=== PATIENT | male | born 1940 | race Caucasian/White ===

== ENCOUNTER 2017-04-19 21:17 | Inpatient (IN) | payer MEDICARE, BC ==
[~2017-04-19] VITALS: Ht 170.2 cm; Wt 62.1 kg
[2017-04-19] MEDS ORDERED: IOHEXOL 350 MG/ML 10 ML VIAL (for RAD DIAG) IVCONTRAST ONE (21:18)
[2017-04-19 21:19] VITALS: BP 123/84; PULSE 121; RESP 18; TEMP 98.2; O2SAT 97
[2017-04-19] MEDS ORDERED: PRED2.5T PO (21:29)
[2017-04-19] MEDS ORDERED: DOXY1CAP74 PO (21:29)
[2017-04-19] MEDS ORDERED: ROSU1TAB8 PO (21:29)
[2017-04-19] MEDS ORDERED: IPRA0.06 (21:29)
[2017-04-19] MEDS ORDERED: METF500T PO (21:29)
[2017-04-19] MEDS ORDERED: LIDO1CRE18 (21:29)
[2017-04-19] MEDS ORDERED: REFRDRO EACH EYE (21:29)
[2017-04-19] MEDS ORDERED: REST0.05 EACH EYE (21:29)
[2017-04-19] MEDS ORDERED: CLOP75TA PO (21:29)
[2017-04-19] MEDS ORDERED: LYRI100C PO (21:29)
[2017-04-19] MEDS ORDERED: AZAT50 PO (21:29)
[2017-04-19] MEDS ORDERED: SODIUM CHLORID 0.9% 500 ML INJ 500 ML IV ONE (21:30)
[2017-04-19] MEDS ORDERED: SODIUM CHLORIDE 0.9% FLUSH 10 ML FLUSH IVF PRN (21:30)
[2017-04-19] MEDS ORDERED: VITA250C3 CHEW (21:31)
[2017-04-19] MEDS ORDERED: FLINT2 CHEW (21:31)
[2017-04-19] MEDS ORDERED: VITA1000 PO (21:31)
[2017-04-19] MEDS ORDERED: ASPI-516 CHEW (21:31)
[2017-04-19] MEDS ORDERED: PYRI50CA (21:31)
[2017-04-19] MEDS ORDERED: FIBE625T10 PO (21:31)
[2017-04-19] MEDS ORDERED: MULTTAB67 PO (21:31)
[2017-04-19] MEDS ORDERED: VITA10002 PO (21:31)
[2017-04-19 21:32] VITALS: O2SAT 94
[2017-04-19 21:47] LABS: AUTOMATED NEUTROPHIL # 4.1 TH/MM3 (1.8-7.7); BASOPHIL % 0.3 % (0.0-2.0); EOSINOPHIL # 0.1 TH/MM3 (0-0.4); EOSINOPHIL % 1.1 % (0.0-4.0); HEMOGLOBIN 12.5 GM/DL (13.0-17.0); LYMPH % 23.7 % (9.0-44.0); LYMPHOCYTE # 1.5 TH/MM3 (1.0-4.8); MEAN CELL VOLUME 101.9 FL (80.0-100.0); MEAN CORPUSCULAR HEMOGLOBIN 33.4 PG (27.0-34.0); MEAN CORPUSCULAR HGB CONC 32.8 % (32.0-36.0); MEAN PLATELET VOLUME 8.6 FL (7.0-11.0); MONO % 10.6 % (0.0-8.0); MONOCYTE # 0.7 TH/MM3 (0-0.9); NEUT % 64.3 % (16.0-70.0); PLATELET COUNT 171 TH/MM3 (150-450); RED BLOOD COUNT 3.73 MIL/MM3 (4.50-5.90); WHITE BLOOD COUNT 6.3 TH/MM3 (4.0-11.0)
--- NOTE | 2017-04-19 22:04 | RADRPT ---
EXAM DATE/TIME: 04/19/2017 21:49 [facility] COMPARISON: No previous studies available for comparison. INDICATIONS : Dizziness. MEDICAL HISTORY : Hypertension. Myocardial infarction. Carcinoma, prostatic. Athritis. Diabetes. SURGICAL HISTORY : Cardiac catherization. ENCOUNTER: Initial ACUITY: 2 weeks PAIN SCORE: 0/10 LOCATION: Bilateral chest FINDINGS: The mild bibasilar airspace disease and likely trace bilateral pleural effusions. Cardiomediastinal c ontours are within normal limits. There is an intramedullary sclerotic lesion in the right humeral ne ck with ill-defined transition zone and potential medial cortical involvement. No significant periost eal reaction. CONCLUSION: 1. Mild bibasilar airspace disease with trace bilateral pleural effusions. 2. Intramedullary sclerotic lesion in the right humeral neck with potentially aggressive features. Co mparison with prior examinations would be beneficial in further evaluation. Alternatively, dedicated radiographs of the right humerus may be obtained for further evaluation on an outpatient basis. Bradford Quach MD on April 19, 2017 at 21:59 Board Certified Radiologist. This report was verified electronically.
[2017-04-19 22:06] LABS: INTERNATIONAL NORMALIZED RATIO 1.1 RATIO; PROTHROMBIN TIME - PATIENT 10.9 SEC (9.8-11.6)
[2017-04-19 22:08] LABS: ALT (GPT) 18 U/L (12-78)
[2017-04-19 22:12] LABS: ALKALINE PHOSPHATASE 107 U/L (45-117); TOTAL BILIRUBIN ADULT 0.5 MG/DL (0.2-1.0); TOTAL PROTEIN 6.6 GM/DL (6.4-8.2); TROPONIN I LESS THAN 0.02 NG/ML (0.02-0.05)
[2017-04-19 22:13] LABS: ALBUMIN 2.8 GM/DL (3.4-5.0); AST (GOT) 28 U/L (15-37); BICARBONATE 26.4 MEQ/L (21.0-32.0); BLOOD UREA NITROGEN 20 MG/DL (7-18); CALCIUM 9.1 MG/DL (8.5-10.1); CHLORIDE 105 MEQ/L (98-107); CREATININE 0.97 MG/DL (0.60-1.30); GLOMERULAR FILTRATION RATE 75 ML/MIN (>89); GLUCOSE,RANDOM 106 MG/DL (74-106); LIPASE 466 U/L (73-393); MAGNESIUM 1.6 MG/DL (1.5-2.5); SODIUM (NA) 140 MEQ/L (136-145)
[2017-04-19 22:21] LABS: D-DIMER 4.59 MG/L FEU (0.00-0.50)
[2017-04-19 22:30] VITALS: BP 136/82; PULSE 94; RESP 18; O2SAT 95
[2017-04-19] MEDS ORDERED: METOPROLOL TARTRATE 5 MG/5 ML VIAL IV PUSH ONE (22:30)
--- NOTE | 2017-04-19 23:12 | PD ---
HPI Chief Complaint: Chest Pain Time Seen by Provider: 21:27 Travel History International Travel<30 days: No Contact w/Intl Traveler<30days: No Traveled to known affect area: No History of Present Illness HPI 77-year-old man, presents emergent department with increasing shortness of breath and dyspnea on exertion worsening over the past several weeks. Overall has been doing very poorly, losing weight, losing strength. He states his heart rates been elevated over the past week as well. He's been a little bit sick with some cough cold symptoms. 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 fib with sounds like a history of. He reports he had an echo about a month or so ago. 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 Le Social History Alcohol Use: No Tobacco Use: No Allergies-Medications (Allergen,Severity, Reaction): Coded Allergies: No Known Allergies (Verified Allergy, Severe, 04/19/17) Reported Meds & Prescriptions Reported Meds & Active Scripts Active Reported Flintstones Complete (Iron/Minerals/Multivitamins) 60 Mg Tab 65 Mg CHEW BID Multiple Vitamin 1 Tab 1 Tab PO DAILY Vitamin C (Ascorbic Acid) 250 Mg Chew 500 Mg CHEW DAILY Vitamin B-12 (Cyanocobalamin) 1,000 Mcg Tab 1,000 Mcg PO DAILY Vitamin B-6 (Pyridoxine HCl (Vitamin B6)) 50 Mg Capsule Aspirin 81 Mg Chew 81 Mg CHEW DAILY Fiber (Calcium Polycarbophil) Unknown Strength Tab Unknown Dose PO PRN Vitamin D-1000 (Cholecalciferol) 1,000 Unit Tab 2,000 Units PO DAILY Ipratropium [place] 42 Mcg (0.06 %) [place] Lidocaine Topical (Lidocaine) Unknown Strength Cream Unknown Dose Lyrica (Pregabalin) 100 Mg Cap 100 Mg PO TID Prednisone 2.5 Mg Tab 2.5 Mg PO DAILY Refresh Opth Drops (Polyvinyl Alcohol-Povidone Opth Drops) 1.4-0.6% Drops 1-2 Drop EACH EYE PRN PRN Restasis Opth (Cyclosporine Opth) 0.05% Emul 1 Drop EACH EYE BID Azathioprine 50 Mg Tab 50 Mg PO BID Hazardous agent use appropriate precautions for handling and disposal. Clopidogrel (Clopidogrel Bisulfate) 75 Mg Tab 75 Mg PO DAILY Doxycycline 40 Mg Cap 100 Mg PO BID Rosuvastatin (Rosuvastatin Calcium) 20 Mg Tab 20 Mg PO DAILY Metformin (Metformin HCl) 500 Mg Tab 500 Mg PO BIDPC Review of Systems Except as stated in HPI: all other systems reviewed are Neg Physical Exam Narrative GENERAL: 77-year-old man, mild distress, frail and cachectic appearing. SKIN: Decreased skin turgor. HEAD: Atraumatic. Normocephalic. EYES: Pupils equal and round. No scleral icterus. No injection or drainage. ENT: No nasal bleeding or discharge. Mucous membranes pink and moist. NECK: Trachea midline. No JVD. CARDIOVASCULAR: Heart rate rapid with frequent ectopy. Very active precordium with displaced PMI. Jugular venous pulse sensations are very prominent and neck as well. There is a very short systolic murmur in the left upper sternal border versus robbed. His a gallop heard in the lower precordium as well. RESPIRATORY: No accessory muscle use. Clear to auscultation. Breath sounds equal bilaterally. GASTROINTESTINAL: Abdomen soft, non-tender, nondistended. Hepatic and splenic margins not palpable. MUSCULOSKELETAL: No obvious deformities. No edema. NEUROLOGICAL: Awake and alert. No obvious cranial nerve deficits. Motor grossly within normal limits. Normal speech. PSYCHIATRIC: Appropriate mood and affect; insight and judgment normal. Data Data Last Documented VS Vital Signs Date Time Temp Pulse Resp B/P (MAP) Pulse Ox O2 Delivery O2 Flow Rate FiO2 04/20/17 00:06 97 20 123/70 (87) 95 Nasal Cannula 2.00 04/19/17 21:19 98.2 Orders Orders Electrocardiogram (04/19/17 21:27) B-Type Natriuretic Peptide (04/19/17 21:27) Complete Blood Count With Diff (04/19/17 21:27) Comprehensive Metabolic Panel (04/19/17 21:27) D-Dimer (04/19/17 21:27) Magnesium (Mg) (04/19/17 21:27) Prothrombin Time / Inr (Pt) (04/19/17 21:27) Act Partial Throm Time (Ptt) (04/19/17 21:27) Troponin I (04/19/17 21:27) Lipase (04/19/17 21:27) Chest, Single Ap (04/19/17 21:27) Ecg Monitoring (04/19/17 21:27) Iv Access Insert/Monitor (04/19/17 21:27) Oximetry (04/19/17 21:27) Oxygen Administration (04/19/17 21:27) Sodium Chloride 0.9% Flush (Ns Flush) (04/19/17 21:30) Sodium Chlorid 0.9% 500 Ml Inj (Ns 500 M (04/19/17 21:30) Ed Poc Ultrasound (04/19/17 ) Metoprolol Tartrate Inj (Lopressor Inj) (04/19/17 22:30) Ct Pulmonary Angiogram (04/19/17 ) Iohexol 350 Inj (Omnipaque 350 Inj) (04/19/17 21:18) Heparin Inj (Heparin Inj) (04/19/17 23:45) Heparin-D5w 25,000 U/250 Ml (Heparin-D5w (04/19/17 23:45) Cbc No Diff, Includes Plts (04/22/17 06:00) Act Partial Throm Time (Ptt) (04/20/17 06:43) Occult Blood (Hemoccult) Stool (04/19/17 23:43) Humerus (Min 2vws) (04/20/17 ) Consult Medical Oncology (04/20/17 ) Bedside Glucose GOLDEN.CSUGAR (04/20/17 00:54) Special Diet Instructions (04/20/17 00:54) Blood Glucose Goal (Criteria) (04/20/17 00:54) Hypoglycemia 70 Mg/Dl Or < (04/20/17 00:54) Notify Dr: Other (04/20/17 00:54) Dextrose 50% In Jon (Vial) Inj (D50w (Vi (04/20/17 01:00) Glucagon Inj (Glucagon Inj) (04/20/17 01:00) Consult Cardiology (04/20/17 ) Admit To Inpatient (04/20/17 ) Vital Signs (Adult) Q4H (04/20/17 00:56) Activity Bed Rest (04/20/17 00:56) Mechanics Supervisor / Telemetry GOLDEN.Q8H (04/20/17 00:56) Intake + Output GOLDEN.QSHIFT (04/20/17 00:56) Diet Heart Healthy (04/20/17 Breakfast) Sodium Chloride 0.9% Flush (Ns Flush) (04/20/17 01:00) Sodium Chloride 0.9% Flush (Ns Flush) (04/20/17 09:00) Resp Pulse Oximetry (04/20/17 ) Resp Oxygen Ibrahima C Titrat 1-4 L (04/20/17 ) Heparin-D5w 25,000 U/250 Ml (Heparin-D5w (04/20/17 01:00) Inpatient Certification (04/20/17 ) Aspirin Chew (Aspirin Chew) (04/20/17 09:00) Azathioprine (Imuran) (04/20/17 09:00) Pregabalin (Lyrica) (04/20/17 09:00) Artificial Tears Opth Soln (Tears Natura (04/20/17 09:00) Prednisone (Deltasone) (04/20/17 09:00) Atorvastatin (Lipitor) (04/20/17 09:00) Clopidogrel (Plavix) (04/20/17 09:00) Polyvinyl Alc-Povidone Pf Opth (Refresh (04/20/17 01:00) Admit Order (Ed Use Only) (04/20/17 ) Labs Laboratory Tests Test 04/19/17 21:33 White Blood Count 6.3 TH/MM3 Red Blood Count 3.73 MIL/MM3 Hemoglobin 12.5 GM/DL Hematocrit 38.0 % Mean Corpuscular Volume 101.9 FL Mean Corpuscular Hemoglobin 33.4 PG Mean Corpuscular Hemoglobin Concent 32.8 % Red Cell Distribution Width 16.0 % Platelet Count 171 TH/MM3 Mean Platelet Volume 8.6 FL Neutrophils (%) (Auto) 64.3 % Lymphocytes (%) (Auto) 23.7 % Monocytes (%) (Auto) 10.6 % Eosinophils (%) (Auto) 1.1 % Basophils (%) (Auto) 0.3 % Neutrophils # (Auto) 4.1 TH/MM3 Lymphocytes # (Auto) 1.5 TH/MM3 Monocytes # (Auto) 0.7 TH/MM3 Eosinophils # (Auto) 0.1 TH/MM3 Basophils # (Auto) 0.0 TH/MM3 CBC Comment DIFF FINAL Differential Comment Prothrombin Time 10.9 SEC Prothromb Time International Ratio 1.1 RATIO Activated Partial Thromboplast Time 26.4 SEC D-Dimer Quantitative (PE/DVT) 4.59 MG/L FEU Blood Urea Nitrogen 20 MG/DL Creatinine 0.97 MG/DL Random Glucose 106 MG/DL Total Protein 6.6 GM/DL Albumin 2.8 GM/DL Calcium Level 9.1 MG/DL Magnesium Level 1.6 MG/DL Alkaline Phosphatase 107 U/L Aspartate Amino Transf (AST/SGOT) 28 U/L Alanine Aminotransferase (ALT/SGPT) 18 U/L Total Bilirubin 0.5 MG/DL Sodium Level 140 MEQ/L Potassium Level 4.2 MEQ/L Chloride Level 105 MEQ/L Carbon Dioxide Level 26.4 MEQ/L Anion Gap 9 MEQ/L Estimat Glomerular Filtration Rate 75 ML/MIN Troponin I LESS THAN 0.02 NG/ML B-Type Natriuretic Peptide 257 PG/ML Lipase 466 U/L MDM Medical Decision Making Medical Screen Exam Complete: Yes Emergency Medical Condition: Yes Interpretation(s) My review of EKG: Initial EKG from 13/05/19 shows wide complex tachycardia were frequent ectopy and a right bundle branch pattern left axis deviation that could suggest a trifascicular block. Some concern for underlying ventricular arrhythmia also. Repeat EKG shows more regular wide-complex arrhythmia, still unclear rhythm. LABS: CBC remarkable for mild anemia. CMP is unremarkable. Lipase is 466 BNP is 257 Troponins negative Coags unremarkable D-dimer 4.59 Chest x-ray: Small bibasilar airspace disease with trace pleural effusions. Also right humeral lesion, possibly malignant, needs further evaluation. CT pulmonary angiogram. Positive for pulmonary embolism. Distal segmental and subsegmental level the pulmonary artery branches. No evidence of right heart strain. Small bilateral effusions. Differential Diagnosis Arrhythmia, electrolyte abnormality, heart failure, malignancy, pericardial effusion or [place] and on, [place], other Narrative Course Medical decision making This 77-year-old man who presents to the emergency department with significant dyspnea on exertion and shortness of breath, very abnormal precordial exam, abnormal EKG with likely tachycardia with aberrancy versus ventricular arrhythmia. I spoke with the on-call automobile parts assembler for Dr. Le, Dr. Oneal, recommend beta blockers over amiodarone. Attempted bedside ultrasound which was unrevealing due to technical limitations. Concern for malignancy in the shoulder. He has had weight loss and other symptoms or could suggest occult malignancy. We'll plan on admission for further evaluation. CT for pulmonary embolism also pending. FINAL: Patient positive for pulmonary embolism. Will be admitted to medicine. Started heparin. Still likely some deeper underlying explanation for the patient's symptoms. Diagnosis Primary Impression: Pulmonary embolism Conor Menezes MD Apr 19, 2017 23:12
--- NOTE | 2017-04-19 23:13 | RADRPT ---
EXAM DATE/TIME: 04/19/2017 22:38 [facility] COMPARISON: No previous studies available for comparison. INDICATIONS : Chest pain. IV CONTRAST: 75 cc Omnipaque 350 (iohexol) IV RADIATION DOSE: 7.11 CTDIvol (mGy) MEDICAL HISTORY : Cardiovascular disease. Hypertension. SURGICAL HISTORY : None. ENCOUNTER: Initial ACUITY: 1 day PAIN SCALE: 7/10 LOCATION: Bilateral chest TECHNIQUE: Volumetric scanning of the chest was performed using a pulmonary embolism protocol MIP images were re constructed. Using automated exposure control and adjustment of the mA and/or kV according to patien t size, radiation dose was kept as low as reasonably achievable to obtain optimal diagnostic quality images. DICOM format image data is available electronically for review and comparison. Follow-up recommendations for detected pulmonary nodules are based at a minimum on nodule size and pa tient risk factors according to Fleischner Society Guidelines. FINDINGS: PULMONARY ARTERIES: There are intraluminal filling defects involving the segmental and subsegmental branches of the lower lobe pulmonary arteries bilaterally. There also filling defects involving some of the upper lobe sub segmental branches. Overall, there is a small to moderate thrombus burden. LUNGS: Mild airspace consolidation at the lung bases. PLEURAE: Small bilateral pleural effusions, right greater than left. MEDIASTINUM: Heart is unremarkable without evidence for septal bowing to suggest restraint. Moderate coronary calc ifications. No significant adenopathy. MUSCULOSKELETAL: Within normal limits for patient age. MISCELLANEOUS: The visualized upper abdominal organs demonstrate no acute abnormality. CONCLUSION: 1. Abnormal examination demonstrating pulmonary artery embolism to the distal segmental and subsegmen ketan level of the pulmonary artery branches. Overall thrombus burden is small to moderate. No CT evide nce for right heart strain. 2. Small bilateral pleural effusions and airspace consolidation at the lung bases, likely compressive atelectasis and scarring. 3. Moderate coronary artery calcifications. Bradford Quach MD on April 19, 2017 at 23:05 Board Certified Radiologist. This report was verified electronically.
[2017-04-19] MEDS ORDERED: HEPARIN SODIUM - IV 10,000 UNITS/10 ML VIAL IV ONE (23:45)
[2017-04-19] MEDS ORDERED: HEPARIN-D5W 25,000 U/250 ML 250 ML IV PRN (23:45)
[2017-04-20] VITALS (12 sets, daily range): BP systolic 123–179; BP diastolic 67–79; PULSE 52–97; RESP 14–30; TEMP 97.7–98.8; O2SAT 95–100
[2017-04-20] MEDS ORDERED: GLUCAGON 1 MG/ML VIAL OTHER PRN ×2 (01:00→02:00)
[2017-04-20] MEDS ORDERED: DEXTROSE 50% IN WATER 50 ML VIAL(D50) IV PUSH PRN ×2 (01:00→02:00)
[2017-04-20] MEDS ORDERED: HEPARIN-D5W 25,000 U/250 ML 250 ML IV PRN (01:00)
[2017-04-20] MEDS ORDERED: POLYVINYL ALC-POVIDONE 1.4/0.6% PF OPTH SOLN 0.4 ML EACH EYE PRN (01:00)
[2017-04-20] MEDS ORDERED: SODIUM CHLORIDE 0.9% FLUSH 10 ML FLUSH IV FLUSH PRN (01:00)
--- NOTE | 2017-04-20 01:19 | RADRPT ---
EXAM DATE/TIME: 04/20/2017 01:00 [facility] COMPARISON: CHEST SINGLE AP, April 19, 2017, 21:49. CT PULMONARY ANGIOGRAM, April 19, 2017, 22:38. INDICATIONS : Evaluate right intramedullary lesion. No current right arm pain. MEDICAL HISTORY : Cardiovascular disease. Hypertension. SURGICAL HISTORY : None. ENCOUNTER: Initial ACUITY: 1 day PAIN SCORE: 0/10 LOCATION: Right humerus. 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 CONCLUSION: The sclerotic lesion of right proximal humerus could be a giant bone island could be further characte rized and confirmed with right humerus MRI examination with and without contrast if indicated arthur Perez MD on April 20, 2017 at 1:15 Board Certified Radiologist. This report was verified electronically.
--- NOTE | 2017-04-20 02:29 | HHI.HP ---
[facility] Cheikh Funes III, MD Admission Diagnosis PE Diagnoses: Travel History International Travel<30 Days: No Contact w/Intl Traveler <30 Da: No Traveled to Known Affected Are: No History of Present Illness 77-year-old male with a past medical history significant for CAD status post [place] in 2002, previous diagnosis of hypertension with recent discontinuation of his antihypertensives, hyperlipidemia, diabetes mellitus and history of prostate cancer presents to the emergency department for evaluation of increasing dyspnea. The patient reports he has felt sick for "a couple of years". He reports increasing fatigue and weakness and a 10 pound weight loss over the past 1.5 weeks. He has accompanying anorexia. He reports 4-5 days of increasing shortness of breath, worse with activity. Chest x-ray showed intramedullary sclerotic lesion of the right humeral neck with potentially aggressive features. CTA positive for PE without evidence of right heart strain. The patient has an extremely poor historian, directs me to his for further characterization of his past medical history. Review of Systems Denies fever or chills Denies blurry vision, otorrhea, rhinorrhea Denies sore throat and cough No chest pain, palpitations, positive shortness of breath No abdominal pain Denies constipation/diarrhea/nausea/vomiting Positive fatigue/generalized weakness No rashes Past Family Social History Past Medical History History of prostate cancer with recurrence Hypertension, patient previously taken off all antihypertensive medications Hyperlipidemia Diabetes mellitus Coronary artery disease status post [place] in 2002 with stent placement Unspecified medical condition for which patient has been taking prednisone for a year Past Surgical History Prostate cryosurgery 12 years ago for prostate cancer Reported Medications Reported Meds & Active Scripts Active Reported Flintstones Complete (Iron/Minerals/Multivitamins) 60 Mg Tab 65 Mg CHEW BID Multiple Vitamin 1 Tab 1 Tab PO DAILY Vitamin C (Ascorbic Acid) 250 Mg Chew 500 Mg CHEW DAILY Vitamin B-12 (Cyanocobalamin) 1,000 Mcg Tab 1,000 Mcg PO DAILY Vitamin B-6 (Pyridoxine HCl (Vitamin B6)) 50 Mg Capsule Aspirin 81 Mg Chew 81 Mg CHEW DAILY Fiber (Calcium Polycarbophil) Unknown Strength Tab Unknown Dose PO PRN Vitamin D-1000 (Cholecalciferol) 1,000 Unit Tab 2,000 Units PO DAILY Ipratropium [place] 42 Mcg (0.06 %) [place] Lidocaine Topical (Lidocaine) Unknown Strength Cream Unknown Dose Lyrica (Pregabalin) 100 Mg Cap 100 Mg PO TID Prednisone 2.5 Mg Tab 2.5 Mg PO DAILY Refresh Opth Drops (Polyvinyl Alcohol-Povidone Opth Drops) 1.4-0.6% Drops 1-2 Drop EACH EYE PRN PRN Restasis Opth (Cyclosporine Opth) 0.05% Emul 1 Drop EACH EYE BID Azathioprine 50 Mg Tab 50 Mg PO BID Hazardous agent use appropriate precautions for handling and disposal. Clopidogrel (Clopidogrel Bisulfate) 75 Mg Tab 75 Mg PO DAILY Doxycycline 40 Mg Cap 100 Mg PO BID Rosuvastatin (Rosuvastatin Calcium) 20 Mg Tab 20 Mg PO DAILY Metformin (Metformin HCl) 500 Mg Tab 500 Mg PO BIDPC Allergies: Coded Allergies: No Known Allergies (Verified Allergy, Severe, 04/19/17) Family History Mother with diabetes mellitus. Father with CAD Social History Ms. alcohol, tobacco and illicit drugs Physical Exam Vital Signs Vital Signs Date Time Temp Pulse Resp B/P (MAP) Pulse Ox O2 Delivery O2 Flow Rate FiO2 04/20/17 00:06 97 20 123/70 (87) 95 Nasal Cannula 2.00 04/19/17 22:30 94 18 136/82 (100) 95 Room Air 04/19/17 21:32 94 Room Air 04/19/17 21:32 94 Room Air 04/19/17 21:19 98.2 121 18 123/84 (97) 97 Physical Exam GENERAL: male lying in bed SKIN: No rashes, ecchymoses or lesions. Cool and dry. HEAD: Atraumatic. Normocephalic. No temporal or scalp tenderness. EYES: Pupils equal round and reactive. Extraocular motions intact. No scleral icterus. No injection or drainage. ENT: Nose without bleeding, purulent drainage or septal hematoma. Throat without erythema, tonsillar hypertrophy or exudate. Uvula midline. Airway patent. NECK: Trachea midline. No JVD or lymphadenopathy. Supple, nontender, no meningeal signs. CARDIOVASCULAR: Regular rate and rhythm without murmurs, gallops, or rubs. RESPIRATORY: Clear to auscultation. Breath sounds equal bilaterally. No wheezes , rales, or rhonchi. GASTROINTESTINAL: Abdomen soft, non-tender, nondistended. No hepato-splenomegaly , or palpable masses. No guarding. MUSCULOSKELETAL: Right foot and ankle edema. No calf tenderness. NEUROLOGICAL: Awake and alert. Cranial nerves II through XII intact. Motor and sensory grossly within normal limits. Normal speech. Laboratory Laboratory Tests Test 04/19/17 21:33 White Blood Count 6.3 Red Blood Count 3.73 Hemoglobin 12.5 Hematocrit 38.0 Mean Corpuscular Volume 101.9 Mean Corpuscular Hemoglobin 33.4 Mean Corpuscular Hemoglobin Concent 32.8 Red Cell Distribution Width 16.0 Platelet Count 171 Mean Platelet Volume 8.6 Neutrophils (%) (Auto) 64.3 Lymphocytes (%) (Auto) 23.7 Monocytes (%) (Auto) 10.6 Eosinophils (%) (Auto) 1.1 Basophils (%) (Auto) 0.3 Neutrophils # (Auto) 4.1 Lymphocytes # (Auto) 1.5 Monocytes # (Auto) 0.7 Eosinophils # (Auto) 0.1 Basophils # (Auto) 0.0 CBC Comment DIFF FINAL Differential Comment Prothrombin Time 10.9 Prothromb Time International Ratio 1.1 Activated Partial Thromboplast Time 26.4 D-Dimer Quantitative (PE/DVT) 4.59 Blood Urea Nitrogen 20 Creatinine 0.97 Random Glucose 106 Total Protein 6.6 Albumin 2.8 Calcium Level 9.1 Magnesium Level 1.6 Alkaline Phosphatase 107 Aspartate Amino Transf (AST/SGOT) 28 Alanine Aminotransferase (ALT/SGPT) 18 Total Bilirubin 0.5 Sodium Level 140 Potassium Level 4.2 Chloride Level 105 Carbon Dioxide Level 26.4 Anion Gap 9 Estimat Glomerular Filtration Rate 75 Troponin I LESS THAN 0.02 B-Type Natriuretic Peptide 257 Lipase 466 Result Diagram: 04/19/17213204/19/172132 Caprini VTE Risk Assessment Caprini VTE Risk Assessment: Mod/High Risk (score >= 2) Caprini Risk Assessment Model Point Value = 1 Point Value = 2 Point Value = 3 Point Value = 5 Age 41-60 Minor surgery BMI > 25 kg/m2 Swollen legs Varicose veins or History of unexplained or recurrent spontaneous Oral contraceptives or hormone replacement Sepsis (< 1 month) Serious lung disease, including pneumonia (< 1 month) Abnormal pulmonary function Acute myocardial infarction Congestive heart failure (< 1 month) History of inflammatory bowel disease Medical patient at bed rest Age 61-74 Arthroscopic surgery Major open surgery (> 45 min) Laparoscopic surgery (> 45 min) Malignancy Confined to bed (> 72 hours) Immobilizing plaster cast Central venous access Age >= 75 History of VTE Family history of VTE Factor V Leiden Prothrombin [id number] Lupus anticoagulant Anticardiolipin antibodies Elevated serum homocysteine Heparin-induced thrombocytopenia Other congenital or acquired thrombophilia Stroke (< 1 month) Elective arthroplasty Hip, pelvis, or leg fracture Acute spinal cord injury (< 1 month) Prophylaxis Regimen Total Risk Factor Score Risk Level Prophylaxis Regimen 0-1 Low Early ambulation 2 Moderate Order ONE of the following: *Sequential Compression Device (SCD) *Heparin 5000 units SQ BID 3-4 Higher Order ONE of the following medications: *Heparin 5000 units SQ TID *Enoxaparin/Lovenox 40 mg SQ daily (WT < 150 kg, CrCl > 30 mL/min) *Enoxaparin/Lovenox 30 mg SQ daily (WT < 150 kg, CrCl > 10-29 mL/min) *Enoxaparin/Lovenox 30 mg SQ BID (WT < 150 kg, CrCl > 30 mL/min) AND/OR *Sequential Compression Device (SCD) 5 or more Highest Order ONE of the following medications: *Heparin 5000 units SQ TID (Preferred with Epidurals) *Enoxaparin/Lovenox 40 mg SQ daily (WT < 150 kg, CrCl > 30 mL/min) *Enoxaparin/Lovenox 30 mg SQ daily (WT < 150 kg, CrCl > 10-29 mL/min) *Enoxaparin/Lovenox 30 mg SQ BID (WT < 150 kg, CrCl > 30 mL/min) AND *Sequential Compression Device (SCD) Assessment and Plan Assessment and Plan Assessment/plan: 1. PE CTA positive for pulmonary embolus Heparin drip Hematology consulted, appreciate recommendations 2. Fatigue/generalized weakness/anorexia/weight loss/sclerotic lesion of the right humerus Patient with history of prostate cancer status post cryotherapy followed by radiation for recurrence Patient reports his PSA is increasing although he does not know the level Chest x-ray significant for intramedullary sclerotic lesion in the right humeral neck with potentially aggressive features Humerus x-rays pending for further characterization Oncology consulted 3. Tachycardia with abnormal EKG EKG significant for right bundle branch block with probable first-degree AV block and wide complex tachycardia, reviewed by me Patient status post metoprolol in the ED Patient's hardwood floor installation helper is Dr. Le Cardiology consulted, appreciate recommendations 4. Diabetes mellitus SSI Monitor BG 5. Hyperlipidemia/CAD Continue home medications 6. 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 In the case of services not specified as inpatient-only, they are appropriately provided as inpatient services in accordance with the 2-midnight benchmark. Estimated LOS (days): 2 2 days is the estimated time the patient will need to remain in the hospital, assuming treatment plan goals are met and no additional complications. Post-Hospital Plan: Not yet determined Noni Kellogg MD Apr 20, 2017 02:29
[2017-04-20] MEDS: INSULIN ASPART SUPPLEMENTAL SCALE SQ SCH ×4 (08:00→21:00)
--- NOTE | 2017-04-20 08:29 | HHI.PR ---
Subjective Remarks Follow up PE, right humerus lesion. Patient denies chest pain, dyspnea. He does report constipation. Objective Vitals Vital Signs Date Time Temp Pulse Resp B/P (MAP) Pulse Ox O2 Delivery O2 Flow Rate FiO2 04/20/17 04:00 Nasal Cannula 2.00 04/20/17 04:00 97.7 86 20 171/76 (107) 100 04/20/17 02:41 04/20/17 02:25 81 18 123/70 (87) 99 Nasal Cannula 2.00 04/20/17 00:06 97 20 123/70 (87) 95 Nasal Cannula 2.00 04/19/17 22:30 94 18 136/82 (100) 95 Room Air 04/19/17 21:32 94 Room Air 04/19/17 21:32 94 Room Air 04/19/17 21:19 98.2 121 18 123/84 (97) 97 I/O 04/19/17 04/19/17 04/19/17 04/20/17 04/20/17 04/20/17 07:00 15:00 23:00 07:00 15:00 23:00 Intake Total 500 ml Output Total 450 ml Balance 50 ml Intake IV Total 500 ml Output Urine Total 450 ml # Bowel Movements 0 Result Diagram: 04/19/17213204/19/172132 Imaging Last Impressions Humerus X-Ray 04/20/17 0000 Signed Impressions: Service Date/Time: March 01:00 - CONCLUSION: The sclerotic lesion of right proximal humerus could be a giant bone island could be further characterized and confirmed with right humerus MRI examination with and without contrast if indicated clinically. Isaías Perez MD Chest X-Ray 04/19/172126 Signed Impressions: Service Date/Time: Wednesday, April 19, 2017 21:49 - CONCLUSION: 1. Mild bibasilar airspace disease with trace bilateral pleural effusions. 2. Intramedullary sclerotic lesion in the right humeral neck with potentially aggressive features. Comparison with prior examinations would be beneficial in further evaluation. Alternatively, dedicated radiographs of the right humerus may be obtained for further evaluation on an outpatient basis. Bradford Quach MD CT Angiography 04/19/17 0000 Signed Impressions: Service Date/Time: Wednesday, April 19, 2017 22:38 - CONCLUSION: 1. Abnormal examination demonstrating pulmonary artery embolism to the distal segmental and subsegmental level of the pulmonary artery branches. Overall thrombus burden is small to moderate. No CT evidence for right heart strain. 2. Small bilateral pleural effusions and airspace consolidation at the lung bases , likely compressive atelectasis and scarring. 3. Moderate coronary artery calcifications. Bradford Quach MD Objective Remarks General: Elderly male in no acute distress. Heart: Regular rate and rhythm. No murmur. Lungs: Clear to auscultation bilaterally. No wheezes, rales, or rhonchi. Breathing is nonlabored. Abdomen: Soft, nontender, nondistended. Extremities: No lower extremity edema. SCDs. Psych: Alert and oriented. Procedures None Urinary Catheter: No Vascular Central Line Catheter: No A/P Assessment and Plan 1. Pulmonary embolus: Continue heparin drip. Hematology consult is pending. 2. Fatigue, generalized weakness, anorexia, weight loss: Patient has history of prostate cancer, status post cryotherapy and radiation. He does report that his PSA is increasing. There is a sclerotic lesion in the right humeral neck with potentially aggressive features. Check MRI for further evaluation. Hematology/ oncology consult pending. 3. Tachycardia, abnormal EKG: Patient's telecommunication lines repairer is Dr. Le. Cardiology consultation is pending. Monitor on telemetry. 4. Diabetes mellitus: Monitor Accu-Cheks and cover with sliding scale insulin. 5. Hyperlipidemia, coronary artery disease: Continue home medications. 6. Unspecified autoimmune disorder: Patient reported that he had been on prednisone for the past year, currently being tapered off. Also on Imuran per rheumatology. The patient is a poor historian and does not recall what his diagnosis is. Pepe Quintero MD Apr 20, 2017 08:29
[2017-04-20] MEDS: ATORVASTATIN 40 MG TAB PO SCH (08:39)
[2017-04-20] MEDS: ASPIRIN 81 MG CHEW TAB CHEW SCH (08:39)
[2017-04-20] MEDS: SODIUM CHLORIDE 0.9% FLUSH 10 ML FLUSH IV FLUSH SCH ×2 (08:39→20:17)
[2017-04-20] MEDS: predniSONE 5 MG TAB PO SCH (08:39)
[2017-04-20] MEDS: CLOPIDOGREL 75 MG TAB PO SCH (08:39)
[2017-04-20] MEDS ORDERED: ARTIFICIAL TEARS OPTH SOLN 15 ML BTL EACH EYE SCH (09:00)
[2017-04-20] MEDS: PREGABALIN 100 MG CAP PO SCH ×3 (09:00→17:37)
[2017-04-20] MEDS: azaTHIOprine 50 MG TAB PO SCH ×2 (09:56→20:16)
[2017-04-20] MEDS ORDERED: [UNRECOGNIZED DRUG - OTHER] LEFT EYE SCH (14:00)
--- NOTE | 2017-04-20 17:01 | MB ---
cc: RADHA QUINTERO RUBY ANNE E. M.D. DATE OF CONSULTATION 04/20/17 [birth year][address] Quintero CHIEF COMPLAINT Dr. Quintero requests a consultation for Mr. Richardson regarding pulmonary embolism associated with unintentional weight loss. HISTORY OF PRESENT ILLNESS Mr. Richardson is a 77-year-old man with multiple medical problems. He has a history of coronary artery disease, prostate cancer status post radiation with biochemical relapse, hypertension, hyperlipidemia and diabetes. He presented with a two-week history of worsening dyspnea on exertion and fatigue. He was spending a lot of time in his recliner. He was not wanting to walk, per his . He was undergoing evaluation by Dr. Funes for unintentional weight loss. He has had a cardiac evaluation that was negative. Workup for prostate cancer shows a rising PSA, but was around three. He had an upper endoscopy that showed abnormality in a barium swallow. Repeat evaluation is pending. He reports getting full very quickly. Denies any nausea, vomiting, no melena or bright red blood per rectum. He has no prior history of venous thromboembolic events. He is hard of hearing. Denies any fevers, no headaches. He cannot see well out of the left eye from previous zoster. He presented to the emergency room with the above symptoms of shortness of breath. A CT angiogram was performed on 04/19/2017 that shows abnormal exam with distal segmental subsegmental pulmonary emboli. Overall thrombus burden is small. There is no right heart strain. There is small bilateral pleural effusion and airspace disease. There is moderate coronary calcification. He fell a week prior and hit his right arm. There is a sclerotic lesion in the right proximal humerus. Because of the above bony findings and the history of prostate cancer as well as the pulmonary emboli, hematology/Oncology was consulted. The rest of his review of systems is negative. PAST MEDICAL HISTORY 1. Biochemical relapse prostate cancer, 2. Hypertension 3. Hyperlipidemia, 4. Diabetes, 5. Coronary artery disease, 6. Unintentional weight loss 7. Dysphagia PAST SURGICAL HISTORY 1. Prostate cryosurgery 2. Radiation therapy to the prostate 3. Prostate biopsy FAMILY HISTORY Significant for mother who of lung cancer in her 70s. Father of coronary artery disease at age 52. SOCIAL HISTORY Denies any tobacco, alcohol or illicit drug use. ALLERGIES NO KNOWN DRUG ALLERGIES. MEDICATIONS Current, 1. Aspirin. 2. Imuran. 3. Plavix. 4. Lyrica 5. Deltasone 6. Lipitor PHYSICAL EXAMINATION VITAL SIGNS: Temperature 97.8, heart rate 68, blood pressure 162/71, saturation 97%. GENERAL: Mr. Richardson is a well-developed, well-nourished elderly man who is hard of hearing. The is at bedside who supplements his history. HEENT: Pupils are round, reactive to light and accommodation, left eyelid with a droop. NECK: Supple with no adenopathy. No axillary adenopathy. LUNGS: Clear to auscultation. CARDIOVASCULAR: Bradycardia. ABDOMEN: Benign and soft. LOWER EXTREMITIES: No edema. He moves all four extremities. LABORATORY DATA Significant for macrocytic anemia with hemoglobin of 12.5, MCV 101.9, BUN and creatinine are normal, BNP 257, albumin is 2.8, lipase 466, PTT 46.6 seconds. ASSESSMENT/PLAN Mr. Richardson is a 77-year-old man with multiple medical problems. He had a two-week history of worsening shortness of breath, fatigue, dyspnea on exertion. He has a precipitating event of being less active and spending a lot of time in his recliner. He is found to have a small burden pulmonary embolism. He is on anticoagulant therapy with unfractionated heparin. We discussed plans to switch him to a low molecular weight heparin bridge him to a therapeutic INR. We discussed the options of a new oral anticoagulants versus Coumadin. During his hospitalization, I would use low-molecular weight heparin, bridge him to Coumadin. He plans to follow up with Dr. Funes, his primary physician, to continue his anticoagulant therapy. We discussed that when he is stable on outpatient basis, we may proceed with switching him over to a new oral anticoagulant. We discussed risks and benefit of the new oral anticoagulant versus Coumadin. We discussed that a new oral anticoagulants did not have a reversal agent and it is not clear if he needs additional procedures. Although he has prostate cancer, it seems that he has a biochemical relapse. He is not confirmed to have metastatic prostate cancer at present. He had an injury that may explain the right arm/the right proximal humerus. MRI of the arm will be obtained for radiology recommendation. Depending on the above findings, we will coordinate further workup. He is noted to have a normocytic anemia dating back to 2002. He has had pelvic radiation in the past. Underlying bone marrow disorder like a myelodysplastic syndrome is considered. He has no diagnosis of this and it is unlikely to produce the weight loss and the cachexia that he is experiencing. It bears further evaluation on an outpatient basis. Regarding his weight loss, he is undergoing workup already coordinated by Dr. Funes. I defer to Dr. Funes to continue workup as he is already scheduled GI evaluation for the abnormal findings in the barium swallow. We will monitor his swallowing here. We can consult with our speech therapist to see if he is able to tolerate regular diet. He has been doing so at home. We will monitor his caloric intake. Mr. Richardson's questions were answered to his satisfaction. MD ROSALIA Bergeron/ /3:08 PM /4:18 PM
[2017-04-20] MEDS: WARFARIN SOD 2.5 MG TAB PO SCH (17:37)
[2017-04-20] MEDS ORDERED: GADODIAMIDE PF 287 MG/ML 5 ML VIAL (for RAD MRI) IV PUSH ONE (18:34)
[2017-04-20] MEDS: [UNRECOGNIZED DRUG - OTHER] LEFT EYE SCH (20:16)
--- NOTE | 2017-04-20 20:37 | RADRPT ---
EXAM DATE/TIME: 04/20/2017 19:43 [facility] COMPARISON: No previous studies available for comparison. INDICATIONS : Pulmonary embolism. MEDICAL HISTORY : Myocardial infarction. Arthritis. Carcinoma, prostate. Chest pain. HTN. Hiatal hernia. Heartburn. Elin betes. Anxiety. SURGICAL HISTORY : Cardiac cath. Right arthroscopy knee. ENCOUNTER: Initial ACUITY: 1 day PAIN SCORE: 0/10 LOCATION: Bilateral leg. TECHNIQUE: Venous ultrasound of the left and right leg was performed from the inguinal ligament to the proximal calf. Real-time, color Doppler and spectral tracing, compression and augmentation techniques were us ed. FINDINGS: RIGHT LEG: There is normal compressibility of the deep venous system from the inguinal region to the proximal ca lf. No echogenic clot is seen in the lumen of the common femoral, femoral, popliteal, and posterior tibial veins. There is a normal response of the venous system to proximal and distal augmentation an d respiration. LEFT LEG: There is normal compressibility of the deep venous system from the inguinal region to the proximal ca lf. No echogenic clot is seen in the lumen of the common femoral, femoral, popliteal, and posterior tibial veins. There is a normal response of the venous system to proximal and distal augmentation an d respiration. CONCLUSION: Normal examination. Jesus Dias MD on April 20, 2017 at 20:35 Board Certified Radiologist. This report was verified electronically.
--- NOTE | 2017-04-20 22:03 | PD.CONS ---
HPI Service Cardiology Consult Requested By Noni Newell Reason for Consult Wide complex tachycardia Primary Care Physician Cheikh Funes III, MD History of Present Illness 77-year-old male, patient of Dr. Le Who I cover today, with a past medical history significant for CAD status post CA in 2002, previous diagnosis of hypertension with recent discontinuation of his antihypertensives, hyperlipidemia, diabetes mellitus and history of prostate cancer presents to the emergency department for evaluation of increasing dyspnea. The patient reports he has felt sick for "a couple of years". He reports increasing fatigue and weakness and a 10 pound weight loss over the past 1.5 weeks. He has accompanying anorexia. He reports 4-5 days of increasing shortness of breath, worse with activity. Chest x-ray showed intramedullary sclerotic lesion of the right humeral neck with potentially aggressive features. CTA positive for PE without evidence of right heart strain. The patient has an extremely poor historian, most information obtained from chart review. ECG showed Wide QRS tachycardia at 120 bpm. Review of Systems Consitutional: COMPLAINS OF: Fatigue, DENIES: Fever, Chills, Weight gain, Weight loss Eyes: DENIES: Amaurosis Fugax, Change in vision HEENT: DENIES: Lightheadedness, Change in hearing Respiratory: COMPLAINS OF: See HPI, Shortness of breath, DENIES: Cough, Snoring , Wheezing, Sputum production Cardiovascular: COMPLAINS OF: Palpitations, Tachycardia, DENIES: See HPI, Chest pain, Syncope Gastrointestinal: DENIES: Nausea, Vomiting, Change in bowel habits, Reflux, Bloody stools, Melena Genitourinary: DENIES: Urinary incontinence, Difficulty voiding Integumentary: DENIES: Rash Neurologic: DENIES: Tingling or numbness, Memory problems, Poor Balance, Stroke symptoms Musculoskeletal: COMPLAINS OF: Joint pain, DENIES: Muscle pain, Limited range of motion, Back pain Psychiatric: DENIES: Anxiety, Depression, Sleep disturbances Hematologic: DENIES: Bruising tendencies, Bleeding tendencies Endocrine: DENIES: Weight gain, Weight loss, Thyroid disease Past Family Social History Allergies: Coded Allergies: No Known Allergies (Verified Allergy, Severe, 04/19/17) Past Medical History History of prostate cancer with recurrence Hypertension, patient previously taken off all antihypertensive medications Hyperlipidemia Diabetes mellitus Coronary artery disease status post CA in 2002 with stent placement and recent one year ago. Unspecified medical condition for which patient has been taking prednisone for a year Reported Medications Reported Meds & Active Scripts Active Reported Flintstones Complete (Iron/Minerals/Multivitamins) 60 Mg Tab 65 Mg CHEW BID Multiple Vitamin 1 Tab 1 Tab PO DAILY Vitamin C (Ascorbic Acid) 250 Mg Chew 500 Mg CHEW DAILY Vitamin B-12 (Cyanocobalamin) 1,000 Mcg Tab 1,000 Mcg PO DAILY Vitamin B-6 (Pyridoxine HCl (Vitamin B6)) 50 Mg Capsule Aspirin 81 Mg Chew 81 Mg CHEW DAILY Fiber (Calcium Polycarbophil) Unknown Strength Tab Unknown Dose PO PRN Vitamin D-1000 (Cholecalciferol) 1,000 Unit Tab 2,000 Units PO DAILY Ipratropium [place] 42 Mcg (0.06 %) Kamrar Lidocaine Topical (Lidocaine) Unknown Strength Cream Unknown Dose Lyrica (Pregabalin) 100 Mg Cap 100 Mg PO TID Prednisone 2.5 Mg Tab 2.5 Mg PO DAILY Refresh Opth Drops (Polyvinyl Alcohol-Povidone Opth Drops) 1.4-0.6% Drops 1-2 Drop EACH EYE PRN PRN Restasis Opth (Cyclosporine Opth) 0.05% Emul 1 Drop EACH EYE BID Azathioprine 50 Mg Tab 50 Mg PO BID Hazardous agent use appropriate precautions for handling and disposal. Clopidogrel (Clopidogrel Bisulfate) 75 Mg Tab 75 Mg PO DAILY Doxycycline 40 Mg Cap 100 Mg PO BID Rosuvastatin (Rosuvastatin Calcium) 20 Mg Tab 20 Mg PO DAILY Metformin (Metformin HCl) 500 Mg Tab 500 Mg PO BIDPC Active Ordered Medications Current Medications Medications (Trade) Dose Ordered Sig/Jasper Route Start Time Stop Time Status Last Admin (D50w (Vial) Inj) 50 ml UNSCH PRN IV PUSH 04/20/17 01:00 (Glucagon Inj) 1 mg UNSCH PRN OTHER 04/20/17 01:00 (NS Flush) 2 ml UNSCH PRN IV FLUSH 04/20/17 01:00 (NS Flush) 2 ml BID IV FLUSH 04/20/17 09:00 04/20/17 20:17 Heparin Sodium/ Dextrose 250 ml @ 11 mls/hr TITRATE PRN IV 04/20/17 01:00 04/21/17 05:00 04/20/17 20:18 (Aspirin Chew) 81 mg DAILY CHEW 04/20/17 09:00 04/20/17 08:39 (Imuran) 50 mg BID PO 04/20/17 09:00 04/20/17 20:16 (Plavix) 75 mg DAILY PO 04/20/17 09:00 04/20/17 08:39 (Refresh Classic 1.4-0.6% Pf Opth Soln) 2 drop Q4HR PRN EACH EYE 04/20/17 01:00 (Lyrica) 100 mg TID PO 04/20/17 09:00 04/20/17 17:37 (Deltasone) 2.5 mg DAILY PO 04/20/17 09:00 04/20/17 08:39 (Lipitor) 40 mg DAILY PO 04/20/17 09:00 04/20/17 08:39 (NovoLOG SUPPLEMENTAL SCALE) 1 ACHS SLIDING SCALE SQ 04/20/17 08:00 Patient Own Medication PT OWN MED: RESTASIS (CYCLOSPOR... BID LEFT EYE 04/20/17 21:00 04/20/17 20:16 (Lovenox Inj) 60 mg Q12H SQ 04/21/17 08:00 (Coumadin) 2.5 mg DAILY@16 PO 04/20/17 16:00 04/20/17 17:37 Family History Mother with diabetes mellitus. Father with CAD Social History alcohol, tobacco and illicit drugs Physical Exam Vital Signs Vital Signs Date Time Temp Pulse Resp B/P (MAP) Pulse Ox O2 Delivery O2 Flow Rate FiO2 04/20/17 18:00 70 04/20/17 16:00 59 04/20/17 16:00 97.8 58 30 179/75 (109) 97 04/20/17 14:00 65 04/20/17 12:00 97.8 52 23 162/71 (101) 97 04/20/17 12:00 60 04/20/17 10:33 97 21 04/20/17 10:00 55 04/20/17 08:00 53 04/20/17 08:00 97.8 52 14 151/67 (95) 100 04/20/17 07:00 Room Air 04/20/17 04:00 Nasal Cannula 2.00 04/20/17 04:00 97.7 86 20 171/76 (107) 100 04/20/17 02:41 04/20/17 02:25 81 18 123/70 (87) 99 Nasal Cannula 2.00 04/20/17 00:06 97 20 123/70 (87) 95 Nasal Cannula 2.00 04/19/17 22:30 94 18 136/82 (100) 95 Room Air Physical Exam GENERAL: male lying in bed SKIN: No rashes, ecchymoses or lesions. Cool and dry. HEAD: Atraumatic. Normocephalic. No temporal or scalp tenderness. EYES: Pupils equal round and reactive. Extraocular motions intact. No scleral icterus. No injection or drainage. ENT: Nose without bleeding, purulent drainage or septal hematoma. Throat without erythema, tonsillar hypertrophy or exudate. Uvula midline. Airway patent. NECK: Trachea midline. No JVD or lymphadenopathy. Supple, nontender, no meningeal signs. CARDIOVASCULAR: Regular rate and rhythm without murmurs, gallops, or rubs. RESPIRATORY: Clear to auscultation. Breath sounds equal bilaterally. No wheezes , rales, or rhonchi. GASTROINTESTINAL: Abdomen soft, non-tender, nondistended. No hepato-splenomegaly , or palpable masses. No guarding. MUSCULOSKELETAL: Right foot and ankle edema. No calf tenderness. NEUROLOGICAL: Awake and alert. Cranial nerves II through XII intact. Motor and sensory grossly within normal limits. Normal speech. Laboratory Laboratory Tests Test 04/20/17 03:30 04/20/17 08:15 04/20/17 10:50 04/20/17 16:04 Nasal Screen MRSA (PCR) MRSA NOT DETECTED Activated Partial Thromboplast Time 150.8 46.6 59.7 Result Diagram: 04/19/17213204/19/172132 Assessment and Plan Problem List: (1) Tachycardia ICD Codes: R00.0 - Tachycardia, unspecified Plan: due to PE back to Sinus rhythm. Rate control now, (2) CAD (coronary artery disease) ICD Codes: I25.10 - Atherosclerotic heart disease of [place] coronary artery without angina pectoris Plan: Continue home medications (3) Pulmonary embolism ICD Codes: I26.99 - Other pulmonary embolism without acute cor pulmonale Status: Acute Plan: Continue IV Heparin. Consider NOAC such as Eliquis PE protocol. Problem Qualifiers (1) CAD (coronary artery disease): Qualified Codes: I25.10 - Atherosclerotic heart disease of [place] coronary artery without angina pectoris Wing Jaylin Flores MD Apr 20, 2017 22:03
--- NOTE | 2017-04-20 22:53 | EKG ---
Date Performed: 04/19/2017 Time Performed: 21:46:36 PTAGE: 77 years EKG: ECTOPIC ATRIAL TACHYCARDIA WITH FIRST DEGREE AV BLOCK RIGHT BUNDLE BRANCH BLOCK LEFT ANTERI OR FASCICULAR BLOCK ANTEROSEPTAL MYOCARDIAL INFARCTION ABNORMAL ECG PREVIOUS TRACING : 04/19/2017 21.18 Compared to prior tracing no significant change DOCTOR: Davy Gill Interpretating Date/Time 04/20/2017 22:51:43
--- NOTE | 2017-04-20 23:01 | EKG ---
Date Performed: 04/19/2017 Time Performed: 21:18:46 PTAGE: 77 years EKG: SINUS TACHYCARDIA WITH SHORT AL INTERVAL WITH FREQUENT VENTRICULAR PREMATURE COMPLEXES SARAH BETH ED RIGHT AXIS DEVIATION RIGHT BUNDLE BRANCH BLOCK ANTEROSEPTAL MYOCARDIAL INFARCTION ABNORMAL ECG PREVIOUS TRACING : 02/11/2003 06.25 Compared to the previous tracing sinus tachycardia is new DOCTOR: Davy Gill Interpretating Date/Time 04/20/2017 22:59:24
--- NOTE | 2017-04-20 23:08 | RADRPT ---
EXAM DATE/TIME: 04/20/2017 18:17 [facility] COMPARISON: HUMERUS RIGHT (MIN 2VWS), April 20, 2017, 1:00. US LEG BILATERAL VENOUS DOPPLER, April 20 7, 19:43. INDICATIONS : Evaluate right intramedullary lesion. CONTRAST: 12 cc Omniscan (gadodiamide) IV MEDICAL HISTORY : Diabetes mellitus type 2. Carcinoma, prostate. Gastroesophageal reflux disease. Blind in left eye. SURGICAL HISTORY : Coronary artery stent. ENCOUNTER: Initial ACUITY: 1 day PAIN SCORE: 2/10 LOCATION: Right Shoulder. TECHNIQUE: Multiplanar, multisequence MRI examination was performed with and without contrast. FINDINGS: ROTATOR CUFF: Small full thickness tear distal supraspinatus tendon at the anterior margin of its insertion. Fluid- filled gap measures 5 mm in medial to lateral dimension and 3 mm in anterior to posterior dimension. Infraspinatus, subscapularis, and teres minor tendons are intact. LABRUM: Labrum is within normal limits. MARROW/CARTILAGE: Sclerotic bone lesion measuring 2.0 x 1.9 cm in axial dimensions and 2.8 cm in craniocaudal dimension is identified in the right humeral neck.. No evidence of cortical disruption. No periosteal reaction . No soft tissue component. Bone marrow signal otherwise within normal limits. Glenohumeral joint art icular cartilage signal within normal limits. Minimal enhancement is seen at the periphery of the les ion. It is minimally heterogeneous on the T2-weighted images. OTHER: Mild hypertrophic change of the acromioclavicular joint. Acromial shape is type II (curve). Proximal biceps tendon is intact. POST-CONTRAST: Minimal enhancement on postcontrast images at the periphery of the bone lesion in the proximal humeru s. CONCLUSION: 1. 2.8 cm sclerotic bone lesion in the proximal right humerus correlating with plain film finding. In this patient with a history of prostate cancer, this finding is indeterminate. Differential diagnosi s includes prostate cancer metastasis versus giant bone island. Whole body bone scan could be perform ed for further evaluation and to evaluate for any other lesions. 2. Small full thickness distal anterior supraspinatus tendon tear. 3. Moderate acromioclavicular joint arthrosis. Brody Melchor MD on April 20, 2017 at 22:57 Board Certified Radiologist. This report was verified electronically.
[2017-04-21] VITALS (12 sets, daily range): BP systolic 96–182; BP diastolic 52–84; PULSE 54–73; RESP 17–24; TEMP 96.5–97.9; O2SAT 95–100
[2017-04-21 05:25] LABS: RETIC # 61.8 MIL/L (20.0-150.0); RETIC % 1.7 % (0.4-3.0)
[2017-04-21 05:46] LABS: LDH SERUM 151 U/L (87-241)
[2017-04-21] MEDS: INSULIN ASPART SUPPLEMENTAL SCALE SQ SCH ×4 (08:00→20:23)
--- NOTE | 2017-04-21 08:50 | HHI.PR ---
Subjective Remarks Follow-up pulmonary embolus, right arm lesion. The patient denies chest pain or dyspnea. States that he did not sleep well last night. No other complaints at this time. Objective Vitals Vital Signs Date Time Temp Pulse Resp B/P (MAP) Pulse Ox O2 Delivery O2 Flow Rate FiO2 04/21/17 06:00 60 04/21/17 04:00 73 04/21/17 04:00 97.6 73 20 163/74 (103) 97 04/21/17 02:00 61 04/21/17 00:00 60 04/21/17 00:00 97.9 60 24 170/75 (106) 100 04/20/17 22:00 68 04/20/17 20:00 98.4 69 22 165/79 (107) 96 04/20/17 20:00 69 04/20/17 18:00 70 04/20/17 16:00 59 04/20/17 16:00 97.8 58 30 179/75 (109) 97 04/20/17 14:00 65 04/20/17 12:00 97.8 52 23 162/71 (101) 97 04/20/17 12:00 60 04/20/17 10:33 97 21 04/20/17 10:00 55 I/O 04/20/17 04/20/17 04/20/17 04/21/17 04/21/17 04/21/17 07:00 15:00 23:00 07:00 15:00 23:00 Intake Total 500 ml 110 ml Output Total 450 ml 30 ml 540 ml Balance 50 ml -30 ml -430 ml Intake IV Total 500 ml 110 ml Output Urine Total 450 ml 30 ml 540 ml # Voids 5 1 # Bowel Movements 0 1 0 Result Diagram: 04/19/17213204/19/172132 Imaging Last Impressions Shoulder MRI 04/20/17 0000 Signed Impressions: Service Date/Time: March 18:17 - CONCLUSION: 1. 2.8 cm sclerotic bone lesion in the proximal right humerus correlating with plain film finding. In this patient with a history of prostate cancer, this finding is indeterminate. Differential diagnosis includes prostate cancer metastasis versus giant bone island. Whole body bone scan could be performed for further evaluation and to evaluate for any other lesions. 2. Small full thickness distal anterior supraspinatus tendon tear. 3. Moderate acromioclavicular joint arthrosis. Brody Melchor MD Lower Extremity Ultrasound 04/20/17 0000 Signed Impressions: Service Date/Time: March 19:43 - CONCLUSION: Normal examination. Jesus Dias MD Humerus X-Ray 04/20/17 0000 Signed Impressions: Service Date/Time: March 01:00 - CONCLUSION: The sclerotic lesion of right proximal humerus could be a giant bone island could be further characterized and confirmed with right humerus MRI examination with and without contrast if indicated clinically. Isaías Perez MD Chest X-Ray 04/19/172126 Signed Impressions: Service Date/Time: Wednesday, April 19, 2017 21:49 - CONCLUSION: 1. Mild bibasilar airspace disease with trace bilateral pleural effusions. 2. Intramedullary sclerotic lesion in the right humeral neck with potentially aggressive features. Comparison with prior examinations would be beneficial in further evaluation. Alternatively, dedicated radiographs of the right humerus may be obtained for further evaluation on an outpatient basis. Bradford Quach MD CT Angiography 04/19/17 0000 Signed Impressions: Service Date/Time: Wednesday, April 19, 2017 22:38 - CONCLUSION: 1. Abnormal examination demonstrating pulmonary artery embolism to the distal segmental and subsegmental level of the pulmonary artery branches. Overall thrombus burden is small to moderate. No CT evidence for right heart strain. 2. Small bilateral pleural effusions and airspace consolidation at the lung bases , likely compressive atelectasis and scarring. 3. Moderate coronary artery calcifications. Bradford Quach MD Objective Remarks General: Elderly male in no acute distress. Heart: Regular rate and rhythm. No murmur. Lungs: Clear to auscultation bilaterally. No wheezes, rales, or rhonchi. Breathing is nonlabored. Abdomen: Soft, nontender, nondistended. Extremities: No lower extremity edema. SCDs. Psych: Alert and oriented. Procedures None Urinary Catheter: No Vascular Central Line Catheter: No A/P Assessment and Plan 1. Pulmonary embolus: Appreciate hematology recommendations. Continue Lovenox bridging to therapeutic INR on Coumadin. 2. Fatigue, generalized weakness, anorexia, weight loss: Patient has history of prostate cancer, status post cryotherapy and radiation. He does report that his PSA is increasing. There is a sclerotic lesion in the right humeral neck with potentially aggressive features. MRI shows 2.8 cm sclerotic bone lesion in the proximal right humerus. Differential diagnosis includes prostate cancer metastasis versus giant bone island. Radiology is recommending a whole-body bone scan. 3. Tachycardia, abnormal EKG: Appreciate cardiology recommendations. Tachycardia felt to be secondary to pulmonary embolus. 4. Diabetes mellitus: Monitor Accu-Cheks and cover with sliding scale insulin. 5. Hyperlipidemia, coronary artery disease: Continue home medications. 6. Unspecified autoimmune disorder: Patient reported that he had been on prednisone for the past year, currently being tapered off. Also on Imuran per rheumatology. The patient is a poor historian and does not recall what his diagnosis is. 7. Hypertension: Blood pressure has been elevated overnight. The patient states that his antihypertensive medications were discontinued a couple months ago by his primary care physician. Vasotec as needed. Start lisinopril. Pepe Quintero MD Apr 21, 2017 08:50
[2017-04-21] MEDS: SODIUM CHLORIDE 0.9% FLUSH 10 ML FLUSH IV FLUSH SCH ×2 (09:00→20:23)
[2017-04-21] MEDS ORDERED: ENALAPRILAT 1.25 MG/ML VIAL IV PUSH PRN (09:00)
[2017-04-21] MEDS: azaTHIOprine 50 MG TAB PO SCH ×2 (09:21→20:23)
[2017-04-21] MEDS: ATORVASTATIN 40 MG TAB PO SCH (09:21)
[2017-04-21] MEDS: ENOXAPARIN SODIUM 60 MG/0.6 ML SYRINGE SQ SCH ×2 (09:21→20:22)
[2017-04-21] MEDS: LISINOPRIL 5 MG TAB PO SCH (09:22)
[2017-04-21] MEDS: PREGABALIN 100 MG CAP PO SCH ×3 (09:22→17:59)
[2017-04-21] MEDS: CLOPIDOGREL 75 MG TAB PO SCH (09:22)
[2017-04-21] MEDS: predniSONE 5 MG TAB PO SCH (09:22)
[2017-04-21] MEDS: ASPIRIN 81 MG CHEW TAB CHEW SCH (09:22)
[2017-04-21] MEDS: [UNRECOGNIZED DRUG - OTHER] LEFT EYE SCH ×2 (09:23→20:23)
[2017-04-21] MEDS: ONDANSETRON HCL 4 MG/2 ML VIAL IV PUSH PRN (12:07)
--- NOTE | 2017-04-21 13:24 | RADRPT ---
EXAM DATE/TIME: 04/21/2017 10:17 [facility] COMPARISON: No previous studies available for comparison. PRIOR BONE SCANS: No correlative bone scan available for comparison. INDICATIONS : History of prostate cancer. DOSE: 30.2 mCi Tc99m MDP IV MEDICAL HISTORY : Hypertension. Diabetes mellitus type 2. Myocardial infarction. SURGICAL HISTORY : Prostatectomy. ENCOUNTER: Initial ACUITY: 1 month PAIN SCALE: 4/10 LOCATION: Bilateral chest TECHNIQUE: Three hours post intravenous administration of radiotracer, whole body bone scan imaging was performe d. FINDINGS: Blood pool images demonstrate a homogeneous pattern of uptake in the soft tissues. No hyperemic area s are identified. Planar bone scan demonstrates a normal pattern of uptake. No focal areas of incre ased or decreased uptake are seen. CONCLUSION: No evidence of bony metastatic disease. Alen Razo MD on April 21, 2017 at 13:22 Board Certified Radiologist. This report was verified electronically.
--- NOTE | 2017-04-21 13:43 | PD.ONC.PN ---
Subjective Subjective Remarks Patient resting in room with at bedside. Just back from bone scan. Patient reports he has been having difficulty swallowing for several weeks. reports patient was scheduled for outpatient barium swallow and would like one to be done here. Tolerating Lovenox injections. Objective Data Date Time Temp Pulse Resp B/P (MAP) Pulse Ox O2 Delivery O2 Flow Rate FiO2 04/21/17 12:00 60 04/21/17 12:00 97.7 60 17 118/58 (78) 97 04/21/17 10:00 70 04/21/17 08:50 97 21 04/21/17 08:00 97.5 69 18 182/84 (116) 97 04/21/17 08:00 69 04/21/17 06:00 60 04/21/17 04:00 73 04/21/17 04:00 97.6 73 20 163/74 (103) 97 04/21/17 02:00 61 04/21/17 00:00 60 04/21/17 00:00 97.9 60 24 170/75 (106) 100 04/20/17 22:00 68 04/20/17 20:00 98.4 69 22 165/79 (107) 96 04/20/17 20:00 69 04/20/17 18:00 70 04/20/17 16:00 59 04/20/17 16:00 97.8 58 30 179/75 (109) 97 04/20/17 14:00 65 04/21/17 04/21/17 04/21/17 07:00 15:00 23:00 Intake Total 110 ml Output Total 540 ml Balance -430 ml Result Diagram: 04/19/17213204/19/172132 Laboratory Results Laboratory Tests Test 04/20/17 16:04 04/21/17 05:05 Activated Partial Thromboplast Time 59.7 SEC 83.3 SEC Reticulocyte Count 1.7 % Absolute Reticulocyte Count 61.8 MIL/L Lactate Dehydrogenase 151 U/L Vitamin B12 Level 1709 PG/ML Imaging Studies Last 24 hours Impressions Bone Scan Nuclear Medicine 04/21/17 0000 Signed Impressions: Service Date/Time: Friday, April 21, 2017 10:17 - CONCLUSION: No evidence of bony metastatic disease. Alen Razo MD Administered Medications Medications (Trade) Dose Ordered Sig/Jasper Route PRN Reason Start Time Stop Time Status Last Admin Dose Admin Sodium Chloride (NS Flush) 2 ml BID IV FLUSH 04/20/17 09:00 04/21/17 09:00 Aspirin (Aspirin Chew) 81 mg DAILY CHEW 04/20/17 09:00 04/21/17 09:22 Azathioprine (Imuran) 50 mg BID PO 04/20/17 09:00 04/21/17 09:21 Clopidogrel Bisulfate (Plavix) 75 mg DAILY PO 04/20/17 09:00 04/21/17 09:22 Pregabalin (Lyrica) 100 mg TID PO 04/20/17 09:00 04/21/17 09:22 Prednisone (Deltasone) 2.5 mg DAILY PO 04/20/17 09:00 04/21/17 09:22 Atorvastatin Calcium (Lipitor) 40 mg DAILY PO 04/20/17 09:00 04/21/17 09:21 Patient Own Medication PT OWN MED: RESTASIS (CYCLOSPOR... BID LEFT EYE 04/20/17 21:00 04/21/17 09:23 Enoxaparin Sodium (Lovenox Inj) 60 mg Q12H SQ 04/21/17 08:00 04/21/17 09:21 Warfarin Sodium (Coumadin) 2.5 mg DAILY@16 PO 04/20/17 16:00 04/20/17 17:37 Lisinopril (Prinivil) 5 mg DAILY PO 04/21/17 09:00 04/21/17 09:22 Enalaprilat (Vasotec Inj) 1.25 mg Q6H PRN IV PUSH SBP> OR = 180, DBP> OR = 100 04/21/17 09:00 04/21/17 09:21 Ondansetron HCl (Zofran Inj) 4 mg Q8H PRN IV PUSH NAUSEA OR VOMITING 04/21/17 12:00 04/21/17 12:07 Objective Remarks GENERAL: Elderly male lying in bed in nad. SKIN: Warm and dry. HEAD: Normocephalic. EYES: No injection or drainage. NECK: Supple, trachea midline. CARDIOVASCULAR: Regular rate and rhythm RESPIRATORY: anterior andujar clear. GASTROINTESTINAL: Abdomen soft, non-tender, nondistended. MUSCULOSKELETAL: No cyanosis NEURO: awake and alert. normal speech. Assessment/Plan Problem List: (1) Pulmonary embolism ICD Codes: I26.99 - Other pulmonary embolism without acute cor pulmonale Status: Acute Plan: --currently on Lovenox 60mg SQ q 12 bridge to coumadin. --CT angiogram 04/19/2017 + distal segmental subsegmental pulmonary emboli. Overall thrombus burden is small. no right heart strain. ++small bilateral pleural effusion and airspace disease. --two-week history of worsening shortness of breath, fatigue, dyspnea on exertion. --has a precipitating event of being less active and spending a lot of time in his recliner. --During his hospitalization, I would use low-molecular weight heparin, bridge him to Coumadin. He plans to follow up with Dr. Funes, his primary physician, to continue his anticoagulant therapy. (2) History of prostate cancer ICD Codes: Z85.46 - Personal history of malignant neoplasm of prostate Plan: ++sclerotic lesion in the right proximal humerus. --not confirmed to have metastatic prostate cancer at present. Assessment 77y/o male with pulmonary embolism associated with unintentional weight loss. history of coronary artery disease, prostate cancer status post radiation with biochemical relapse, hypertension, hyperlipidemia and diabetes. presented with a two-week history of worsening dyspnea on exertion and fatigue. Plan 1. continue Lovenox bridge to coumadin 2. consult pharmacy for coumadin management 3. ST consult and barium swallow. Renuka Milian Apr 21, 2017 13:43 Mily Carballo MD Apr 21, 2017 18:05
[2017-04-21] MEDS: WARFARIN SOD 2.5 MG TAB PO SCH (16:30)
[2017-04-22] VITALS (9 sets, daily range): BP systolic 94–133; BP diastolic 49–66; PULSE 45–74; RESP 12–24; TEMP 96.8–98.3; O2SAT 93–100
[2017-04-22 04:05] LABS: AUTOMATED NEUTROPHIL # 2.8 TH/MM3 (1.8-7.7); BASOPHIL % 0.5 % (0.0-2.0); EOSINOPHIL # 0.1 TH/MM3 (0-0.4); EOSINOPHIL % 2.1 % (0.0-4.0); HEMATOCRIT 35.5 % (39.0-51.0); LYMPH % 21.7 % (9.0-44.0); LYMPHOCYTE # 0.9 TH/MM3 (1.0-4.8); MEAN CELL VOLUME 101.7 FL (80.0-100.0); MEAN CORPUSCULAR HEMOGLOBIN 34.3 PG (27.0-34.0); MEAN CORPUSCULAR HGB CONC 33.8 % (32.0-36.0); MEAN PLATELET VOLUME 8.6 FL (7.0-11.0); MONO % 8.9 % (0.0-8.0); MONOCYTE # 0.4 TH/MM3 (0-0.9); NEUT % 66.8 % (16.0-70.0); PLATELET COUNT 165 TH/MM3 (150-450); RED BLOOD COUNT 3.49 MIL/MM3 (4.50-5.90); WHITE BLOOD COUNT 4.3 TH/MM3 (4.0-11.0)
[2017-04-22 04:26] LABS: INTERNATIONAL NORMALIZED RATIO 1.1 RATIO; PROTHROMBIN TIME - PATIENT 10.8 SEC (9.8-11.6)
[2017-04-22 04:38] LABS: BICARBONATE 29.7 MEQ/L (21.0-32.0); CREATININE 0.76 MG/DL (0.60-1.30)
[2017-04-22] MEDS: INSULIN ASPART SUPPLEMENTAL SCALE SQ SCH ×4 (08:00→21:00)
[2017-04-22] MEDS: ENOXAPARIN SODIUM 60 MG/0.6 ML SYRINGE SQ SCH ×2 (08:01→21:00)
[2017-04-22] MEDS: azaTHIOprine 50 MG TAB PO SCH ×2 (08:02→21:00)
[2017-04-22] MEDS: SODIUM CHLORIDE 0.9% FLUSH 10 ML FLUSH IV FLUSH SCH ×2 (08:02→21:00)
[2017-04-22] MEDS: ASPIRIN 81 MG CHEW TAB CHEW SCH (08:02)
[2017-04-22] MEDS: CLOPIDOGREL 75 MG TAB PO SCH (08:02)
[2017-04-22] MEDS: PREGABALIN 100 MG CAP PO SCH ×3 (08:02→18:08)
[2017-04-22] MEDS: predniSONE 5 MG TAB PO SCH (08:02)
[2017-04-22] MEDS: ATORVASTATIN 40 MG TAB PO SCH (08:02)
[2017-04-22] MEDS: [UNRECOGNIZED DRUG - OTHER] LEFT EYE SCH ×2 (08:03→21:01)
[2017-04-22] MEDS: LISINOPRIL 5 MG TAB PO SCH (08:03)
--- NOTE | 2017-04-22 08:26 | HHI.PR ---
Subjective Remarks Follow up PE, bone lesion. The patient states that he feels better today. Reports constipation. Denies chest pain, dyspnea. Objective Vitals Vital Signs Date Time Temp Pulse Resp B/P (MAP) Pulse Ox O2 Delivery O2 Flow Rate FiO2 04/22/17 08:00 97.6 58 24 120/58 (78) 100 04/22/17 04:00 97.8 60 12 94/54 (67) 100 04/22/17 00:00 96.8 60 20 102/52 (69) 93 04/21/17 20:00 62 04/21/17 20:00 97.7 64 18 130/61 (84) 99 04/21/17 18:00 61 04/21/17 16:00 96.5 58 17 96/52 (67) 95 04/21/17 16:00 54 04/21/17 14:00 54 04/21/17 12:00 60 04/21/17 12:00 97.7 60 17 118/58 (78) 97 04/21/17 10:00 70 04/21/17 08:50 97 21 I/O 04/21/17 04/21/17 04/21/17 04/22/17 04/22/17 04/22/17 07:00 15:00 23:00 07:00 15:00 23:00 Intake Total 110 ml 450 ml 100 ml Output Total 540 ml 370 ml 200 ml Balance -430 ml 80 ml -100 ml Intake Oral 450 ml 100 ml IV Total 110 ml Output Urine Total 540 ml 370 ml 200 ml # Voids 1 # Bowel Movements 0 0 Result Diagram: 04/22/17 0230 04/22/17 0230 Imaging Last Impressions Bone Scan Nuclear Medicine 04/21/17 0000 Signed Impressions: Service Date/Time: Friday, April 21, 2017 10:17 - CONCLUSION: No evidence of bony metastatic disease. Alen Razo MD Shoulder MRI 04/20/17 0000 Signed Impressions: Service Date/Time: March 18:17 - CONCLUSION: 1. 2.8 cm sclerotic bone lesion in the proximal right humerus correlating with plain film finding. In this patient with a history of prostate cancer, this finding is indeterminate. Differential diagnosis includes prostate cancer metastasis versus giant bone island. Whole body bone scan could be performed for further evaluation and to evaluate for any other lesions. 2. Small full thickness distal anterior supraspinatus tendon tear. 3. Moderate acromioclavicular joint arthrosis. Brody Melchor MD Lower Extremity Ultrasound 04/20/17 0000 Signed Impressions: Service Date/Time: March 19:43 - CONCLUSION: Normal examination. Jesus Dias MD Humerus X-Ray 04/20/17 0000 Signed Impressions: Service Date/Time: March 01:00 - CONCLUSION: The sclerotic lesion of right proximal humerus could be a giant bone island could be further characterized and confirmed with right humerus MRI examination with and without contrast if indicated clinically. Isaías Perez MD Chest X-Ray 04/19/172126 Signed Impressions: Service Date/Time: Wednesday, April 19, 2017 21:49 - CONCLUSION: 1. Mild bibasilar airspace disease with trace bilateral pleural effusions. 2. Intramedullary sclerotic lesion in the right humeral neck with potentially aggressive features. Comparison with prior examinations would be beneficial in further evaluation. Alternatively, dedicated radiographs of the right humerus may be obtained for further evaluation on an outpatient basis. Bradford Quach MD CT Angiography 04/19/17 0000 Signed Impressions: Service Date/Time: Wednesday, April 19, 2017 22:38 - CONCLUSION: 1. Abnormal examination demonstrating pulmonary artery embolism to the distal segmental and subsegmental level of the pulmonary artery branches. Overall thrombus burden is small to moderate. No CT evidence for right heart strain. 2. Small bilateral pleural effusions and airspace consolidation at the lung bases , likely compressive atelectasis and scarring. 3. Moderate coronary artery calcifications. Bradford Quach MD Objective Remarks General: Elderly male in no acute distress. Heart: Regular rate and rhythm. No murmur. Lungs: Clear to auscultation bilaterally. No wheezes, rales, or rhonchi. Breathing is nonlabored. Abdomen: Soft, nontender, nondistended. Extremities: No lower extremity edema. SCDs. Psych: Alert and oriented. Procedures None Urinary Catheter: No Vascular Central Line Catheter: No A/P Assessment and Plan 1. Pulmonary embolus: Appreciate hematology recommendations. Continue Lovenox bridging to therapeutic INR on Coumadin. 2. Fatigue, generalized weakness, anorexia, weight loss: Patient has history of prostate cancer, status post cryotherapy and radiation. He does report that his PSA is increasing. There is a sclerotic lesion in the right humeral neck with potentially aggressive features. MRI shows 2.8 cm sclerotic bone lesion in the proximal right humerus. Differential diagnosis includes prostate cancer metastasis versus giant bone island. Bone scan is negative for metastatic disease. 3. Tachycardia, abnormal EKG: Appreciate cardiology recommendations. Tachycardia felt to be secondary to pulmonary embolus. 4. Diabetes mellitus: Monitor Accu-Cheks and cover with sliding scale insulin. 5. Hyperlipidemia, coronary artery disease: Continue home medications. 6. Unspecified autoimmune disorder: Patient reported that he had been on prednisone for the past year, currently being tapered off. Also on Imuran per rheumatology. The patient is a poor historian and does not recall what his diagnosis is. 7. Hypertension: Blood pressure has been low overnight. The patient states that his antihypertensive medications were discontinued a couple months ago by his primary care physician. Vasotec as needed. Hold lisinopril. Discharge Planning Transfer to med/surg floor with telemetry. Pepe Quintero MD Apr 22, 2017 08:26
[2017-04-22] MEDS ORDERED: BISACODYL 10 MG SUPP RECTAL PRN (08:30)
[2017-04-22] MEDS: DOCUSATE SODIUM 50 MG/SENNA 8.6 MG TAB PO SCH ×2 (08:57→21:00)
--- NOTE | 2017-04-22 11:29 | RADRPT ---
EXAM DATE/TIME: 04/22/2017 00:00 [facility] COMPARISON: No previous studies available for comparison. INDICATIONS : Dysphagia. FLUORO TIME: 3.1 minutes IMAGE COUNT: 0 CONTRAST: Dose as prescribed by speech pathologist. MEDICAL HISTORY : Carcinoma, prostatic. Hypertension. Diabetes mellitus type 2. Myocardial infarction. SURGICAL HISTORY : Prostatectomy. ENCOUNTER: Initial ACUITY: 1 day PAIN SCORE: 0/10 LOCATION: Throat. FINDINGS: A modified barium swallow was performed with speech pathology. Patient was given a variety of liquids to swallow. Fluoroscopy was provided for the speech pathologist. No aspiration or penetration was seen. There was some retention of the contrast within the vallecula and piriform sinuses. For a full detailed report, see report by the speech pathologist. CONCLUSION: No aspiration or penetration seen. Jesus Fu MD on April 22, 2017 at 11:27 Board Certified Radiologist. This report was verified electronically.
[2017-04-22] MEDS: MAGNESIUM HYDROXIDE SUSP 30 ML CUP PO PRN (15:17)
[2017-04-22] MEDS: WARFARIN SOD 2.5 MG TAB PO SCH (15:17)
[2017-04-22] MEDS: SENNOSIDES 8.6 MG TAB PO PRN (21:00)
[2017-04-22] MEDS: LACTULOSE SYRUP 20 GM/30 ML CUP PO PRN (21:00)
[2017-04-23] VITALS (11 sets, daily range): BP systolic 109–155; BP diastolic 55–70; PULSE 55–76; RESP 16–18; TEMP 97–98; O2SAT 93–97
[2017-04-23] MEDS: SODIUM CHLORIDE 0.9% FLUSH 10 ML FLUSH IV FLUSH SCH ×2 (07:34→20:48)
[2017-04-23 07:36] LABS: INTERNATIONAL NORMALIZED RATIO 1.1 RATIO; PROTHROMBIN TIME - PATIENT 11.3 SEC (9.8-11.6)
[2017-04-23] MEDS: INSULIN ASPART SUPPLEMENTAL SCALE SQ SCH ×4 (07:54→20:51)
[2017-04-23] MEDS: ATORVASTATIN 40 MG TAB PO SCH (07:58)
[2017-04-23] MEDS: predniSONE 5 MG TAB PO SCH (07:58)
[2017-04-23] MEDS: ASPIRIN 81 MG CHEW TAB CHEW SCH (07:58)
[2017-04-23] MEDS: ENOXAPARIN SODIUM 60 MG/0.6 ML SYRINGE SQ SCH ×2 (07:58→20:48)
[2017-04-23] MEDS: DOCUSATE SODIUM 50 MG/SENNA 8.6 MG TAB PO SCH ×2 (07:58→20:47)
[2017-04-23] MEDS: CLOPIDOGREL 75 MG TAB PO SCH (07:58)
[2017-04-23] MEDS: azaTHIOprine 50 MG TAB PO SCH ×2 (08:04→20:47)
[2017-04-23] MEDS: PREGABALIN 100 MG CAP PO SCH ×3 (08:04→17:27)
[2017-04-23] MEDS: [UNRECOGNIZED DRUG - OTHER] LEFT EYE SCH ×2 (08:09→20:48)
[2017-04-23] MEDS: MAGNESIUM HYDROXIDE SUSP 30 ML CUP PO PRN (08:12)
[2017-04-23] MEDS ORDERED: WARFARIN SOD 1 MG TAB PO ONE (16:00)
[2017-04-23] MEDS: WARFARIN SOD 2.5 MG TAB PO SCH (16:44)
--- NOTE | 2017-04-23 16:57 | HHI.PR ---
Subjective Remarks Denies cp/sob. Objective Vitals Vital Signs Date Time Temp Pulse Resp B/P (MAP) Pulse Ox O2 Delivery O2 Flow Rate FiO2 04/23/17 15:53 97.7 58 18 111/61 (78) 96 04/23/17 12:00 97.0 65 18 123/64 (83) 94 04/23/17 11:54 69 04/23/17 08:05 70 04/23/17 08:00 97.4 60 18 109/63 (78) 97 04/23/17 04:00 Room Air 04/23/17 04:00 98.0 76 17 148/68 (94) 93 04/23/17 00:00 97.8 64 17 112/55 (74) 94 04/23/17 00:00 Room Air 04/22/17 23:46 69 04/22/17 20:00 Room Air 04/22/17 20:00 98.3 69 18 103/56 (72) 93 04/22/17 19:46 74 I/O 04/22/17 04/22/17 04/22/17 04/23/17 04/23/17 04/23/17 07:00 15:00 23:00 07:00 15:00 23:00 Intake Total 100 ml 600 ml 240 ml Output Total 200 ml 200 ml Balance -100 ml 600 ml 40 ml Intake Oral 100 ml 600 ml 240 ml Output Urine Total 200 ml 200 ml # Voids 4 3 # Bowel Movements 0 1 0 Result Diagram: 04/22/17 0230 04/22/17 0230 Imaging Last Impressions Modified Barium Swallow 04/22/17 0000 Signed Impressions: Service Date/Time: Saturday, April 22, 2017 00:00 - CONCLUSION: No aspiration or penetration seen. Jesus Fu MD Bone Scan Nuclear Medicine 04/21/17 0000 Signed Impressions: Service Date/Time: Friday, April 21, 2017 10:17 - CONCLUSION: No evidence of bony metastatic disease. Alen Razo MD Shoulder MRI 04/20/17 0000 Signed Impressions: Service Date/Time: March 18:17 - CONCLUSION: 1. 2.8 cm sclerotic bone lesion in the proximal right humerus correlating with plain film finding. In this patient with a history of prostate cancer, this finding is indeterminate. Differential diagnosis includes prostate cancer metastasis versus giant bone island. Whole body bone scan could be performed for further evaluation and to evaluate for any other lesions. 2. Small full thickness distal anterior supraspinatus tendon tear. 3. Moderate acromioclavicular joint arthrosis. Brody Melchor MD Lower Extremity Ultrasound 04/20/17 0000 Signed Impressions: Service Date/Time: March 19:43 - CONCLUSION: Normal examination. Jesus Dias MD Humerus X-Ray 04/20/17 0000 Signed Impressions: Service Date/Time: March 01:00 - CONCLUSION: The sclerotic lesion of right proximal humerus could be a giant bone island could be further characterized and confirmed with right humerus MRI examination with and without contrast if indicated clinically. Isaías Perez MD Chest X-Ray 04/19/172126 Signed Impressions: Service Date/Time: Wednesday, April 19, 2017 21:49 - CONCLUSION: 1. Mild bibasilar airspace disease with trace bilateral pleural effusions. 2. Intramedullary sclerotic lesion in the right humeral neck with potentially aggressive features. Comparison with prior examinations would be beneficial in further evaluation. Alternatively, dedicated radiographs of the right humerus may be obtained for further evaluation on an outpatient basis. Bradford Quach MD CT Angiography 04/19/17 0000 Signed Impressions: Service Date/Time: Wednesday, April 19, 2017 22:38 - CONCLUSION: 1. Abnormal examination demonstrating pulmonary artery embolism to the distal segmental and subsegmental level of the pulmonary artery branches. Overall thrombus burden is small to moderate. No CT evidence for right heart strain. 2. Small bilateral pleural effusions and airspace consolidation at the lung bases , likely compressive atelectasis and scarring. 3. Moderate coronary artery calcifications. Bradford Quach MD Objective Remarks General: Elderly male in no acute distress. Heart: Regular rate and rhythm. No murmur. Lungs: Clear to auscultation bilaterally. No wheezes, rales, or rhonchi. Breathing is nonlabored. Abdomen: Soft, nontender, nondistended. Extremities: No lower extremity edema. SCDs. Psych: Alert and oriented. Procedures None Medications and IVs Current Medications Medications (Trade) Dose Ordered Sig/Jasper Route Start Time Stop Time Status Last Admin (D50w (Vial) Inj) 50 ml UNSCH PRN IV PUSH 04/20/17 01:00 (Glucagon Inj) 1 mg UNSCH PRN OTHER 04/20/17 01:00 (NS Flush) 2 ml UNSCH PRN IV FLUSH 04/20/17 01:00 (NS Flush) 2 ml BID IV FLUSH 04/20/17 09:00 04/23/17 07:34 (Aspirin Chew) 81 mg DAILY CHEW 04/20/17 09:00 04/23/17 07:58 (Imuran) 50 mg BID PO 04/20/17 09:00 04/23/17 08:04 (Plavix) 75 mg DAILY PO 04/20/17 09:00 04/23/17 07:58 (Refresh Classic 1.4-0.6% Pf Opth Soln) 2 drop Q4HR PRN EACH EYE 04/20/17 01:00 (Lyrica) 100 mg TID PO 04/20/17 09:00 04/23/17 12:07 (Deltasone) 2.5 mg DAILY PO 04/20/17 09:00 04/23/17 07:58 (Lipitor) 40 mg DAILY PO 04/20/17 09:00 04/23/17 07:58 (NovoLOG SUPPLEMENTAL SCALE) 1 ACHS SLIDING SCALE SQ 04/20/17 08:00 Patient Own Medication PT OWN MED: RESTASIS (CYCLOSPOR... BID LEFT EYE 04/20/17 21:00 04/23/17 08:09 (Lovenox Inj) 60 mg Q12H SQ 04/21/17 08:00 04/23/17 07:58 (Coumadin) 2.5 mg DAILY@16 PO 04/20/17 16:00 04/23/17 16:44 (Prinivil) 5 mg DAILY PO 04/21/17 09:00 Future Hold 04/21/17 09:22 (Vasotec Inj) 1.25 mg Q6H PRN IV PUSH 04/21/17 09:00 04/21/17 09:21 (Zofran Inj) 4 mg Q8H PRN IV PUSH 04/21/17 12:00 04/21/17 12:07 Pharmacy Profile Note 0 ml @ 0 mls/hr UNSCH OTHER 04/21/17 14:00 (Jessenia-Colace) 1 tab BID PO 04/22/17 09:00 04/23/17 07:58 (Milk Of Magnesia Liq) 30 ml Q12H PRN PO 04/22/17 08:30 04/23/17 08:12 (Senokot) 17.2 mg Q12H PRN PO 04/22/17 08:30 04/22/17 21:00 (Dulcolax Supp) 10 mg DAILY PRN RECTAL 04/22/17 08:30 (Lactulose Liq) 30 ml DAILY PRN PO 04/22/17 08:30 04/22/17 21:00 A/P Assessment and Plan 1. Pulmonary embolus: Appreciate hematology recommendations. Continue Lovenox bridging to therapeutic INR on Coumadin. 04/23 INR stil 1.1. Monitor PT/INR daily. Pharmacy managing coumadin dose. 2. Fatigue, generalized weakness, anorexia, weight loss: Patient has history of prostate cancer, status post cryotherapy and radiation. He does report that his PSA is increasing. There is a sclerotic lesion in the right humeral neck with potentially aggressive features. MRI shows 2.8 cm sclerotic bone lesion in the proximal right humerus. Differential diagnosis includes prostate cancer metastasis versus giant bone island. Bone scan is negative for metastatic disease. 3. Tachycardia, abnormal EKG: Appreciate cardiology recommendations. Tachycardia felt to be secondary to pulmonary embolus. Resolved 4. Diabetes mellitus: Monitor Accu-Cheks and cover with sliding scale insulin. 04/23 Blood sugars stable. Continue management as above. 5. Hyperlipidemia, coronary artery disease:On ASA, Plavix, statin. 6. Unspecified autoimmune disorder: Patient reported that he had been on prednisone for the past year, currently being tapered off. Also on Imuran per rheumatology. The patient is a poor historian and does not recall what his diagnosis is. 7. Hypertension: Blood pressure has been low overnight. The patient states that his antihypertensive medications were discontinued a couple months ago by his primary care physician. Vasotec as needed. Continue to hold lisinopril. Discharge Planning Continue to monitor in the medical floor. INR subtherapeutic. Riki Pichardo MD Apr 23, 2017 16:57
[2017-04-24] VITALS (12 sets, daily range): BP systolic 113–150; BP diastolic 55–69; PULSE 47–76; RESP 16–20; TEMP 97.3–97.8; O2SAT 93–98
[2017-04-24] MEDS: ONDANSETRON HCL 4 MG/2 ML VIAL IV PUSH PRN (06:12)
[2017-04-24] MEDS: INSULIN ASPART SUPPLEMENTAL SCALE SQ SCH ×4 (08:00→20:10)
[2017-04-24] MEDS: ASPIRIN 81 MG CHEW TAB CHEW SCH (09:00)
[2017-04-24] MEDS: azaTHIOprine 50 MG TAB PO SCH ×2 (09:16→20:10)
[2017-04-24] MEDS: ENOXAPARIN SODIUM 60 MG/0.6 ML SYRINGE SQ SCH ×2 (09:16→20:10)
[2017-04-24] MEDS: predniSONE 5 MG TAB PO SCH (09:16)
[2017-04-24] MEDS: CLOPIDOGREL 75 MG TAB PO SCH (09:16)
[2017-04-24] MEDS: ATORVASTATIN 40 MG TAB PO SCH (09:16)
[2017-04-24] MEDS: [UNRECOGNIZED DRUG - OTHER] LEFT EYE SCH ×2 (09:16→20:10)
[2017-04-24] MEDS: SODIUM CHLORIDE 0.9% FLUSH 10 ML FLUSH IV FLUSH SCH ×2 (09:17→20:10)
[2017-04-24] MEDS: DOCUSATE SODIUM 50 MG/SENNA 8.6 MG TAB PO SCH ×2 (09:17→20:10)
[2017-04-24] MEDS: PREGABALIN 100 MG CAP PO SCH ×3 (09:17→17:09)
[2017-04-24 12:25] LABS: INTERNATIONAL NORMALIZED RATIO 1.1 RATIO; PROTHROMBIN TIME - PATIENT 10.9 SEC (9.8-11.6)
--- NOTE | 2017-04-24 15:31 | HHI.PR ---
Subjective Remarks Denies cp/sob. Feels weak. Vital signs stable with good o2 saturation on room air. Objective Vitals Vital Signs Date Time Temp Pulse Resp B/P (MAP) Pulse Ox O2 Delivery O2 Flow Rate FiO2 04/24/17 15:05 Room Air 04/24/17 12:00 54 04/24/17 12:00 97.5 62 18 121/68 (85) 95 04/24/17 11:30 95 04/24/17 08:00 60 04/24/17 08:00 97.5 56 18 123/57 (79) 97 04/24/17 04:35 97.3 63 16 150/69 (96) 93 04/24/17 04:00 Room Air 04/24/17 03:53 73 04/24/17 00:04 76 04/24/17 00:00 Room Air 04/23/17 23:34 97.5 76 16 155/70 (98) 96 04/23/17 20:12 97.6 61 16 136/60 (85) 97 04/23/17 20:02 64 04/23/17 20:00 Room Air 04/23/17 16:09 55 04/23/17 15:53 97.7 58 18 111/61 (78) 96 I/O 04/23/17 04/23/17 04/23/17 04/24/17 04/24/17 04/24/17 07:00 15:00 23:00 07:00 15:00 23:00 Intake Total 240 ml 480 ml 240 ml Output Total 200 ml 750 ml Balance 40 ml 480 ml -510 ml Intake Oral 240 ml 480 ml 240 ml Output Urine Total 200 ml 750 ml # Voids 3 # Bowel Movements 0 0 Result Diagram: 04/22/17 0230 04/22/17 0230 Imaging Last Impressions Modified Barium Swallow 04/22/17 0000 Signed Impressions: Service Date/Time: Saturday, April 22, 2017 00:00 - CONCLUSION: No aspiration or penetration seen. Jesus Fu MD Bone Scan Nuclear Medicine 04/21/17 0000 Signed Impressions: Service Date/Time: Friday, April 21, 2017 10:17 - CONCLUSION: No evidence of bony metastatic disease. Alen Razo MD Shoulder MRI 04/20/17 0000 Signed Impressions: Service Date/Time: March 18:17 - CONCLUSION: 1. 2.8 cm sclerotic bone lesion in the proximal right humerus correlating with plain film finding. In this patient with a history of prostate cancer, this finding is indeterminate. Differential diagnosis includes prostate cancer metastasis versus giant bone island. Whole body bone scan could be performed for further evaluation and to evaluate for any other lesions. 2. Small full thickness distal anterior supraspinatus tendon tear. 3. Moderate acromioclavicular joint arthrosis. Brody Melchor MD Lower Extremity Ultrasound 04/20/17 0000 Signed Impressions: Service Date/Time: March 19:43 - CONCLUSION: Normal examination. Jesus Dias MD Humerus X-Ray 04/20/17 0000 Signed Impressions: Service Date/Time: March 01:00 - CONCLUSION: The sclerotic lesion of right proximal humerus could be a giant bone island could be further characterized and confirmed with right humerus MRI examination with and without contrast if indicated clinically. Isaías Perez MD Chest X-Ray [id number]/19/[id number] Signed Impressions: Service Date/Time: Wednesday, April 19, 2017 21:49 - CONCLUSION: 1. Mild bibasilar airspace disease with trace bilateral pleural effusions. 2. Intramedullary sclerotic lesion in the right humeral neck with potentially aggressive features. Comparison with prior examinations would be beneficial in further evaluation. Alternatively, dedicated radiographs of the right humerus may be obtained for further evaluation on an outpatient basis. Bradford Quach MD CT Angiography 04/19/17 0000 Signed Impressions: Service Date/Time: Wednesday, April 19, 2017 22:38 - CONCLUSION: 1. Abnormal examination demonstrating pulmonary artery embolism to the distal segmental and subsegmental level of the pulmonary artery branches. Overall thrombus burden is small to moderate. No CT evidence for right heart strain. 2. Small bilateral pleural effusions and airspace consolidation at the lung bases , likely compressive atelectasis and scarring. 3. Moderate coronary artery calcifications. Bradford Quach MD Objective Remarks General: Elderly male in no acute distress. Heart: Regular rate and rhythm. No murmur. Lungs: Clear to auscultation bilaterally. No wheezes, rales, or rhonchi. Breathing is nonlabored. Abdomen: Soft, nontender, nondistended. Extremities: No lower extremity edema. SCDs. Psych: Alert and oriented. Procedures None Medications and IVs Current Medications Medications (Trade) Dose Ordered Sig/Jasper Route Start Time Stop Time Status Last Admin (D50w (Vial) Inj) 50 ml UNSCH PRN IV PUSH 04/20/17 01:00 (Glucagon Inj) 1 mg UNSCH PRN OTHER 04/20/17 01:00 (NS Flush) 2 ml UNSCH PRN IV FLUSH 04/20/17 01:00 (NS Flush) 2 ml BID IV FLUSH 04/20/17 09:00 04/24/17 09:17 (Aspirin Chew) 81 mg DAILY CHEW 04/20/17 09:00 04/24/17 09:00 (Imuran) 50 mg BID PO 04/20/17 09:00 04/24/17 09:16 (Plavix) 75 mg DAILY PO 04/20/17 09:00 04/24/17 09:16 (Refresh Classic 1.4-0.6% Pf Opth Soln) 2 drop Q4HR PRN EACH EYE 04/20/17 01:00 (Lyrica) 100 mg TID PO 04/20/17 09:00 04/24/17 12:42 (Deltasone) 2.5 mg DAILY PO 04/20/17 09:00 04/24/17 09:16 (Lipitor) 40 mg DAILY PO 04/20/17 09:00 04/24/17 09:16 (NovoLOG SUPPLEMENTAL SCALE) 1 ACHS SLIDING SCALE SQ 04/20/17 08:00 Patient Own Medication PT OWN MED: RESTASIS (CYCLOSPOR... BID LEFT EYE 04/20/17 21:00 04/24/17 09:16 (Lovenox Inj) 60 mg Q12H SQ 04/21/17 08:00 04/24/17 09:16 (Coumadin) 2.5 mg DAILY@16 PO 04/20/17 16:00 04/23/17 16:44 (Prinivil) 5 mg DAILY PO 04/21/17 09:00 Future Hold 04/21/17 09:22 (Vasotec Inj) 1.25 mg Q6H PRN IV PUSH 04/21/17 09:00 04/21/17 09:21 (Zofran Inj) 4 mg Q8H PRN IV PUSH 04/21/17 12:00 04/24/17 06:12 Pharmacy Profile Note 0 ml @ 0 mls/hr UNSCH OTHER 04/21/17 14:00 (Jessenia-Colace) 1 tab BID PO 04/22/17 09:00 04/24/17 09:17 (Milk Of Magnesia Liq) 30 ml Q12H PRN PO 04/22/17 08:30 04/23/17 08:12 (Senokot) 17.2 mg Q12H PRN PO 04/22/17 08:30 04/22/17 21:00 (Dulcolax Supp) 10 mg DAILY PRN RECTAL 04/22/17 08:30 (Lactulose Liq) 30 ml DAILY PRN PO 04/22/17 08:30 04/22/17 21:00 (Coumadin) 1 mg ONCE@1600 ONCE PO 04/24/17 16:00 04/24/17 16:01 Urinary Catheter: No Vascular Central Line Catheter: No A/P Assessment and Plan 1. Pulmonary embolus: Appreciate hematology recommendations. Continue Lovenox bridging to therapeutic INR on Coumadin. 04/24/17 INR stil 1.1. Monitor PT/INR daily. Pharmacy managing coumadin dose. 2. Fatigue, generalized weakness, anorexia, weight loss: Patient has history of prostate cancer, status post cryotherapy and radiation. He does report that his PSA is increasing. There is a sclerotic lesion in the right humeral neck with potentially aggressive features. MRI shows 2.8 cm sclerotic bone lesion in the proximal right humerus. Differential diagnosis includes prostate cancer metastasis versus giant bone island. Bone scan is negative for metastatic disease. 3. Tachycardia, abnormal EKG: Appreciate cardiology recommendations. Tachycardia felt to be secondary to pulmonary embolus. Resolved 4. Diabetes mellitus: Monitor Accu-Cheks and cover with sliding scale insulin. 04/23 Blood sugars stable. Continue management as above. 5. Hyperlipidemia, coronary artery disease:On ASA, Plavix, statin. 6. Unspecified autoimmune disorder: Patient reported that he had been on prednisone for the past year, currently being tapered off. Also on Imuran per rheumatology. The patient is a poor historian and does not recall what his diagnosis is. 7. Hypertension: Blood pressure has been low overnight. The patient states that his antihypertensive medications were discontinued a couple months ago by his primary care physician. Vasotec as needed. Continue to hold lisinopril. Discharge Planning Continue to monitor in the medical floor. INR subtherapeutic. Riki Pichardo MD Apr 24, 2017 15:31
[2017-04-24] MEDS ORDERED: WARFARIN SOD 1 MG TAB PO ONE (16:00)
[2017-04-24] MEDS: WARFARIN SOD 2.5 MG TAB PO SCH (17:09)
[2017-04-24] MEDS: MAGNESIUM HYDROXIDE SUSP 30 ML CUP PO PRN (17:31)
[2017-04-24] MEDS: SENNOSIDES 8.6 MG TAB PO PRN (17:31)
[2017-04-24 19:23] LABS: BICARBONATE 32.4 MEQ/L (21.0-32.0); CALCIUM 8.7 MG/DL (8.5-10.1); CREATININE 0.83 MG/DL (0.60-1.30); MAGNESIUM 2.4 MG/DL (1.5-2.5)
[2017-04-25] VITALS (8 sets, daily range): BP systolic 112–155; BP diastolic 55–71; PULSE 45–61; RESP 16–20; TEMP 97.3–98.1; O2SAT 94–98
[2017-04-25 07:38] LABS: HEMATOCRIT 34.6 % (39.0-51.0); HEMOGLOBIN 11.6 GM/DL (13.0-17.0); MEAN CELL VOLUME 101.5 FL (80.0-100.0); MEAN CORPUSCULAR HEMOGLOBIN 33.9 PG (27.0-34.0); MEAN CORPUSCULAR HGB CONC 33.4 % (32.0-36.0); MEAN PLATELET VOLUME 7.8 FL (7.0-11.0); PLATELET COUNT 163 TH/MM3 (150-450); RED BLOOD COUNT 3.41 MIL/MM3 (4.50-5.90); RED CELL DISTRIBUTION WIDTH 16.5 % (11.6-17.2); WHITE BLOOD COUNT 3.3 TH/MM3 (4.0-11.0)
[2017-04-25] MEDS: INSULIN ASPART SUPPLEMENTAL SCALE SQ SCH ×4 (08:00→20:52)
[2017-04-25] MEDS: CLOPIDOGREL 75 MG TAB PO SCH (09:01)
[2017-04-25] MEDS: ATORVASTATIN 40 MG TAB PO SCH (09:01)
[2017-04-25] MEDS: ASPIRIN 81 MG CHEW TAB CHEW SCH (09:01)
[2017-04-25] MEDS: predniSONE 5 MG TAB PO SCH (09:01)
[2017-04-25] MEDS: DOCUSATE SODIUM 50 MG/SENNA 8.6 MG TAB PO SCH ×2 (09:01→20:52)
[2017-04-25] MEDS: ENOXAPARIN SODIUM 60 MG/0.6 ML SYRINGE SQ SCH ×2 (09:02→20:00)
[2017-04-25] MEDS: PREGABALIN 100 MG CAP PO SCH ×3 (09:08→18:01)
[2017-04-25] MEDS: azaTHIOprine 50 MG TAB PO SCH ×2 (09:08→20:52)
[2017-04-25] MEDS: SODIUM CHLORIDE 0.9% FLUSH 10 ML FLUSH IV FLUSH SCH ×2 (09:09→20:52)
[2017-04-25] MEDS: [UNRECOGNIZED DRUG - OTHER] LEFT EYE SCH ×2 (09:09→20:52)
[2017-04-25 11:26] LABS: INTERNATIONAL NORMALIZED RATIO 1.2 RATIO; PROTHROMBIN TIME - PATIENT 11.7 SEC (9.8-11.6)
--- NOTE | 2017-04-25 15:14 | HHI.PR ---
Subjective Remarks Patient states very constipated last night - had a suppository which relieved constipation, however at the moment of defecation had small amount of BRBPR. Denies any further BRBPR. Denies cp/sob feels tired because could not sleep at night due to above mentioned constipation. Objective Vitals Vital Signs Date Time Temp Pulse Resp B/P (MAP) Pulse Ox O2 Delivery O2 Flow Rate FiO2 04/25/17 12:00 97 04/25/17 08:00 98.1 61 20 138/69 (92) 98 04/25/17 08:00 51 04/25/17 08:00 97.8 58 18 112/57 (75) 97 04/25/17 07:00 98 Room Air 04/25/17 04:00 97.3 60 16 155/71 (99) 96 04/25/17 04:00 Room Air 04/25/17 03:48 45 04/25/17 00:00 97.5 54 18 150/67 (94) 97 04/25/17 00:00 Room Air 04/24/17 23:48 47 04/24/17 20:38 98 21 04/24/17 20:00 97.8 73 18 133/63 (86) 98 04/24/17 20:00 Room Air 04/24/17 19:52 70 04/24/17 17:11 61 04/24/17 16:00 97.7 54 20 113/55 (74) 98 04/24/17 15:05 Room Air I/O 04/24/17 04/24/17 04/24/17 04/25/17 04/25/17 04/25/17 07:00 15:00 23:00 07:00 15:00 23:00 Intake Total 240 ml 360 ml 240 ml Output Total 750 ml 350 ml 400 ml Balance -510 ml 10 ml -160 ml Intake Oral 240 ml 360 ml 240 ml Output Urine Total 750 ml 350 ml 400 ml # Bowel Movements 0 0 1 Result Diagram: 04/25/17 0725 04/24/17 1843 Imaging Last Impressions Modified Barium Swallow 04/22/17 0000 Signed Impressions: Service Date/Time: Saturday, April 22, 2017 00:00 - CONCLUSION: No aspiration or penetration seen. Jesus Fu MD Bone Scan Nuclear Medicine 04/21/17 0000 Signed Impressions: Service Date/Time: Friday, April 21, 2017 10:17 - CONCLUSION: No evidence of bony metastatic disease. Alen Razo MD Shoulder MRI 04/20/17 0000 Signed Impressions: Service Date/Time: March 18:17 - CONCLUSION: 1. 2.8 cm sclerotic bone lesion in the proximal right humerus correlating with plain film finding. In this patient with a history of prostate cancer, this finding is indeterminate. Differential diagnosis includes prostate cancer metastasis versus giant bone island. Whole body bone scan could be performed for further evaluation and to evaluate for any other lesions. 2. Small full thickness distal anterior supraspinatus tendon tear. 3. Moderate acromioclavicular joint arthrosis. Brody Melchor MD Lower Extremity Ultrasound 04/20/17 0000 Signed Impressions: Service Date/Time: March 19:43 - CONCLUSION: Normal examination. Jesus Dias MD Humerus X-Ray 04/20/17 0000 Signed Impressions: Service Date/Time: March 01:00 - CONCLUSION: The sclerotic lesion of right proximal humerus could be a giant bone island could be further characterized and confirmed with right humerus MRI examination with and without contrast if indicated clinically. Isaías Perez MD Chest X-Ray 04/19/172126 Signed Impressions: Service Date/Time: Wednesday, April 19, 2017 21:49 - CONCLUSION: 1. Mild bibasilar airspace disease with trace bilateral pleural effusions. 2. Intramedullary sclerotic lesion in the right humeral neck with potentially aggressive features. Comparison with prior examinations would be beneficial in further evaluation. Alternatively, dedicated radiographs of the right humerus may be obtained for further evaluation on an outpatient basis. Bradford Quach MD CT Angiography 04/19/17 0000 Signed Impressions: Service Date/Time: Wednesday, April 19, 2017 22:38 - CONCLUSION: 1. Abnormal examination demonstrating pulmonary artery embolism to the distal segmental and subsegmental level of the pulmonary artery branches. Overall thrombus burden is small to moderate. No CT evidence for right heart strain. 2. Small bilateral pleural effusions and airspace consolidation at the lung bases , likely compressive atelectasis and scarring. 3. Moderate coronary artery calcifications. Bradford Quach MD Objective Remarks General: Elderly male in no acute distress. Heart: Regular rate and rhythm. No murmur. Lungs: Clear to auscultation bilaterally. No wheezes, rales, or rhonchi. Breathing is nonlabored. Abdomen: Soft, nontender, nondistended. Extremities: No lower extremity edema. SCDs. Psych: Alert and oriented. Procedures None Medications and IVs Current Medications Medications (Trade) Dose Ordered Sig/Jasper Route Start Time Stop Time Status Last Admin (D50w (Vial) Inj) 50 ml UNSCH PRN IV PUSH 04/20/17 01:00 (Glucagon Inj) 1 mg UNSCH PRN OTHER 04/20/17 01:00 (NS Flush) 2 ml UNSCH PRN IV FLUSH 04/20/17 01:00 (NS Flush) 2 ml BID IV FLUSH 04/20/17 09:00 04/25/17 09:09 (Aspirin Chew) 81 mg DAILY CHEW 04/20/17 09:00 04/25/17 09:01 (Imuran) 50 mg BID PO 04/20/17 09:00 04/25/17 09:08 (Plavix) 75 mg DAILY PO 04/20/17 09:00 04/25/17 09:01 (Refresh Classic 1.4-0.6% Pf Opth Soln) 2 drop Q4HR PRN EACH EYE 04/20/17 01:00 (Lyrica) 100 mg TID PO 04/20/17 09:00 04/25/17 13:21 (Deltasone) 2.5 mg DAILY PO 04/20/17 09:00 04/25/17 09:01 (Lipitor) 40 mg DAILY PO 04/20/17 09:00 04/25/17 09:01 (NovoLOG SUPPLEMENTAL SCALE) 1 ACHS SLIDING SCALE SQ 04/20/17 08:00 Patient Own Medication PT OWN MED: RESTASIS (CYCLOSPOR... BID LEFT EYE 04/20/17 21:00 04/25/17 09:09 (Lovenox Inj) 60 mg Q12H SQ 04/21/17 08:00 04/25/17 09:02 (Coumadin) 2.5 mg DAILY@16 PO 04/20/17 16:00 04/24/17 17:09 (Prinivil) 5 mg DAILY PO 04/21/17 09:00 Future Hold 04/21/17 09:22 (Vasotec Inj) 1.25 mg Q6H PRN IV PUSH 04/21/17 09:00 04/21/17 09:21 (Zofran Inj) 4 mg Q8H PRN IV PUSH 04/21/17 12:00 04/24/17 06:12 Pharmacy Profile Note 0 ml @ 0 mls/hr UNSCH OTHER 04/21/17 14:00 (Jessenia-Colace) 1 tab BID PO 04/22/17 09:00 04/25/17 09:01 (Milk Of Magnesia Liq) 30 ml Q12H PRN PO 04/22/17 08:30 04/24/17 17:31 (Senokot) 17.2 mg Q12H PRN PO 04/22/17 08:30 04/24/17 17:31 (Dulcolax Supp) 10 mg DAILY PRN RECTAL 04/22/17 08:30 04/24/17 20:11 (Lactulose Liq) 30 ml DAILY PRN PO 04/22/17 08:30 04/22/17 21:00 (Coumadin) 2 mg ONCE@1600 ONCE PO 04/25/17 16:00 04/25/17 16:01 A/P Problem List: (1) Pulmonary embolism ICD Code: I26.99 - Other pulmonary embolism without acute cor pulmonale Status: Acute (2) Hyperlipidemia ICD Code: E78.5 - Hyperlipidemia, unspecified Status: Chronic (3) HTN (hypertension) ICD Code: I10 - Essential (primary) hypertension Status: Chronic (4) Diabetes mellitus ICD Code: E11.9 - Type 2 diabetes mellitus without complications Status: Chronic (5) CAD (coronary artery disease) ICD Code: I25.10 - Atherosclerotic heart disease of [place] coronary artery without angina pectoris Status: Chronic (6) Tachycardia ICD Code: R00.0 - Tachycardia, unspecified Status: Resolved (7) History of prostate cancer ICD Code: Z85.46 - Personal history of malignant neoplasm of prostate Status: Resolved Assessment and Plan 1. Pulmonary embolus: Appreciate hematology recommendations. Continue Lovenox bridging to therapeutic INR on Coumadin. 04/25/17 INR stil 1.1. Monitor PT/INR daily. Pharmacy managing coumadin dose. 2. Fatigue, generalized weakness, anorexia, weight loss: Patient has history of prostate cancer, status post cryotherapy and radiation. He does report that his PSA is increasing. There is a sclerotic lesion in the right humeral neck with potentially aggressive features. MRI shows 2.8 cm sclerotic bone lesion in the proximal right humerus. Differential diagnosis includes prostate cancer metastasis versus giant bone island. Bone scan is negative for metastatic disease. Oncology consulted and following patient. 3. Tachycardia, abnormal EKG: Appreciate cardiology recommendations. Tachycardia felt to be secondary to pulmonary embolus. Resolved 4. Diabetes mellitus: Monitor Accu-Cheks and cover with sliding scale insulin. 04/23 Blood sugars stable. Continue management as above. 5. Hyperlipidemia, coronary artery disease:On ASA, Plavix, statin. 6. Unspecified autoimmune disorder: Patient reported that he had been on prednisone for the past year, currently being tapered off. Also on Imuran per rheumatology. The patient is a poor historian and does not recall what his diagnosis is. 7. Hypertension: Blood pressure has been low overnight. The patient states that his antihypertensive medications were discontinued a couple months ago by his primary care physician. Vasotec as needed. Continue to hold lisinopril. 8. Constipation: Relieved after Dulcolax suppository administered last night. Patient had small amount of blood during BM ikely related to constipation and possibly hemorrhoids, this has resolved and hemoglobin is stable. will monitor for GI bleed. Fu cbc. 9. Mild hyperkalemia: Mild hemolysis noted on result. Check BMP in am. Discharge Planning Continue to monitor in the medical floor. INR subtherapeutic. Problem Qualifiers (1) Hyperlipidemia: Qualified Codes: E78.5 - Hyperlipidemia, unspecified (2) HTN (hypertension): Qualified Codes: I10 - Essential (primary) hypertension (3) Diabetes mellitus: Qualified Codes: E11.9 - Type 2 diabetes mellitus without complications (4) CAD (coronary artery disease): Qualified Codes: I25.10 - Atherosclerotic heart disease of [place] coronary artery without angina pectoris Riki Pichardo MD Apr 25, 2017 15:14
[2017-04-25] MEDS ORDERED: WARFARIN SOD 2 MG TAB PO ONE (16:00)
[2017-04-25] MEDS: WARFARIN SOD 2.5 MG TAB PO SCH (16:59)
[2017-04-26] VITALS (8 sets, daily range): BP systolic 106–178; BP diastolic 50–81; PULSE 42–68; RESP 16–20; TEMP 97.3–98; O2SAT 94–99
[2017-04-26 06:59] LABS: INTERNATIONAL NORMALIZED RATIO 1.2 RATIO
[2017-04-26 07:21] LABS: CALCIUM 8.8 MG/DL (8.5-10.1); CREATININE 0.63 MG/DL (0.60-1.30)
[2017-04-26] MEDS: INSULIN ASPART SUPPLEMENTAL SCALE SQ SCH ×4 (08:00→21:00)
[2017-04-26] MEDS: ATORVASTATIN 40 MG TAB PO SCH (08:20)
[2017-04-26] MEDS: CLOPIDOGREL 75 MG TAB PO SCH (08:20)
[2017-04-26] MEDS: azaTHIOprine 50 MG TAB PO SCH ×2 (08:20→22:50)
[2017-04-26] MEDS: DOCUSATE SODIUM 50 MG/SENNA 8.6 MG TAB PO SCH ×2 (08:20→21:00)
[2017-04-26] MEDS: ASPIRIN 81 MG CHEW TAB CHEW SCH (08:20)
[2017-04-26] MEDS: ENOXAPARIN SODIUM 60 MG/0.6 ML SYRINGE SQ SCH ×2 (08:20→22:51)
[2017-04-26] MEDS: predniSONE 5 MG TAB PO SCH (08:20)
[2017-04-26] MEDS: SODIUM CHLORIDE 0.9% FLUSH 10 ML FLUSH IV FLUSH SCH ×2 (08:21→22:50)
[2017-04-26] MEDS: [UNRECOGNIZED DRUG - OTHER] LEFT EYE SCH ×2 (08:21→22:50)
[2017-04-26] MEDS: PREGABALIN 100 MG CAP PO SCH ×3 (08:22→18:12)
[2017-04-26] MEDS ORDERED: ENOX60P SQ (14:05)
[2017-04-26] MEDS ORDERED: COUM3TAB PO (14:05)
--- NOTE | 2017-04-26 14:14 | HHI.DCPOC ---
Discharge Care Plan Diagnosis: (1) History of prostate cancer (2) Pulmonary embolism (3) Hyperlipidemia (4) CAD (coronary artery disease) (5) Diabetes mellitus (6) Dysphagia Goals to Promote Your Health * To prevent worsening of your condition and complications * To maintain your health at the optimal level Directions to Meet Your Goals Take your medications as prescribed Follow your dietary instruction Follow activity as directed Keep your appointments as scheduled Take your immunizations and boosters as scheduled If your symptoms worsen call your PCP, if no PCP go to Urgent Care Center or Emergency Room Smoking is Dangerous to Your Health. Avoid second hand smoke Call the 24-hour hour crisis hotline for domestic abuse at Riki Pichardo MD Apr 26, 2017 14:14
--- NOTE | 2017-04-26 14:16 | HHI.DS ---
Discharge Summary Admission Date Apr 20, 2017 at 01:11 Discharge Date: Apr 26, 2017 Admitting Diagnosis PE (1) Pulmonary embolism ICD Code: I26.99 - Other pulmonary embolism without acute cor pulmonale Diagnosis: Principal Status: Acute (2) Hyperlipidemia ICD Code: E78.5 - Hyperlipidemia, unspecified Diagnosis: Secondary Status: Chronic (3) HTN (hypertension) ICD Code: I10 - Essential (primary) hypertension Diagnosis: Principal Status: Chronic (4) Diabetes mellitus ICD Code: E11.9 - Type 2 diabetes mellitus without complications Diagnosis: Principal Status: Chronic (5) CAD (coronary artery disease) ICD Code: I25.10 - Atherosclerotic heart disease of [place] coronary artery without angina pectoris Diagnosis: Principal Status: Chronic (6) Tachycardia ICD Code: R00.0 - Tachycardia, unspecified Diagnosis: Principal Status: Resolved (7) History of prostate cancer ICD Code: Z85.46 - Personal history of malignant neoplasm of prostate Diagnosis: Principal Status: Resolved (8) Dysphagia ICD Code: R13.10 - Dysphagia, unspecified Diagnosis: Principal Status: Acute Procedures None Brief History - From Admission 77-year-old male with a past medical history significant for CAD status post CA in 2002, previous diagnosis of hypertension with recent discontinuation of his antihypertensives, hyperlipidemia, diabetes mellitus and history of prostate cancer presents to the emergency department for evaluation of increasing dyspnea. The patient reports he has felt sick for "a couple of years". He reports increasing fatigue and weakness and a 10 pound weight loss over the past 1.5 weeks. He has accompanying anorexia. He reports 4-5 days of increasing shortness of breath, worse with activity. Chest x-ray showed intramedullary sclerotic lesion of the right humeral neck with potentially aggressive features. CTA positive for PE without evidence of right heart strain. The patient has an extremely poor historian, directs me to his for further characterization of his past medical history. CBC/BMP: 04/25/17 0725 04/26/17 0426 Significant Findings Laboratory Tests Test 04/24/17 11:46 04/24/17 18:43 04/25/17 07:25 04/25/17 10:59 Blood Urea Nitrogen 21 MG/DL (7-18) Random Glucose 112 MG/DL (74-106) Potassium Level 5.3 MEQ/L (3.5-5.1) Carbon Dioxide Level 32.4 MEQ/L (21.0-32.0) White Blood Count 3.3 TH/MM3 (4.0-11.0) Red Blood Count 3.41 MIL/MM3 (4.50-5.90) Hemoglobin 11.6 GM/DL (13.0-17.0) Hematocrit 34.6 % (39.0-51.0) Mean Corpuscular Volume 101.5 FL (80.0-100.0) Prothrombin Time 11.7 SEC (9.8-11.6) Test 04/26/17 04:26 Prothrombin Time 12.0 SEC (9.8-11.6) Imaging Last Impressions Modified Barium Swallow 04/22/17 0000 Signed Impressions: Service Date/Time: Saturday, April 22, 2017 00:00 - CONCLUSION: No aspiration or penetration seen. Jesus Fu MD Bone Scan Nuclear Medicine 04/21/17 0000 Signed Impressions: Service Date/Time: Friday, April 21, 2017 10:17 - CONCLUSION: No evidence of bony metastatic disease. Alen Razo MD Shoulder MRI 04/20/17 0000 Signed Impressions: Service Date/Time: March 18:17 - CONCLUSION: 1. 2.8 cm sclerotic bone lesion in the proximal right humerus correlating with plain film finding. In this patient with a history of prostate cancer, this finding is indeterminate. Differential diagnosis includes prostate cancer metastasis versus giant bone island. Whole body bone scan could be performed for further evaluation and to evaluate for any other lesions. 2. Small full thickness distal anterior supraspinatus tendon tear. 3. Moderate acromioclavicular joint arthrosis. Brody Melchor MD Lower Extremity Ultrasound 04/20/17 0000 Signed Impressions: Service Date/Time: March 19:43 - CONCLUSION: Normal examination. Jesus Dias MD Humerus X-Ray 04/20/17 0000 Signed Impressions: Service Date/Time: March 01:00 - CONCLUSION: The sclerotic lesion of right proximal humerus could be a giant bone island could be further characterized and confirmed with right humerus MRI examination with and without contrast if indicated clinically. Isaías Perez MD Chest X-Ray 04/19/177 Signed Impressions: Service Date/Time: Wednesday, April 19, 2017 21:49 - CONCLUSION: 1. Mild bibasilar airspace disease with trace bilateral pleural effusions. 2. Intramedullary sclerotic lesion in the right humeral neck with potentially aggressive features. Comparison with prior examinations would be beneficial in further evaluation. Alternatively, dedicated radiographs of the right humerus may be obtained for further evaluation on an outpatient basis. Bradford Quach MD CT Angiography 04/19/17 0000 Signed Impressions: Service Date/Time: Wednesday, April 19, 2017 22:38 - CONCLUSION: 1. Abnormal examination demonstrating pulmonary artery embolism to the distal segmental and subsegmental level of the pulmonary artery branches. Overall thrombus burden is small to moderate. No CT evidence for right heart strain. 2. Small bilateral pleural effusions and airspace consolidation at the lung bases , likely compressive atelectasis and scarring. 3. Moderate coronary artery calcifications. Bradford Quach MD PE at Discharge General: Elderly male in no acute distress. Heart: Regular rate and rhythm. No murmur. Lungs: Clear to auscultation bilaterally. No wheezes, rales, or rhonchi. Breathing is nonlabored. Abdomen: Soft, nontender, nondistended. Extremities: No lower extremity edema. SCDs. Psych: Alert and oriented. Pt update on day of discharge Patient states feels weak and very unsteady on his feet. Denies cp/sob. Afebrile. Patient would benefit from short term rehab. Pt Condition on Discharge: Stable Discharge Disposition: Discharge to SNF Discharge Time: > 30 minutes Discharge Instructions DIET: Follow Instructions for: Heart Healthy Diet Speech Therapy-Diet Recommends: Soft, [place] Thickened Liquids Activities you can perform: See Additionl Instruction Other Activity Instructions: OOB with assistance As per PT instructions Follow up Referrals: PCP Follow-up needs INR to be monitored. New Medications: Enoxaparin Inj (Lovenox Inj) 60 Mg/0.6 Ml Syr 60 MG SQ Q12H for Blood Clot Prevention, #12 INJECTION Warfarin (Coumadin) 3 Mg Tab 3 MG PO DAILY@1600 for Blood Clot Prevention, #30 TAB Continued Medications: Ascorbic Acid (Vitamin C) 250 Mg Chew 500 MG CHEW DAILY for Nutritional Supplement, #30 TAB 0 Refills Aspirin (Aspirin) 81 Mg Chew 81 MG CHEW DAILY, TAB 0 Refills Azathioprine (Azathioprine) 50 Mg Tab 50 MG PO BID for Immunosuppression, #60 TAB 0 Refills Hazardous agent use appropriate precautions for handling and disposal. Calcium Polycarbophil (Fiber) Unknown Strength Tab Unknown Dose PO PRN for CONSTIPATION, TAB 0 Refills Cholecalciferol (Vitamin D-1000) 1,000 Unit Tab 2000 UNITS PO DAILY for Nutritional Supplement, #1 BOTTLE 0 Refills Clopidogrel (Clopidogrel) 75 Mg Tab 75 MG PO DAILY for Blood Clot Prevention, #30 TAB 0 Refills Cyanocobalamin (Vitamin B-12) 1,000 Mcg Tab 1000 MCG PO DAILY for Nutritional Supplement, #1 BOTTLE 0 Refills Cyclosporine Opth (Restasis Opth) 0.05% Emul 1 DROP EACH EYE BID for Dry Eye, #1 BOX 0 Refills Ipratropium Avis (Ipratropium Avis) 42 Mcg (0.06 %) [place] Pbxp-Dpdteiyw-Ronevvgy (Flintstones Complete) 60 Mg Tab 65 MG CHEW BID for Nutritional Supplement, #30 TAB 0 Refills Metformin (Metformin) 500 Mg Tab 500 MG PO BIDPC for Blood Sugar Management, #60 TAB 0 Refills Multiple Vitamin (Multiple Vitamin) 1 Tab 1 TAB PO DAILY for Nutritional Supplement, TAB 0 Refills Polyvinyl Alcohol-Povidone Opth Drops (Refresh Opth Drops) 1.4-0.6% Drops 1-2 DROP EACH EYE PRN PRN for DRY EYE, #1 BOTTLE 0 Refills Prednisone (Prednisone) 2.5 Mg Tab 2.5 MG PO DAILY, TAB 0 Refills Pregabalin (Lyrica) 100 Mg Cap 100 MG PO TID, #90 CAP 0 Refills Pyridoxine HCl (Vitamin B6) (Vitamin B-6) 50 Mg Capsule Rosuvastatin (Rosuvastatin) 20 Mg Tab 20 MG PO DAILY for Cholesterol Management, #30 TAB 0 Refills Discontinued Medications: Doxycycline (Doxycycline) 40 Mg Cap 100 MG PO BID for Infection, CAP 0 Refills Lidocaine Topical (Lidocaine Topical) Unknown Strength Cream Unknown Dose Riki Pichardo MD Apr 26, 2017 14:16
[2017-04-26] MEDS: LISINOPRIL 10 MG TAB PO SCH (14:44)
[2017-04-26] MEDS ORDERED: WARFARIN SOD 2 MG TAB PO ONE (16:00)
[2017-04-26] MEDS: WARFARIN SOD 3 MG TAB PO SCH (17:04)
[2017-04-26] MEDS: LACTULOSE SYRUP 20 GM/30 ML CUP PO PRN (17:04)
[2017-04-27] VITALS (10 sets, daily range): BP systolic 78–172; BP diastolic 54–82; PULSE 52–102; RESP 16–20; TEMP 97.1–98.3; O2SAT 95–100
[2017-04-27] MEDS: INSULIN ASPART SUPPLEMENTAL SCALE SQ SCH ×4 (08:00→21:00)
[2017-04-27] MEDS: LISINOPRIL 10 MG TAB PO SCH (08:09)
[2017-04-27] MEDS: azaTHIOprine 50 MG TAB PO SCH ×2 (08:09→21:55)
[2017-04-27] MEDS: ASPIRIN 81 MG CHEW TAB CHEW SCH (08:09)
[2017-04-27] MEDS: ATORVASTATIN 40 MG TAB PO SCH (08:09)
[2017-04-27] MEDS: ENOXAPARIN SODIUM 60 MG/0.6 ML SYRINGE SQ SCH ×2 (08:09→21:57)
[2017-04-27] MEDS: predniSONE 5 MG TAB PO SCH (08:10)
[2017-04-27] MEDS: DOCUSATE SODIUM 50 MG/SENNA 8.6 MG TAB PO SCH ×2 (08:10→21:56)
[2017-04-27] MEDS: PREGABALIN 100 MG CAP PO SCH ×3 (08:10→15:59)
[2017-04-27] MEDS: CLOPIDOGREL 75 MG TAB PO SCH (08:10)
[2017-04-27] MEDS: [UNRECOGNIZED DRUG - OTHER] LEFT EYE SCH ×2 (08:11→21:00)
[2017-04-27] MEDS: SODIUM CHLORIDE 0.9% FLUSH 10 ML FLUSH IV FLUSH SCH ×2 (08:11→21:00)
--- NOTE | 2017-04-27 12:42 | HHI.PR ---
Subjective Remarks Discharge held yesterday. Patient had issues with hypotension earlier this morning. Discussed with his . He was recently taken off antihypertensives outpatient but since he arrived at the hospital his blood pressure was elevated and he was restarted on lisinopril. He reports severe weakness when his blood pressure was low. Objective Vitals Vital Signs Date Time Temp Pulse Resp B/P (MAP) Pulse Ox O2 Delivery O2 Flow Rate FiO2 04/27/17 12:00 98.1 93 16 89/55 (66) 96 04/27/17 09:29 90/54 (66) 04/27/17 08:17 Room Air 04/27/17 08:00 97.8 102 20 78/82 (81) 100 04/27/17 08:00 79 04/27/17 06:28 152/80 (104) 04/27/17 04:01 60 04/27/17 04:00 97.5 72 16 172/74 (106) 96 04/27/17 00:30 Room Air 04/27/17 00:00 52 04/27/17 00:00 97.1 54 18 112/57 (75) 98 04/26/17 20:00 97.5 59 16 106/50 (68) 97 04/26/17 20:00 58 04/26/17 18:00 97 21 04/26/17 16:00 68 04/26/17 16:00 98.0 59 20 146/69 (94) 97 I/O 04/26/17 04/26/17 04/26/17 04/27/17 04/27/17 04/27/17 07:00 15:00 23:00 07:00 15:00 23:00 Intake Total 240 ml 480 ml 240 ml Output Total 700 ml 575 ml 300 ml Balance -460 ml -95 ml -60 ml Intake Oral 240 ml 480 ml 240 ml Output Urine Total 700 ml 575 ml 300 ml # Bowel Movements 0 0 1 Result Diagram: 04/25/17 0725 04/26/17 0426 Objective Remarks GENERAL: Elderly male, in no apparent distress. CARDIOVASCULAR: Normal rate and regular rhythm without murmurs, gallops, or rubs. RESPIRATORY: Good respiratory efforts. Breath sounds equal and clear to auscultation bilaterally. GASTROINTESTINAL: Abdomen soft, non-tender, non-distended. Normal active bowel sounds MUSCULOSKELETAL: Extremities without cyanosis, or edema. NEURO: Alert & Oriented x4 to person, place, time, situation. Moves all ext x4 PSYCH: Appropriate mood and affect. Procedures None A/P Problem List: (1) Pulmonary embolism ICD Code: I26.99 - Other pulmonary embolism without acute cor pulmonale Status: Acute (2) Hyperlipidemia ICD Code: E78.5 - Hyperlipidemia, unspecified Status: Chronic (3) HTN (hypertension) ICD Code: I10 - Essential (primary) hypertension Status: Chronic (4) Diabetes mellitus ICD Code: E11.9 - Type 2 diabetes mellitus without complications Status: Chronic (5) CAD (coronary artery disease) ICD Code: I25.10 - Atherosclerotic heart disease of [place] coronary artery without angina pectoris Status: Chronic (6) Tachycardia ICD Code: R00.0 - Tachycardia, unspecified Status: Resolved (7) History of prostate cancer ICD Code: Z85.46 - Personal history of malignant neoplasm of prostate Status: Resolved (8) Dysphagia ICD Code: R13.10 - Dysphagia, unspecified Status: Acute Assessment and Plan 77-year-old male admitted and treated for: 1. Pulmonary embolus: Appreciate hematology recommendations. Continue Lovenox bridging to therapeutic INR on Coumadin. INR is 1.3. Monitor PT/INR daily. Pharmacy managing coumadin dose. 2. Fatigue, generalized weakness, anorexia, weight loss: Patient has history of prostate cancer, status post cryotherapy and radiation. He does report that his PSA is increasing. There is a sclerotic lesion in the right humeral neck with potentially aggressive features. MRI shows 2.8 cm sclerotic bone lesion in the proximal right humerus. Differential diagnosis includes prostate cancer metastasis versus giant bone island. Bone scan is negative for metastatic disease. Oncology followed the patient. He will follow-up outpatient. 3. Tachycardia, abnormal EKG: Appreciate cardiology recommendations. Tachycardia felt to be secondary to pulmonary embolus. Resolved 4. Diabetes mellitus: Monitor Accu-Cheks and cover with sliding scale insulin. 04/23 Blood sugars stable. Continue management as above. 5. Hyperlipidemia, coronary artery disease:On ASA, Plavix, statin. 6. Unspecified autoimmune disorder: Patient reported that he had been on prednisone for the past year, currently being tapered off. Also on Imuran per rheumatology. The patient is a poor historian and does not recall what his diagnosis is. 7. Hypertension: Hypotensive overnight. He was on valsartan outpatient which was discontinued a few months ago. His blood pressure has trended down since he was restarted on lisinopril here for elevated blood pressure. Discontinue lisinopril and monitor BP. 8. Constipation: Relieved after Dulcolax suppository administered last night. Patient had small amount of blood during BM ikely related to constipation and possibly hemorrhoids, this has resolved and hemoglobin is stable. will monitor for GI bleed. Fu cbc as needed. Discharge Planning Plan to discharge tomorrow. SNF versus home with home health care. Problem Qualifiers (1) Pulmonary embolism: Qualified Codes: I26.99 - Other pulmonary embolism without acute cor pulmonale (2) Hyperlipidemia: Qualified Codes: E78.5 - Hyperlipidemia, unspecified (3) HTN (hypertension): Qualified Codes: I10 - Essential (primary) hypertension (4) Diabetes mellitus: Qualified Codes: E11.9 - Type 2 diabetes mellitus without complications (5) CAD (coronary artery disease): Qualified Codes: I25.10 - Atherosclerotic heart disease of [place] coronary artery without angina pectoris (6) Dysphagia: Qualified Codes: R13.10 - Dysphagia, unspecified Aurora Escalante MD Apr 27, 2017 12:42
[2017-04-27] MEDS ORDERED: SODIUM CHLORID 0.9% 500 ML INJ 500 ML IV ONE (12:45)
[2017-04-27] MEDS: WARFARIN SOD 3 MG TAB PO SCH (15:59)
[2017-04-27 16:27] LABS: INTERNATIONAL NORMALIZED RATIO 1.3 RATIO; PROTHROMBIN TIME - PATIENT 13.1 SEC (9.8-11.6)
[2017-04-27] MEDS ORDERED: WARFARIN SOD 2 MG TAB PO ONE (18:15)
[2017-04-28] VITALS (7 sets, daily range): BP systolic 121–150; BP diastolic 61–75; PULSE 57–89; RESP 15–18; TEMP 97.2–98.6; O2SAT 94–98
[2017-04-28 07:38] LABS: HEMATOCRIT 32.6 % (39.0-51.0); HEMOGLOBIN 11.1 GM/DL (13.0-17.0); MEAN CELL VOLUME 101.2 FL (80.0-100.0); MEAN CORPUSCULAR HEMOGLOBIN 34.4 PG (27.0-34.0); PLATELET COUNT 174 TH/MM3 (150-450); RED BLOOD COUNT 3.23 MIL/MM3 (4.50-5.90); RED CELL DISTRIBUTION WIDTH 16.8 % (11.6-17.2); WHITE BLOOD COUNT 4.2 TH/MM3 (4.0-11.0)
[2017-04-28 07:40] LABS: INTERNATIONAL NORMALIZED RATIO 1.4 RATIO; PROTHROMBIN TIME - PATIENT 13.7 SEC (9.8-11.6)
[2017-04-28] MEDS: INSULIN ASPART SUPPLEMENTAL SCALE SQ SCH ×2 (08:00→12:00)
[2017-04-28] MEDS: [UNRECOGNIZED DRUG - OTHER] LEFT EYE SCH (09:00)
[2017-04-28] MEDS: SODIUM CHLORIDE 0.9% FLUSH 10 ML FLUSH IV FLUSH SCH (09:00)
[2017-04-28] MEDS ORDERED: LISINOPRIL 5 MG TAB PO SCH (09:00)
[2017-04-28] MEDS: PREGABALIN 100 MG CAP PO SCH ×2 (10:00→13:26)
[2017-04-28] MEDS: azaTHIOprine 50 MG TAB PO SCH (10:01)
[2017-04-28] MEDS: DOCUSATE SODIUM 50 MG/SENNA 8.6 MG TAB PO SCH (10:01)
[2017-04-28] MEDS: ASPIRIN 81 MG CHEW TAB CHEW SCH (10:01)
[2017-04-28] MEDS: predniSONE 5 MG TAB PO SCH (10:01)
[2017-04-28] MEDS: CLOPIDOGREL 75 MG TAB PO SCH (10:01)
[2017-04-28] MEDS: ATORVASTATIN 40 MG TAB PO SCH (10:01)
[2017-04-28] MEDS: ENOXAPARIN SODIUM 60 MG/0.6 ML SYRINGE SQ SCH (10:02)
--- NOTE | 2017-04-28 14:40 | HHI.DS ---
Discharge Summary Admission Date Apr 20, 2017 at 01:11 Discharge Date: Apr 28, 2017 Admitting Diagnosis PE (1) Pulmonary embolism ICD Code: I26.99 - Other pulmonary embolism without acute cor pulmonale Diagnosis: Principal Status: Acute (2) Hyperlipidemia ICD Code: E78.5 - Hyperlipidemia, unspecified Diagnosis: Secondary Status: Chronic (3) HTN (hypertension) ICD Code: I10 - Essential (primary) hypertension Diagnosis: Principal Status: Chronic (4) Diabetes mellitus ICD Code: E11.9 - Type 2 diabetes mellitus without complications Diagnosis: Principal Status: Chronic (5) CAD (coronary artery disease) ICD Code: I25.10 - Atherosclerotic heart disease of [place] coronary artery without angina pectoris Diagnosis: Principal Status: Chronic (6) Tachycardia ICD Code: R00.0 - Tachycardia, unspecified Diagnosis: Principal Status: Resolved (7) History of prostate cancer ICD Code: Z85.46 - Personal history of malignant neoplasm of prostate Diagnosis: Principal Status: Resolved (8) Dysphagia ICD Code: R13.10 - Dysphagia, unspecified Diagnosis: Principal Status: Acute Procedures None Brief History - From Admission History of present illness from the admitting physician 77-year-old male with a past medical history significant for CAD status post [place] in 2002, previous diagnosis of hypertension with recent discontinuation of his antihypertensives, hyperlipidemia, diabetes mellitus and history of prostate cancer presents to the emergency department for evaluation of increasing dyspnea. The patient reports he has felt sick for "a couple of years". He reports increasing fatigue and weakness and a 10 pound weight loss over the past 1.5 weeks. He has accompanying anorexia. He reports 4-5 days of increasing shortness of breath, worse with activity. Chest x-ray showed intramedullary sclerotic lesion of the right humeral neck with potentially aggressive features. CTA positive for PE without evidence of right heart strain. The patient has an extremely poor historian, directs me to his for further characterization of his past medical history. CBC/BMP: 04/28/17 0534 04/26/17 0426 Significant Findings Laboratory Tests Test 04/26/17 04:26 04/27/17 15:33 04/28/17 05:34 Prothrombin Time 12.0 SEC (9.8-11.6) 13.1 SEC (9.8-11.6) 13.7 SEC (9.8-11.6) Red Blood Count 3.23 MIL/MM3 (4.50-5.90) Hemoglobin 11.1 GM/DL (13.0-17.0) Hematocrit 32.6 % (39.0-51.0) Mean Corpuscular Volume 101.2 FL (80.0-100.0) Mean Corpuscular Hemoglobin 34.4 PG (27.0-34.0) Imaging Last Impressions Modified Barium Swallow 04/22/17 0000 Signed Impressions: Service Date/Time: Saturday, April 22, 2017 00:00 - CONCLUSION: No aspiration or penetration seen. Jesus Fu MD Bone Scan Nuclear Medicine 04/21/17 0000 Signed Impressions: Service Date/Time: Friday, April 21, 2017 10:17 - CONCLUSION: No evidence of bony metastatic disease. Alen Razo MD Shoulder MRI 04/20/17 0000 Signed Impressions: Service Date/Time: March 18:17 - CONCLUSION: 1. 2.8 cm sclerotic bone lesion in the proximal right humerus correlating with plain film finding. In this patient with a history of prostate cancer, this finding is indeterminate. Differential diagnosis includes prostate cancer metastasis versus giant bone island. Whole body bone scan could be performed for further evaluation and to evaluate for any other lesions. 2. Small full thickness distal anterior supraspinatus tendon tear. 3. Moderate acromioclavicular joint arthrosis. Brody Melchor MD Lower Extremity Ultrasound 04/20/17 0000 Signed Impressions: Service Date/Time: March 19:43 - CONCLUSION: Normal examination. Jesus Dias MD Humerus X-Ray 04/20/17 0000 Signed Impressions: Service Date/Time: March 01:00 - CONCLUSION: The sclerotic lesion of right proximal humerus could be a giant bone island could be further characterized and confirmed with right humerus MRI examination with and without contrast if indicated clinically. Isaías Perez MD Chest X-Ray 04/19/172126 Signed Impressions: Service Date/Time: Wednesday, April 19, 2017 21:49 - CONCLUSION: 1. Mild bibasilar airspace disease with trace bilateral pleural effusions. 2. Intramedullary sclerotic lesion in the right humeral neck with potentially aggressive features. Comparison with prior examinations would be beneficial in further evaluation. Alternatively, dedicated radiographs of the right humerus may be obtained for further evaluation on an outpatient basis. Bradford Quach MD CT Angiography 04/19/17 0000 Signed Impressions: Service Date/Time: Wednesday, April 19, 2017 22:38 - CONCLUSION: 1. Abnormal examination demonstrating pulmonary artery embolism to the distal segmental and subsegmental level of the pulmonary artery branches. Overall thrombus burden is small to moderate. No CT evidence for right heart strain. 2. Small bilateral pleural effusions and airspace consolidation at the lung bases , likely compressive atelectasis and scarring. 3. Moderate coronary artery calcifications. Bradford Quach MD PE at Discharge GENERAL: Elderly male, in no apparent distress. CARDIOVASCULAR: Normal rate and regular rhythm without murmurs, gallops, or rubs. RESPIRATORY: Good respiratory efforts. Breath sounds equal and clear to auscultation bilaterally. GASTROINTESTINAL: Abdomen soft, non-tender, non-distended. Normal active bowel sounds MUSCULOSKELETAL: Extremities without cyanosis, or edema. NEURO: Alert & Oriented x4 to person, place, time, situation. Moves all ext x4 PSYCH: Appropriate mood and affect. Pt update on day of discharge Patient reports is feeling much better. Blood pressure normalized. Hospital Course 77-year-old male admitted and treated for the followin. Pulmonary embolus: Patient was seen by hematology recommended Lovenox bridging to Coumadin. Patient to continue Lovenox bridging to Coumadin he is discharged with home health for INR check. Lovenox to be discontinued once INR above 2. Outpatient follow-up with PCP is advised. 2. Fatigue, generalized weakness, anorexia, weight loss: Patient has history of prostate cancer, status post cryotherapy and radiation. He does report that his PSA is increasing. There is a sclerotic lesion in the right humeral neck with potentially aggressive features. MRI shows 2.8 cm sclerotic bone lesion in the proximal right humerus. Differential diagnosis includes prostate cancer metastasis versus giant bone island. Bone scan is negative for metastatic disease. Oncology followed the patient. He will follow-up outpatient with his PCP to continue workup. 3. Tachycardia, abnormal EKG: Appreciate cardiology recommendations. Tachycardia felt to be secondary to pulmonary embolus. Resolved 4. Diabetes mellitus: Blood sugars stable. 5. Hyperlipidemia, coronary artery disease:On ASA, Plavix, statin. 6. Unspecified autoimmune disorder: Patient reported that he had been on prednisone for the past year, currently being tapered off. Also on Imuran per rheumatology. The patient is a poor historian and does not recall what his diagnosis is. He will need to follow-up outpatient. 7. Hypertension: Episodes of hypotension. He was on valsartan outpatient which was discontinued a few months ago. His blood pressure has trended down since he was restarted on lisinopril here for elevated blood pressure. Lisinopril discontinued and his blood pressure recovered. Pt Condition on Discharge: Stable Discharge Disposition: Disch w/ Home Health Serv Discharge Time: > 30 minutes Discharge Instructions DIET: Follow Instructions for: Heart Healthy Diet Speech Therapy-Diet Recommends: Soft, [place] Thickened Liquids Activities you can perform: See Additionl Instruction Other Activity Instructions: OOB with assistance As per PT instructions Follow up Referrals: PCP Follow-up needs INR to be monitored. New Orders: PT/INR - 2-3 Days New Medications: Enoxaparin Inj (Lovenox Inj) 60 Mg/0.6 Ml Syr 60 MG SQ Q12H for Blood Clot Prevention, #12 INJECTION Warfarin (Warfarin) 4 Mg Tab 4 MG PO DAILY for Blood Clot Prevention, #30 TAB 0 Refills Continued Medications: Ascorbic Acid (Vitamin C) 250 Mg Chew 500 MG CHEW DAILY for Nutritional Supplement, #30 TAB 0 Refills Aspirin (Aspirin) 81 Mg Chew 81 MG CHEW DAILY, TAB 0 Refills Azathioprine (Azathioprine) 50 Mg Tab 50 MG PO BID for Immunosuppression, #60 TAB 0 Refills Hazardous agent use appropriate precautions for handling and disposal. Calcium Polycarbophil (Fiber) Unknown Strength Tab Unknown Dose PO PRN for CONSTIPATION, TAB 0 Refills Cholecalciferol (Vitamin D-1000) 1,000 Unit Tab 2000 UNITS PO DAILY for Nutritional Supplement, #1 BOTTLE 0 Refills Clopidogrel (Clopidogrel) 75 Mg Tab 75 MG PO DAILY for Blood Clot Prevention, #30 TAB 0 Refills Cyanocobalamin (Vitamin B-12) 1,000 Mcg Tab 1000 MCG PO DAILY for Nutritional Supplement, #1 BOTTLE 0 Refills Cyclosporine Opth (Restasis Opth) 0.05% Emul 1 DROP EACH EYE BID for Dry Eye, #1 BOX 0 Refills Ipratropium [employer] (Ipratropium [employer]) 42 Mcg (0.06 %) [place] Umrg-Txzqakjb-Ghjlaqwl (Flintstones Complete) 60 Mg Tab 65 MG CHEW BID for Nutritional Supplement, #30 TAB 0 Refills Metformin (Metformin) 500 Mg Tab 500 MG PO BIDPC for Blood Sugar Management, #60 TAB 0 Refills Multiple Vitamin (Multiple Vitamin) 1 Tab 1 TAB PO DAILY for Nutritional Supplement, TAB 0 Refills Polyvinyl Alcohol-Povidone Opth Drops (Refresh Opth Drops) 1.4-0.6% Drops 1-2 DROP EACH EYE PRN PRN for DRY EYE, #1 BOTTLE 0 Refills Prednisone (Prednisone) 2.5 Mg Tab 2.5 MG PO DAILY, TAB 0 Refills Pregabalin (Lyrica) 100 Mg Cap 100 MG PO TID, #90 CAP 0 Refills Pyridoxine HCl (Vitamin B6) (Vitamin B-6) 50 Mg Capsule Rosuvastatin (Rosuvastatin) 20 Mg Tab 20 MG PO DAILY for Cholesterol Management, #30 TAB 0 Refills Discontinued Medications: Doxycycline (Doxycycline) 40 Mg Cap 100 MG PO BID for Infection, CAP 0 Refills Lidocaine Topical (Lidocaine Topical) Unknown Strength Cream Unknown Dose Aurora Escalante MD Apr 28, 2017 14:40
--- NOTE | 2017-04-28 15:01 | HHI.FF ---
Face to Face Verification Diagnosis: (1) Pulmonary embolism (2) HTN (hypertension) (3) CAD (coronary artery disease) (4) Diabetes mellitus Physical Therapy Order: Evaluate and Treat, Improve ambulation, Strength and gait training Home Health Nursing Order: Medical education Medication education-adverse effect (Lovenox teaching and INR check) I have seen patient Chao Richardson on 04/28/17. My clinical findings support the need for the requested home health care services because: Limited ability to care for self Injectable med education/admin I certify that my clinical findings support that this patient is homebound because: Unsafe to leave home unassisted Discontinue Lovenox once INR>2 Aurora Escalante MD Apr 28, 2017 15:01
[2017-04-28] MEDS ORDERED: WARF-20 PO (15:04)
[2017-04-28] MEDS: WARFARIN SOD 3 MG TAB PO SCH (16:00)
[2017-04-28] MEDS ORDERED: WARFARIN SOD 3 MG TAB PO ONE (16:00)
== END 2017-04-28 16:32 | disposition home health service (06) | DRG 176 ==
LOC: NEPC 21:17 → NEDA 04-20 01:11 → N03A 04-20 03:00 → N04B 04-22 11:30
PROVIDERS: ADMIT Family Medicine; ATTEND Family Medicine
DX: I26.99 Other pulmonary embolism without acute cor pulmonale (principal); D89.89 Other specified disorders involving the immune mechanism, not elsewhere classified; I95.9 Hypotension, unspecified; E11.8 Type 2 diabetes mellitus with unspecified complications; Z79.84 Long term (current) use of oral hypoglycemic drugs; E87.5 Hyperkalemia; R13.10 Dysphagia, unspecified; R63.0 Anorexia; D64.9 Anemia, unspecified; E78.5 Hyperlipidemia, unspecified; R00.0 Tachycardia, unspecified; K59.00 Constipation, unspecified; Z85.46 Personal history of malignant neoplasm of prostate; Z92.3 Personal history of irradiation; I25.10 Atherosclerotic heart disease of native coronary artery without angina pectoris; Z95.5 Presence of coronary angioplasty implant and graft; I25.2 Old myocardial infarction; Z79.52 Long term (current) use of systemic steroids; Z79.82 Long term (current) use of aspirin; M89.8X2 Other specified disorders of bone, upper arm; I10 Essential (primary) hypertension; R63.4 Abnormal weight loss; Z68.21 Body mass index [BMI] 21.0-21.9, adult
CPT/HCPCS: 71010; 71275; 73060; 73223; 74230; 78306; 80048; 80053; 82607; 82948; 83615; 83690; 83735; 83880; 84484; 85025; 85027; 85044; 85379; 85610; 85730; 87641; 93005; 93970; 96361; 96365; 96375; A9503; A9579; J1644; J1650; J1815; J2405; J7040; J7500; J7512; Q9967

== ENCOUNTER 2017-08-01 10:58 | Inpatient (IN) | payer MEDICARE ==
[2017-08-01] VITALS (12 sets, daily range): BP systolic 104–145; BP diastolic 55–67; PULSE 88–128; RESP 18–23; TEMP 98.2–99.8; O2SAT 92–98
[~2017-08-01] VITALS: Ht 172.7 cm; Wt 66.8 kg
[~2017-08-01 10:58] MED LIST: ASPI-516 CHEW; AZAT50 PO; CLOP75TA PO; ENOX60P SQ; FIBE625T10 PO; FLINT2 CHEW; IPRA0.06; LYRI100C PO; METF500T PO; MULTTAB67 PO; PRED2.5T PO; PYRI50CA; REFRDRO EACH EYE; REST0.05 EACH EYE; ROSU1TAB8 PO; VITA1000 PO; VITA10002 PO; VITA250C3 CHEW; WARF-20 PO
--- NOTE | 2017-08-01 11:06 | PD ---
HPI Chief Complaint: Weakness Time Seen by Provider: 11:02 Travel History International Travel<30 days: No Contact w/Intl Traveler<30days: No Traveled to known affect area: No History of Present Illness HPI EMS was called by the family, patient lives at home, for generalized weakness to the point where he is not able to ambulate on his own without any full assistance. Patient himself denies any alleviating or aggravating factors. Patient denies any headache, chest pain, abdominal pain, flank pain or back pain. Patient denies having any recent history of nausea vomiting or diarrhea. No known drug allergy Past medical history significant for [place] status post catheterization, hypertension, GERD, hiatal hernia, diabetes, anxiety, prostate CA PFSH Past Medical History Arthritis: Yes (HANDS AND WRIST) Asthma: No Autoimmune Disease: No Blood Disorders: No Anxiety: Yes Depression: No Heart Rhythm Problems: No Cancer: Yes (PROSTATE ) Cardiac Catheterization: Yes Cardiovascular Problems: Yes High Cholesterol: No Chemotherapy: No Chest Pain: Yes Congestive Heart Failure: No COPD: No Cerebrovascular Accident: No Diabetes: Yes Diminished Hearing: No Gastrointestinal Disorders: Yes GERD: No Glaucoma: No Genitourinary: No Headaches: No Hepatitis: No Hiatal Hernia: Yes Hypertension: Yes Kidney Stones: No Musculoskeletal: Yes Neurologic: No Psychiatric: No Reproductive: No Respiratory: No Myocardial Infarction: Yes (NEW [place]) Radiation Therapy: No Renal Failure: No Seizures: No Sleep Apnea: No Thyroid Disease: No Ulcer: No Past Surgical History Abdominal Surgery: No AICD: No Genitourinary Surgery: No Pacemaker: No Thoracic Surgery: No Other Surgery: Yes (RT.ARTROSCOPY KNEE) Social History Alcohol Use: No Tobacco Use: No Substance Use: No Allergies-Medications (Allergen,Severity, Reaction): Coded Allergies: No Known Allergies (Verified Allergy, Severe, 04/19/17) Reported Meds & Prescriptions Reported Meds & Active Scripts Active Reported Novolog Inj (Insulin Aspart) 1,000 Unit/10 Ml Vial 0 SQ DIRECTED Sliding Scale as directed. Vitamin D3 (Cholecalciferol) 5,000 Unit Cap 7,000 Units PO DAILY Prilosec (Omeprazole Magnesium) 20 Mg Tab 20 Mg PO DAILY Mirtazapine 15 Mg Tab 15 Mg PO HS Lyrica (Pregabalin) 100 Mg Cap 100 Mg PO BID Eliquis (Apixaban) 5 Mg Tab 5 Mg PO BID Prednisone 1 Mg Tab 1 Mg PO DAILY Multiple Vitamin 1 Tab 1 Tab PO DAILY Vitamin C (Ascorbic Acid) 250 Mg Chew 500 Mg CHEW DAILY Vitamin B-12 (Cyanocobalamin) 1,000 Mcg Tab 1,000 Mcg PO DAILY Vitamin B-6 (Pyridoxine HCl (Vitamin B6)) 50 Mg Capsule Aspirin 81 Mg Chew 81 Mg CHEW DAILY Ipratropium [place] 42 Mcg (0.06 %) [place] Refresh Opth Drops (Polyvinyl Alcohol-Povidone Opth Drops) 1.4-0.6% Drops 1-2 Drop EACH EYE PRN PRN Restasis Opth (Cyclosporine Opth) 0.05% Emul 1 Drop EACH EYE BID Metformin (Metformin HCl) 500 Mg Tab 500 Mg PO BIDPC Review of Systems Except as stated in HPI: all other systems reviewed are Neg General / Constitutional: No: Fever Eyes: No: Visual changes HENT: No: Headaches Cardiovascular: No: Chest Pain or Discomfort Respiratory: No: Shortness of Breath Gastrointestinal: No: Abdominal Pain Genitourinary: No: Dysuria Musculoskeletal: No: Pain Skin: No Rash Neurologic: Positive: Weakness Psychiatric: No: Depression Endocrine: No: Polydipsia Hematologic/Lymphatic: No: Easy Bruising Physical Exam Narrative GENERAL: Generalized weakness SKIN: Warm and dry. HEAD: Atraumatic. Normocephalic. EYES: Pupils equal and round. No scleral icterus. No injection or drainage. ENT: No nasal bleeding or discharge. Mucous membranes pink and moist. NECK: Trachea midline. No JVD. CARDIOVASCULAR: Regular rate and rhythm. RESPIRATORY: No accessory muscle use. Clear to auscultation. Breath sounds equal bilaterally. GASTROINTESTINAL: Abdomen soft, non-tender, nondistended. MUSCULOSKELETAL: Extremities without clubbing, cyanosis, or edema. No obvious deformities. NEUROLOGICAL: Awake and alert. No obvious cranial nerve deficits. Motor grossly within normal limits. Five out of 5 muscle strength in the arms and legs. Normal speech. PSYCHIATRIC: Appropriate mood and affect; insight and judgment normal. Data Data Last Documented VS Vital Signs Date Time Temp Pulse Resp B/P (MAP) Pulse Ox O2 Delivery O2 Flow Rate FiO2 08/01/17 12:33 105 18 127/62 (83) 92 Room Air 08/01/17 11:11 99.8 Orders Orders Complete Blood Count With Diff (08/01/17 11:19) Comprehensive Metabolic Panel (08/01/17 11:19) Lipase (08/01/17 11:19) Lactic Acid (08/01/17 11:19) Prothrombin Time / Inr (Pt) (08/01/17 11:19) Act Partial Throm Time (Ptt) (08/01/17 11:19) Urinalysis - C+S If Indicated (08/01/17 11:19) Iv Access Insert/Monitor (08/01/17 11:19) Ecg Monitoring (08/01/17 11:19) Oximetry (08/01/17 11:19) NPO (08/01/17 11:19) Sodium Chlor 0.9% 1000 Ml Inj (Ns 1000 M (08/01/17 11:19) Sodium Chloride 0.9% Flush (Ns Flush) (08/01/17 11:30) Electrocardiogram (08/01/17 11:19) Chest, Single Ap (08/01/17 11:19) Labs Laboratory Tests Test 08/01/17 11:15 08/01/17 12:35 White Blood Count 7.9 TH/MM3 Red Blood Count 3.94 MIL/MM3 Hemoglobin 13.3 GM/DL Hematocrit 39.7 % Mean Corpuscular Volume 100.7 FL Mean Corpuscular Hemoglobin 33.7 PG Mean Corpuscular Hemoglobin Concent 33.4 % Red Cell Distribution Width 16.2 % Platelet Count 106 TH/MM3 Mean Platelet Volume 8.7 FL Neutrophils (%) (Auto) 89.0 % Lymphocytes (%) (Auto) 5.6 % Monocytes (%) (Auto) 5.0 % Eosinophils (%) (Auto) 0.1 % Basophils (%) (Auto) 0.3 % Neutrophils # (Auto) 7.0 TH/MM3 Lymphocytes # (Auto) 0.4 TH/MM3 Monocytes # (Auto) 0.4 TH/MM3 Eosinophils # (Auto) 0.0 TH/MM3 Basophils # (Auto) 0.0 TH/MM3 CBC Comment AUTO DIFF Differential Total Cells Counted 100 Neutrophils % (Manual) 71 % Band Neutrophils % 16 % Lymphocytes % 7 % Monocytes % 5 % Eosinophils % 1 % Neutrophils # (Manual) 6.9 TH/MM3 Differential Comment FINAL DIFF MANUAL Platelet Estimate LOW Platelet Morphology Comment NORMAL Red Cell Morphology Comment NORMAL Prothrombin Time 11.7 SEC Prothromb Time International Ratio 1.2 RATIO Activated Partial Thromboplast Time 26.6 SEC Lactic Acid Level 2.1 mmol/L Urine Color YELLOW Urine Turbidity CLEAR Urine pH 7.0 Urine Specific [place] 1.013 Urine Protein NEG mg/dL Urine Glucose (UA) NEG mg/dL Urine Ketones NEG mg/dL Urine Occult Blood NEG Urine Nitrite NEG Urine Bilirubin NEG Urine Urobilinogen LESS THAN 2.0 MG/DL Urine Leukocyte Esterase NEG Urine RBC 1 /hpf Urine WBC LESS THAN 1 /hpf Urine Squamous Epithelial Cells <1 /hpf Urine Transitional Epithelial Cells <1 /hpf Urine Mucus FEW /lpf Microscopic Urinalysis Comment CULT NOT INDICATED MDM Medical Decision Making Medical Screen Exam Complete: Yes Emergency Medical Condition: Yes Medical Record Reviewed: Yes Interpretation(s) EKG shows tachycardia 126 possible junctional wide-complex right bundle branch block noted, this is consistent with a previous right bundle branch block noted on 2017, currently there is no concordance noted on the EKG Differential Diagnosis Sepsis rule out pneumonia versus UTI versus electrolyte abnormalities versus dehydration Narrative Course corroborated that he has a DNR however its inside the safe at home. Patient verbalizes that he does not want any chest compressions or intubation if his heart stopped or if he stopped breathing. A CODE STATUS form for the hospital showing no code DNR has been signed by myself as well as the patient Mr. Chao Herrera. CBC does not show any anemia with an H&H of 13/39. No leukocytosis. However a neutrophilia of 89% was noted, and a slight decrease platelet count of 106,000 Coagulation profile is within normal limits Currently CMP laboratories pending except for lactic acid of 2.1 Chest x-ray reported by radiologist as bibasilar areas of consolidation, atelectasis being worse on the right with mild bilateral pleural effusions. There continues to be a sclerotic area in the proximal right humerus. Critical Care Narrative CRITICAL CARE NOTE: With evaluation of the patient, labs, EKG, receipt of radiologic studies, administration of medications, reevaluation the patient and discussion of the patient with the admitting physicians, the total critical care time was [45] minutes. Time to perform other separately billable procedures was not included in the critical care time. Sepsis Criteria SIRS Criteria (2 or more): Heart rate over 90, WBC > 95202, < 4000 or > 10% bands Severe Sepsis (+one): Hypotension, Lactate >2 Criteria Outcome: Meets sepsis criteria Diagnosis Primary Impression: Hypotension responsive to fluid bolus Additional Impressions: SEPSIS POSS PNA Admitting Information Admitting Physician Requests: Admit Deo Vega MD Aug 01, 2017 11:06
[2017-08-01] MEDS ORDERED: SODIUM CHLORIDE 0.9% FLUSH 10 ML FLUSH IV FLUSH PRN ×2 (11:30→13:00)
[2017-08-01] MEDS: SODIUM CHLOR 0.9% 1000 ML INJ 1,000 ML IV SCH ×3 (11:39→13:20)
[2017-08-01 11:42] LABS: BASOPHIL % 0.3 % (0.0-2.0); EOSINOPHIL % 0.1 % (0.0-4.0); HEMATOCRIT 39.7 % (39.0-51.0); HEMOGLOBIN 13.3 GM/DL (13.0-17.0); LYMPH % 5.6 % (9.0-44.0); LYMPHOCYTE # 0.4 TH/MM3 (1.0-4.8); MEAN CELL VOLUME 100.7 FL (80.0-100.0); MEAN CORPUSCULAR HEMOGLOBIN 33.7 PG (27.0-34.0); MEAN CORPUSCULAR HGB CONC 33.4 % (32.0-36.0); MEAN PLATELET VOLUME 8.7 FL (7.0-11.0); MONOCYTE # 0.4 TH/MM3 (0-0.9); PLATELET COUNT 106 TH/MM3 (150-450); RED BLOOD COUNT 3.94 MIL/MM3 (4.50-5.90); RED CELL DISTRIBUTION WIDTH 16.2 % (11.6-17.2); WHITE BLOOD COUNT 7.9 TH/MM3 (4.0-11.0)
[2017-08-01 11:51] LABS: INTERNATIONAL NORMALIZED RATIO 1.2 RATIO; PROTHROMBIN TIME - PATIENT 11.7 SEC (9.8-11.6)
[2017-08-01 12:14] LABS: BANDS 16 % (0-6); LYMPHOCYTES 7 % (9-44); MONOCYTES 5 % (0-8); NEUTROPHIL # MANUAL DIFF 6.9 TH/MM3 (1.8-7.7); POLYS (SEG NEUTROPHILS) 71 % (16-70)
--- NOTE | 2017-08-01 12:22 | RADRPT ---
EXAM DATE/TIME: 08/01/2017 11:33 [facility] COMPARISON: CHEST SINGLE AP, April 19, 2017, 21:49. INDICATIONS : R/o pneumonia, short of breath MEDICAL HISTORY : Carcinoma, prostatic. Hypertension Diabetes mellitus type II. Diabetes II SURGICAL HISTORY : Prostatectomy. ENCOUNTER: Initial ACUITY: 1 day PAIN SCORE: 0/10 LOCATION: Bilateral chest FINDINGS: The heart size is normal. There is increased density at the right base. There is minimal increased de nsity in the retrocardiac area. Mild bilateral pleural effusions are present. There continues be a sc lerotic area in the proximal right humerus. CONCLUSION: Bibasilar areas of consolidation or atelectasis being worse on the right with mild bilateral pleural effusions. Jesus Fu MD on August 01, 2017 at 12:19 Board Certified Radiologist. This report was verified electronically.
[2017-08-01] MEDS ORDERED: PRIL20TA2 PO (12:26)
[2017-08-01] MEDS ORDERED: PRED1 PO (12:26)
[2017-08-01] MEDS ORDERED: CHOL5000 PO (12:26)
[2017-08-01] MEDS ORDERED: NOVOLOGP2 SQ (12:26)
[2017-08-01] MEDS ORDERED: MIRTA15 PO (12:26)
[2017-08-01] MEDS ORDERED: LYRI100C PO (12:26)
[2017-08-01] MEDS ORDERED: APIX5TAB PO (12:26)
[2017-08-01 12:52] LABS: BILIRUBIN, URINE NEG (NEG); BLOOD, URINE NEG (NEG); GLUCOSE,URINE NEG (NEG); KETONE, URINE NEG (NEG); MUCUS URINE FEW /lpf (OCC); NITRITE,URINE NEG (NEG); SQUAMOUS EPITHELIAL CELL URINE <1 /hpf (0-5); TRANSITIONAL EPI CELLS, URINE <1 /hpf; URINE COLOR YELLOW (YELLW/STRAW); URINE LEUKOCYTE ESTERASE NEG (NEG)
[2017-08-01] MEDS ORDERED: BISACODYL 10 MG SUPP RECTAL PRN (13:00)
[2017-08-01] MEDS ORDERED: ONDANSETRON HCL 4 MG/2 ML VIAL IVP PRN (13:00)
[2017-08-01] MEDS ORDERED: SODIUM CHLOR 0.9% 1000 ML INJ 1,000 ML IV ONE ×2 (13:00→13:45)
[2017-08-01] MEDS ORDERED: ENOXAPARIN SODIUM 40 MG/0.4 ML SYRINGE SQ SCH (13:00)
[2017-08-01] MEDS ORDERED: LACTULOSE SYRUP 20 GM/30 ML CUP PO PRN (13:00)
[2017-08-01] MEDS ORDERED: SENNOSIDES 8.6 MG TAB PO PRN (13:00)
[2017-08-01] MEDS ORDERED: ACETAMINOPHEN 325 MG TAB PO PRN (13:00)
[2017-08-01] MEDS ORDERED: MAGNESIUM HYDROXIDE SUSP 30 ML CUP PO PRN (13:00)
[2017-08-01] MEDS ORDERED: NALOXONE HCL 0.4 MG/ML AMP IV PUSH PRN (13:00)
[2017-08-01 13:08] LABS: ALBUMIN 2.3 GM/DL (3.4-5.0); ALT (GPT) 30 U/L (12-78); AST (GOT) 38 U/L (15-37); BICARBONATE 27.9 MEQ/L (21.0-32.0); BLOOD UREA NITROGEN 23 MG/DL (7-18); CALCIUM 7.8 MG/DL (8.5-10.1); CHLORIDE 113 MEQ/L (98-107); CREATININE 0.73 MG/DL (0.60-1.30); GLOMERULAR FILTRATION RATE 104 ML/MIN (>89); GLUCOSE,RANDOM 106 MG/DL (74-106); SODIUM (NA) 147 MEQ/L (136-145)
[2017-08-01 13:11] LABS: ALKALINE PHOSPHATASE 100 U/L (45-117); TOTAL BILIRUBIN ADULT 0.8 MG/DL (0.2-1.0); TOTAL PROTEIN 5.3 GM/DL (6.4-8.2)
[2017-08-01] MEDS ORDERED: GLUCAGON 1 MG/ML VIAL OTHER PRN (13:15)
[2017-08-01] MEDS ORDERED: DEXTROSE 50% IN WATER 50 ML VIAL(D50) IV PUSH PRN (13:15)
[2017-08-01] MEDS ORDERED: cefTRIAXone INJ 2,000 MG in SODIUM CHLORIDE 0.9% INJ 100 ML IV SCH (13:15)
--- NOTE | 2017-08-01 13:45 | HHI.HP ---
HPI [facility] Primary Care Physician Cheikh Funes III, Admission Diagnosis HYPOTENSION , SEPSIS, POSS PNA, DNR Diagnoses: Chief Complaint: Generalized weakness. Travel History International Travel<30 Days: No Contact w/Intl Traveler <30 Da: No Traveled to Known Affected Are: No Sepsis Criteria SIRS Criteria (2 or more): Heart rate over 90, RR > 20 or PaCO2 < 32 Sepsis Criteria (SIRS+source): Infect source susp/known Severe Sepsis (+one): Lactate >2 Criteria Outcome: Meets SIRS criteria, Meets sepsis criteria, Meets severe sepsis criteria History of Present Illness Mr. Richardson is a pleasant 77-year-old male with a history of CAD, hypertension, diabetes who presented to the emergency department due to generalized weakness. Off and on, for the last 2 months he has been feeling weak and also complaining of shortness of breath. He has been having nighttime cough as well. This morning he had shaking chills and he felt so weak that he could not get out of bed. Last night he was much more functional compared to this morning. Patient's present at bedside also mentioned that patient has been having difficulty swallowing food. He often chokes on food. He denies any chest pain, abdominal pain, diarrhea or constipation. No changes in bladder habits. Upon arrival, temperature 99.8F, pulse 128, respiration 20. Per ED physician, his blood pressure was low but responded to 1 L of bolus. However later on patient's blood pressure was again low with map around 66. Lactic acid 2.1. He has lost about 30 pounds in the last 2 years. Review of Systems Except as stated in HPI: all other systems reviewed are Neg Past Family Social History Past Medical History Coronary artery disease Diabetes mellitus Hypertension Atrial fibrillation Past Surgical History Right knee arthroscopy Reported Medications Novolog Inj (Insulin Aspart) 1,000 Unit/10 Ml Vial 0 SQ DIRECTED Sliding Scale as directed. Vitamin D3 (Cholecalciferol) 5,000 Unit Cap 7,000 Units PO DAILY Prilosec (Omeprazole Magnesium) 20 Mg Tab 20 Mg PO DAILY Mirtazapine 15 Mg Tab 15 Mg PO HS Lyrica (Pregabalin) 100 Mg Cap 100 Mg PO BID Eliquis (Apixaban) 5 Mg Tab 5 Mg PO BID Prednisone 1 Mg Tab 1 Mg PO DAILY Multiple Vitamin 1 Tab 1 Tab PO DAILY Vitamin C (Ascorbic Acid) 250 Mg Chew 500 Mg CHEW DAILY Vitamin B-12 (Cyanocobalamin) 1,000 Mcg Tab 1,000 Mcg PO DAILY Vitamin B-6 (Pyridoxine HCl (Vitamin B6)) 50 Mg Capsule Aspirin 81 Mg Chew 81 Mg CHEW DAILY Ipratropium [place] 42 Mcg (0.06 %) [place] Refresh Opth Drops (Polyvinyl Alcohol-Povidone Opth Drops) 1.4-0.6% Drops 1-2 Drop EACH EYE PRN PRN Restasis Opth (Cyclosporine Opth) 0.05% Emul 1 Drop EACH EYE BID Metformin (Metformin HCl) 500 Mg Tab 500 Mg PO BIDPC Allergies: Coded Allergies: No Known Allergies (Verified Allergy, Severe, 04/19/17) Family History Patient's family history significant for heart disease in parents, siblings. Social History Denies using tobacco, alcohol, illicit drugs. Physical Exam Vital Signs Vital Signs Date Time Temp Pulse Resp B/P (MAP) Pulse Ox O2 Delivery O2 Flow Rate FiO2 08/01/17 12:33 105 18 127/62 (83) 92 Room Air 08/01/17 11:46 111 20 109/57 (74) 94 Room Air 08/01/17 11:35 117 20 93 Room Air 08/01/17 11:33 117 20 93 Room Air 08/01/17 11:11 99.8 128 20 145/55 (85) 96 Room Air 08/01/17 11:05 99.8 125 20 145/55 (85) 92 Physical Exam GENERAL: This is a well-nourished, well-developed patient, in no apparent distress. Appears lethargic. SKIN: No rashes, ecchymoses or lesions. Warm and dry. HEAD: Atraumatic. Normocephalic. No temporal or scalp tenderness. EYES: Pupils equal round and reactive. No injection or drainage. ENT: Nose without bleeding, purulent drainage or septal hematoma. Airway patent. NECK: Trachea midline. No lymphadenopathy. Supple, nontender, no meningeal signs. CARDIOVASCULAR: Regular rhythm, tachycardic without murmurs, gallops, or rubs. No JVD. RESPIRATORY: Moderate air entry, bibasilar crackles. GASTROINTESTINAL: Abdomen soft, non-tender, nondistended. No guarding. MUSCULOSKELETAL: Extremities without clubbing, cyanosis, or edema. NEUROLOGICAL: Awake and alert. Cranial nerves II through XII intact. No focal neurological deficits. Normal speech. Laboratory Laboratory Tests Test 08/01/17 11:15 08/01/17 12:35 White Blood Count 7.9 Red Blood Count 3.94 Hemoglobin 13.3 Hematocrit 39.7 Mean Corpuscular Volume 100.7 Mean Corpuscular Hemoglobin 33.7 Mean Corpuscular Hemoglobin Concent 33.4 Red Cell Distribution Width 16.2 Platelet Count 106 Mean Platelet Volume 8.7 Neutrophils (%) (Auto) 89.0 Lymphocytes (%) (Auto) 5.6 Monocytes (%) (Auto) 5.0 Eosinophils (%) (Auto) 0.1 Basophils (%) (Auto) 0.3 Neutrophils # (Auto) 7.0 Lymphocytes # (Auto) 0.4 Monocytes # (Auto) 0.4 Eosinophils # (Auto) 0.0 Basophils # (Auto) 0.0 CBC Comment AUTO DIFF Differential Total Cells Counted 100 Neutrophils % (Manual) 71 Band Neutrophils % 16 Lymphocytes % 7 Monocytes % 5 Eosinophils % 1 Neutrophils # (Manual) 6.9 Differential Comment FINAL DIFF MANUAL Platelet Estimate LOW Platelet Morphology Comment NORMAL Red Cell Morphology Comment NORMAL Prothrombin Time 11.7 Prothromb Time International Ratio 1.2 Activated Partial Thromboplast Time 26.6 Lactic Acid Level 2.1 Urine Color YELLOW Urine Turbidity CLEAR Urine pH 7.0 Urine Specific [place] 1.013 Urine Protein NEG Urine Glucose (UA) NEG Urine Ketones NEG Urine Occult Blood NEG Urine Nitrite NEG Urine Bilirubin NEG Urine Urobilinogen LESS THAN 2.0 Urine Leukocyte Esterase NEG Urine RBC 1 Urine WBC LESS THAN 1 Urine Squamous Epithelial Cells <1 Urine Transitional Epithelial Cells <1 Urine Mucus FEW Microscopic Urinalysis Comment CULT NOT INDICATED Blood Urea Nitrogen 23 Creatinine 0.73 Random Glucose 106 Total Protein 5.3 Albumin 2.3 Calcium Level 7.8 Alkaline Phosphatase 100 Aspartate Amino Transf (AST/SGOT) 38 Alanine Aminotransferase (ALT/SGPT) 30 Total Bilirubin 0.8 Sodium Level 147 Potassium Level 4.2 Chloride Level 113 Carbon Dioxide Level 27.9 Anion Gap 6 Estimat Glomerular Filtration Rate 104 Lipase 96 Result Diagram: 08/01/17 1115 08/01/17 1235 Imaging Last Impressions Chest X-Ray 08/01/17 1119 Signed Impressions: Service Date/Time: Tuesday, August 01, 2017 11:33 - CONCLUSION: Bibasilar areas of consolidation or atelectasis being worse on the right with mild bilateral pleural effusions. MD Chacorta Fang VTE Risk Assessment Caprini VTE Risk Assessment: Mod/High Risk (score >= 2) Caprini Risk Assessment Model Point Value = 1 Point Value = 2 Point Value = 3 Point Value = 5 Age 41-60 Minor surgery BMI > 25 kg/m2 Swollen legs Varicose veins or History of unexplained or recurrent spontaneous Oral contraceptives or hormone replacement Sepsis (< 1 month) Serious lung disease, including pneumonia (< 1 month) Abnormal pulmonary function Acute myocardial infarction Congestive heart failure (< 1 month) History of inflammatory bowel disease Medical patient at bed rest Age 61-74 Arthroscopic surgery Major open surgery (> 45 min) Laparoscopic surgery (> 45 min) Malignancy Confined to bed (> 72 hours) Immobilizing plaster cast Central venous access Age >= 75 History of VTE Family history of VTE Factor V Leiden Prothrombin [id number] Lupus anticoagulant Anticardiolipin antibodies Elevated serum homocysteine Heparin-induced thrombocytopenia Other congenital or acquired thrombophilia Stroke (< 1 month) Elective arthroplasty Hip, pelvis, or leg fracture Acute spinal cord injury (< 1 month) Prophylaxis Regimen Total Risk Factor Score Risk Level Prophylaxis Regimen 0-1 Low Early ambulation 2 Moderate Order ONE of the following: *Sequential Compression Device (SCD) *Heparin 5000 units SQ BID 3-4 Higher Order ONE of the following medications: *Heparin 5000 units SQ TID *Enoxaparin/Lovenox 40 mg SQ daily (WT < 150 kg, CrCl > 30 mL/min) *Enoxaparin/Lovenox 30 mg SQ daily (WT < 150 kg, CrCl > 10-29 mL/min) *Enoxaparin/Lovenox 30 mg SQ BID (WT < 150 kg, CrCl > 30 mL/min) AND/OR *Sequential Compression Device (SCD) 5 or more Highest Order ONE of the following medications: *Heparin 5000 units SQ TID (Preferred with Epidurals) *Enoxaparin/Lovenox 40 mg SQ daily (WT < 150 kg, CrCl > 30 mL/min) *Enoxaparin/Lovenox 30 mg SQ daily (WT < 150 kg, CrCl > 10-29 mL/min) *Enoxaparin/Lovenox 30 mg SQ BID (WT < 150 kg, CrCl > 30 mL/min) AND *Sequential Compression Device (SCD) Assessment and Plan Problem List: (1) Severe sepsis ICD Code: A41.9 - Sepsis, unspecified organism; R65.20 - Severe sepsis without septic shock (2) Bilateral pneumonia ICD Code: J18.9 - Pneumonia, unspecified organism (3) CAD (coronary artery disease) ICD Code: I25.10 - Atherosclerotic heart disease of [place] coronary artery without angina pectoris Status: Chronic (4) Diabetes mellitus ICD Code: E11.9 - Type 2 diabetes mellitus without complications Status: Chronic Assessment and Plan Mr. Richardson is a pleasant 77-year-old male with a history of CAD, diabetes mellitus who presented to the emergency department due to 2 month long of shortness of breath and generalized weakness but much worsening on the day of presentation 08/01/2017. He also had shaking chills on 08/01/2017. Chest x- ray indicated bilateral pneumonia. Patient was tachycardic. Blood pressure was low and required fluid resuscitation. Severe sepsis (Tachycardic, HR 20, Pneumonia, Lactic acid 2.1) Bilateral pneumonia Possible aspiration pneumonia Chest x-ray reviewed by me shows bilateral infiltrates. Possibly pleural effusion as well. BNP is 291. Given patient's history of dysphagia, we will start patient on Zosyn 4.5 g every 6 hours as well as azithromycin. PSI score is 119 (79, pleural effusion, HR > 124, BP dropped below 90 systolic) ==> hospitalization Due to lack of good response to fluid bolus, we will plan on admitting patient to ICU Patient has received 2 L bolus. We will continue another 1-2 L of normal saline bolus. Went to see patient later - BP is improved with systolic around 104 and MAP > 70. Continue NS 100cc/hour. Coronary artery disease Atrial fibrillation Will continue Apixaban 5mg BID. Diabetes mellitus Takes Aspart and Metformin at home. Will continue sliding scale insulin. If needed, we will start long acting insulin as well. Full code. Apixaban. Physician Certification 2 Midnight Certification Type: Admission for Inpatient Services Order for Inpatient Services The services are ordered in accordance with Medicare regulations or non- Medicare payer requirements, as applicable. In the case of services not specified as inpatient-only, they are appropriately provided as inpatient services in accordance with the 2-midnight benchmark. Estimated LOS (days): 3 days is the estimated time the patient will need to remain in the hospital, assuming treatment plan goals are met and no additional complications. Post-Hospital Plan: Home Quan Espinosa DO Aug 01, 2017 13:45
[2017-08-01] MEDS: AZITHROMYCIN INJ 500 MG in SODIUM CHLOR 0.9% 250 ML INJ 250 ML IV SCH (15:27)
[2017-08-01] MEDS: PIPERACIL-TAZO 4.5 GM PREMIX 100 ML IV SCH ×2 (15:27→22:40)
[2017-08-01] MEDS: INSULIN ASPART SUPPLEMENTAL SCALE SQ SCH ×2 (17:00→21:00)
[2017-08-01] MEDS: PREGABALIN 100 MG CAP PO SCH (21:00)
[2017-08-01] MEDS ORDERED: CYCLOSPORINE OPTH 0.05% EACH EYE SCH (21:00)
[2017-08-01] MEDS: SODIUM CHLORIDE 0.9% FLUSH 10 ML FLUSH IV FLUSH SCH (22:40)
[2017-08-01] MEDS: MIRTAZAPINE 15 MG TAB PO SCH (22:41)
[2017-08-01] MEDS: APIXABAN 5 MG TABLET PO SCH (22:41)
[2017-08-02] VITALS (25 sets, daily range): BP systolic 127–204; BP diastolic 58–96; PULSE 53–97; RESP 12–25; TEMP 97.9–98.2; O2SAT 83–97
[2017-08-02] MEDS: SODIUM CHLOR 0.9% 1000 ML INJ 1,000 ML IV SCH (02:14)
[2017-08-02] MEDS: PIPERACIL-TAZO 4.5 GM PREMIX 100 ML IV SCH ×4 (02:15→20:52)
[2017-08-02 07:38] LABS: AUTOMATED NEUTROPHIL # 4.7 TH/MM3 (1.8-7.7); BASOPHIL % 0.3 % (0.0-2.0); EOSINOPHIL # 0.1 TH/MM3 (0-0.4); EOSINOPHIL % 1.4 % (0.0-4.0); HEMATOCRIT 30.2 % (39.0-51.0); HEMOGLOBIN 10.1 GM/DL (13.0-17.0); LYMPH % 11.7 % (9.0-44.0); LYMPHOCYTE # 0.7 TH/MM3 (1.0-4.8); MEAN CELL VOLUME 101.8 FL (80.0-100.0); MEAN CORPUSCULAR HEMOGLOBIN 34.1 PG (27.0-34.0); MEAN CORPUSCULAR HGB CONC 33.5 % (32.0-36.0); MEAN PLATELET VOLUME 9.3 FL (7.0-11.0); MONO % 5.8 % (0.0-8.0); MONOCYTE # 0.3 TH/MM3 (0-0.9); NEUT % 80.8 % (16.0-70.0); PLATELET COUNT 79 TH/MM3 (150-450); RED BLOOD COUNT 2.97 MIL/MM3 (4.50-5.90); RED CELL DISTRIBUTION WIDTH 16.9 % (11.6-17.2); WHITE BLOOD COUNT 5.8 TH/MM3 (4.0-11.0)
[2017-08-02] MEDS: INSULIN ASPART SUPPLEMENTAL SCALE SQ SCH ×4 (08:00→21:00)
[2017-08-02 08:02] LABS: CALCIUM 7.8 MG/DL (8.5-10.1); CREATININE 0.67 MG/DL (0.60-1.30)
[2017-08-02] MEDS: PANTOPRAZOLE SOD 20 MG DELAYED RELEASE TAB PO SCH (09:17)
[2017-08-02] MEDS: APIXABAN 5 MG TABLET PO SCH ×2 (09:17→20:53)
[2017-08-02] MEDS: CYANOCOBALAMIN 1,000 MCG TAB PO SCH (09:17)
[2017-08-02] MEDS: SODIUM CHLORIDE 0.9% FLUSH 10 ML FLUSH IV FLUSH SCH ×2 (09:18→20:52)
[2017-08-02] MEDS: PREGABALIN 100 MG CAP PO SCH ×2 (09:49→20:52)
[2017-08-02] MEDS ORDERED: ASPIRIN EC 81 MG TABEC PO ONE (13:45)
--- NOTE | 2017-08-02 13:51 | HHI.PR ---
Subjective Remarks Follow up for sepsis, probable aspiration pneumonia. Currently doing well. He denies any chest pain, shortness of breath, fever or chills. He is on room air. Objective Vitals Vital Signs Date Time Temp Pulse Resp B/P (MAP) Pulse Ox O2 Delivery O2 Flow Rate FiO2 08/02/17 06:00 64 08/02/17 04:00 73 08/02/17 04:00 97.9 73 153/65 (94) 95 08/02/17 02:00 78 08/02/17 00:00 83 08/02/17 00:00 98.2 83 152/70 (97) 96 08/01/17 22:00 88 08/01/17 21:08 98 21 08/01/17 20:00 98.2 97 23 129/67 (87) 95 08/01/17 20:00 97 08/01/17 18:00 97 08/01/17 16:47 08/01/17 16:30 106 08/01/17 16:00 98.3 104 20 104/57 (73) 92 08/01/17 15:37 106 20 137/55 (82) 96 Room Air I/O 08/01/17 08/01/17 08/01/17 08/02/17 08/02/17 08/02/17 07:00 15:00 23:00 07:00 15:00 23:00 Intake Total 120 ml 1650 ml Output Total 550 ml 925 ml Balance -550 ml 120 ml 725 ml Intake Oral 120 ml IV Total 1650 ml Output Urine Total 550 ml 925 ml # Voids 1 # Bowel Movements 1 1 Result Diagram: 08/02/17 0541 08/02/17 0541 Imaging Last Impressions Chest X-Ray 08/01/17 1119 Signed Impressions: Service Date/Time: Tuesday, August 01, 2017 11:33 - CONCLUSION: Bibasilar areas of consolidation or atelectasis being worse on the right with mild bilateral pleural effusions. Jesus Fu MD Objective Remarks GENERAL: Alert, oriented 3, NAD. SKIN: Warm and dry. HEAD: Normocephalic. EYES: No scleral icterus. No injection or drainage. NECK: Supple, trachea midline. No JVD or lymphadenopathy. CARDIOVASCULAR: Regular rate and rhythm without murmurs, gallops, or rubs. RESPIRATORY: Breath sounds equal bilaterally. No accessory muscle use. Bibasilar crackles. GASTROINTESTINAL: Abdomen soft, non-tender, nondistended. MUSCULOSKELETAL: No cyanosis, or edema. BACK: Nontender without obvious deformity. No CVA tenderness. A/P Problem List: (1) Severe sepsis ICD Code: A41.9 - Sepsis, unspecified organism; R65.20 - Severe sepsis without septic shock (2) Bilateral pneumonia ICD Code: J18.9 - Pneumonia, unspecified organism (3) CAD (coronary artery disease) ICD Code: I25.10 - Atherosclerotic heart disease of [place] coronary artery without angina pectoris Status: Chronic (4) Diabetes mellitus ICD Code: E11.9 - Type 2 diabetes mellitus without complications Status: Chronic Assessment and Plan Mr. Richardson is a pleasant 77-year-old male with a history of CAD, diabetes mellitus who presented to the emergency department due to 2 month long of shortness of breath and generalized weakness but much worsening on the day of presentation 08/01/2017. He also had shaking chills on 08/01/2017. Chest x- ray indicated bilateral pneumonia. Patient was tachycardic. Blood pressure was low and required fluid resuscitation. Severe sepsis (Tachycardic, HR 20, Pneumonia, Lactic acid 2.1) Bilateral pneumonia Possible aspiration pneumonia Chest x-ray reviewed by me shows bilateral infiltrates. Possibly pleural effusion as well. BNP is 291. Given patient's history of dysphagia, we will start patient on Zosyn 4.5 g every 6 hours as well as azithromycin. PSI score is 119 (79, pleural effusion, HR > 124, BP dropped below 90 systolic) ==> hospitalization Will transfer patient out of ICU. We can consider switching to Levaquin and Flagyl on 08/03/2017 to cover for both aspiration pneumonia and CAP for total 7 day course of abx. Coronary artery disease Atrial fibrillation Apixaban 5mg BID and aspirin 81mg Qday. Not sure why he is not on Plavix. He apparently had stents placed in April 2017. Typically, by now he should be on Apixaban, Plavix with or without aspirin. 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 Diabetes mellitus Takes Aspart and Metformin at home. Will continue sliding scale insulin. If needed, we will start long acting insulin as well. will transfer patient to the floor. Full code. Apixaban. Ahmed,Shahabuddin DO Aug 02, 2017 1:50 pm
[2017-08-02] MEDS: AZITHROMYCIN INJ 500 MG in SODIUM CHLOR 0.9% 250 ML INJ 250 ML IV SCH (14:20)
--- NOTE | 2017-08-02 20:34 | HHI.PR ---
Subjective Remarks NOT SEEN Objective Vitals Vital Signs Date Time Temp Pulse Resp B/P (MAP) Pulse Ox O2 Delivery O2 Flow Rate FiO2 08/02/17 18:01 59 08/02/17 18:00 55 08/02/17 16:00 65 08/02/17 16:00 65 19 127/62 (83) 93 08/02/17 15:01 55 12 144/65 (91) 96 08/02/17 15:01 55 08/02/17 14:22 97 08/02/17 14:03 68 24 169/70 (103) 87 08/02/17 14:03 68 08/02/17 14:01 60 21 181/75 (110) 84 08/02/17 14:01 60 08/02/17 14:00 68 24 08/02/17 14:00 68 08/02/17 13:56 80 25 142/68 (92) 08/02/17 13:56 80 08/02/17 12:01 53 21 130/58 (82) 96 08/02/17 12:01 53 08/02/17 12:00 54 08/02/17 12:00 54 20 83 08/02/17 11:00 55 16 146/66 (92) 96 08/02/17 11:00 55 08/02/17 10:01 56 19 137/62 (87) 94 08/02/17 10:01 56 08/02/17 10:00 57 19 94 08/02/17 10:00 57 08/02/17 09:14 74 19 129/59 (82) 88 08/02/17 09:14 74 08/02/17 09:12 77 08/02/17 09:12 77 21 127/58 (81) 96 08/02/17 09:00 62 08/02/17 09:00 62 18 143/66 (91) 95 08/02/17 08:42 74 18 167/70 (102) 96 08/02/17 08:42 74 08/02/17 08:00 78 18 90 08/02/17 08:00 78 08/02/17 06:00 64 08/02/17 04:00 73 08/02/17 04:00 97.9 73 153/65 (94) 95 08/02/17 02:00 78 08/02/17 00:00 83 08/02/17 00:00 98.2 83 152/70 (97) 96 08/01/17 22:00 88 08/01/17 21:08 98 21 I/O 08/01/17 08/01/17 08/01/17 08/02/17 08/02/17 08/02/17 06:59 14:59 22:59 06:59 14:59 22:59 Intake Total 120 ml 1650 ml 420 ml Output Total 550 ml 925 ml 420 ml Balance -550 ml 120 ml 725 ml 0 ml Intake Oral 120 ml 420 ml IV Total 1650 ml Output Urine Total 550 ml 925 ml 420 ml # Voids 1 # Bowel Movements 1 1 1 Result Diagram: 08/02/17 0541 08/02/17 0541 Imaging Last Impressions Chest X-Ray 08/01/17 1119 Signed Impressions: Service Date/Time: Tuesday, August 01, 2017 11:33 - CONCLUSION: Bibasilar areas of consolidation or atelectasis being worse on the right with mild bilateral pleural effusions. Jesus Fu MD Objective Remarks GENERAL: Alert, oriented 3, NAD. SKIN: Warm and dry. HEAD: Normocephalic. EYES: No scleral icterus. No injection or drainage. NECK: Supple, trachea midline. No JVD or lymphadenopathy. CARDIOVASCULAR: Regular rate and rhythm without murmurs, gallops, or rubs. RESPIRATORY: Breath sounds equal bilaterally. No accessory muscle use. Bibasilar crackles. GASTROINTESTINAL: Abdomen soft, non-tender, nondistended. MUSCULOSKELETAL: No cyanosis, or edema. BACK: Nontender without obvious deformity. No CVA tenderness. Procedures None A/P Problem List: (1) Severe sepsis ICD Code: A41.9 - Sepsis, unspecified organism; R65.20 - Severe sepsis without septic shock (2) Bilateral pneumonia ICD Code: J18.9 - Pneumonia, unspecified organism (3) CAD (coronary artery disease) ICD Code: I25.10 - Atherosclerotic heart disease of [place] coronary artery without angina pectoris Status: Chronic (4) Diabetes mellitus ICD Code: E11.9 - Type 2 diabetes mellitus without complications Status: Chronic Assessment and Plan Mr. Richardson is a pleasant 77-year-old male with a history of CAD, diabetes mellitus who presented to the emergency department due to 2 month long of shortness of breath and generalized weakness but much worsening on the day of presentation 08/01/2017. He also had shaking chills on 08/01/2017. Chest x- ray indicated bilateral pneumonia. Patient was tachycardic. Blood pressure was low and required fluid resuscitation. Severe sepsis (Tachycardic, HR 20, Pneumonia, Lactic acid 2.1) Bilateral pneumonia Possible aspiration pneumonia Chest x-ray reviewed by me shows bilateral infiltrates. Possibly pleural effusion as well. BNP is 291. Given patient's history of dysphagia, we will start patient on Zosyn 4.5 g every 6 hours as well as azithromycin. PSI score is 119 (79, pleural effusion, HR > 124, BP dropped below 90 systolic) ==> hospitalization Will transfer patient out of ICU. We can consider switching to Levaquin and Flagyl on 08/03/2017 to cover for both aspiration pneumonia and CAP for total 7 day course of abx. Coronary artery disease Atrial fibrillation Apixaban 5mg BID and aspirin 81mg Qday. Not sure why he is not on Plavix. He apparently had stents placed in April 2017. Typically, by now he should be on Apixaban, Plavix with or without aspirin. 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 Diabetes mellitus Takes Aspart and Metformin at home. Will continue sliding scale insulin. If needed, we will start long acting insulin as well. DVT proph w Apixaban. Vince Mcginnis MD Aug 02, 2017 20:34
[2017-08-02] MEDS: MIRTAZAPINE 15 MG TAB PO SCH (20:53)
--- NOTE | 2017-08-02 21:42 | EKG ---
Date Performed: 08/01/2017 Time Performed: 11:13:35 PTAGE: 77 years EKG: JUNCTIONAL TACHYCARDIA MARKED RIGHT AXIS DEVIATION RIGHT BUNDLE BRANCH BLOCK POSSIBLE SEPTA L MYOCARDIAL INFARCTION ABNORMAL ECG PREVIOUS TRACING : 04/19/2017 21.46 Since the previous tracing, no significant change noted DOCTOR: Davy Gill Interpretating Date/Time 08/02/2017 21:39:18
[2017-08-02] MEDS ORDERED: cloNIDine HCL 0.1 MG TAB PO PRN (22:15)
[2017-08-03] VITALS: BP 181/81; PULSE 94; RESP 15; TEMP 98.1; O2SAT 94
[2017-08-03] MEDS: PIPERACIL-TAZO 4.5 GM PREMIX 100 ML IV SCH ×2 (03:44→08:56)
[2017-08-03 08:00] VITALS: BP 154/72; PULSE 73; RESP 20; TEMP 97.4; O2SAT 97
[2017-08-03] MEDS: INSULIN ASPART SUPPLEMENTAL SCALE SQ SCH ×2 (08:00→12:00)
[2017-08-03 08:06] VITALS: O2SAT 93
[2017-08-03] MEDS: PREGABALIN 100 MG CAP PO SCH (08:55)
[2017-08-03] MEDS: SODIUM CHLORIDE 0.9% FLUSH 10 ML FLUSH IV FLUSH SCH (08:55)
[2017-08-03] MEDS: PANTOPRAZOLE SOD 20 MG DELAYED RELEASE TAB PO SCH (08:55)
[2017-08-03] MEDS: CYANOCOBALAMIN 1,000 MCG TAB PO SCH (08:55)
[2017-08-03] MEDS: APIXABAN 5 MG TABLET PO SCH (08:55)
[2017-08-03] MEDS ORDERED: ASPIRIN EC 81 MG TABEC PO SCH (09:00)
[2017-08-03 12:00] VITALS: BP 147/73; PULSE 59; RESP 19; TEMP 97.7; O2SAT 98
--- NOTE | 2017-08-03 12:21 | HHI.PR ---
Subjective Remarks Follow-up pneumonia. He is improving denies cough and shortness of breath. Ambulating in the room with a walker. Also reports of hoarseness recommended ENT follow-up if persistent. Wt loss which is being worked up by his primary care physician seen with discussed with nursing, patient stable for discharge Objective Vitals Vital Signs Date Time Temp Pulse Resp B/P (MAP) Pulse Ox O2 Delivery O2 Flow Rate FiO2 08/03/17 08:06 93 21 08/03/17 08:00 97.4 73 20 154/72 (99) 97 08/03/17 00:00 98.1 94 15 181/81 (114) 94 08/02/17 22:00 87 08/02/17 20:00 98.2 97 20 204/96 (132) 94 08/02/17 20:00 97 08/02/17 18:01 59 08/02/17 18:00 55 08/02/17 16:00 65 08/02/17 16:00 65 19 127/62 (83) 93 08/02/17 15:01 55 12 144/65 (91) 96 08/02/17 15:01 55 08/02/17 14:22 97 08/02/17 14:03 68 24 169/70 (103) 87 08/02/17 14:03 68 08/02/17 14:01 60 21 181/75 (110) 84 08/02/17 14:01 60 08/02/17 14:00 68 24 08/02/17 14:00 68 08/02/17 13:56 80 25 142/68 (92) 08/02/17 13:56 80 I/O 08/02/17 08/02/17 08/02/17 08/03/17 08/03/17 08/03/17 07:00 15:00 23:00 07:00 15:00 23:00 Intake Total 1650 ml 640 ml 340 ml 120 ml Output Total 925 ml 1420 ml 375 ml Balance 725 ml -780 ml -35 ml 120 ml Intake Oral 540 ml 240 ml 120 ml IV Total 1650 ml 100 ml 100 ml Output Urine Total 925 ml 1420 ml 375 ml # Voids 1 # Bowel Movements 1 1 0 Result Diagram: 08/02/17 0541 08/02/17 0541 Imaging Last Impressions Chest X-Ray 08/01/17 1119 Signed Impressions: Service Date/Time: Tuesday, August 01, 2017 11:33 - CONCLUSION: Bibasilar areas of consolidation or atelectasis being worse on the right with mild bilateral pleural effusions. Jesus Fu MD Objective Remarks GENERAL: Alert, oriented 3, NAD. SKIN: Warm and dry. HEAD: Normocephalic. EYES: No scleral icterus. No injection or drainage. NECK: Supple, trachea midline. No JVD or lymphadenopathy. CARDIOVASCULAR: Regular rate and rhythm without murmurs, gallops, or rubs. RESPIRATORY: Breath sounds equal bilaterally. No accessory muscle use. Bibasilar crackles. GASTROINTESTINAL: Abdomen soft, non-tender, nondistended. MUSCULOSKELETAL: No cyanosis, or edema. BACK: Nontender without obvious deformity. No CVA tenderness. Procedures None A/P Problem List: (1) Severe sepsis ICD Code: A41.9 - Sepsis, unspecified organism; R65.20 - Severe sepsis without septic shock (2) Bilateral pneumonia ICD Code: J18.9 - Pneumonia, unspecified organism (3) CAD (coronary artery disease) ICD Code: I25.10 - Atherosclerotic heart disease of [place] coronary artery without angina pectoris Status: Chronic (4) Diabetes mellitus ICD Code: E11.9 - Type 2 diabetes mellitus without complications Status: Chronic Assessment and Plan Mr. Richardson is a pleasant 77-year-old male with a history of CAD, diabetes mellitus who presented to the emergency department due to 2 month long of shortness of breath and generalized weakness but much worsening on the day of presentation 08/01/2017. He also had shaking chills on 08/01/2017. Chest x- ray indicated bilateral pneumonia. Patient was tachycardic. Blood pressure was low and required fluid resuscitation. Severe sepsis (Tachycardic, HR 20, Pneumonia, Lactic acid 2.1). Resolved Bilateral pneumonia. Improved Possible aspiration pneumonia. Improved Chest x-ray reviewed by me shows bilateral infiltrates. Possibly pleural effusion as well. BNP is 291. Given patient's history of dysphagia, we will start patient on Zosyn 4.5 g every 6 hours as well as azithromycin. PSI score is 119 (79, pleural effusion, HR > 124, BP dropped below 90 systolic) ==> hospitalization Clinically stable switch to Levaquin and Flagyl to cover for both aspiration pneumonia and CAP for total 7 day course of abx.. 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 Stable Atrial fibrillation. Stable Apixaban 5mg BID and aspirin 81mg Qday. Diabetes mellitus Takes Aspart and Metformin at home. Will continue sliding scale insulin. If needed, we will start long acting insulin as well. DVT proph w Apixaban. Discharge Planning Stable for discharge Vince Mcginnis MD Aug 03, 2017 12:21
--- NOTE | 2017-08-03 12:25 | HHI.FF ---
Face to Face Verification Diagnosis: (1) Severe sepsis Physical Therapy Order: Evaluate and Treat, Improve ambulation, Strength and gait training Home Health Nursing Order: Signs/symptoms of disease process Nursing assessment with vital signs I have seen patient Chao Richardson on 08/03/17. My clinical findings support the need for the requested home health care services because: Deconditioned w/ increased weakness I certify that my clinical findings support that this patient is homebound because: Unsafe to leave home unassisted Vince Mcginnis MD Aug 03, 2017 12:25
[2017-08-03] MEDS ORDERED: LEVOFLOXACIN 750 MG TAB PO SCH (12:30)
[2017-08-03] MEDS ORDERED: METR-1 PO (12:39)
[2017-08-03] MEDS ORDERED: LEVA750T9 PO (12:39)
--- NOTE | 2017-08-03 12:40 | HHI.DCPOC ---
Discharge Care Plan Diagnosis: (1) Severe sepsis Your Health Problems Are: Difficulty with ADL Exercise Tolerance Goals to Promote Your Health * To prevent worsening of your condition and complications * To maintain your health at the optimal level Directions to Meet Your Goals Take your medications as prescribed Follow your dietary instruction Follow activity as directed Keep your appointments as scheduled Take your immunizations and boosters as scheduled If your symptoms worsen call your PCP, if no PCP go to Urgent Care Center or Emergency Room Smoking is Dangerous to Your Health. Avoid second hand smoke Call the 24-hour hour crisis hotline for domestic abuse at Vince Mcginnis MD Aug 03, 2017 12:40
[2017-08-03] MEDS ORDERED: WALKER WHEELS/F1 MIS (14:00)
[2017-08-03] MEDS ORDERED: metroNIDAZOLE 500 MG TAB PO SCH (14:00)
--- NOTE | 2017-08-03 16:37 | HHI.DS ---
Discharge Summary Admission Date Aug 01, 2017 at 13:12 Discharge Date: Aug 03, 2017 Admitting Diagnosis HYPOTENSION , SEPSIS, POSS PNA, DNR (1) Severe sepsis ICD Code: A41.9 - Sepsis, unspecified organism; R65.20 - Severe sepsis without septic shock Diagnosis: Principal (2) Bilateral pneumonia ICD Code: J18.9 - Pneumonia, unspecified organism Diagnosis: Principal (3) CAD (coronary artery disease) ICD Code: I25.10 - Atherosclerotic heart disease of [place] coronary artery without angina pectoris Diagnosis: Principal Status: Chronic (4) Diabetes mellitus ICD Code: E11.9 - Type 2 diabetes mellitus without complications Diagnosis: Principal Status: Chronic Procedures None Brief History - From Admission Mr. Richardson is a pleasant 77-year-old male with a history of CAD, hypertension, diabetes who presented to the emergency department due to generalized weakness. Off and on, for the last 2 months he has been feeling weak and also complaining of shortness of breath. He has been having nighttime cough as well. This morning he had shaking chills and he felt so weak that he could not get out of bed. Last night he was much more functional compared to this morning. Patient's present at bedside also mentioned that patient has been having difficulty swallowing food. He often chokes on food. He denies any chest pain, abdominal pain, diarrhea or constipation. No changes in bladder habits. Upon arrival, temperature 99.8F, pulse 128, respiration 20. Per ED physician, his blood pressure was low but responded to 1 L of bolus. However later on patient's blood pressure was again low with map around 66. Lactic acid 2.1. He has lost about 30 pounds in the last 2 years. CBC/BMP: 08/02/17 0541 08/02/17 0541 Significant Findings Laboratory Tests Test 08/01/17 11:15 08/01/17 12:35 08/01/17 14:03 08/01/17 17:30 Red Blood Count 3.94 MIL/MM3 (4.50-5.90) Mean Corpuscular Volume 100.7 FL (80.0-100.0) Platelet Count 106 TH/MM3 (150-450) Neutrophils (%) (Auto) 89.0 % (16.0-70.0) Lymphocytes (%) (Auto) 5.6 % (9.0-44.0) Lymphocytes # (Auto) 0.4 TH/MM3 (1.0-4.8) Neutrophils % (Manual) 71 % (16-70) Band Neutrophils % 16 % (0-6) Lymphocytes % 7 % (9-44) Platelet Estimate LOW (NORMAL) Prothrombin Time 11.7 SEC (9.8-11.6) Lactic Acid Level 2.1 mmol/L (0.4-2.0) B-Type Natriuretic Peptide 291 PG/ML (0-100) Urine Mucus FEW /lpf (OCC) Blood Urea Nitrogen 23 MG/DL (7-18) Total Protein 5.3 GM/DL (6.4-8.2) Albumin 2.3 GM/DL (3.4-5.0) Calcium Level 7.8 MG/DL (8.5-10.1) Aspartate Amino Transf (AST/SGOT) 38 U/L (15-37) Sodium Level 147 MEQ/L (136-145) Chloride Level 113 MEQ/L (98-107) Test 08/02/17 05:41 Red Blood Count 2.97 MIL/MM3 (4.50-5.90) Hemoglobin 10.1 GM/DL (13.0-17.0) Hematocrit 30.2 % (39.0-51.0) Mean Corpuscular Volume 101.8 FL (80.0-100.0) Mean Corpuscular Hemoglobin 34.1 PG (27.0-34.0) Platelet Count 79 TH/MM3 (150-450) Neutrophils (%) (Auto) 80.8 % (16.0-70.0) Lymphocytes # (Auto) 0.7 TH/MM3 (1.0-4.8) Platelet Estimate LOW (NORMAL) Calcium Level 7.8 MG/DL (8.5-10.1) Sodium Level 147 MEQ/L (136-145) Chloride Level 114 MEQ/L (98-107) Imaging Last Impressions Chest X-Ray 08/01/17 1119 Signed Impressions: Service Date/Time: Tuesday, August 01, 2017 11:33 - CONCLUSION: Bibasilar areas of consolidation or atelectasis being worse on the right with mild bilateral pleural effusions. Jesus Fu MD PE at Discharge GENERAL: Alert, oriented 3, NAD. SKIN: Warm and dry. HEAD: Normocephalic. EYES: No scleral icterus. No injection or drainage. NECK: Supple, trachea midline. No JVD or lymphadenopathy. CARDIOVASCULAR: Regular rate and rhythm without murmurs, gallops, or rubs. RESPIRATORY: Breath sounds equal bilaterally. No accessory muscle use. Bibasilar crackles. GASTROINTESTINAL: Abdomen soft, non-tender, nondistended. MUSCULOSKELETAL: No cyanosis, or edema. BACK: Nontender without obvious deformity. No CVA tenderness. Hospital Course Mr. Richardosn is a pleasant 77-year-old male with a history of CAD, diabetes mellitus who presented to the emergency department due to 2 month long of shortness of breath and generalized weakness but much worsening on the day of presentation 08/01/2017. He also had shaking chills on 08/01/2017. Chest x- ray indicated bilateral pneumonia. Patient was tachycardic. Blood pressure was low and required fluid resuscitation. Severe sepsis (Tachycardic, HR 20, Pneumonia, Lactic acid 2.1). Resolved Bilateral pneumonia. Improved Possible aspiration pneumonia. Improved Chest x-ray reviewed by me shows bilateral infiltrates. Possibly pleural effusion as well. BNP is 291. Given patient's history of dysphagia, we will start patient on Zosyn 4.5 g every 6 hours as well as azithromycin. PSI score is 119 (79, pleural effusion, HR > 124, BP dropped below 90 systolic) ==> hospitalization Clinically stable switch to Levaquin and Flagyl to cover for both aspiration pneumonia and CAP for total 7 day course of abx.. 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 Stable Atrial fibrillation. Stable Apixaban 5mg BID and aspirin 81mg Qday. Diabetes mellitus Takes Aspart and Metformin at home. Will continue sliding scale insulin. If needed, we will start long acting insulin as well. DVT proph w Apixaban. Pt Condition on Discharge: Stable Discharge Disposition: Disch w/ Home Health Serv Discharge Time: > 30 minutes Discharge Instructions DIET: Follow Instructions for: Heart Healthy Diet Activities you can perform: Regular-No Restrictions Activities to Avoid: Driving Follow up Referrals: Ear Nose Throat - [address] MCGINNIS STATED PATIENT GOING TO [place] TO SEE ENT PCP Follow-up - [address] Vikram Salamanca MD Pulmonology - 1 Week with Kain Bowling MD New Orders: X-RAY CHEST PA & LAT - 6 Weeks New Medications: Walker with Front Wheels (Walker with Front Wheels) 1 Mis Mis EA .XX DIRECTED, #1 0 Refills Levofloxacin (Levaquin) 750 Mg Tablet 750 MG PO DAILY for Infection, #4 TAB Metronidazole (Flagyl) 500 Mg Tab 500 MG PO Q8HR for Infection, #14 TAB Continued Medications: Apixaban (Eliquis) 5 Mg Tab 5 MG PO BID for Blood Clot Prevention, TAB 0 Refills Ascorbic Acid (Vitamin C) 250 Mg Chew 500 MG CHEW DAILY for Nutritional Supplement, #30 TAB 0 Refills Aspirin (Aspirin) 81 Mg Chew 81 MG CHEW DAILY, TAB 0 Refills Cholecalciferol (Vitamin D3) 5,000 Unit Cap 7000 UNITS PO DAILY for Nutritional Supplement, CAP 0 Refills Cyanocobalamin (Vitamin B-12) 1,000 Mcg Tab 1000 MCG PO DAILY for Nutritional Supplement, #1 BOTTLE 0 Refills Cyclosporine Opth (Restasis Opth) 0.05% Emul 1 DROP EACH EYE BID for Dry Eye, #1 BOX 0 Refills Insulin Aspart Inj (Novolog Inj) 1,000 Unit/10 Ml Vial 0 SQ DIRECTED for Blood Sugar Management, ML 0 Refills Sliding Scale as directed. Ipratropium [place] (Ipratropium [place]) 42 Mcg (0.06 %) [place] Metformin (Metformin) 500 Mg Tab 500 MG PO BIDPC for Blood Sugar Management, #60 TAB 0 Refills Mirtazapine (Mirtazapine) 15 Mg Tab 15 MG PO HS for Depression Control, TAB 0 Refills Multiple Vitamin (Multiple Vitamin) 1 Tab 1 TAB PO DAILY for Nutritional Supplement, TAB 0 Refills Omeprazole Magnesium (Prilosec) 20 Mg Tab 20 MG PO DAILY Polyvinyl Alcohol-Povidone Opth Drops (Refresh Opth Drops) 1.4-0.6% Drops 1-2 DROP EACH EYE PRN PRN for DRY EYE, #1 BOTTLE 0 Refills Prednisone (Prednisone) 1 Mg Tab 1 MG PO DAILY, TAB 0 Refills Pregabalin (Lyrica) 100 Mg Cap 100 MG PO BID, CAP 0 Refills Pyridoxine HCl (Vitamin B6) (Vitamin B-6) 50 Mg Capsule Vince Mcginnis MD Aug 03, 2017 16:37
== END 2017-08-03 16:07 | disposition home health service (06) | DRG 871 ==
LOC: NEPE 10:58 → NEDA 13:12 → OBSVTOIN 13:12 → HIME 16:40 → N07B 08-03
PROVIDERS: ADMIT Internal Medicine; ATTEND Internal Medicine
DX: A41.9 Sepsis, unspecified organism (principal); J18.9 Pneumonia, unspecified organism; J69.0 Pneumonitis due to inhalation of food and vomit; R13.10 Dysphagia, unspecified; I48.91 Unspecified atrial fibrillation; R65.20 Severe sepsis without septic shock; E11.9 Type 2 diabetes mellitus without complications; Z79.84 Long term (current) use of oral hypoglycemic drugs; Z79.4 Long term (current) use of insulin; I25.10 Atherosclerotic heart disease of native coronary artery without angina pectoris; Z79.02 Long term (current) use of antithrombotics/antiplatelets; Z79.82 Long term (current) use of aspirin; Z79.52 Long term (current) use of systemic steroids; Z66 Do not resuscitate
CPT/HCPCS: 71045; 80048; 80053; 81001; 82948; 83605; 83690; 83880; 85007; 85025; 85027; 85610; 85730; 87040; 87641; 93005; 96360; J0456; J2543; J7030; J7050

== ENCOUNTER 2017-08-27 22:42 | Inpatient (IN) | payer MEDICARE ==
[~2017-08-27] VITALS: Ht 172.7 cm; Wt 65.0 kg
[~2017-08-27 22:42] MED LIST changes: +APIX5TAB PO; -AZAT50 PO; +CHOL5000 PO; -CLOP75TA PO; -ENOX60P SQ; -FIBE625T10 PO; -FLINT2 CHEW; +LEVA750T9 PO; +METR-1 PO; +MIRTA15 PO; +NOVOLOGP2 SQ; +PRED1 PO; -PRED2.5T PO; +PRIL20TA2 PO; -ROSU1TAB8 PO; -VITA1000 PO; +WALKER WHEELS/F1 MIS; -WARF-20 PO
[2017-08-27 22:48] VITALS: BP 86/47; PULSE 112; RESP 20; TEMP 97.7; O2SAT 98
[2017-08-27] MEDS ORDERED: SACU1TAB PO (23:00)
[2017-08-27 23:01] VITALS: BP 65/39
[2017-08-27 23:15] VITALS: O2SAT 98
[2017-08-27] MEDS ORDERED: VANCOMYCIN INJ 1,000 MG in SODIUM CHLOR 0.9% 250 ML INJ 250 ML IV ONE (23:15)
[2017-08-27] MEDS ORDERED: PIPERACIL-TAZO 2.25 GM PREMIX 50 ML IV ONE (23:15)
[2017-08-27] MEDS ORDERED: SODIUM CHLORID 0.9% 500 ML INJ 500 ML IV ONE (23:15)
[2017-08-27 23:20] VITALS: BP 107/60; PULSE 108; RESP 18; O2SAT 98
--- NOTE | 2017-08-27 23:22 | PD ---
HPI Chief Complaint: Abnormal Results Time Seen by Provider: 22:48 Travel History International Travel<30 days: No Contact w/Intl Traveler<30days: No Traveled to known affect area: No History of Present Illness HPI The patient is a 77 year old male who presents to the [facility] emergency department with a history of reportedly not feeling well over the last month. He reports that he has had generalized weakness, weight loss, and a hoarse quality to his voice. The patient reports that he was admitted August 01 - August 03 for pneumonia which was thought to be the cause of his hoarse quality to his voice, however he reports that he continues. He has seen his primary care physician, Dr. Cheikh Funes regarding the other symptoms and has been in the process of having this worked up. The patient reports that he completed a Holter monitor 2 days ago. He denies having any chest pain. He reports having shortness of breath with exertion. He reports that he came to the emergency department this evening when he felt lightheaded and as if he was going to collapse. The patient reports that he has been monitoring his blood pressure at home and it has been lower than usual at around 80/40. The patient reports that 2 weeks ago he was started on a new medication that is been altering his bowel movements. He reports that he has been having softer than usual stools. The new medication as Entresto. He denies having any worsening cough or congestion. He denies having any known fevers or chills. He reports that recently he has been having decreased urine output. He also reports having a dry mouth which she was attributing to his new medication. He denies having any abdominal pain, vomiting, diarrhea, dysuria, urinary urgency, or neurologic symptoms. [facility] Past Medical History Narrative Medical The patient's past medical history is significant for being admitted from August 01 - August 03 for pneumonia and sepsis, coronary artery disease, hypertension, diabetes mellitus, hypertension, atrial fibrillation. Arthritis: Yes (neck, hips, knees) Asthma: No Autoimmune Disease: No Blood Disorders: No Anxiety: No Depression: No Heart Rhythm Problems: Yes Cancer: Yes (prostate cancer) Cardiac Catheterization: Yes Cardiovascular Problems: Yes High Cholesterol: Yes Chemotherapy: No Chest Pain: No Congestive Heart Failure: No COPD: No Cerebrovascular Accident: No Diabetes: Yes Patient Takes Glucophage: Yes Diminished Hearing: Yes (travon hearing aids) Endocrine: No Gastrointestinal Disorders: Yes GERD: Yes Glaucoma: No Genitourinary: Yes Headaches: No Hepatitis: No Hiatal Hernia: No Hypertension: Yes Immune Disorder: No Implanted Vascular Access Dvce: Yes Kidney Stones: No Musculoskeletal: No Neurologic: No Psychiatric: No Reproductive: Yes Respiratory: No Migraines: No Myocardial Infarction: Yes ([place]) Radiation Therapy: Yes Renal Failure: No Seizures: No Sickle Cell Disease: No Sleep Apnea: No Thyroid Disease: No Ulcer: No Influenza Vaccination: Yes Past Surgical History Narrative Surgical The patient's past surgical history is significant for right knee arthroscopy. Abdominal Surgery: No AICD: No Arteriovenous Shunt: No Cardiac Surgery: No Ear Surgery: No Endocrine Surgery: No Eye Surgery: No Genitourinary Surgery: No Gynecologic Surgery: No Insulin Pump: No Joint Replacement: No Oral Surgery: Yes Pacemaker: No Thoracic Surgery: No Other Surgery: Yes (RT.ARTROSCOPY KNEE) Social History Alcohol Use: No Tobacco Use: No Substance Use: No Allergies-Medications (Allergen,Severity, Reaction): Coded Allergies: No Known Allergies (Verified Allergy, Severe, 08/27/17) Reported Meds & Prescriptions Reported Meds & Active Scripts Active Walker with Front Wheels (Device) 1 Mis Mis Ea .XX DIRECTED Reported Entresto (Sacubitril-Valsartan) 24-26 Mg Tab 1 Tab PO DAILY Novolog Inj (Insulin Aspart) 1,000 Unit/10 Ml Vial 0 SQ DIRECTED Sliding Scale as directed. Vitamin D3 (Cholecalciferol) 5,000 Unit Cap 7,000 Units PO DAILY Prilosec (Omeprazole Magnesium) 20 Mg Tab 20 Mg PO DAILY Mirtazapine 15 Mg Tab 15 Mg PO HS Lyrica (Pregabalin) 100 Mg Cap 100 Mg PO BID Eliquis (Apixaban) 5 Mg Tab 5 Mg PO BID Prednisone 1 Mg Tab 1 Mg PO DAILY Multiple Vitamin 1 Tab 1 Tab PO DAILY Vitamin C (Ascorbic Acid) 250 Mg Chew 500 Mg CHEW DAILY Vitamin B-12 (Cyanocobalamin) 1,000 Mcg Tab 1,000 Mcg PO DAILY Vitamin B-6 (Pyridoxine HCl (Vitamin B6)) 50 Mg Capsule Aspirin 81 Mg Chew 81 Mg CHEW DAILY Ipratropium [place] 42 Mcg (0.06 %) Allison Refresh Opth Drops (Polyvinyl Alcohol-Povidone Opth Drops) 1.4-0.6% Drops 1-2 Drop EACH EYE PRN PRN Restasis Opth (Cyclosporine Opth) 0.05% Emul 1 Drop EACH EYE BID Metformin (Metformin HCl) 500 Mg Tab 500 Mg PO BIDPC Review of Systems Except as stated in HPI: all other systems reviewed are Neg General / Constitutional: Positive: Weight Loss, No: Fever Eyes: No: Visual changes HENT: Positive: Lightheadedness, Other (Hoarse quality to his voice), No: Headaches Cardiovascular: Positive: Dyspnea on exertion, No: Chest Pain or Discomfort Respiratory: Positive: Cough, Shortness of Breath Gastrointestinal: No: Nausea, Vomiting, Diarrhea, Abdominal Pain, Loss of Appetite Genitourinary: No: Dysuria Musculoskeletal: No: Pain Skin: No Rash Neurologic: Positive: Weakness (Generalized weakness), Dizziness, No: Focal Abnormalities, Change in Mentation, Slurred Speech, Sensory Disturbance Psychiatric: No: Depression Endocrine: No: Polydipsia Hematologic/Lymphatic: No: Easy Bruising Physical Exam Narrative General: The patient is a well-developed well-nourished male in no acute distress. Head and Neck exam: Head is normocephalic atraumatic. Eyes: EOMI, pupils are equal round and reactive to light. Nose: Midline septum with pink mucous membranes Mouth: Dentition unremarkable. Moist mucus membranes. Posterior oropharynx is not erythematous. No tonsillar hypertrophy. Uvula midline. Airway patent. Neck: No palpable lymphadenopathy. No nuchal rigidity. No thyromegaly. Cardiovascular: Sinus tachycardia in the 1 teens with a 2/6 systolic murmur, no gallops or rubs. No pulse deficit to the extremities on simultaneous auscultation and palpation of his radial artery. Lungs: Clear to auscultation bilaterally. No wheezes, rhonchi, or rales. Abdomen: Soft, without tenderness to palpation in all 4 quadrants of the abdomen. No guarding, rebound, or rigidity. Normal bowel sounds are audible. No tenderness on palpation of McBurney's point. Negative Thurman sign. Extremities: No clubbing or cyanosis. The patient has trace edema bilateral lower extremities. 2+ pulses in all 4 extremities. No calf tenderness on palpation. Back: No spinous process tenderness to palpation. The patient has right-sided CVA tenderness on palpation peer Neurologic Exam: Grossly nonfocal. Skin Exam: No rash noted. Intact skin that is warm and dry. Data Data Last Documented VS Vital Signs Date Time Temp Pulse Resp B/P (MAP) Pulse Ox O2 Delivery O2 Flow Rate FiO2 08/28/17 00:32 98 18 100/56 (71) 98 Room Air 08/27/17 22:48 97.7 Orders Orders Electrocardiogram (08/27/17 23:03) Complete Blood Count With Diff (08/27/17 23:) Comprehensive Metabolic Panel (08/27/17 23:) Creatine Kinase (Cpk) (08/27/17 23:03) Ckmb (Isoenzyme) Profile (08/27/17 23:03) Troponin I (08/27/17 23:) B-Type Natriuretic Peptide (08/27/17:) Prothrombin Time / Inr (Pt) (08/27/17 23:) Act Partial Throm Time (Ptt) (08/27/17 23:03) Blood Culture (08/27/17 23:03) C-Reactive Protein (Crp) (08/27/17 23:03) Lipase (08/27/17 23:03) Urinalysis - C+S If Indicated (08/27/17 23:03) Magnesium (Mg) (08/27/17 23:03) Enteric Path (Stool) (08/27/17 23:03) C Diff Toxin Pcr (08/27/17 23:03) Chest, Single Ap (08/27/17 23:03) Iv Access Insert/Monitor (08/27/17 23:03) Ecg Monitoring (08/27/17 23:03) Oximetry (08/27/17 23:03) Stool Wbc (Leukocytes) (08/27/17 23:03) Lactic Acid Sepsis Protocol (08/27/17 23:03) Sodium Chlorid 0.9% 500 Ml Inj (Ns 500 M (08/27/17 23:15) Urinary Catheter Insert/Apply (08/27/17 23:05) Piperacil-Tazo 2.25 Gm Premix (Zosyn 2.2 (08/27/17 23:15) Vancomycin Inj (Vancomycin Inj) (08/27/17 23:15) Urine Culture (08/27/17 23:05) Sodium Chlorid 0.9% 500 Ml Inj (Ns 500 M (08/28/17 00:45) Admit Order (Ed Use Only) (08/28/17 01:09) Labs Laboratory Tests Test 08/27/17 23:00 08/27/17 23:05 White Blood Count 5.4 TH/MM3 Red Blood Count 3.46 MIL/MM3 Hemoglobin 11.9 GM/DL Hematocrit 35.7 % Mean Corpuscular Volume 103.2 FL Mean Corpuscular Hemoglobin 34.5 PG Mean Corpuscular Hemoglobin Concent 33.4 % Red Cell Distribution Width 17.8 % Platelet Count 115 TH/MM3 Mean Platelet Volume 8.9 FL Neutrophils (%) (Auto) 64.1 % Lymphocytes (%) (Auto) 22.9 % Monocytes (%) (Auto) 10.9 % Eosinophils (%) (Auto) 1.5 % Basophils (%) (Auto) 0.6 % Neutrophils # (Auto) 3.4 TH/MM3 Lymphocytes # (Auto) 1.2 TH/MM3 Monocytes # (Auto) 0.6 TH/MM3 Eosinophils # (Auto) 0.1 TH/MM3 Basophils # (Auto) 0.0 TH/MM3 CBC Comment DIFF FINAL Differential Comment Prothrombin Time 11.4 SEC Prothromb Time International Ratio 1.1 RATIO Activated Partial Thromboplast Time 25.9 SEC Blood Urea Nitrogen 19 MG/DL Creatinine 0.79 MG/DL Random Glucose 81 MG/DL Total Protein 5.4 GM/DL Albumin 2.0 GM/DL Calcium Level 7.6 MG/DL Magnesium Level 1.5 MG/DL Alkaline Phosphatase 133 U/L Aspartate Amino Transf (AST/SGOT) 43 U/L Alanine Aminotransferase (ALT/SGPT) 26 U/L Total Bilirubin 0.3 MG/DL Sodium Level 145 MEQ/L Potassium Level 4.1 MEQ/L Chloride Level 115 MEQ/L Carbon Dioxide Level 23.4 MEQ/L Anion Gap 7 MEQ/L Estimat Glomerular Filtration Rate 95 ML/MIN Lactic Acid Level 3.1 mmol/L Total Creatine Kinase 38 U/L Troponin I LESS THAN 0.02 NG/ML C-Reactive Protein LESS THAN 0.29 MG/DL B-Type Natriuretic Peptide 470 PG/ML Lipase 144 U/L Urine Color YELLOW Urine Turbidity CLEAR Urine pH 5.0 Urine Specific [place] 1.021 Urine Protein TRACE mg/dL Urine Glucose (UA) NEG mg/dL Urine Ketones TRACE mg/dL Urine Occult Blood MOD Urine Nitrite NEG Urine Bilirubin NEG Urine Urobilinogen 2.0 MG/DL Urine Leukocyte Esterase NEG Urine RBC 5 /hpf Urine WBC 15 /hpf Urine Squamous Epithelial Cells <1 /hpf Urine Hyaline Casts 8 /lpf Urine Mucus FEW /lpf Microscopic Urinalysis Comment CULTURE INDICATED MDM Medical Decision Making Medical Screen Exam Complete: Yes Emergency Medical Condition: Yes Medical Record Reviewed: Yes Differential Diagnosis Recurrent sepsis of undetermined origin, versus pneumonia, versus acute coronary syndrome, versus dehydration, versus urinary tract infection Narrative Course During the course of the patient's emergency department visit, the patient's history, examination, and differential diagnosis were reviewed with the patient. The patient was placed on a dairy frozen manager with oximetry and frequent blood pressure monitoring. The patient had IV access obtained and blood work sent for analysis. The patient had a EKG done on arrival that shows an ectopic atrial tachycardia, heart rate of 112, QRS duration is 178 ms, QTC 470 ms. A right bundle branch block is noted. No acute ST segment elevation is noted. The patient's initial blood pressure was 86/47, however did quickly dropped down to 65/39. The patient was tachycardic. The patient was started on an IV fluid bolus. Blood cultures 2 were drawn. A lactic acid was sent for analysis. A Brennan catheter was placed to gravity to carefully monitor the patient's urine output. The patient was initially provided normal saline at 500 mL bolus. The patient' s blood pressure improved to 107/60. The patient was started on broad-spectrum antibiotic to include vancomycin and Zosyn. The patient's laboratory studies were reviewed and remarkable for 08/27/17 23:00 Total Protein 5.4 L, Albumin 2.0 L, Calcium Level 7.6 L, Magnesium Level 1.5, Alkaline Phosphatase 133 H, Aspartate Amino Transf (AST/SGOT) 43 H, Alanine Aminotransferase (ALT/SGPT) 26, Total Bilirubin 0.3, initial set of cardiac enzymes are within normal limits, BNP is elevated at 470, lipase within normal limits, lactic acid is elevated at 3.1. PT 11.4, PTT 25.9. Urinalysis shows trace ketones moderate occult blood, 5 RBCs, 15 WBCs, few mucus, culture indicated. Radiology studies were reviewed and remarkable for a chest x-ray that shows a dense infiltrate in the right lung base. Small bilateral pleural effusions right greater than left. The patient's electronic medical record was reviewed. The patient was last admitted in July with similar symptoms. The patient was instructed to follow-up with an ear nose and throat doctor as he does have one in [place] when he returns back home. He reports that he has not been back home to have his persistent hoarse quality to his voice examined by his learning facilitator. The patient's results were discussed with the patient, including the plan of care. I explained that further testing and/ or monitoring is indicated based on the patient's history, examination, and/ or laboratory findings. Therefore, I recommended admission for additional evaluation. The patient expressed understanding and was agreeable with this plan. The patient was admitted to the hospital in guarded condition and sent to a bed under the care of the [facility] service. Sepsis Criteria SIRS Criteria (2 or more): Heart rate over 90 Severe Sepsis (+one): Lactate >2 Physician Communication Physician Communication The patient's case including history, pertinent physical examination findings, and laboratory studies were discussed with Dr. Franklin. It was agreed that the patient would be admitted to the [facility] service. Diagnosis Primary Impression: Right lower lobe pneumonia Qualified Codes: J18.1 - Lobar pneumonia, unspecified organism Additional Impression: Hypotension Qualified Codes: I95.9 - Hypotension, unspecified Admitting Information Admitting Physician Requests: Admit Leena Al MD August 27, 2017 23:22
[2017-08-27 23:29] LABS: BILIRUBIN, URINE NEG (NEG); BLOOD, URINE MOD (NEG); GLUCOSE,URINE NEG (NEG); HYALINE CAST, URINE 8 /lpf (RARE); KETONE, URINE TRACE mg/dL (NEG); MUCUS URINE FEW /lpf (OCC); NITRITE,URINE NEG (NEG); SQUAMOUS EPITHELIAL CELL URINE <1 /hpf (0-5); URINE COLOR YELLOW (YELLW/STRAW); URINE LEUKOCYTE ESTERASE NEG (NEG)
[2017-08-27 23:32] LABS: AUTOMATED NEUTROPHIL # 3.4 TH/MM3 (1.8-7.7); BASOPHIL % 0.6 % (0.0-2.0); EOSINOPHIL # 0.1 TH/MM3 (0-0.4); EOSINOPHIL % 1.5 % (0.0-4.0); HEMATOCRIT 35.7 % (39.0-51.0); HEMOGLOBIN 11.9 GM/DL (13.0-17.0); LYMPH % 22.9 % (9.0-44.0); LYMPHOCYTE # 1.2 TH/MM3 (1.0-4.8); MEAN CELL VOLUME 103.2 FL (80.0-100.0); MEAN CORPUSCULAR HEMOGLOBIN 34.5 PG (27.0-34.0); MEAN CORPUSCULAR HGB CONC 33.4 % (32.0-36.0); MEAN PLATELET VOLUME 8.9 FL (7.0-11.0); MONO % 10.9 % (0.0-8.0); MONOCYTE # 0.6 TH/MM3 (0-0.9); NEUT % 64.1 % (16.0-70.0); PLATELET COUNT 115 TH/MM3 (150-450); RED BLOOD COUNT 3.46 MIL/MM3 (4.50-5.90); RED CELL DISTRIBUTION WIDTH 17.8 % (11.6-17.2); WHITE BLOOD COUNT 5.4 TH/MM3 (4.0-11.0)
[2017-08-27 23:36] VITALS: BP 129/55; PULSE 97; RESP 18; O2SAT 97
[2017-08-27 23:42] LABS: LACTIC ACID SEPSIS PROTOCOL 3.1 mmol/L (0.4-2.0)
[2017-08-27 23:44] LABS: INTERNATIONAL NORMALIZED RATIO 1.1 RATIO; PROTHROMBIN TIME - PATIENT 11.4 SEC (9.8-11.6)
--- NOTE | 2017-08-27 23:46 | RADRPT ---
EXAM DATE/TIME: 08/27/2017 23:26 [facility] COMPARISON: CHEST SINGLE AP, August 01, 2017, 11:33. INDICATIONS : Shortness of breath and weakness. MEDICAL HISTORY : Hypercholesterolemia. Hypertension Myocardial infarction. GERD. Diabetes. Prostate cancer. Irregu lar heartbeat. SURGICAL HISTORY : Cardiac cath. ENCOUNTER: Initial ACUITY: 1 day PAIN SCORE: 0/10 LOCATION: Bilateral chest FINDINGS: A single view of the chest demonstrates continued infiltrate in right lung base. A lateral pleural ef fusions right greater left. No visible pneumothorax. Continued scarring right lung apex. Heart and me diastinum are unremarkable.. Osseous structures are intact. CONCLUSION: Dense infiltrate right lung base. Small bilateral pleural effusions right greater left. Conor Rose MD on August 27, 2017 at 23:44 Board Certified Radiologist. This report was verified electronically.
[2017-08-27 23:49] LABS: ALKALINE PHOSPHATASE 133 U/L (45-117); ALT (GPT) 26 U/L (12-78); AST (GOT) 43 U/L (15-37); BICARBONATE 23.4 MEQ/L (21.0-32.0); BLOOD UREA NITROGEN 19 MG/DL (7-18); C-REACTIVE PROTEIN LESS THAN 0.29 MG/DL (0.00-0.30); CALCIUM 7.6 MG/DL (8.5-10.1); CHLORIDE 115 MEQ/L (98-107); CREATININE 0.79 MG/DL (0.60-1.30); GLOMERULAR FILTRATION RATE 95 ML/MIN (>89); GLUCOSE,RANDOM 81 MG/DL (74-106); MAGNESIUM 1.5 MG/DL (1.5-2.5); SODIUM (NA) 145 MEQ/L (136-145); TOTAL BILIRUBIN ADULT 0.3 MG/DL (0.2-1.0); TOTAL PROTEIN 5.4 GM/DL (6.4-8.2); TROPONIN I LESS THAN 0.02 NG/ML (0.02-0.05)
[2017-08-28] VITALS (14 sets, daily range): BP systolic 96–152; BP diastolic 52–85; PULSE 63–98; RESP 16–19; TEMP 97.7–98.4; O2SAT 95–98
[2017-08-28] MEDS ORDERED: SODIUM CHLORID 0.9% 500 ML INJ 500 ML IV ONE (00:45)
[2017-08-28] MEDS ORDERED: Vancomycin Consult Pharmacy 1 EA OTHER SCH (02:00)
[2017-08-28] MEDS ORDERED: ACETAMINOPHEN 325 MG TAB PO PRN (02:15)
[2017-08-28] MEDS ORDERED: ONDANSETRON HCL 4 MG/2 ML VIAL IVP PRN (02:15)
[2017-08-28] MEDS ORDERED: MAGNESIUM HYDROXIDE SUSP 30 ML CUP PO PRN (02:15)
[2017-08-28] MEDS ORDERED: ACETAMINOPHEN/HYDROcodone 325 MG/10 MG TAB PO PRN (02:15)
[2017-08-28] MEDS ORDERED: DEXTROSE 50% IN WATER 50 ML VIAL(D50) IV PUSH PRN (02:15)
[2017-08-28] MEDS ORDERED: ACETAMINOPHEN/HYDROcodone 325 MG/5 MG TAB PO PRN (02:15)
[2017-08-28] MEDS ORDERED: SENNOSIDES 8.6 MG TAB PO PRN (02:15)
[2017-08-28] MEDS ORDERED: BISACODYL 10 MG SUPP RECTAL PRN (02:15)
[2017-08-28] MEDS ORDERED: GLUCAGON 1 MG/ML VIAL OTHER PRN (02:15)
[2017-08-28] MEDS ORDERED: SODIUM CHLORIDE 0.9% FLUSH 10 ML FLUSH IV FLUSH PRN (02:15)
[2017-08-28] MEDS ORDERED: LACTULOSE SYRUP 20 GM/30 ML CUP PO PRN (02:15)
[2017-08-28] MEDS: SODIUM CHLOR 0.9% 1000 ML INJ 1,000 ML IV SCH ×3 (02:27→22:03)
[2017-08-28] MEDS ORDERED: VANCOMYCIN 500 MG/NS 100 ML IV ONE ×2 (02:30)
--- NOTE | 2017-08-28 03:32 | HHI.HP ---
HPI Service [facility] Primary Care Physician Cheikh Funes III, MD Admission Diagnosis pneumonia, uti, hypotension Diagnoses: (1) PNA (pneumonia) Diagnosis: Principal (2) UTI (urinary tract infection) Diagnosis: Principal (3) Hypotension Diagnosis: Principal (4) DM (diabetes mellitus) Diagnosis: Principal Travel History International Travel<30 Days: No Contact w/Intl Traveler <30 Da: No Traveled to Known Affected Are: No History of Present Illness This is a 77-year-old male with a PMH of A. fib on Eliquis, HTN, h/o Prostate CA , CAD and DM who presents to ER with complaints of generalized weakness and fatigue x2 days. Recent admit 08/01-08/03/17 for Sepsis/PNA w/ possible aspiration, states weakness/fatigue ongoing since discharge, but worse over the last 2-3 days. Denies fever, chills. reports pt w/ decreased appetite/PO intake. No nausea, vomiting or diarrhea. states BP at home 80's systolic earlier today. On arrival, BP 86/47, HR 112, O2 sat 98% on RA, Afebrile. While in the ER, BP dropped to 65/39, s/p IVF w/ excellent response, repeat BP 120's systolic. CBC at baseline. Chemistry essentially unremarkable. Lactic Acid 3.1. Troponin negative. INR 1.1. UA positive for UTI. CXR with dense infiltrate right lung base, small bilateral pleural effusions. S/p Vanc/Zosyn in ER. Review of Systems Except as stated in HPI: all other systems reviewed are Neg ROS: 14 point review of systems otherwise negative. Past Family Social History Past Medical History PMH: A. fib on Eliquis, HTN, h/o Prostate CA, CAD and DM Past Surgical History PAST SURGICAL HISTORY: Right Knee Arthroscopy Allergies: Coded Allergies: No Known Allergies (Verified Allergy, Severe, 08/27/17) Family History PAST FAMILY HISTORY: Reviewed. No h/o DM or CAD Social History PAST SOCIAL HISTORY: Negative for alcohol, tobacco or drugs. Physical Exam Vital Signs Vital Signs Date Time Temp Pulse Resp B/P (MAP) Pulse Ox O2 Delivery O2 Flow Rate FiO2 08/28/17 02:09 93 18 127/55 (79) 98 Room Air 08/28/17 01:19 98 16 105/53 (70) 98 Room Air 08/28/17 00:32 98 18 100/56 (71) 98 Room Air 08/28/17 00:12 98 18 96/52 (67) 97 Room Air 08/27/17 23:36 97 18 129/55 (79) 97 Room Air 08/27/17 23:20 108 18 107/60 (76) 98 Room Air 08/27/17 23:15 98 Room Air 08/27/17 23:01 65/39 (48) 08/27/17 22:48 97.7 112 20 86/47 (60) 98 Room Air Physical Exam PE: GENERAL: Very pleasant elderly white male in no acute distress. HEENT: PERRLA, EOMI. No scleral icterus or conjunctival pallor. No lid lag or facial droop. CARDIOVASCULAR: Regular rate and rhythm. No obvious murmurs to auscultation. No chest tenderness to palpation. RESPIRATORY: No obvious rhonchi or wheezing. Clear to auscultation. Breath sounds equal bilaterally. GASTROINTESTINAL: Abdomen soft, non-tender, nondistended. BS normal. MUSCULOSKELETAL: Extremities without clubbing, cyanosis, or edema. No obvious deformities. NEUROLOGICAL: Awake, alert and oriented x4. No focal neurologic deficits. Moving both upper and lower extremities spontaneously. Laboratory Laboratory Tests Test 08/27/17 23:00 08/27/17 23:05 08/28/17 01:35 White Blood Count 5.4 Red Blood Count 3.46 Hemoglobin 11.9 Hematocrit 35.7 Mean Corpuscular Volume 103.2 Mean Corpuscular Hemoglobin 34.5 Mean Corpuscular Hemoglobin Concent 33.4 Red Cell Distribution Width 17.8 Platelet Count 115 Mean Platelet Volume 8.9 Neutrophils (%) (Auto) 64.1 Lymphocytes (%) (Auto) 22.9 Monocytes (%) (Auto) 10.9 Eosinophils (%) (Auto) 1.5 Basophils (%) (Auto) 0.6 Neutrophils # (Auto) 3.4 Lymphocytes # (Auto) 1.2 Monocytes # (Auto) 0.6 Eosinophils # (Auto) 0.1 Basophils # (Auto) 0.0 CBC Comment DIFF FINAL Differential Comment Prothrombin Time 11.4 Prothromb Time International Ratio 1.1 Activated Partial Thromboplast Time 25.9 Blood Urea Nitrogen 19 Creatinine 0.79 Random Glucose 81 Total Protein 5.4 Albumin 2.0 Calcium Level 7.6 Magnesium Level 1.5 Alkaline Phosphatase 133 Aspartate Amino Transf (AST/SGOT) 43 Alanine Aminotransferase (ALT/SGPT) 26 Total Bilirubin 0.3 Sodium Level 145 Potassium Level 4.1 Chloride Level 115 Carbon Dioxide Level 23.4 Anion Gap 7 Estimat Glomerular Filtration Rate 95 Lactic Acid Level 3.1 3.4 Total Creatine Kinase 38 Troponin I LESS THAN 0.02 C-Reactive Protein LESS THAN 0.29 B-Type Natriuretic Peptide 470 Lipase 144 Urine Color YELLOW Urine Turbidity CLEAR Urine pH 5.0 Urine Specific [place] 1.021 Urine Protein TRACE Urine Glucose (UA) NEG Urine Ketones TRACE Urine Occult Blood MOD Urine Nitrite NEG Urine Bilirubin NEG Urine Urobilinogen 2.0 Urine Leukocyte Esterase NEG Urine RBC 5 Urine WBC 15 Urine Squamous Epithelial Cells <1 Urine Hyaline Casts 8 Urine Mucus FEW Microscopic Urinalysis Comment CULTURE INDICATED Date/Time Source Procedure Growth Status 08/27/17 23:10 Blood Peripheral Aerobic Blood Culture Pending Received 08/27/17 23:10 Blood Peripheral Anaerobic Blood Culture Pending Received 08/27/17 23:05 Urine Clean Catch Urine Culture Pending Received Result Diagram: 08/27/17 2300 08/27/17 2300 Caprini VTE Risk Assessment Caprini VTE Risk Assessment: Mod/High Risk (score >= 2) Caprini Risk Assessment Model Point Value = 1 Point Value = 2 Point Value = 3 Point Value = 5 Age 41-60 Minor surgery BMI > 25 kg/m2 Swollen legs Varicose veins or History of unexplained or recurrent spontaneous Oral contraceptives or hormone replacement Sepsis (< 1 month) Serious lung disease, including pneumonia (< 1 month) Abnormal pulmonary function Acute myocardial infarction Congestive heart failure (< 1 month) History of inflammatory bowel disease Medical patient at bed rest Age 61-74 Arthroscopic surgery Major open surgery (> 45 min) Laparoscopic surgery (> 45 min) Malignancy Confined to bed (> 72 hours) Immobilizing plaster cast Central venous access Age >= 75 History of VTE Family history of VTE Factor V Leiden Prothrombin [id number] Lupus anticoagulant Anticardiolipin antibodies Elevated serum homocysteine Heparin-induced thrombocytopenia Other congenital or acquired thrombophilia Stroke (< 1 month) Elective arthroplasty Hip, pelvis, or leg fracture Acute spinal cord injury (< 1 month) Prophylaxis Regimen Total Risk Factor Score Risk Level Prophylaxis Regimen 0-1 Low Early ambulation 2 Moderate Order ONE of the following: *Sequential Compression Device (SCD) *Heparin 5000 units SQ BID 3-4 Higher Order ONE of the following medications: *Heparin 5000 units SQ TID *Enoxaparin/Lovenox 40 mg SQ daily (WT < 150 kg, CrCl > 30 mL/min) *Enoxaparin/Lovenox 30 mg SQ daily (WT < 150 kg, CrCl > 10-29 mL/min) *Enoxaparin/Lovenox 30 mg SQ BID (WT < 150 kg, CrCl > 30 mL/min) AND/OR *Sequential Compression Device (SCD) 5 or more Highest Order ONE of the following medications: *Heparin 5000 units SQ TID (Preferred with Epidurals) *Enoxaparin/Lovenox 40 mg SQ daily (WT < 150 kg, CrCl > 30 mL/min) *Enoxaparin/Lovenox 30 mg SQ daily (WT < 150 kg, CrCl > 10-29 mL/min) *Enoxaparin/Lovenox 30 mg SQ BID (WT < 150 kg, CrCl > 30 mL/min) AND *Sequential Compression Device (SCD) Assessment and Plan Problem List: (1) PNA (pneumonia) ICD Code: J18.9 - Pneumonia, unspecified organism (2) UTI (urinary tract infection) ICD Code: N39.0 - Urinary tract infection, site not specified (3) Hypotension ICD Code: I95.9 - Hypotension, unspecified Status: Acute (4) DM (diabetes mellitus) ICD Code: E11.9 - Type 2 diabetes mellitus without complications Assessment and Plan A/P: 1. PNA: CXR w/ dense right consolidation, images reviewed by me, previous admit 08/01-08/03/17 for Sepsis/PNA w/ possible aspiration. S/p Vanc/Zosyn in ER , will continue w/ IV Abx, DuoNeb prn. Consult Speech for swallow evaluation. 2. UTI: U/a w/ UTI, continue IV Abx, decreased urinary output, continue w/ IVF , monitor I/O. 3. Hypotension: BP 80's systolic on arrival, s/p IVF w/ repeat BP 120's, will continue w/ maintenance IVF, monitor BP closely. 4. DM: Sliding scale w/ Accu-Cheks. Hold Metformin for now. 5. DVT Prophylaxis: On Eliquis 6. Social work for d/c planning as needed. 7. Case discussed w/ ER physician at length, labs/records/imaging reviewed by me. Problem Qualifiers (1) Hypotension: Qualified Codes: I95.9 - Hypotension, unspecified Katlin Franklin MD August 28, 2017 03:32
[2017-08-28] MEDS: PIPERACIL-TAZO 4.5 GM PREMIX 100 ML IV SCH ×3 (05:57→18:39)
[2017-08-28] MEDS: INSULIN ASPART SUPPLEMENTAL SCALE SQ SCH ×4 (08:00→21:08)
[2017-08-28 08:43] LABS: AUTOMATED NEUTROPHIL # 4.1 TH/MM3 (1.8-7.7); BASOPHIL % 0.5 % (0.0-2.0); EOSINOPHIL # 0.1 TH/MM3 (0-0.4); EOSINOPHIL % 1.5 % (0.0-4.0); HEMATOCRIT 31.2 % (39.0-51.0); HEMOGLOBIN 10.6 GM/DL (13.0-17.0); LYMPH % 10.9 % (9.0-44.0); LYMPHOCYTE # 0.6 TH/MM3 (1.0-4.8); MEAN CORPUSCULAR HEMOGLOBIN 34.5 PG (27.0-34.0); MEAN CORPUSCULAR HGB CONC 33.8 % (32.0-36.0); MEAN PLATELET VOLUME 8.2 FL (7.0-11.0); MONO % 8.4 % (0.0-8.0); MONOCYTE # 0.4 TH/MM3 (0-0.9); NEUT % 78.7 % (16.0-70.0); PLATELET COUNT 92 TH/MM3 (150-450); RED BLOOD COUNT 3.06 MIL/MM3 (4.50-5.90); RED CELL DISTRIBUTION WIDTH 17.9 % (11.6-17.2); WHITE BLOOD COUNT 5.2 TH/MM3 (4.0-11.0)
[2017-08-28] MEDS ORDERED: CYCLOSPORINE EACH EYE SCH (09:00)
[2017-08-28] MEDS: SODIUM CHLORIDE 0.9% FLUSH 10 ML FLUSH IV FLUSH SCH ×2 (09:00→21:08)
[2017-08-28 09:05] LABS: AST (GOT) 26 U/L (15-37); BICARBONATE 27.2 MEQ/L (21.0-32.0); BLOOD UREA NITROGEN 16 MG/DL (7-18); CHLORIDE 110 MEQ/L (98-107); CREATININE 0.82 MG/DL (0.60-1.30); GLOMERULAR FILTRATION RATE 91 ML/MIN (>89); GLUCOSE,RANDOM 95 MG/DL (74-106); SODIUM (NA) 143 MEQ/L (136-145)
[2017-08-28 09:09] LABS: ALKALINE PHOSPHATASE 137 U/L (45-117); ALT (GPT) 21 U/L (12-78); TOTAL BILIRUBIN ADULT 0.5 MG/DL (0.2-1.0); TOTAL PROTEIN 5.1 GM/DL (6.4-8.2)
--- NOTE | 2017-08-28 10:10 | EKG ---
Date Performed: 08/27/2017 Time Performed: 22:52:12 PTAGE: 77 years EKG: Rhythm appears to be sinus tachycardia with first degree AV block RIGHT BUNDLE BRANCH BLOCK LEFT ANTERIOR FASCICULAR BLOCK ABNORMAL ECG PREVIOUS TRACING 08/01/17 Compared to the prior tracing, there is no significant change. DOCTOR: Manny Khan Interpretating Date/Time 08/28/2017 10:09:47
--- NOTE | 2017-08-28 10:29 | RADRPT ---
EXAM DATE/TIME: 08/28/2017 00:00 [place] COMPARISON: BA SWALLOW W/SPEECH PATHOLOGY, April 22, 2017, 0:00. INDICATIONS : Dysphagia. Patient states he feels like pills are getting caught. FLUORO TIME: 1.3 minutes IMAGE COUNT: 0 CONTRAST: Dose as prescribed by speech pathologist. MEDICAL HISTORY : Recurrent pneumonia. SURGICAL HISTORY : None. ENCOUNTER: Subsequent ACUITY: >1 year PAIN SCORE: 0/10 LOCATION: Esophagus. FINDINGS: A modified barium swallow was performed with speech pathology. Patient was given a variety of liquids to swallow. No aspiration or penetration was seen. For a full detailed report, see report by the speech pathologist. CONCLUSION: No aspiration or penetration seen. Jesus Fu MD on August 28, 2017 at 10:25 Board Certified Radiologist. This report was verified electronically.
[2017-08-28] MEDS: DOCUSATE SODIUM 50 MG/SENNA 8.6 MG TAB PO SCH ×2 (11:18→21:08)
[2017-08-28] MEDS: APIXABAN 5 MG TABLET PO SCH ×2 (11:18→21:08)
[2017-08-28] MEDS: ASPIRIN 81 MG CHEW TAB CHEW SCH (11:18)
--- NOTE | 2017-08-28 15:33 | HHI.PR ---
Subjective Remarks Follow-up for generalized weakness and fatigue. Patient is currently resting in bed. Denies any chest pain, shortness of breath, fever or chills. Objective Vitals Vital Signs Date Time Temp Pulse Resp B/P (MAP) Pulse Ox O2 Delivery O2 Flow Rate FiO2 08/28/17 14:41 98.4 74 18 135/60 (85) 96 08/28/17 11:57 97.7 74 18 140/60 (86) 98 08/28/17 08:40 98.0 70 19 128/61 (83) 96 08/28/17 08:00 85 08/28/17 06:00 97.7 88 16 128/56 (80) 96 08/28/17 04:11 08/28/17 03:47 80 16 121/59 (79) 98 Room Air 08/28/17 02:09 93 18 127/55 (79) 98 Room Air 08/28/17 01:19 98 16 105/53 (70) 98 Room Air 08/28/17 00:32 98 18 100/56 (71) 98 Room Air 08/28/17 00:12 98 18 96/52 (67) 97 Room Air 08/27/17 23:36 97 18 129/55 (79) 97 Room Air 08/27/17 23:20 108 18 107/60 (76) 98 Room Air 08/27/17 23:15 98 Room Air 08/27/17 23:01 65/39 (48) 08/27/17 22:48 97.7 112 20 86/47 (60) 98 Room Air I/O 08/27/17 08/27/17 08/27/17 08/28/17 08/28/17 08/28/17 06:59 14:59 22:59 06:59 14:59 22:59 Intake Total 3200 ml Output Total 100 ml Balance 3100 ml Intake IV Total 3200 ml Output Urine Total 100 ml # Voids 1 Result Diagram: 08/28/1782208/28/17822 Imaging Last Impressions Modified Barium Swallow 08/28/17 0000 Signed Impressions: Service Date/Time: Monday, August 28, 2017 00:00 - CONCLUSION: No aspiration or penetration seen. Jesus Fu MD Chest X-Ray 08/27/17 1257 Signed Impressions: Service Date/Time: Sunday, August 27, 2017 23:26 - CONCLUSION: Dense infiltrate right lung base. Small bilateral pleural effusions right greater left. Conor Rose MD Objective Remarks GENERAL: Alert, NAD. SKIN: Warm and dry. HEAD: Normocephalic. EYES: No scleral icterus. No injection or drainage. NECK: Supple, trachea midline. No JVD or lymphadenopathy. CARDIOVASCULAR: Regular rate and rhythm without murmurs, gallops, or rubs. RESPIRATORY: Left-sided anterior lung field sounds more coarse than right side. No accessory muscle use. GASTROINTESTINAL: Abdomen soft, non-tender, nondistended. MUSCULOSKELETAL: No cyanosis, or edema. BACK: Nontender without obvious deformity. No CVA tenderness. Procedures None A/P Problem List: (1) PNA (pneumonia) ICD Code: J18.9 - Pneumonia, unspecified organism (2) UTI (urinary tract infection) ICD Code: N39.0 - Urinary tract infection, site not specified (3) Hypotension ICD Code: I95.9 - Hypotension, unspecified Status: Acute (4) DM (diabetes mellitus) ICD Code: E11.9 - Type 2 diabetes mellitus without complications Assessment and Plan This is a 77-year-old male with a PMH of A. fib on Eliquis, HTN, h/o Prostate CA , CAD and DM who presents to ER with complaints of generalized weakness and fatigue x2 days. Recent admit 08/01-08/03/17 for Sepsis/PNA w/ possible aspiration, states weakness/fatigue ongoing since discharge, but worse over the last 2-3 days. On arrival, BP 86/47, HR 112, O2 sat 98% on RA, Afebrile. While in the ER, BP dropped to 65/39, s/p IVF w/ excellent response, repeat BP 120's systolic. CBC at baseline. Chemistry essentially unremarkable. Lactic Acid 3.1. Troponin negative. INR 1.1. UA positive for UTI. CXR with dense infiltrate right lung base, small bilateral pleural effusions. S/p Vanc/Zosyn in ER. Recurrent Aspiration pneumonia -Currently on Vancomycin and Zosyn. -Continue DuoNeb. -Speech therapy commended modified barium swallow which did not show any aspiration. Speech therapy however recommended soft diet and thin liquids. -Discontinue vancomycin. The patient remains afebrile and hemodynamically stable consider switching antibiotics to Augmentin. CAD Atrial fibrillation - Patient is currently on Aspirin 81mg qday and Apixaban 5mg BID. - Patient is encouraged to discuss with his per diem clerk regarding use of both Aspirin and Apixaban. Full code. Apixaban. Problem Qualifiers (1) Hypotension: Qualified Codes: I95.9 - Hypotension, unspecified Quan Espinosa DO August 28, 2017 3:33 pm
[2017-08-28] MEDS: MIRTAZAPINE 15 MG TAB PO SCH (21:08)
[2017-08-29] VITALS (7 sets, daily range): BP systolic 136–186; BP diastolic 63–80; PULSE 57–84; RESP 16–18; TEMP 98–98.5; O2SAT 93–98
[2017-08-29] MEDS: PIPERACIL-TAZO 4.5 GM PREMIX 100 ML IV SCH ×4 (00:05→17:04)
[2017-08-29] MEDS ORDERED: VANCOMYCIN INJ 1,250 MG in SODIUM CHLOR 0.9% 250 ML INJ 250 ML IV SCH (03:00)
[2017-08-29] MEDS: INSULIN ASPART SUPPLEMENTAL SCALE SQ SCH ×4 (08:00→21:00)
[2017-08-29] MEDS: SODIUM CHLOR 0.9% 1000 ML INJ 1,000 ML IV SCH (08:07)
[2017-08-29] MEDS: DOCUSATE SODIUM 50 MG/SENNA 8.6 MG TAB PO SCH (08:07)
[2017-08-29] MEDS: SODIUM CHLORIDE 0.9% FLUSH 10 ML FLUSH IV FLUSH SCH (08:08)
[2017-08-29] MEDS: ASPIRIN 81 MG CHEW TAB CHEW SCH (08:08)
[2017-08-29] MEDS: APIXABAN 5 MG TABLET PO SCH ×2 (08:08→22:17)
--- NOTE | 2017-08-29 12:03 | HHI.PR ---
Subjective Remarks Follow-up aspiration pneumonia-recurrent August 29, 2017-patient seen and examined, afebrile. Denies any significant shortness of breath. Still with nonproductive cough. Patient had modified barium swallow yesterday without any evidence of aspiration however Objective Vitals Vital Signs Date Time Temp Pulse Resp B/P (MAP) Pulse Ox O2 Delivery O2 Flow Rate FiO2 08/29/17 08:35 166/77 (106) 08/29/17 07:53 98.3 80 18 185/80 (115) 95 08/29/17 03:55 98.3 84 17 154/74 (100) 93 08/29/17 00:00 98.5 77 16 136/63 (87) 95 08/28/17 20:00 98.4 88 16 136/65 (88) 95 08/28/17 16:55 98.4 69 18 152/82 (105) 95 08/28/17 16:14 63 08/28/17 14:41 98.4 74 18 135/60 (85) 96 08/28/17 13:20 68 I/O 08/28/17 08/28/17 08/28/17 08/29/17 08/29/17 08/29/17 07:00 15:00 23:00 07:00 15:00 23:00 Intake Total 3200 ml 1320 ml Output Total 100 ml 500 ml 1600 ml 2000 ml Balance 3100 ml -500 ml -280 ml -2000 ml Intake Oral 120 ml IV Total 3200 ml 1200 ml Output Urine Total 100 ml 500 ml 1600 ml 2000 ml # Voids 1 # Bowel Movements 3 Result Diagram: 08/28/17 0823 08/28/17 0823 Imaging Last Impressions Modified Barium Swallow 08/28/17 0000 Signed Impressions: Service Date/Time: Monday, August 28, 2017 00:00 - CONCLUSION: No aspiration or penetration seen. Jesus Fu MD Chest X-Ray 08/27/17 2302 Signed Impressions: Service Date/Time: Sunday, August 27, 2017 23:26 - CONCLUSION: Dense infiltrate right lung base. Small bilateral pleural effusions right greater left. Conor Rose MD Objective Remarks GENERAL: NAD SKIN: Warm and dry. HEAD: Normocephalic. EYES: No scleral icterus. No injection or drainage. NECK: Supple, trachea midline. No JVD or lymphadenopathy. CARDIOVASCULAR: Regular rate and rhythm without murmurs, gallops, or rubs. RESPIRATORY: Breath sounds decreased bilaterally. No accessory muscle use. GASTROINTESTINAL: Abdomen soft, non-tender, nondistended. MUSCULOSKELETAL: No cyanosis, or edema. BACK: Nontender without obvious deformity. No CVA tenderness. Procedures None A/P Problem List: (1) PNA (pneumonia) ICD Code: J18.9 - Pneumonia, unspecified organism (2) UTI (urinary tract infection) ICD Code: N39.0 - Urinary tract infection, site not specified (3) Hypotension ICD Code: I95.9 - Hypotension, unspecified Status: Acute (4) DM (diabetes mellitus) ICD Code: E11.9 - Type 2 diabetes mellitus without complications Assessment and Plan 77-year-old man with Recurrent Aspiration pneumonia -Currently on Zosyn. Continue IV antibiotic 1 more day -Modified barium swallow eval without any evidence of aspiration. Currently on soft diet and thin liquids per speech therapy -Continue DuoNeb. CAD Atrial fibrillation - Currently on Aspirin 81mg qday and Apixaban 5mg BID. Full code. Apixaban. Problem Qualifiers (1) Hypotension: Qualified Codes: I95.9 - Hypotension, unspecified Santos Meza MD August 29, 2017 12:03
[2017-08-29] MEDS ORDERED: ALUMINUM/MAGNESIUM/SIMETH 30 ML CUP PO PRN (15:00)
[2017-08-29] MEDS ORDERED: cloNIDine HCL 0.1 MG TAB PO ONE (21:30)
[2017-08-29] MEDS: MIRTAZAPINE 15 MG TAB PO SCH (22:22)
[2017-08-30 00:25] VITALS: BP 174/78; PULSE 59; RESP 16; TEMP 98.1; O2SAT 96
[2017-08-30] MEDS: PIPERACIL-TAZO 4.5 GM PREMIX 100 ML IV SCH ×3 (01:54→11:58)
[2017-08-30] MEDS: SODIUM CHLORIDE 0.9% FLUSH 10 ML FLUSH IV FLUSH SCH ×2 (01:55→07:57)
[2017-08-30 04:02] VITALS: BP 169/77; PULSE 59; RESP 16; TEMP 98; O2SAT 95
[2017-08-30 07:13] VITALS: BP 146/66; PULSE 50; RESP 20; TEMP 97.7; O2SAT 95
[2017-08-30] MEDS: APIXABAN 5 MG TABLET PO SCH (07:57)
[2017-08-30] MEDS: ASPIRIN 81 MG CHEW TAB CHEW SCH (07:57)
[2017-08-30] MEDS: INSULIN ASPART SUPPLEMENTAL SCALE SQ SCH ×2 (08:00→12:00)
[2017-08-30] MEDS ORDERED: SACUBITRIL/VALSARTAN 24 MG-26 MG TAB PO SCH (09:00)
[2017-08-30] MEDS ORDERED: PANTOPRAZOLE SOD 40 MG DELAYED RELEASE TAB PO SCH (09:00)
[2017-08-30 11:05] VITALS: BP 106/55; PULSE 64; RESP 20; TEMP 98; O2SAT 98
--- NOTE | 2017-08-30 12:05 | HHI.PR ---
Subjective Remarks Follow-up aspiration pneumonia-recurrent August 29, 2017-patient seen and examined, afebrile. Denies any significant shortness of breath. Still with nonproductive cough. Patient had modified barium swallow yesterday without any evidence of aspiration however August 30, 2017-patient seen and examined, complains of right red eye however denies any discharge. Patient reports improving symptoms of shortness of breath. Objective Vitals Vital Signs Date Time Temp Pulse Resp B/P (MAP) Pulse Ox O2 Delivery O2 Flow Rate FiO2 08/30/17 11:05 98.0 64 20 106/55 (72) 98 08/30/17 07:13 97.7 50 20 146/66 (92) 95 08/30/17 04:02 98.0 59 16 169/77 (107) 95 08/30/17 00:25 98.1 59 16 174/78 (110) 96 08/29/17 20:08 98.3 60 17 186/80 (115) 97 08/29/17 15:51 98.0 60 18 167/73 (104) 96 08/29/17 12:09 98.3 57 18 150/66 (94) 98 I/O 08/29/17 08/29/17 08/29/17 08/30/17 08/30/17 08/30/17 07:00 15:00 23:00 07:00 15:00 23:00 Intake Total 1320 ml Output Total 1600 ml 2000 ml 1000 ml 2200 ml Balance -280 ml -2000 ml -1000 ml -2200 ml Intake Oral 120 ml IV Total 1200 ml Output Urine Total 1600 ml 2000 ml 1000 ml 2200 ml Result Diagram: 08/28/17 0823 08/28/17 0823 Imaging Last Impressions Modified Barium Swallow 08/28/17 0000 Signed Impressions: Service Date/Time: Monday, August 28, 2017 00:00 - CONCLUSION: No aspiration or penetration seen. Jesus Fu MD Chest X-Ray 08/27/17 5853 Signed Impressions: Service Date/Time: Sunday, August 27, 2017 23:26 - CONCLUSION: Dense infiltrate right lung base. Small bilateral pleural effusions right greater left. Conor Rose MD Objective Remarks GENERAL: NAD SKIN: Warm and dry. HEAD: Normocephalic. EYES: No scleral icterus. No injection or drainage. NECK: Supple, trachea midline. No JVD or lymphadenopathy. CARDIOVASCULAR: Regular rate and rhythm without murmurs, gallops, or rubs. RESPIRATORY: Breath sounds decreased bilaterally. No accessory muscle use. GASTROINTESTINAL: Abdomen soft, non-tender, nondistended. MUSCULOSKELETAL: No cyanosis, or edema. BACK: Nontender without obvious deformity. No CVA tenderness. Procedures None A/P Problem List: (1) PNA (pneumonia) ICD Code: J18.9 - Pneumonia, unspecified organism (2) UTI (urinary tract infection) ICD Code: N39.0 - Urinary tract infection, site not specified (3) Hypotension ICD Code: I95.9 - Hypotension, unspecified Status: Acute (4) DM (diabetes mellitus) ICD Code: E11.9 - Type 2 diabetes mellitus without complications Assessment and Plan 77-year-old man with Recurrent Aspiration pneumonia -Currently on Zosyn. Will discharge home on p.o. antibiotics -Modified barium swallow eval without any evidence of aspiration. Currently on soft diet and thin liquids per speech therapy -Continue DuoNeb. CAD Atrial fibrillation - Currently on Aspirin 81mg qday and Apixaban 5mg BID. Full code. Apixaban. Problem Qualifiers (1) Hypotension: Qualified Codes: I95.9 - Hypotension, unspecified Santos Meza MD August 30, 2017 12:05
[2017-08-30] MEDS ORDERED: AUGM875T3 PO (12:08)
[2017-08-30] MEDS ORDERED: LACTCHW3 CHEW (12:08)
--- NOTE | 2017-08-30 12:08 | HHI.DS ---
Discharge Summary Admission Date August 28, 2017 at 01:11 Discharge Date: August 30, 2017 Admitting Diagnosis pneumonia, uti, hypotension (1) PNA (pneumonia) ICD Code: J18.9 - Pneumonia, unspecified organism (2) UTI (urinary tract infection) ICD Code: N39.0 - Urinary tract infection, site not specified (3) Hypotension ICD Code: I95.9 - Hypotension, unspecified Status: Acute (4) DM (diabetes mellitus) ICD Code: E11.9 - Type 2 diabetes mellitus without complications Procedures None Brief History - From Admission This is a 77-year-old male with a PMH of ALisa romero on Eliquis, HTN, h/o Prostate CA , CAD and DM who presents to ER with complaints of generalized weakness and fatigue x2 days. Recent admit 08/01-08/03/17 for Sepsis/PNA w/ possible aspiration, states weakness/fatigue ongoing since discharge, but worse over the last 2-3 days. Denies fever, chills. reports pt w/ decreased appetite/PO intake. No nausea, vomiting or diarrhea. states BP at home 80's systolic earlier today. On arrival, BP 86/47, HR 112, O2 sat 98% on RA, Afebrile. While in the ER, BP dropped to 65/39, s/p IVF w/ excellent response, repeat BP 120's systolic. CBC at baseline. Chemistry essentially unremarkable. Lactic Acid 3.1. Troponin negative. INR 1.1. UA positive for UTI. CXR with dense infiltrate right lung base, small bilateral pleural effusions. S/p Vanc/Zosyn in ER. CBC/BMP: 08/28/17 0823 08/28/17 0823 Significant Findings Laboratory Tests Test 08/27/17 23:00 08/27/17 23:05 08/28/17 01:35 08/28/17 05:05 Red Blood Count 3.46 MIL/MM3 (4.50-5.90) Hemoglobin 11.9 GM/DL (13.0-17.0) Hematocrit 35.7 % (39.0-51.0) Mean Corpuscular Volume 103.2 FL (80.0-100.0) Mean Corpuscular Hemoglobin 34.5 PG (27.0-34.0) Red Cell Distribution Width 17.8 % (11.6-17.2) Platelet Count 115 TH/MM3 (150-450) Monocytes (%) (Auto) 10.9 % (0.0-8.0) Blood Urea Nitrogen 19 MG/DL (7-18) Total Protein 5.4 GM/DL (6.4-8.2) Albumin 2.0 GM/DL (3.4-5.0) Calcium Level 7.6 MG/DL (8.5-10.1) Alkaline Phosphatase 133 U/L (45-117) Aspartate Amino Transf (AST/SGOT) 43 U/L (15-37) Chloride Level 115 MEQ/L (98-107) Lactic Acid Level 3.1 mmol/L (0.4-2.0) 3.4 mmol/L (0.4-2.0) Total Creatine Kinase 38 U/L (39-308) Troponin I LESS THAN 0.02 NG/ML B-Type Natriuretic Peptide 470 PG/ML (0-100) Urine Ketones TRACE mg/dL (NEG) Urine Occult Blood MOD (NEG) Urine RBC 5 /hpf (0-3) Urine WBC 15 /hpf (0-5) Urine Mucus FEW /lpf (OCC) Test 08/28/17 08:23 Red Blood Count 3.06 MIL/MM3 (4.50-5.90) Hemoglobin 10.6 GM/DL (13.0-17.0) Hematocrit 31.2 % (39.0-51.0) Mean Corpuscular Volume 102.0 FL (80.0-100.0) Mean Corpuscular Hemoglobin 34.5 PG (27.0-34.0) Red Cell Distribution Width 17.9 % (11.6-17.2) Platelet Count 92 TH/MM3 (150-450) Neutrophils (%) (Auto) 78.7 % (16.0-70.0) Monocytes (%) (Auto) 8.4 % (0.0-8.0) Lymphocytes # (Auto) 0.6 TH/MM3 (1.0-4.8) Platelet Estimate LOW (NORMAL) Total Protein 5.1 GM/DL (6.4-8.2) Albumin 2.0 GM/DL (3.4-5.0) Calcium Level 8.0 MG/DL (8.5-10.1) Alkaline Phosphatase 137 U/L (45-117) Chloride Level 110 MEQ/L (98-107) Lactic Acid Level 2.4 mmol/L (0.4-2.0) Imaging Last Impressions Modified Barium Swallow 08/28/17 0000 Signed Impressions: Service Date/Time: Monday, August 28, 2017 00:00 - CONCLUSION: No aspiration or penetration seen. Jesus Fu MD Chest X-Ray 08/27/17 2303 Signed Impressions: Service Date/Time: Sunday, August 27, 2017 23:26 - CONCLUSION: Dense infiltrate right lung base. Small bilateral pleural effusions right greater left. Conor Rose MD PE at Discharge GENERAL: NAD SKIN: Warm and dry. HEAD: Normocephalic. EYES: No scleral icterus. No injection or drainage. NECK: Supple, trachea midline. No JVD or lymphadenopathy. CARDIOVASCULAR: Regular rate and rhythm without murmurs, gallops, or rubs. RESPIRATORY: Breath sounds decreased bilaterally. No accessory muscle use. GASTROINTESTINAL: Abdomen soft, non-tender, nondistended. MUSCULOSKELETAL: No cyanosis, or edema. BACK: Nontender without obvious deformity. No CVA tenderness. Hospital Course While in hospital, patient was treated for: Recurrent Aspiration pneumonia -He was started on IV antibiotics including Zosyn and vancomycin. Continue on Zosyn after vancomycin will discontinue, however will discharge patient on Augmentin 7 days 875mg twice daily -Modified barium swallow eval without any evidence of aspiration. Currently on soft diet and thin liquids per speech therapy -Treated with DuoNeb. CAD Atrial fibrillation -He Was continued on his treatment for aspirin 81mg qday and Apixaban 5mg BID. Full code. Apixaban. Pt Condition on Discharge: Good Discharge Disposition: Discharge Home Discharge Time: <= 30 minutes Discharge Instructions DIET: Follow Instructions for: Soft Diet Activities you can perform: Regular-No Restrictions Santos Meza MD August 30, 2017 12:08
--- NOTE | 2017-08-30 12:11 | HHI.DCPOC ---
Discharge Care Plan Diagnosis: (1) PNA (pneumonia) (2) DM (diabetes mellitus) Your Health Problems Are: Difficulty to Swallow Shortness of Breath Goals to Promote Your Health * To prevent worsening of your condition and complications * To maintain your health at the optimal level Directions to Meet Your Goals Take your medications as prescribed Follow your dietary instruction Follow activity as directed Keep your appointments as scheduled Take your immunizations and boosters as scheduled If your symptoms worsen call your PCP, if no PCP go to Urgent Care Center or Emergency Room Smoking is Dangerous to Your Health. Avoid second hand smoke Call the 24-hour hour crisis hotline for domestic abuse at Jacquie Haley August 30, 2017 12:11
--- NOTE | 2017-08-30 12:15 | HHI.FF ---
Face to Face Verification Diagnosis: (1) PNA (pneumonia) (2) DM (diabetes mellitus) Physical Therapy Order: Evaluate and Treat Home Health Nursing Order: Signs/symptoms of disease process Medication education-adverse effect Nursing assessment with vital signs I have seen patient Chao Richardson on 08/30/17. My clinical findings support the need for the requested home health care services because: Ltd mobility - disease progression Deconditioned w/ increased weakness Limited ability to care for self I certify that my clinical findings support that this patient is homebound because: Hx COPD- exertion dyspnea/weakness Unsteady gait/balance Jacquie Haley August 30, 2017 12:15
[2017-08-30 15:39] VITALS: BP 124/74; PULSE 49; RESP 18; TEMP 98.2; O2SAT 97
[2017-08-31] MEDS ORDERED: PHARMACY ORDERED LAB ONE (02:45)
== END 2017-08-30 17:26 | disposition home health service (06) | DRG 178 ==
LOC: NEPC 22:42 → NEDA 08-28 01:11 → NEPGCP 08-28 04:35
PROVIDERS: ADMIT Hospitalist; ATTEND Hospitalist
DX: J69.0 Pneumonitis due to inhalation of food and vomit (principal); J90 Pleural effusion, not elsewhere classified; I95.9 Hypotension, unspecified; N39.0 Urinary tract infection, site not specified; I47.1 Supraventricular tachycardia; I48.91 Unspecified atrial fibrillation; E11.9 Type 2 diabetes mellitus without complications; I45.10 Unspecified right bundle-branch block; I25.10 Atherosclerotic heart disease of native coronary artery without angina pectoris; R63.4 Abnormal weight loss; R49.0 Dysphonia; I10 Essential (primary) hypertension; E78.00 Pure hypercholesterolemia, unspecified; K21.9 Gastro-esophageal reflux disease without esophagitis; R68.2 Dry mouth, unspecified; H57.8 Other specified disorders of eye and adnexa; H91.90 Unspecified hearing loss, unspecified ear; M19.90 Unspecified osteoarthritis, unspecified site; Z79.01 Long term (current) use of anticoagulants; I25.2 Old myocardial infarction; Z85.46 Personal history of malignant neoplasm of prostate; Z79.82 Long term (current) use of aspirin
CPT/HCPCS: 51702; 71045; 74230; 80053; 81001; 82550; 82948; 83605; 83690; 83735; 83880; 84484; 85025; 85610; 85730; 86140; 87040; 87086; 87205; 87493; 87506; 93005; 96365; 96367; J2543; J3370; J7030; J7040; J7050

== ENCOUNTER 2017-09-12 10:27 | Inpatient (IN) | payer MEDICARE ==
[~2017-09-12] VITALS: Ht 172.7 cm; Wt 65.0 kg
[2017-09-12] VITALS (8 sets, daily range): BP systolic 114–163; BP diastolic 64–75; PULSE 53–98; RESP 15–18; TEMP 97.8–98.2; O2SAT 95–99
[~2017-09-12 10:27] MED LIST changes: +AUGM875T3 PO; +LACTCHW3 CHEW; -LEVA750T9 PO; -METR-1 PO; +SACU1TAB PO
[2017-09-12] MEDS ORDERED: SODIUM CHLORID 0.9% 500 ML INJ 500 ML IV ONE (10:30)
--- NOTE | 2017-09-12 10:44 | PD ---
HPI Chief Complaint: General Weakness Time Seen by Provider: 10:30 Travel History International Travel<30 days: No Contact w/Intl Traveler<30days: No Traveled to known affect area: No History of Present Illness HPI 77-year-old male states that he was feeling weak and had pain to both sides of his neck and when he checked his blood pressure was low so he called an ambulance. He states the pain was on the front side of his neck and felt like a pressure. He denies significant pain now. He states that he followed with his primary doctor since being here in the hospital and his doctor thought he had a little bit of heart failure in addition to pneumonia and started him on a new medication but is not sure what it was. He states he is not heard of Lasix. He states no other concurrent complaints. He states he finished his antibiotic about a week ago. The ambulance team reported that his blood pressure was low in route. Patient denies any other concurrent complaints. Duration is couple of hours. Quality is general ill feeling. Severity is all over. PFSH Past Medical History Arthritis: Yes (neck, hips, knees) Asthma: No Autoimmune Disease: No Blood Disorders: No Anxiety: No Depression: No Heart Rhythm Problems: Yes Cancer: Yes (prostate cancer) Cardiac Catheterization: Yes Cardiovascular Problems: Yes High Cholesterol: Yes Chemotherapy: No Chest Pain: No Congestive Heart Failure: No COPD: No Cerebrovascular Accident: No Diabetes: Yes Diminished Hearing: Yes (travon hearing aids) Endocrine: No Gastrointestinal Disorders: Yes GERD: Yes Glaucoma: No Genitourinary: Yes Headaches: No Hepatitis: No Hiatal Hernia: No Hypertension: Yes Immune Disorder: No Implanted Vascular Access Dvce: Yes Kidney Stones: No Musculoskeletal: No Neurologic: No Psychiatric: No Reproductive: Yes Respiratory: No Migraines: No Myocardial Infarction: Yes ([place]) Radiation Therapy: Yes Renal Failure: No Seizures: No Sickle Cell Disease: No Sleep Apnea: No Thyroid Disease: No Ulcer: No Past Surgical History Abdominal Surgery: No AICD: No Arteriovenous Shunt: No Cardiac Surgery: No Ear Surgery: No Endocrine Surgery: No Eye Surgery: No Genitourinary Surgery: No Gynecologic Surgery: No Insulin Pump: No Joint Replacement: No Oral Surgery: Yes Pacemaker: No Thoracic Surgery: No Other Surgery: Yes (RT.ARTROSCOPY KNEE) Social History Alcohol Use: No Tobacco Use: No Substance Use: No Allergies-Medications (Allergen,Severity, Reaction): Coded Allergies: No Known Allergies (Verified Allergy, Severe, 09/12/17) Reported Meds & Prescriptions Reported Meds & Active Scripts Active Lactinex (Lactobacillus Acidophilus) 1 Chew 1 Tab CHEW TID 10 Days Reported Entresto (Sacubitril-Valsartan) 24-26 Mg Tab 1 Tab PO DAILY Novolog Inj (Insulin Aspart) 1,000 Unit/10 Ml Vial 0 SQ DIRECTED Sliding Scale as directed. Vitamin D3 (Cholecalciferol) 5,000 Unit Cap 7,000 Units PO DAILY Prilosec (Omeprazole Magnesium) 20 Mg Tab 20 Mg PO DAILY Mirtazapine 15 Mg Tab 15 Mg PO HS Lyrica (Pregabalin) 100 Mg Cap 100 Mg PO BID Eliquis (Apixaban) 5 Mg Tab 5 Mg PO BID Multiple Vitamin 1 Tab 1 Tab PO DAILY Vitamin C (Ascorbic Acid) 250 Mg Chew 500 Mg CHEW DAILY Vitamin B-12 (Cyanocobalamin) 1,000 Mcg Tab 1,000 Mcg PO DAILY Vitamin B-6 (Pyridoxine HCl (Vitamin B6)) 50 Mg Capsule Aspirin 81 Mg Chew 81 Mg CHEW DAILY Refresh Opth Drops (Polyvinyl Alcohol-Povidone Opth Drops) 1.4-0.6% Drops 1-2 Drop EACH EYE PRN PRN Restasis Opth (Cyclosporine Opth) 0.05% Emul 1 Drop EACH EYE BID Metformin (Metformin HCl) 500 Mg Tab 500 Mg PO BIDPC Review of Systems Except as stated in HPI: all other systems reviewed are Neg Physical Exam Narrative GENERAL: 77 y/o male in no apparent distress SKIN: Focused skin assessment warm/dry. HEAD: Atraumatic. Normocephalic. EYES: Pupils equal and round. No scleral icterus. No injection or drainage. ENT: No nasal bleeding or discharge. Mucous membranes pink and moist. NECK: Trachea midline. CARDIOVASCULAR: Regular rate and rhythm. RESPIRATORY: No accessory muscle use. Clear to auscultation at apices. Breath sounds equal bilaterally. GASTROINTESTINAL: Abdomen soft, non-tender, nondistended. MUSCULOSKELETAL: No obvious deformities. No clubbing. No cyanosis. No significant pedal edema. NEUROLOGICAL: Awake and alert. moves all extremities. Normal speech. PSYCHIATRIC: Appropriate mood and affect; insight and judgment normal. Data Data Last Documented VS Vital Signs Date Time Temp Pulse Resp B/P (MAP) Pulse Ox O2 Delivery O2 Flow Rate FiO2 09/12/17 12:30 98.0 65 18 114/75 (88) 98 Room Air Orders Orders Electrocardiogram (09/12/17 10:30) Complete Blood Count With Diff (09/12/17 10:30) Comprehensive Metabolic Panel (09/12/17 10:30) Prothrombin Time / Inr (Pt) (09/12/17 10:30) Act Partial Throm Time (Ptt) (09/12/17 10:30) Lactic Acid Sepsis Protocol (09/12/17 10:30) Magnesium (Mg) (09/12/17 10:30) Phosphorus (Po4) (09/12/17 10:30) Urinalysis - C+S If Indicated (09/12/17 10:30) Blood Culture (09/12/17 10:30) Chest, Single Ap (09/12/17 10:30) Blood Glucose (09/12/17 10:30) Ecg Monitoring (09/12/17 10:30) Iv Access Insert/Monitor (09/12/17 10:30) Oximetry (09/12/17 10:30) Ckmb (Isoenzyme) Profile (09/12/17 10:30) Troponin I (09/12/17 10:30) Sodium Chlorid 0.9% 500 Ml Inj (Ns 500 M (09/12/17 10:30) B-Type Natriuretic Peptide (09/12/17 10:30) Aspirin (Aspirin) (09/12/17 13:15) Echo 2d Comp With Doppler (09/12/17 ) Creatine Kinase (Cpk) (09/12/17 17:00) Creatine Kinase (Cpk) (09/12/17 23:00) Troponin I (09/12/17 17:00) Troponin I (09/12/17 23:00) Electrocardiogram (09/12/17 17:00) Electrocardiogram (09/12/17 23:00) Aspirin (Aspirin) (09/14/17 09:00) Nitroglycerin Sl (Nitrostat Sl) (09/12/17 13:30) ^ Other Nursing Orders (09/12/17 15:15) Place In Observation (09/12/17 ) Vital Signs (Adult) Q4H (09/12/17 13:29) Activity Oob With Assistance (09/12/17 13:29) Magnetic Prospecting Operator / Telemetry .CONTINUOUS (09/12/17 13:29) Intake + Output GOLDEN.QSHIFT (09/12/17 13:29) Notify Dr: Other (09/12/17 13:29) Diet 1800 Ada Cons Carb (09/12/17 Lunch) Diet Heart Healthy (09/12/17 Lunch) Sodium Chloride 0.9% Flush (Ns Flush) (09/12/17 13:30) Sodium Chloride 0.9% Flush (Ns Flush) (09/12/17 21:00) Acetaminophen (Tylenol) (09/12/17 13:30) Basic Metabolic Panel (Bmp) (09/13/17 06:00) Complete Blood Count With Diff (09/13/17 06:00) Resp Oxygen Ibrahima C Titrat 1-4 L (09/12/17 ) Pt Request For Service (09/12/17 13:29) Scd Bilateral/Knee High GOLDEN.BID (09/12/17 13:29) Acetaminophen (Tylenol) (09/12/17 13:30) Naloxone Inj (Narcan Inj) (09/12/17 13:30) Docusate Sodium-Senna (Jessenia-Colace) (09/12/17 21:00) Magnesium Hydroxide Liq (Milk Of Magnesi (09/12/17 13:30) Sennosides (Senokot) (09/12/17 13:30) Bisacodyl Supp (Dulcolax Supp) (09/12/17 13:30) Lactulose Liq (Lactulose Liq) (09/12/17 13:30) Bedside Glucose GOLDEN.CSUGAR (09/12/17 13:34) Blood Glucose Goal (Criteria) (09/12/17 13:34) Hypoglycemia 70 Mg/Dl Or < (09/12/17 13:34) Notify Dr: Other (09/12/17 13:34) Dextrose 50% In Jon (Vial) Inj (D50w (Vi (09/12/17 13:45) Glucagon Inj (Glucagon Inj) (09/12/17 13:45) Insulin Aspart Supplemtl Scale (Novolog (09/12/17 17:00) Admit Order (Ed Use Only) (09/12/17 13:56) Ondansetron Odt (Zofran Odt) (09/12/17 13:30) Labs Laboratory Tests Test 09/12/17 10:45 White Blood Count 3.0 TH/MM3 Red Blood Count 3.19 MIL/MM3 Hemoglobin 11.2 GM/DL Hematocrit 33.0 % Mean Corpuscular Volume 103.6 FL Mean Corpuscular Hemoglobin 35.2 PG Mean Corpuscular Hemoglobin Concent 33.9 % Red Cell Distribution Width 19.3 % Platelet Count 206 TH/MM3 Mean Platelet Volume 7.9 FL Neutrophils (%) (Auto) 59.4 % Lymphocytes (%) (Auto) 27.2 % Monocytes (%) (Auto) 9.7 % Eosinophils (%) (Auto) 3.0 % Basophils (%) (Auto) 0.7 % Neutrophils # (Auto) 1.8 TH/MM3 Lymphocytes # (Auto) 0.8 TH/MM3 Monocytes # (Auto) 0.3 TH/MM3 Eosinophils # (Auto) 0.1 TH/MM3 Basophils # (Auto) 0.0 TH/MM3 CBC Comment DIFF FINAL Differential Comment Prothrombin Time 10.7 SEC Prothromb Time International Ratio 1.1 RATIO Activated Partial Thromboplast Time 27.3 SEC Urine Color YELLOW Urine Turbidity CLEAR Urine pH 7.0 Urine Specific [place] 1.010 Urine Protein NEG mg/dL Urine Glucose (UA) NEG mg/dL Urine Ketones NEG mg/dL Urine Occult Blood MOD Urine Nitrite NEG Urine Bilirubin NEG Urine Urobilinogen 0.2 MG/DL Urine Leukocyte Esterase TRACE Urine RBC 49 /hpf Urine WBC 2 /hpf Urine Squamous Epithelial Cells <1 /hpf Urine Mucus FEW /lpf Microscopic Urinalysis Comment CATH-CULT NOT IND Blood Urea Nitrogen 12 MG/DL Creatinine 0.76 MG/DL Random Glucose 116 MG/DL Total Protein 6.4 GM/DL Albumin 2.7 GM/DL Calcium Level 8.7 MG/DL Phosphorus Level 2.7 MG/DL Magnesium Level 1.7 MG/DL Alkaline Phosphatase 166 U/L Aspartate Amino Transf (AST/SGOT) 32 U/L Alanine Aminotransferase (ALT/SGPT) 24 U/L Total Bilirubin 0.3 MG/DL Sodium Level 144 MEQ/L Potassium Level 4.3 MEQ/L Chloride Level 107 MEQ/L Carbon Dioxide Level 27.6 MEQ/L Anion Gap 9 MEQ/L Estimat Glomerular Filtration Rate 99 ML/MIN Lactic Acid Level 1.6 mmol/L Total Creatine Kinase 22 U/L Troponin I LESS THAN 0.02 NG/ML B-Type Natriuretic Peptide 525 PG/ML MDM Medical Decision Making Medical Screen Exam Complete: Yes Emergency Medical Condition: Yes Medical Record Reviewed: Yes (pmh confirmed, echo multiple years ago with EF of 45%) Interpretation(s) CBC & BMP Diagram 09/12/17 10:45 Total Protein 6.4, Albumin 2.7 L, Calcium Level 8.7, Phosphorus Level 2.7, Magnesium Level 1.7, Alkaline Phosphatase 166 H, Aspartate Amino Transf (AST/ SGOT) 32, Alanine Aminotransferase (ALT/SGPT) 24, Total Bilirubin 0.3 Last 24 hours Impressions Chest X-Ray 09/12/17 1030 Signed Impressions: CONCLUSION: Persistent bilateral effusions Differential Diagnosis UTI, pneumonia, anemia, renal failure, atypical cardiac Narrative Course Will check blood work, urinalysis, chest x-ray and dose with small amount of IV fluids and reevaluate Patient has pleural effusions, he has no white count or fever. With him having intermittent neck pressure will place in observation for serial EKG and troponin and echocardiogram given no documented history of heart failure. He is in agreement to this plan. No hypotension here. Physician Communication Physician Communication dr cruz agrees to observation Diagnosis Primary Impression: Pleural effusion Additional Impression: Neck pain Admitting Information Admitting Physician Requests: Observation Goldie Pineda MD September 12, 2017 10:44
[2017-09-12 11:03] LABS: AUTOMATED NEUTROPHIL # 1.8 TH/MM3 (1.8-7.7); BASOPHIL % 0.7 % (0.0-2.0); EOSINOPHIL # 0.1 TH/MM3 (0-0.4); HEMOGLOBIN 11.2 GM/DL (13.0-17.0); LYMPH % 27.2 % (9.0-44.0); LYMPHOCYTE # 0.8 TH/MM3 (1.0-4.8); MEAN CELL VOLUME 103.6 FL (80.0-100.0); MEAN CORPUSCULAR HEMOGLOBIN 35.2 PG (27.0-34.0); MEAN CORPUSCULAR HGB CONC 33.9 % (32.0-36.0); MEAN PLATELET VOLUME 7.9 FL (7.0-11.0); MONO % 9.7 % (0.0-8.0); MONOCYTE # 0.3 TH/MM3 (0-0.9); NEUT % 59.4 % (16.0-70.0); PLATELET COUNT 206 TH/MM3 (150-450); RED BLOOD COUNT 3.19 MIL/MM3 (4.50-5.90); RED CELL DISTRIBUTION WIDTH 19.3 % (11.6-17.2)
--- NOTE | 2017-09-12 11:04 | RADRPT ---
EXAM DATE: 09/12/2017 11:00 AM EDT AGE/SEX: 77 years / Male INDICATIONS: Fever, short of breath CLINICAL DATA: This is the patient's initial encounter. Patient reports that signs and symptoms have been present for 1 day and indicates a pain score of 0/10. MEDICAL/SURGICAL HISTORY: Carcinoma, prostatic. Hypertension. Gastroesophageal reflux disease . [place] . [place] [facility] [place]. . FINDINGS: Mild hazy basilar pleural-parenchymal opacity and blunting of the costophrenic angles cons istent with small effusions and possible associated parenchymal disease. Cardiac contours are grossly unchanged. CONCLUSION: Persistent bilateral effusions Electronically signed by: Jesus Dias MD 09/12/2017 11:03 AM EDT
[2017-09-12 11:08] LABS: INTERNATIONAL NORMALIZED RATIO 1.1 RATIO; PROTHROMBIN TIME - PATIENT 10.7 SEC (9.8-11.6)
[2017-09-12 11:14] LABS: BILIRUBIN, URINE NEG (NEG); BLOOD, URINE MOD (NEG); GLUCOSE,URINE NEG (NEG); KETONE, URINE NEG (NEG); NITRITE,URINE NEG (NEG); URINE COLOR YELLOW (YELLW/STRAW); URINE LEUKOCYTE ESTERASE TRACE (NEG)
[2017-09-12 11:17] LABS: MUCUS URINE FEW /lpf (OCC); SQUAMOUS EPITHELIAL CELL URINE <1 /hpf (0-5)
[2017-09-12 11:29] LABS: ALBUMIN 2.7 GM/DL (3.4-5.0); AST (GOT) 32 U/L (15-37); BICARBONATE 27.6 MEQ/L (21.0-32.0); BLOOD UREA NITROGEN 12 MG/DL (7-18); CALCIUM 8.7 MG/DL (8.5-10.1); CHLORIDE 107 MEQ/L (98-107); CREATININE 0.76 MG/DL (0.60-1.30); GLOMERULAR FILTRATION RATE 99 ML/MIN (>89); GLUCOSE,RANDOM 116 MG/DL (74-106); MAGNESIUM 1.7 MG/DL (1.5-2.5); SODIUM (NA) 144 MEQ/L (136-145)
[2017-09-12 11:30] LABS: ALT (GPT) 24 U/L (12-78)
[2017-09-12 11:34] LABS: ALKALINE PHOSPHATASE 166 U/L (45-117); PHOSPHORUS 2.7 MG/DL (2.5-4.9); TOTAL BILIRUBIN ADULT 0.3 MG/DL (0.2-1.0); TOTAL PROTEIN 6.4 GM/DL (6.4-8.2); TROPONIN I LESS THAN 0.02 NG/ML (0.02-0.05)
[2017-09-12] MEDS ORDERED: ASPIRIN 325 MG TAB PO ONE (13:15)
[2017-09-12] MEDS ORDERED: BISACODYL 10 MG SUPP RECTAL PRN (13:30)
[2017-09-12] MEDS ORDERED: SODIUM CHLORIDE 0.9% FLUSH 10 ML FLUSH IV FLUSH PRN (13:30)
[2017-09-12] MEDS ORDERED: ACETAMINOPHEN 325 MG TAB PO PRN ×2 (13:30)
[2017-09-12] MEDS ORDERED: MAGNESIUM HYDROXIDE SUSP 30 ML CUP PO PRN (13:30)
[2017-09-12] MEDS ORDERED: NITROGLYCERIN 0.4 MG SL 25 TABS/BTL SL PRN (13:30)
[2017-09-12] MEDS ORDERED: SENNOSIDES 8.6 MG TAB PO PRN (13:30)
[2017-09-12] MEDS ORDERED: NALOXONE HCL 0.4 MG/ML AMP IV PUSH PRN (13:30)
[2017-09-12] MEDS ORDERED: ONDANSETRON ODT 4 MG TAB PO PRN (13:30)
[2017-09-12] MEDS ORDERED: GLUCAGON 1 MG/ML VIAL OTHER PRN (13:45)
[2017-09-12] MEDS ORDERED: DEXTROSE 50% IN WATER 50 ML VIAL(D50) IV PUSH PRN (13:45)
[2017-09-12] MEDS ORDERED: IOHEXOL 350 MG/ML 50 ML BTL (for Cath Lab) OTHER ONE (13:59)
--- NOTE | 2017-09-12 14:07 | EKG ---
Date Performed: 09/12/2017 Time Performed: 10:56:43 PTAGE: 77 years EKG: Wide complex tachycardia of uncertain etiology No significant change from prior electrocard iogram. PREVIOUS TRACING : 08/27/2017 22.52 DOCTOR: Vignesh Carrillo Interpretating Date/Time 09/12/2017 14:05:58
[2017-09-12] MEDS: INSULIN ASPART SUPPLEMENTAL SCALE SQ SCH ×2 (17:18→21:00)
[2017-09-12] MEDS ORDERED: POLYVINYL ALC-POVIDONE 1.4/0.6% PF OPTH SOLN 0.4 ML EACH EYE PRN (17:30)
--- NOTE | 2017-09-12 17:39 | HHI.HP ---
HPI Service [facility] Primary Care Physician Cheikh Funes III, Admission Diagnosis pleural effusions, neck pain Diagnoses: Chief Complaint: Generalized weakness Travel History International Travel<30 Days: No Contact w/Intl Traveler <30 Da: No Traveled to Known Affected Are: No History of Present Illness This is a 77-year-old male who presents to the emergency department complaining of generalized weakness. He woke up this morning feeling weak and dizzy. He checked his blood pressure multiple times and was considerably low 100/76. Denies nausea, vomiting and diarrhea. He reports being started on Entresto last week by his PCP because of new onset heart failure with symptoms of dyspnea on exertion and bilateral lower extremity swelling. He also was recently treated for pneumonia and sepsis and completed course of Augmentin. Patient also reports of sharp pain involving both sides of his neck and felt like a pulled muscle. Denies trauma. In the emergency department, patient received half a liter of IV fluids. He was recommended further hospitalization by ER MD 2/2 neck pain which could be angina equivalent. History of CAD status post multiple stents by Dr. Dr. Le last 3 stents placed last year. He reports of unremarkable echocardiogram and stress test several months ago. All other systems reviewed negative Review of Systems Except as stated in HPI: all other systems reviewed are Neg Past Family Social History Past Medical History As previously mentioned. Arthritis, prostate cancer status post cryosurgery and radiation therapy, hyperlipidemia, diabetes mellitus, GERD, hypertension Past Surgical History As previously mentioned, orthopedic surgery Reported Medications Reported Meds & Active Scripts Active Lactinex (Lactobacillus Acidophilus) 1 Chew 1 Tab CHEW TID 10 Days Reported Entresto (Sacubitril-Valsartan) 24-26 Mg Tab 1 Tab PO DAILY Novolog Inj (Insulin Aspart) 1,000 Unit/10 Ml Vial 0 SQ DIRECTED Sliding Scale as directed. Vitamin D3 (Cholecalciferol) 5,000 Unit Cap 7,000 Units PO DAILY Prilosec (Omeprazole Magnesium) 20 Mg Tab 20 Mg PO DAILY Mirtazapine 15 Mg Tab 15 Mg PO HS Lyrica (Pregabalin) 100 Mg Cap 100 Mg PO BID Eliquis (Apixaban) 5 Mg Tab 5 Mg PO BID Multiple Vitamin 1 Tab 1 Tab PO DAILY Vitamin C (Ascorbic Acid) 250 Mg Chew 500 Mg CHEW DAILY Vitamin B-12 (Cyanocobalamin) 1,000 Mcg Tab 1,000 Mcg PO DAILY Vitamin B-6 (Pyridoxine HCl (Vitamin B6)) 50 Mg Capsule Aspirin 81 Mg Chew 81 Mg CHEW DAILY Refresh Opth Drops (Polyvinyl Alcohol-Povidone Opth Drops) 1.4-0.6% Drops 1-2 Drop EACH EYE PRN PRN Restasis Opth (Cyclosporine Opth) 0.05% Emul 1 Drop EACH EYE BID Metformin (Metformin HCl) 500 Mg Tab 500 Mg PO BIDPC Allergies: Coded Allergies: No Known Allergies (Verified Allergy, Severe, 09/12/17) Family History Heart disease Social History Does not smoke or drink lives with his Physical Exam Vital Signs Vital Signs Date Time Temp Pulse Resp B/P (MAP) Pulse Ox O2 Delivery O2 Flow Rate FiO2 09/12/17 15:15 97.8 54 18 138/64 (88) 98 09/12/17 15:07 98.1 53 15 138/64 (88) 99 Room Air 09/12/17 12:30 98.0 65 18 114/75 (88) 98 Room Air 09/12/17 11:38 98.0 75 15 163/72 (102) 97 Room Air 09/12/17 10:58 18 97 Room Air 09/12/17 10:35 16 16 99 Room Air 09/12/17 10:30 98.1 98 16 97 Physical Exam GENERAL: This is a well-nourished, well-developed patient, in no apparent distress. SKIN: No rashes, ecchymoses or lesions. Cool and dry. HEAD: Atraumatic. Normocephalic. No temporal or scalp tenderness. EYES: Pupils equal round and reactive. Extraocular motions intact. No scleral icterus. No injection or drainage. ENT: Nose without bleeding, purulent drainage or septal hematoma. Throat without erythema, tonsillar hypertrophy or exudate. Uvula midline. Airway patent. NECK: Trachea midline. No JVD or lymphadenopathy. Supple, nontender, no meningeal signs. CARDIOVASCULAR: Regular rate and rhythm without gallops, or rubs. Murmur noted RESPIRATORY: Clear to auscultation. Breath sounds equal bilaterally. No wheezes , rales, or rhonchi. GASTROINTESTINAL: Abdomen soft, non-tender, nondistended. No hepato-splenomegaly , or palpable masses. No guarding. MUSCULOSKELETAL: Extremities without clubbing, cyanosis but with bilateral lower extremity pitting edema. No joint tenderness, effusion, or edema noted. No calf tenderness. Negative Homans sign bilaterally. NEUROLOGICAL: Awake and alert. Cranial nerves II through XII intact. Motor and sensory grossly within normal limits. Five out of 5 muscle strength in all muscle groups. Normal speech. Laboratory Laboratory Tests Test 09/12/17 10:45 White Blood Count 3.0 Red Blood Count 3.19 Hemoglobin 11.2 Hematocrit 33.0 Mean Corpuscular Volume 103.6 Mean Corpuscular Hemoglobin 35.2 Mean Corpuscular Hemoglobin Concent 33.9 Red Cell Distribution Width 19.3 Platelet Count 206 Mean Platelet Volume 7.9 Neutrophils (%) (Auto) 59.4 Lymphocytes (%) (Auto) 27.2 Monocytes (%) (Auto) 9.7 Eosinophils (%) (Auto) 3.0 Basophils (%) (Auto) 0.7 Neutrophils # (Auto) 1.8 Lymphocytes # (Auto) 0.8 Monocytes # (Auto) 0.3 Eosinophils # (Auto) 0.1 Basophils # (Auto) 0.0 CBC Comment DIFF FINAL Differential Comment Prothrombin Time 10.7 Prothromb Time International Ratio 1.1 Activated Partial Thromboplast Time 27.3 Urine Color YELLOW Urine Turbidity CLEAR Urine pH 7.0 Urine Specific [place] 1.010 Urine Protein NEG Urine Glucose (UA) NEG Urine Ketones NEG Urine Occult Blood MOD Urine Nitrite NEG Urine Bilirubin NEG Urine Urobilinogen 0.2 Urine Leukocyte Esterase TRACE Urine RBC 49 Urine WBC 2 Urine Squamous Epithelial Cells <1 Urine Mucus FEW Microscopic Urinalysis Comment CATH-CULT NOT IND Blood Urea Nitrogen 12 Creatinine 0.76 Random Glucose 116 Total Protein 6.4 Albumin 2.7 Calcium Level 8.7 Phosphorus Level 2.7 Magnesium Level 1.7 Alkaline Phosphatase 166 Aspartate Amino Transf (AST/SGOT) 32 Alanine Aminotransferase (ALT/SGPT) 24 Total Bilirubin 0.3 Sodium Level 144 Potassium Level 4.3 Chloride Level 107 Carbon Dioxide Level 27.6 Anion Gap 9 Estimat Glomerular Filtration Rate 99 Lactic Acid Level 1.6 Total Creatine Kinase 22 Troponin I LESS THAN 0.02 B-Type Natriuretic Peptide 525 Date/Time Source Procedure Growth Status 09/12/17 10:45 Blood Peripheral Aerobic Blood Culture Pending Received 09/12/17 10:45 Blood Peripheral Anaerobic Blood Culture Pending Received Result Diagram: 09/12/17 1045 09/12/17 1045 Imaging Last Impressions Chest X-Ray 09/12/17 1030 Signed Impressions: CONCLUSION: Persistent bilateral effusions Caprini VTE Risk Assessment Caprini VTE Risk Assessment: Mod/High Risk (score >= 2) Caprini Risk Assessment Model Point Value = 1 Point Value = 2 Point Value = 3 Point Value = 5 Age 41-60 Minor surgery BMI > 25 kg/m2 Swollen legs Varicose veins or History of unexplained or recurrent spontaneous Oral contraceptives or hormone replacement Sepsis (< 1 month) Serious lung disease, including pneumonia (< 1 month) Abnormal pulmonary function Acute myocardial infarction Congestive heart failure (< 1 month) History of inflammatory bowel disease Medical patient at bed rest Age 61-74 Arthroscopic surgery Major open surgery (> 45 min) Laparoscopic surgery (> 45 min) Malignancy Confined to bed (> 72 hours) Immobilizing plaster cast Central venous access Age >= 75 History of VTE Family history of VTE Factor V Leiden Prothrombin [id number] Lupus anticoagulant Anticardiolipin antibodies Elevated serum homocysteine Heparin-induced thrombocytopenia Other congenital or acquired thrombophilia Stroke (< 1 month) Elective arthroplasty Hip, pelvis, or leg fracture Acute spinal cord injury (< 1 month) Prophylaxis Regimen Total Risk Factor Score Risk Level Prophylaxis Regimen 0-1 Low Early ambulation 2 Moderate Order ONE of the following: *Sequential Compression Device (SCD) *Heparin 5000 units SQ BID 3-4 Higher Order ONE of the following medications: *Heparin 5000 units SQ TID *Enoxaparin/Lovenox 40 mg SQ daily (WT < 150 kg, CrCl > 30 mL/min) *Enoxaparin/Lovenox 30 mg SQ daily (WT < 150 kg, CrCl > 10-29 mL/min) *Enoxaparin/Lovenox 30 mg SQ BID (WT < 150 kg, CrCl > 30 mL/min) AND/OR *Sequential Compression Device (SCD) 5 or more Highest Order ONE of the following medications: *Heparin 5000 units SQ TID (Preferred with Epidurals) *Enoxaparin/Lovenox 40 mg SQ daily (WT < 150 kg, CrCl > 30 mL/min) *Enoxaparin/Lovenox 30 mg SQ daily (WT < 150 kg, CrCl > 10-29 mL/min) *Enoxaparin/Lovenox 30 mg SQ BID (WT < 150 kg, CrCl > 30 mL/min) AND *Sequential Compression Device (SCD) Assessment and Plan Problem List: (1) Neck pain ICD Code: M54.2 - Cervicalgia Status: Acute (2) Pleural effusion ICD Code: J90 - Pleural effusion, not elsewhere classified Status: Acute Assessment and Plan This is a 77-year-old male who presents to the emergency department complaining of generalized weakness. He woke up this morning feeling weak and dizzy. He checked his blood pressure multiple times and was considerably low 100/76. Denies nausea, vomiting and diarrhea. He reports being started on Entresto last week by his PCP because of new onset heart failure with symptoms of dyspnea on exertion and bilateral lower extremity swelling. He also was recently treated for pneumonia and sepsis and completed course of Augmentin. Generalized weakness likely related to hypotension from Entresto. It could also be related to his recent pneumonia and sepsis patient with leukopenia. Patient is already feels better. Follow-up blood culture Neck pain possible angina equivalent with history of CAD status post stents. Trend cardiac enzymes and continue aspirin. Unable to start beta-tracie secondary to baseline bradycardia and hypotension. 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 Obtain echocardiogram. Consider low-dose diuresis Microscopic hematuria. Outpatient follow-up Multiple medical conditions of arthritis, prostate cancer status post cryosurgery and radiation therapy, hyperlipidemia, diabetes mellitus, GERD, hypertension. Continue outpatient medications as appropriate. Monitor fingersticks sliding scale coverage DVT prophylaxis with Eliquis Discussed Condition With Patient Vince Mcginnis MD September 12, 2017 17:39
[2017-09-12 18:38] LABS: TROPONIN I LESS THAN 0.02 NG/ML (0.02-0.05)
[2017-09-12] MEDS: metFORMIN HCL 500 MG TAB PO SCH (18:51)
[2017-09-12] MEDS ORDERED: PT OWN: RESTASIS OPHTH DROPS EACH EYE SCH (21:00)
[2017-09-12] MEDS: SODIUM CHLORIDE 0.9% FLUSH 10 ML FLUSH IV FLUSH SCH (21:54)
[2017-09-12] MEDS: APIXABAN 5 MG TABLET PO SCH (21:54)
[2017-09-12] MEDS: PREGABALIN 100 MG CAP PO SCH (21:55)
[2017-09-12] MEDS: MIRTAZAPINE 15 MG TAB PO SCH (21:55)
[2017-09-12] MEDS: DOCUSATE SODIUM 50 MG/SENNA 8.6 MG TAB PO SCH (21:56)
[2017-09-12] MEDS ORDERED: FUROSEMIDE 20 MG/2 ML VIAL IV PUSH ONE (22:45)
[2017-09-13] VITALS (8 sets, daily range): BP systolic 101–188; BP diastolic 51–78; PULSE 54–74; RESP 17–18; TEMP 97.5–98.9; O2SAT 94–96
[2017-09-13 00:20] LABS: TROPONIN I LESS THAN 0.02 NG/ML (0.02-0.05)
[2017-09-13] MEDS: INSULIN ASPART SUPPLEMENTAL SCALE SQ SCH ×4 (08:00→21:00)
[2017-09-13] MEDS: PANTOPRAZOLE SOD 20 MG DELAYED RELEASE TAB PO SCH (08:08)
[2017-09-13] MEDS: APIXABAN 5 MG TABLET PO SCH ×2 (08:08→21:23)
[2017-09-13] MEDS: PREGABALIN 100 MG CAP PO SCH ×2 (08:08→21:23)
[2017-09-13] MEDS: DOCUSATE SODIUM 50 MG/SENNA 8.6 MG TAB PO SCH ×2 (08:08→21:23)
[2017-09-13] MEDS: metFORMIN HCL 500 MG TAB PO SCH ×2 (08:08→17:20)
[2017-09-13] MEDS: SODIUM CHLORIDE 0.9% FLUSH 10 ML FLUSH IV FLUSH SCH ×2 (08:09→21:24)
[2017-09-13] MEDS: FUROSEMIDE 20 MG/2 ML VIAL IV PUSH SCH ×2 (08:09→17:21)
[2017-09-13 08:12] LABS: AUTOMATED NEUTROPHIL # 1.6 TH/MM3 (1.8-7.7); EOSINOPHIL # 0.2 TH/MM3 (0-0.4); EOSINOPHIL % 6.4 % (0.0-4.0); HEMATOCRIT 30.8 % (39.0-51.0); HEMOGLOBIN 10.4 GM/DL (13.0-17.0); LYMPH % 24.2 % (9.0-44.0); LYMPHOCYTE # 0.7 TH/MM3 (1.0-4.8); MEAN CELL VOLUME 102.1 FL (80.0-100.0); MEAN CORPUSCULAR HEMOGLOBIN 34.6 PG (27.0-34.0); MEAN CORPUSCULAR HGB CONC 33.9 % (32.0-36.0); MONO % 12.7 % (0.0-8.0); MONOCYTE # 0.4 TH/MM3 (0-0.9); NEUT % 55.7 % (16.0-70.0); PLATELET COUNT 195 TH/MM3 (150-450); RED BLOOD COUNT 3.02 MIL/MM3 (4.50-5.90); RED CELL DISTRIBUTION WIDTH 19.3 % (11.6-17.2); WHITE BLOOD COUNT 2.9 TH/MM3 (4.0-11.0)
--- NOTE | 2017-09-13 08:22 | MB ---
cc: Jacob Le MD DATE: 09/12/2017 HISTORY OF PRESENT ILLNESS: Chao is a very pleasant 77-year-old gentleman who has established care with myself. He has a history of coronary artery disease, trifascicular block. Over the past year or two, he has been having trouble with losing weight, anorexia. His chief complaint on admission is mainly fatigue, loss of appetite and weight loss. His called my office and he said he was short of breath, but the patient denies shortness of breath or chest pain to me at the bedside. Otherwise, denies any fevers, chills, cough, GI bleeding, PND, orthopnea, syncope or dizziness. According to the ER, he was also noted to have pain on both sides of the neck, described as pressure-like. He was seen by Dr. Funes, who thought he may have been in heart failure or had pneumonia and he was sent to the emergency room. PAST MEDICAL HISTORY: As per his History of Present Illness. He has a history of arthritis, prostate cancer, hyperlipidemia, diabetes, history of myocardial infarction, history of radiation therapy, right knee arthroscopic surgery. SOCIAL HISTORY: Denies tobacco or alcohol use. ALLERGIES: NONE. MEDICATIONS AT HOME: 1. Lactinex. 2. Entresto . 3. NovoLog. 4. Vitamin D3. 5. Prilosec. 6. Mirtazapine. 7. Lyrica. 8. Eliquis 5 mg b.i.d. 9. Multivitamins daily. 10. Vitamin C. 11. Vitamin B12, B6. 12. Aspirin 81 mg a day. 13. Refresh ophthalmic drops. 14. Restasis. 15. Metformin 500 b.i.d.. MEDICATIONS IN THE HOSPITAL: 1. Aspirin 325 daily. 2. Pantoprazole 20 mg daily. 3. Eliquis 5 mg b.i.d. 4. Remeron 15 mg at bedtime. 5. Lyrica 100 mg b.i.d. 6. Metformin 500 b.i.d. PHYSICAL EXAMINATION: VITAL SIGNS: Initial blood pressure recorded was 163/72, pulse 75, respiratory rate 15, sats 98% on room air, temperature 97.8. GENERAL: He is alert and oriented x 3, in no acute distress. NECK: Supple. No JVD. No bruit. CARDIOVASCULAR: S1, S2. No murmurs, rubs, gallops, bilaterally. ABDOMEN: Soft, nontender, nondistended with positive bowel sounds. EXTREMITIES: No lower extremity edema. IMAGING: Chest x-ray shows persistent bilateral effusions. ECHOCARDIOGRAM: Shows right bundle branch block, left anterior fascicular block, probably underlying atrial fibrillation. A 2D echo read by myself today shows an EF of 55%, possible hypokinesis of the anterior wall. LABORATORY DATA: White count 3.0, hemoglobin 11.2, hematocrit 33.0, platelet count 206. INR 1.1, troponin less than 0.02 x 2. BNP is 525. Sodium 144, potassium 4.3, chloride 107, bicarbonate 27.6, BUN 12, creatinine 0.76. HE HAS THE FOLLOWING DIAGNOSES: 1. Decompensated congestive heart failure. 2. Weakness and fatigue. 3. Diabetes mellitus. 4. Coronary artery disease. 5. Anemia. 6. Neutropenia. 7. Right bundle branch block. 8. Left anterior fascicular block. 9. Possible underlying atrial fibrillation. At this point in time, his Entresto has been stopped. I am going to start him on diuretics and follow his daily BNP/BMP. Beta blockers are held due to history of trifascicular block with ongoing right bundle branch block and left anterior fascicular block. Further recommendations pending trends in blood pressure, heart rate, BNP, creatinine and symptoms. MD ANNI Capps/CHRIS , 10:37 PM , 11:32 PM
[2017-09-13 08:40] LABS: BICARBONATE 31.2 MEQ/L (21.0-32.0); CALCIUM 9.1 MG/DL (8.5-10.1); CREATININE 0.6 MG/DL (0.60-1.30); MAGNESIUM 1.7 MG/DL (1.5-2.5)
--- NOTE | 2017-09-13 11:17 | HHI.PR ---
Subjective Remarks Follow-up dyspnea and neck pain. Complain of dyspnea on exertion while ambulating with physical therapy today. States he has been voiding with IV Lasix. Objective Vitals Vital Signs Date Time Temp Pulse Resp B/P (MAP) Pulse Ox O2 Delivery O2 Flow Rate FiO2 09/13/17 07:40 98.7 61 18 188/78 (114) 95 09/13/17 04:28 55 09/13/17 03:33 97.7 65 18 163/71 (101) 96 09/13/17 00:18 54 09/12/17 22:58 98.2 56 18 139/65 (89) 95 09/12/17 22:00 97 09/12/17 15:15 97.8 54 18 138/64 (88) 98 09/12/17 15:07 98.1 53 15 138/64 (88) 99 Room Air 09/12/17 12:30 98.0 65 18 114/75 (88) 98 Room Air 09/12/17 11:38 98.0 75 15 163/72 (102) 97 Room Air I/O 09/12/17 09/12/17 09/12/17 09/13/17 09/13/17 09/13/17 07:00 15:00 23:00 07:00 15:00 23:00 Intake Total 500 ml 250 ml Output Total 475 ml 640 ml 250 ml Balance 500 ml -475 ml -640 ml 0 ml Intake Oral 250 ml IV Total 500 ml Output Urine Total 475 ml 640 ml 250 ml # Voids 1 # Bowel Movements 0 Result Diagram: 09/13/17 0735 09/13/17 0735 Imaging Last Impressions Chest X-Ray 09/12/17 1030 Signed Impressions: CONCLUSION: Persistent bilateral effusions Objective Remarks GENERAL: This is a well-nourished, well-developed patient, in no apparent distress. SKIN: No rashes, ecchymoses or lesions. Cool and dry. CARDIOVASCULAR: Regular rate and rhythm without gallops, or rubs. Murmur noted RESPIRATORY: Clear to auscultation. Breath sounds equal bilaterally. No wheezes , rales, or rhonchi. GASTROINTESTINAL: Abdomen soft, non-tender, nondistended. No hepato-splenomegaly , or palpable masses. No guarding. MUSCULOSKELETAL: Extremities without clubbing, cyanosis but with bilateral lower extremity pitting edema. No joint tenderness, effusion, or edema noted. No calf tenderness. Negative Homans sign bilaterally. NEUROLOGICAL: Awake and alert. Cranial nerves II through XII intact. Motor and sensory grossly within normal limits. Five out of 5 muscle strength in all muscle groups. Normal speech. Procedures none A/P Problem List: (1) Neck pain ICD Code: M54.2 - Cervicalgia Status: Acute (2) Pleural effusion ICD Code: J90 - Pleural effusion, not elsewhere classified Status: Acute Assessment and Plan This is a 77-year-old male who presents to the emergency department complaining of generalized weakness. He woke up this morning feeling weak and dizzy. He checked his blood pressure multiple times and was considerably low 100/76. Denies nausea, vomiting and diarrhea. He reports being started on Entresto last week by his PCP because of new onset heart failure with symptoms of dyspnea on exertion and bilateral lower extremity swelling. He also was recently treated for pneumonia and sepsis and completed course of Augmentin. Generalized weakness likely related to hypotension from Entresto. It could also be related to his recent pneumonia and sepsis patient with leukopenia. He is improving PT recommends home care. Follow-up blood culture negative today Neck pain possible angina equivalent with history of CAD status post stents. Ruled out for [place] continue aspirin. Unable to start beta-tracie secondary to baseline bradycardia and hypotension. Cardiology following Elevated BNP with bilateral pleural effusions. New onset heart failure continue diuresis follow-up echocardiogram. CHF education, I/O and monitor weight Microscopic hematuria. Outpatient follow-up Multiple medical conditions of arthritis, prostate cancer status post cryosurgery and radiation therapy, hyperlipidemia, diabetes mellitus, GERD, hypertension. Continue outpatient medications as appropriate. Monitor fingersticks sliding scale coverage DVT prophylaxis with Eliquis Discharge Planning Discharge in 1-2 days Vince Mcginnis MD September 13, 2017 11:17
[2017-09-13] MEDS ORDERED: POTA20TA5 PO (11:22)
--- NOTE | 2017-09-13 11:22 | HHI.DCPOC ---
Discharge Care Plan Diagnosis: (1) Pleural effusion Your Health Problems Are: Difficulty with ADL Exercise Tolerance Goals to Promote Your Health * To prevent worsening of your condition and complications * To maintain your health at the optimal level Directions to Meet Your Goals Take your medications as prescribed Follow your dietary instruction Follow activity as directed Keep your appointments as scheduled Take your immunizations and boosters as scheduled If your symptoms worsen call your PCP, if no PCP go to Urgent Care Center or Emergency Room Smoking is Dangerous to Your Health. Avoid second hand smoke Call the 24-hour hour crisis hotline for domestic abuse at Vince Mcginnis MD September 13, 2017 11:22
--- NOTE | 2017-09-13 11:24 | HHI.FF ---
Face to Face Verification Diagnosis: (1) Pleural effusion Physical Therapy Order: Evaluate and Treat, Improve ambulation, Strength and gait training I have seen patient Chao Richardson on 09/13/17. My clinical findings support the need for the requested home health care services because: Deconditioned w/ increased weakness I certify that my clinical findings support that this patient is homebound because: Unsafe to leave home unassisted Vince Mgcinnis MD September 13, 2017 11:24
[2017-09-13] MEDS: POTASSIUM CHLORIDE 20 MEQ CONTROLLED RELEASE TAB PO SCH ×2 (11:47→21:24)
[2017-09-13] MEDS: MAGNESIUM SULFATE 1 GM PREMIX 100 ML IV SCH ×2 (12:42→13:00)
--- NOTE | 2017-09-13 14:45 | EKG ---
Date Performed: 09/12/2017 Time Performed: 23:05:51 PTAGE: 77 years EKG: SINUS BRADYCARDIA WITH MARKED FIRST DEGREE AV BLOCK MARKED LEFT AXIS DEVIATION RIGHT BUNDLE BRANCH BLOCK ANTEROSEPTAL MYOCARDIAL INFARCTION ABNORMAL ECG Compared to prior electrocardiogram, ra te has decreased . PREVIOUS TRACING : 09/12/2017 10.56 DOCTOR: Vignesh Carrillo Interpretating Date/Time 09/13/2017 14:43:07
--- NOTE | 2017-09-13 15:20 | PD.CARD.PN ---
Subjective Subjective Remarks c/o [facility] Objective Medications Current Medications Medications (Trade) Dose Ordered Sig/Jasper Route Start Time Stop Time Status Last Admin (Aspirin) 325 mg DAILY PO 09/14/17 09:00 (Nitrostat Sl) 0.4 mg Q5M PRN SL 09/12/17 13:30 (NS Flush) 2 ml UNSCH PRN IV FLUSH 09/12/17 13:30 (NS Flush) 2 ml BID IV FLUSH 09/12/17 21:00 09/13/17 08:09 (Tylenol) 650 mg Q4H PRN PO 09/12/17 13:30 (Zofran Odt) 4 mg Q6H PRN PO 09/12/17 13:30 (Tylenol) 650 mg Q6H PRN PO 09/12/17 13:30 (Narcan Inj) 0.4 mg UNSCH PRN IV PUSH 09/12/17 13:30 (Jessenia-Colace) 1 tab BID PO 09/12/17 21:00 09/13/17 08:08 (Milk Of Magnesia Liq) 30 ml Q12H PRN PO 09/12/17 13:30 (Senokot) 17.2 mg Q12H PRN PO 09/12/17 13:30 (Dulcolax Supp) 10 mg DAILY PRN RECTAL 09/12/17 13:30 (Lactulose Liq) 30 ml DAILY PRN PO 09/12/17 13:30 (D50w (Vial) Inj) 50 ml UNSCH PRN IV PUSH 09/12/17 13:45 (Glucagon Inj) 1 mg UNSCH PRN OTHER 09/12/17 13:45 (NovoLOG SUPPLEMENTAL SCALE) 1 ACHS SLIDING SCALE SQ 09/12/17 17:00 (Eliquis) 5 mg BID PO 09/12/17 21:00 09/13/17 08:08 (Glucophage) 500 mg BIDPC PO 09/12/17 18:00 09/13/17 08:08 (Remeron) 15 mg HS PO 09/12/17 21:00 09/12/17 21:55 (Refresh Classic 1.4-0.6% Pf Opth Soln) 2 drop 5 TIMES A DAY PRN EACH EYE 09/12/17 17:30 (Lyrica) 100 mg BID PO 09/12/17 21:00 09/13/17 08:08 Patient Own Medication PT OWN MED:RESTASIS OPHTH DROPS BID EACH EYE 09/12/17 21:00 Future Hold (Protonix) 20 mg DAILY PO 09/13/17 09:00 09/13/17 08:08 (Lasix Inj) 20 mg BID@09,18 IV PUSH 09/13/17 09:00 09/13/17 08:09 (KCl) 20 meq Q12HR PO 09/13/17 12:00 09/13/17 11:47 Vital Signs / I&O Vital Signs Date Time Temp Pulse Resp B/P (MAP) Pulse Ox O2 Delivery O2 Flow Rate FiO2 09/13/17 12:17 97.5 67 18 140/64 (89) 96 09/13/17 07:40 98.7 61 18 188/78 (114) 95 09/13/17 04:28 55 09/13/17 03:33 97.7 65 18 163/71 (101) 96 09/13/17 00:18 54 09/12/17 22:58 98.2 56 18 139/65 (89) 95 09/12/17 22:00 97 I/O 09/12/17 09/12/17 09/12/17 09/13/17 09/13/17 09/13/17 07:00 15:00 23:00 07:00 15:00 23:00 Intake Total 500 ml 350 ml Output Total 475 ml 640 ml 250 ml Balance 500 ml -475 ml -640 ml 100 ml Intake Oral 250 ml IV Total 500 ml 100 ml Output Urine Total 475 ml 640 ml 250 ml # Voids 1 # Bowel Movements 0 Physical Exam GENERAL: SKIN: Warm and dry. HEAD: Normocephalic. EYES: No scleral icterus. No injection or drainage. NECK: Supple, trachea midline. No JVD or lymphadenopathy. CARDIOVASCULAR: Regular rate and rhythm without murmurs, gallops, or rubs. RESPIRATORY: Breath sounds equal bilaterally. No accessory muscle use. GASTROINTESTINAL: Abdomen soft, non-tender, nondistended. MUSCULOSKELETAL: No cyanosis, or edema. BACK: Nontender without obvious deformity. No CVA tenderness. Laboratory Laboratory Tests Test 09/12/17 17:57 09/12/17 23:36 09/13/17 07:35 Total Creatine Kinase 19 U/L 17 U/L Troponin I LESS THAN 0.02 NG/ML LESS THAN 0.02 NG/ML White Blood Count 2.9 TH/MM3 Red Blood Count 3.02 MIL/MM3 Hemoglobin 10.4 GM/DL Hematocrit 30.8 % Mean Corpuscular Volume 102.1 FL Mean Corpuscular Hemoglobin 34.6 PG Mean Corpuscular Hemoglobin Concent 33.9 % Red Cell Distribution Width 19.3 % Platelet Count 195 TH/MM3 Mean Platelet Volume 8.0 FL Neutrophils (%) (Auto) 55.7 % Lymphocytes (%) (Auto) 24.2 % Monocytes (%) (Auto) 12.7 % Eosinophils (%) (Auto) 6.4 % Basophils (%) (Auto) 1.0 % Neutrophils # (Auto) 1.6 TH/MM3 Lymphocytes # (Auto) 0.7 TH/MM3 Monocytes # (Auto) 0.4 TH/MM3 Eosinophils # (Auto) 0.2 TH/MM3 Basophils # (Auto) 0.0 TH/MM3 CBC Comment DIFF FINAL Differential Comment Blood Urea Nitrogen 10 MG/DL Creatinine 0.60 MG/DL Random Glucose 79 MG/DL Calcium Level 9.1 MG/DL Magnesium Level 1.7 MG/DL Sodium Level 145 MEQ/L Potassium Level 3.8 MEQ/L Chloride Level 106 MEQ/L Carbon Dioxide Level 31.2 MEQ/L Anion Gap 8 MEQ/L Estimat Glomerular Filtration Rate 130 ML/MIN B-Type Natriuretic Peptide 919 PG/ML Assessment and Plan Problem List: (1) CHF (congestive heart failure) ICD Codes: I50.9 - Heart failure, unspecified (2) CHF exacerbation ICD Codes: I50.9 - Heart failure, unspecified (3) HTN (hypertension) ICD Codes: I10 - Essential (primary) hypertension Status: Chronic (4) Diabetes mellitus ICD Codes: E11.9 - Type 2 diabetes mellitus without complications Status: Chronic (5) CAD (coronary artery disease) ICD Codes: I25.10 - Atherosclerotic heart disease of [place] coronary artery without angina pectoris Status: Chronic (6) Pleural effusion ICD Codes: J90 - Pleural effusion, not elsewhere classified Status: Acute Assessment and Plan 1.) CAD/CHF - rhc/lhc are medically necessary due to worsening cardiac symptom of dyspnea on exertion, worsening decompensated chf, cad, new aw motion abnormality on echo Jacob Le MD September 13, 2017 15:20
[2017-09-13] MEDS: MIRTAZAPINE 15 MG TAB PO SCH (21:24)
[2017-09-14] VITALS (7 sets, daily range): BP systolic 100–129; BP diastolic 45–58; PULSE 56–66; RESP 16–18; TEMP 96–98.5; O2SAT 92–97
[2017-09-14] MEDS: INSULIN ASPART SUPPLEMENTAL SCALE SQ SCH ×4 (08:00→20:42)
[2017-09-14 08:07] LABS: HEMATOCRIT 30.2 % (39.0-51.0); HEMOGLOBIN 10.3 GM/DL (13.0-17.0); MEAN CELL VOLUME 103.2 FL (80.0-100.0); MEAN CORPUSCULAR HEMOGLOBIN 35.2 PG (27.0-34.0); MEAN CORPUSCULAR HGB CONC 34.1 % (32.0-36.0); MEAN PLATELET VOLUME 8.2 FL (7.0-11.0); PLATELET COUNT 188 TH/MM3 (150-450); RED BLOOD COUNT 2.93 MIL/MM3 (4.50-5.90); RED CELL DISTRIBUTION WIDTH 19.3 % (11.6-17.2); WHITE BLOOD COUNT 3.1 TH/MM3 (4.0-11.0)
--- NOTE | 2017-09-14 08:12 | HHI.PR ---
Subjective Remarks F/U CHF. Improving dyspnea with increased exercise tolerance. For cath today Objective Vitals Vital Signs Date Time Temp Pulse Resp B/P (MAP) Pulse Ox O2 Delivery O2 Flow Rate FiO2 09/14/17 04:00 57 09/14/17 03:29 98.5 66 17 129/58 (81) 96 09/13/17 23:03 98.2 65 17 125/61 (82) 96 09/13/17 20:13 98.4 74 17 101/51 (68) 94 09/13/17 16:58 98.9 67 18 120/51 (74) 96 09/13/17 12:17 97.5 67 18 140/64 (89) 96 I/O 09/13/17 09/13/17 09/13/17 09/14/17 09/14/17 09/14/17 07:00 15:00 23:00 07:00 15:00 23:00 Intake Total 350 ml 480 ml Output Total 640 ml 250 ml 400 ml Balance -640 ml 100 ml 80 ml Intake Oral 250 ml 480 ml IV Total 100 ml Output Urine Total 640 ml 250 ml 400 ml Result Diagram: 09/13/17 0735 09/13/17 0735 Imaging Last Impressions Chest X-Ray 09/12/17 1030 Signed Impressions: CONCLUSION: Persistent bilateral effusions Objective Remarks GENERAL: This is a well-nourished, well-developed patient, in no apparent distress. SKIN: Tear left leg. Cool and dry. CARDIOVASCULAR: Regular rate and rhythm without gallops, or rubs. Murmur noted RESPIRATORY: Clear to auscultation. Breath sounds equal bilaterally. No wheezes , rales, or rhonchi. GASTROINTESTINAL: Abdomen soft, non-tender, nondistended. No guarding. MUSCULOSKELETAL: Extremities without clubbing, cyanosis but with bilateral lower extremity pitting edema. No joint tenderness, effusion, or edema noted. No calf tenderness. Negative Homans sign bilaterally. NEUROLOGICAL: Awake and alert. Cranial nerves II through XII intact. Motor and sensory grossly within normal limits. Five out of 5 muscle strength in all muscle groups. Normal speech. Procedures none A/P Problem List: (1) Neck pain ICD Code: M54.2 - Cervicalgia Status: Acute (2) Pleural effusion ICD Code: J90 - Pleural effusion, not elsewhere classified Status: Acute Assessment and Plan This is a 77-year-old male who presents to the emergency department complaining of generalized weakness, dizzy with considerably low BP 100/76 recently started on Entresto. He also was recently treated for pneumonia and sepsis and completed course of Augmentin. Generalized weakness likely related to hypotension from Entresto. It could also be related to his recent pneumonia and sepsis patient with leukopenia. He is improving PT recommends home care. Follow-up blood culture NGTD Neck pain possible angina equivalent with history of CAD status post stents. Ruled out for [place] continue aspirin. Unable to start beta-tracie secondary to baseline bradycardia and hypotension. Cardiology for cath 2/2 to worsening sxs , CHF and new wall motion abnormality per cards ECHO results not yet available Elevated BNP with bilateral pleural effusions. New onset heart failure continue diuresis follow-up echocardiogram. CHF education, I/O and monitor weight Microscopic hematuria. Outpatient follow-up Multiple medical conditions of arthritis, prostate cancer status post cryosurgery and radiation therapy, hyperlipidemia, diabetes mellitus, GERD, hypertension. Continue outpatient medications as appropriate. Monitor fingersticks sliding scale coverage DVT prophylaxis with Eliquis Discharge Planning Discharge per cardiology Vince Mcginnis MD September 14, 2017 08:12
[2017-09-14 08:29] LABS: BICARBONATE 32.3 MEQ/L (21.0-32.0); CALCIUM 9.1 MG/DL (8.5-10.1); CREATININE 0.65 MG/DL (0.60-1.30)
[2017-09-14] MEDS: DOCUSATE SODIUM 50 MG/SENNA 8.6 MG TAB PO SCH ×2 (09:00→20:53)
[2017-09-14] MEDS ORDERED: ASPIRIN 325 MG TAB PO SCH (09:00)
[2017-09-14] MEDS: APIXABAN 5 MG TABLET PO SCH (09:00)
[2017-09-14] MEDS: SODIUM CHLORIDE 0.9% FLUSH 10 ML FLUSH IV FLUSH SCH ×2 (09:00→21:57)
[2017-09-14] MEDS: POTASSIUM CHLORIDE 20 MEQ CONTROLLED RELEASE TAB PO SCH ×2 (10:03→20:53)
[2017-09-14] MEDS: PREGABALIN 100 MG CAP PO SCH ×2 (10:03→20:53)
[2017-09-14] MEDS: PANTOPRAZOLE SOD 20 MG DELAYED RELEASE TAB PO SCH (10:03)
[2017-09-14] MEDS: ASPIRIN 81 MG CHEW TAB PO SCH (10:04)
[2017-09-14] MEDS: FUROSEMIDE 20 MG/2 ML VIAL IV PUSH SCH ×2 (10:05→18:00)
--- NOTE | 2017-09-14 16:53 | PD.CARD.PN ---
Subjective Subjective Remarks alert in nad Objective Medications Current Medications Medications (Trade) Dose Ordered Sig/Jasper Route Start Time Stop Time Status Last Admin (Nitrostat Sl) 0.4 mg Q5M PRN SL 09/12/17 13:30 (NS Flush) 2 ml UNSCH PRN IV FLUSH 09/12/17 13:30 (NS Flush) 2 ml BID IV FLUSH 09/12/17 21:00 09/13/17 21:24 (Tylenol) 650 mg Q4H PRN PO 09/12/17 13:30 (Zofran Odt) 4 mg Q6H PRN PO 09/12/17 13:30 (Tylenol) 650 mg Q6H PRN PO 09/12/17 13:30 (Narcan Inj) 0.4 mg UNSCH PRN IV PUSH 09/12/17 13:30 (Jessenia-Colace) 1 tab BID PO 09/12/17 21:00 09/13/17 21:23 (Milk Of Magnesia Liq) 30 ml Q12H PRN PO 09/12/17 13:30 (Senokot) 17.2 mg Q12H PRN PO 09/12/17 13:30 (Dulcolax Supp) 10 mg DAILY PRN RECTAL 09/12/17 13:30 (Lactulose Liq) 30 ml DAILY PRN PO 09/12/17 13:30 (D50w (Vial) Inj) 50 ml UNSCH PRN IV PUSH 09/12/17 13:45 (Glucagon Inj) 1 mg UNSCH PRN OTHER 09/12/17 13:45 (NovoLOG SUPPLEMENTAL SCALE) 1 ACHS SLIDING SCALE SQ 09/12/17 17:00 (Glucophage) 500 mg BIDPC PO 09/12/17 18:00 Future Hold 09/13/17 17:20 (Remeron) 15 mg HS PO 09/12/17 21:00 09/13/17 21:24 (Refresh Classic 1.4-0.6% Pf Opth Soln) 2 drop 5 TIMES A DAY PRN EACH EYE 09/12/17 17:30 (Lyrica) 100 mg BID PO 09/12/17 21:00 09/14/17 10:03 Patient Own Medication PT OWN MED:RESTASIS OPHTH DROPS BID EACH EYE 09/12/17 21:00 Future Hold (Protonix) 20 mg DAILY PO 09/13/17 09:00 09/14/17 10:03 (Lasix Inj) 20 mg BID@,18 IV PUSH 09/13/17 09:00 09/14/17 10:05 (KCl) 20 meq Q12HR PO 09/13/17 12:00 09/14/17 10:03 (Aspirin Chew) 162 mg DAILY PO 09/14/17 09:00 09/14/17 10:04 Vital Signs / I&O Vital Signs Date Time Temp Pulse Resp B/P (MAP) Pulse Ox O2 Delivery O2 Flow Rate FiO2 09/14/17 08:20 96 21 09/14/17 08:00 96.0 56 16 113/51 (71) 92 09/14/17 04:00 57 09/14/17 03:29 98.5 66 17 129/58 (81) 96 09/13/17 23:03 98.2 65 17 125/61 (82) 96 09/13/17 20:13 98.4 74 17 101/51 (68) 94 09/13/17 16:58 98.9 67 18 120/51 (74) 96 I/O 09/13/17 09/13/17 09/13/17 09/14/17 09/14/17 09/14/17 07:00 15:00 23:00 07:00 15:00 23:00 Intake Total 350 ml 480 ml 40 ml Output Total 640 ml 250 ml 400 ml Balance -640 ml 100 ml 80 ml 40 ml Intake Oral 250 ml 480 ml IV Total 100 ml TPN/PPN 40 ml Output Urine Total 640 ml 250 ml 400 ml Physical Exam GENERAL: SKIN: Warm and dry. HEAD: Normocephalic. EYES: No scleral icterus. No injection or drainage. NECK: Supple, trachea midline. No JVD or lymphadenopathy. CARDIOVASCULAR: Regular rate and rhythm without murmurs, gallops, or rubs. RESPIRATORY: Breath sounds equal bilaterally. No accessory muscle use. GASTROINTESTINAL: Abdomen soft, non-tender, nondistended. MUSCULOSKELETAL: No cyanosis, or edema. BACK: Nontender without obvious deformity. No CVA tenderness. Laboratory Laboratory Tests Test 09/14/17 07:17 White Blood Count 3.1 TH/MM3 Red Blood Count 2.93 MIL/MM3 Hemoglobin 10.3 GM/DL Hematocrit 30.2 % Mean Corpuscular Volume 103.2 FL Mean Corpuscular Hemoglobin 35.2 PG Mean Corpuscular Hemoglobin Concent 34.1 % Red Cell Distribution Width 19.3 % Platelet Count 188 TH/MM3 Mean Platelet Volume 8.2 FL Blood Urea Nitrogen 14 MG/DL Creatinine 0.65 MG/DL Random Glucose 79 MG/DL Calcium Level 9.1 MG/DL Magnesium Level 2.0 MG/DL Sodium Level 142 MEQ/L Potassium Level 4.2 MEQ/L Chloride Level 104 MEQ/L Carbon Dioxide Level 32.3 MEQ/L Anion Gap 6 MEQ/L Estimat Glomerular Filtration Rate 119 ML/MIN B-Type Natriuretic Peptide 264 PG/ML Assessment and Plan Problem List: (1) CHF (congestive heart failure) ICD Codes: I50.9 - Heart failure, unspecified (2) CHF exacerbation ICD Codes: I50.9 - Heart failure, unspecified (3) HTN (hypertension) ICD Codes: I10 - Essential (primary) hypertension Status: Chronic (4) Diabetes mellitus ICD Codes: E11.9 - Type 2 diabetes mellitus without complications Status: Chronic (5) CAD (coronary artery disease) ICD Codes: I25.10 - Atherosclerotic heart disease of [place] coronary artery without angina pectoris Status: Chronic (6) Pleural effusion ICD Codes: J90 - Pleural effusion, not elsewhere classified Status: Acute Assessment and Plan 1.) CAD/CHF - rhc/lhc are medically necessary due to worsening cardiac symptom of dyspnea on exertion, worsening decompensated chf, cad, new aw motion abnormality on echo; cath to be done 09/15/17' last eliquis dose pm 09/13/17; continue to hold Jacob Adam MD September 14, 2017 16:53
[2017-09-14] MEDS: MIRTAZAPINE 15 MG TAB PO SCH (20:53)
[2017-09-15] VITALS (19 sets, daily range): BP systolic 106–147; BP diastolic 52–70; PULSE 50–64; RESP 16–19; TEMP 97.2–97.8; O2SAT 92–98
[2017-09-15 07:13] LABS: AUTOMATED NEUTROPHIL # 1.7 TH/MM3 (1.8-7.7); BASOPHIL % 0.9 % (0.0-2.0); EOSINOPHIL # 0.2 TH/MM3 (0-0.4); EOSINOPHIL % 5.2 % (0.0-4.0); HEMATOCRIT 31.6 % (39.0-51.0); HEMOGLOBIN 10.6 GM/DL (13.0-17.0); LYMPH % 24.6 % (9.0-44.0); LYMPHOCYTE # 0.8 TH/MM3 (1.0-4.8); MEAN CELL VOLUME 102.6 FL (80.0-100.0); MEAN CORPUSCULAR HEMOGLOBIN 34.6 PG (27.0-34.0); MEAN CORPUSCULAR HGB CONC 33.7 % (32.0-36.0); MONO % 15.3 % (0.0-8.0); MONOCYTE # 0.5 TH/MM3 (0-0.9); PLATELET COUNT 191 TH/MM3 (150-450); RED BLOOD COUNT 3.08 MIL/MM3 (4.50-5.90); RED CELL DISTRIBUTION WIDTH 19.6 % (11.6-17.2); WHITE BLOOD COUNT 3.1 TH/MM3 (4.0-11.0)
[2017-09-15 07:34] LABS: BICARBONATE 33.7 MEQ/L (21.0-32.0); CALCIUM 8.9 MG/DL (8.5-10.1); CREATININE 0.78 MG/DL (0.60-1.30); MAGNESIUM 1.9 MG/DL (1.5-2.5)
[2017-09-15] MEDS: INSULIN ASPART SUPPLEMENTAL SCALE SQ SCH ×4 (08:35→20:17)
[2017-09-15] MEDS: ASPIRIN 81 MG CHEW TAB PO SCH (08:36)
[2017-09-15] MEDS: SODIUM CHLORIDE 0.9% FLUSH 10 ML FLUSH IV FLUSH SCH ×2 (08:37→20:17)
[2017-09-15] MEDS: PANTOPRAZOLE SOD 20 MG DELAYED RELEASE TAB PO SCH (08:37)
[2017-09-15] MEDS: DOCUSATE SODIUM 50 MG/SENNA 8.6 MG TAB PO SCH ×2 (08:37→20:14)
[2017-09-15] MEDS: POTASSIUM CHLORIDE 20 MEQ CONTROLLED RELEASE TAB PO SCH ×2 (08:37→20:14)
[2017-09-15] MEDS: PREGABALIN 100 MG CAP PO SCH ×2 (08:37→20:14)
[2017-09-15] MEDS: FUROSEMIDE 20 MG/2 ML VIAL IV PUSH SCH ×3 (08:37→20:13)
--- NOTE | 2017-09-15 10:22 | HHI.PR ---
Subjective Remarks Patient states that she he does not get short winded unless he is ambulating and exerting himself. He denies any chest pain. He is ready for a cardiac catheterization today. Objective Vitals Vital Signs Date Time Temp Pulse Resp B/P (MAP) Pulse Ox O2 Delivery O2 Flow Rate FiO2 09/15/17 04:15 50 09/15/17 04:00 97.2 56 18 129/58 (81) 96 09/15/17 00:50 52 09/15/17 00:00 97.6 54 18 130/56 (80) 95 09/14/17 18:00 60 18 109/53 (71) 97 09/14/17 15:00 64 18 100/45 (63) 97 09/14/17 13:45 57 18 111/46 (67) 97 I/O 09/14/17 09/14/17 09/14/17 09/15/17 09/15/17 09/15/17 07:00 15:00 23:00 07:00 15:00 23:00 Intake Total 40 ml 240 ml Balance 40 ml 240 ml Intake Oral 240 ml TPN/PPN 40 ml # Voids 2 Result Diagram: 09/15/17 0640 09/15/17 0640 Other Results Item Value Date Time Bedside Blood Glucose 82 mg/dl 09/15/17 0835 Bedside Blood Glucose 119 mg/dl 09/14/17 1843 Objective Remarks GENERAL: This is a well-nourished, well-developed patient, in no apparent distress. CARDIOVASCULAR: Regular rate and rhythm RESPIRATORY: Relatively clear to auscultation bilaterally MUSCULOSKELETAL: Extremities without clubbing, cyanosis, trace edema NEURO: Alert & Oriented x4 to person, place, time, situation. Moves all ext x4 Procedures none A/P Problem List: (1) CHF exacerbation ICD Code: I50.9 - Heart failure, unspecified Status: Acute (2) Neck pain ICD Code: M54.2 - Cervicalgia Status: Acute (3) Pleural effusion ICD Code: J90 - Pleural effusion, not elsewhere classified Status: Acute Assessment and Plan This is a 77-year-old male who presents to the emergency department complaining of generalized weakness, dizzy with considerably low BP 100/76 recently started on Entresto. He was also recently treated for pneumonia and sepsis and completed course of Augmentin. Generalized weakness likely related to hypotension from Entresto. It could also be related to his recent pneumonia and sepsis patient with leukopenia. He is improving PT recommends home care. Follow-up blood culture shows no growth Neck pain possible angina equivalent with history of CAD status post stents. Ruled out for PA continue aspirin. Unable to start beta-tracie secondary to baseline bradycardia and hypotension. Cardiology for cath today due to worsening sxs, Acute on chronic CHF and new wall motion abnormality per cards ECHO results not yet available to determine diastolic versus systolic - for cardiac catheterization today Elevated BNP with bilateral pleural effusions. New onset heart failure continue diuresis follow-up echocardiogram. CHF education, I/O and monitor weight Microscopic hematuria. Outpatient follow-up Multiple medical chronic conditions of arthritis, prostate cancer status post cryosurgery and radiation therapy, hyperlipidemia, diabetes mellitus type II, GERD, hypertension. Continue outpatient medications as appropriate. Monitor fingersticks sliding scale coverage, blood sugars with adequate control DVT prophylaxis with Eliquis Discharge Planning Likely to be discharged home in the morning with cardiology clearance based on results of the catheterization and 2D echo Problem Qualifiers (1) CHF exacerbation: Qualified Codes: I50.9 - Heart failure, unspecified Patria Brown MD September 15, 2017 10:22
[2017-09-15] MEDS ORDERED: HEPARIN-NS/PF INJ 1,000 ML ONE (10:58)
[2017-09-15] MEDS ORDERED: MIDAZOLAM HCL 2 MG/2 ML VIAL ONE (11:09)
--- NOTE | 2017-09-15 11:41 | CATHPROC ---
[employer] HIS Report Study Information Study Number Admission Scheduled Start Study Start [id number] Sep 12 2017 1:58PM 09/15/2017 Sep 15 2017 10:45AM [facility] Cardiac Catheterization Admit Source Facility Department Other [facility] - Director Of Financial Aid Physician and Clinical Staff Initial Jacob Mancia Risk Lead Ochoa Salmon,RN Recorder Guanaco Ibrahim,PI/SENIOR RESEARCH ASSOCIATE(BS) Scrub Eddie Reed,RT(R) Procedures Performed Procedure Location (Site) Vessel Name Coronary Angiograms LCA Left Coronary Coronary Angiograms RCA Right Coronary LV Gram-hand inj. LV LV Ventricle Equipment Time Produce Sorter Description Size Mfg Part Number Used/Scraped CATHETER, FR5 SWAN FRIDA 10:46 [place] FR 5 [id number] *[id number] Used MONITOR TRANSDUCER, TRUWAVE [id number] 10:46 OSWALD LEVIN * Used W/STOCKCOCK *[id number] [id number] *[id number] [id number] *[id number] 10:46 [employer] INDUSTRIES PACK, CCL CUSTOM * Used *[id number] 10:46 [employer] PACER PEN, SKIN DUAL W/ RULER * Used *[id number] 10:46 [employer] MEDICAL SHEATH, FR5.5 PRELUDE 11CM FR 5.5 Used 038ACT# [id number] 10:46 [employer] MEDICAL WIRE, 3MMJ .035 180CM 180CM Used *[id number] 10:46 NAMIC MANIFOLD, 4 PORT * Used *[id number] 10:46 [employer]ED OMNIPAQUE, 350 MG, 150ML 150ML [id number] Used [id number] 10:46 [employer] MEDICAL BLANKET,WARM AIR CCL * Used *[id number] 10:46 [employer] MEDICAL SHEATH, FR4 TERUMO (10CM) FR 4 Used *[id number] History: Current Medications Medication Dosage/Unit Route Frequency Last Date/Time Taken ASA History: Allergies Allergy Reaction No Known Allergies History: Risk Factors Family History of Hypertension Dyslipidemia Previous ME Previous Heart Failure Premature CAD Yes Yes Yes Yes Yes Prior Valve Prior PCI Prior PCIDate Prior CABG Surgery No Yes 06/22/2016 No Cerebrovascular Peripheral Artery Chronic Lung On Dialysis Diabetes Diabetes Therapy Disease Disease Disease No No No No Yes Oral History: Symptoms/Diagnosis Selection Items HERRERA History: Stress Tests Stress or Imaging Studies Performed No History: Other Disease Selection Items CAD HTN History: ME/CV Data Previous Cath Date 06/22/2016 History: Other Current Smoker No Labs Hgb (g/dl) Hct (%) WBC (l/cumm) Platelets (thousands) 11.60-17.00 35.00-51.00 4.00-11.00 150.00-450.00 10.6 31.6 3.1 191 Glucose (mg/dl) BUN (mg/dl) Creatinine (mg/dl) BUN:Creatinine (1:x) 74.00-106.00 7.00-18.00 0.50-1.30 10.00-20.00 86 21 0.7 30 Na (meq/l) K (meq/l) 136.00-145.00 3.50-5.10 143 4.6 INR (PTT:PT) 0.90-1.10 1.1 Troponin I (ng/ml) CPK (u/l) CPK-MB (ng/ML) 0.02-0.05 26.00-308.00 0.50-3.60 0.02 17 Not Drawn Medication Medication Total Dose (Bolus/Oral) Medication Total Dosage/Unit 1% XYLOCAINE 20 mL FENTANYL 25 mcg VERSED 1 mg Medications (Bolus/Oral) Medication Time Given Dosage/Unit Administered By Reason VERSED 09/15/2017 11:10:46 AM 1 mg Ochoa Salmon 1 mg VERSED given in lab by Ochoa Salmon RN in Right Antecubital via Peripheral IV. Ordered by Jacob Wolf. FENTANYL 09/15/2017 11:10:53 AM 25 mcg Ochoa Salmon 25 mcg FENTANYL given in lab by Ochoa Salmon RN in Right Antecubital via Peripheral IV. Ordered by Jacob Le. 1% XYLOCAINE 09/15/2017 11:11:01 AM 20 mL Jacob Le 20 mL 1% XYLOCAINE given in lab by Jacob Le in Right Groin via Subcutaneous. Medication (Drip) Medication Time Given Dosage/Unit Concentration/Unit Diluent (ml) Solutio n IV Solutions 09/15/2017 10:50:08 AM 0 mL (IV) 500 NaCl .9 Patient arrived on IV Solutions in Right Antecubital via Peripheral IV. Pump/Drip Flow = 20 ml/hr usi ng NaCl .9. Initial Case Assessment Cardiovascular HR Rhythm NIBP Chest Pain 56 natanael 141/71 0 Edema Present Skin color Skin None Normal Warm Dry Circulatory - Right Pulses Dorsalis Pedis Femoral d 3 Scale (0,1,2,3,4,d) Circulatory - Left Pulses Dorsalis Pedis Femoral d 3 Scale (0,1,2,3,4,d) Neurological State Oriented to time-place- Alert Moves all extremities person Respiration - General Respiration Rate SpO2 (%) (B/min) 15 97 Initial Case Assessment Cardiovascular HR Rhythm NIBP Chest Pain 52 natanael 174/111 0 Edema Present Skin color Skin None Normal Warm Dry Circulatory - Right Pulses Dorsalis Pedis Femoral d 3 Scale (0,1,2,3,4,d) Circulatory - Left Pulses Dorsalis Pedis Femoral d 3 Scale (0,1,2,3,4,d) Neurological State Oriented to time-place- Alert Moves all extremities person Respiration - General Respiration Rate SpO2 (%) (B/min) 15 97 Chronological Log Time Study Chronological Log 10:49:50 Patient arrived via Bed. 10:49:51 Patient Name, D.O.B, / Armband Verified By R.N. 10:49:51 Consent signed by the physician and the patient and verified by the Director Of Financial Aid staff. 10:49:53 Pre-op and post- op instructions given; patient acknowledges understanding of instructions. 10:49:53 Verbal Stimulation=2 Physical Stimulation=2 Airway=2 Respiration=2 TOTAL=8. (0=absent, 1=li mited, 2=present) 10:50:02 Patient has been NPO for More than 6Hrs. 10:50:02 Skin Breakdown- none per patient 10:50:05 Patient Warmer Placed on the Table. 10:50:06 Gabrielle Prominences Protected 10:50:08 A # 20 IV was noted in the Antecubital (right). Grade = 0 10:50:08 Patient arrived on IV Solutions in Right Antecubital via Peripheral IV. Pump/Drip Flow = 20 ml/hr using NaCl .9. 10:50:09 History and physical on the chart or being dictated. Assessment: Initial Case, HR=56 BPM, Rhythm=natanael, TCST=709/71 mmhg, Chest Pain=0, Edema=None, Color=Normal, Skin = Warm, Dry Right Pulses: Cristhian Ped=d, Femoral=3 10:50:09 Left Pulses: Cristhian Ped=d, Femoral=3 Neurological: State=Alert, Ox3, STEARNS Respiration: Resp=15 B/min, SpO2=97 % Vitals capture started with the following parameters, Patient=Adult, Interval=5 min, Initial Pr toimcb=183 mmHg, 10:56:06 Deflation Rate=5 mmHg, Cuff placed on Right Arm 10:56:41 HR=59 bpm, HFDM=826/71 mmhg, SpO2=97.0 %, Resp=15 B/min, Pain=0, Anant=10, Perez=2 10:56:46 Reference ECG taken 11:00:39 Bilateral groins prepped with 2% chlorhexidine, and draped after a 3 minute waiting time. 11:02:27 HR=62 bpm, HYLU=849/72 mmhg, SpO2=97.0 %, Resp=14 B/min, Pain=0, Anant=10, Perez=2 11:04:29 MD paged 11:04:49 MD responded 11:06:12 Pressure channel 1 zeroed. 11:06:47 HR=58 bpm, EJQD=442/73 mmhg, SpO2=97.0 %, Resp=13 B/min, Pain=0, Anant=10, Perez=2 11:07:19 MD arrived. 11:07:30 Contrast Scanned 11:07:31 Immediate Presedation assesment performed by physician. Time Out. Correct patient, correct procedure, correct physician, labs, allergies, and equipment verified with mill laborer 11:10:19 team present. Fire risk assesment completed (see hard stop sheet for coding). Time Out Conc urred by MD and individual staff in procedure. 11:10:27 Case Start 11:10:33 Verbal Stimulation=2 Physical Stimulation=2 Airway=2 Respiration=2 TOTAL=8. (0=absent, 1=li mited, 2=present) 11:10:46 1 mg VERSED given in lab by Ochoa Salmon, RN in Right Antecubital via Peripheral IV. Order ed by Arthur. Mimi 25 mcg FENTANYL given in lab by Ochoa Salmon RN in Right Antecubital via Peripheral IV. Order ed by Mimi, 11:10:53 Jacob. 11:11:01 20 mL 1% XYLOCAINE given in lab by Jacob Le in Right Groin via Subcutaneous. 11:11:50 HR=58 bpm, KUTN=979/70 mmhg, SpO2=97.0 %, Resp=15 B/min, Pain=0, Anant=10, Perez=2 11:11:59 Access site was Right Femoral Artery. 11:12:04 A SHEATH, FR4 TERUMO (10CM) FR 4 was advanced into the Fem Art (right) using the Percutaneo us technique. 11:12:31 Saturation: Site=Ao (Aorta) , O2=93.2 %, Hgb=10.6 gm/dl, Condition=Condition 1. Used in vaibhav culation. 11:14:26 Access site was Right Femoral Vein. 11:14:30 A SHEATH, FR5.5 PRELUDE 11CM FR 5.5 was advanced into the Fem Vein (right) using the Percut aneous technique. 11:14:39 A CATHETER, FR5 SWAN FRIDA MONITOR FR 5 was inserted via Fem Vein (right) Recorded Pressure: PCW, HR=57, Condition=Condition 1 11:16:32 (Pulmonary Capillary Wedge) PCW 11:16:45 HR=62 bpm, YTUX=820/68 mmhg, SpO2=94.0 %, Resp=14 B/min, Pain=0, Anant=10, Perez=2 Recorded Pressure: MPA, HR=62, Condition=Condition 1 11:16:48 (Main Pulmonary Artery) MPA 17/10/11 11:17:01 Saturation: Site=PA (Pulmonary Artery) , O2=63.6 %, Hgb=10.6 gm/dl, Condition=Condition 1. Used in calculation. Recorded Pressure: RV, HR=62, Condition=Condition 1 11:17:40 (Right Ventricle) RV --1 Recorded Pressure: RA, HR=57, Condition=Condition 1 11:17:53 (Right Atrium) RA 11:18:07 Saturation: Site=RA (Right Atrium) , O2=67 %, Hgb=10.6 gm/dl, Condition=Condition 1. Used i n calculation. 11:18:22 Prichard Frida Catheter Removed A JR 4.0 INFINITI CATHETER FR 4 was advanced over a wire. OMNIPAQUE, 350 MG, 150ML 150ML was us ed for 11:19:17 injections. Recorded Pressure: LV, HR=61, Condition=Condition 1 11:20:21 (Left Ventricle) LV 81/-22/-20 11:20:22 The LV was manually injected with 10 cc's and visualized. OMNIPAQUE, 350 MG, 150ML 150ML us ed. Recorded Pressure: LV, Ao, HR=59, Condition=Condition 1 11:20:41 (Left Ventricle) LV 135/7/7, (Aorta) Ao 130/56/86 Recorded Pressure: Ao, HR=66, Condition=Condition 1 11:21:08 (Aorta) Ao 123/56/83 11:21:12 The RCA was injected and visualized at various angles. OMNIPAQUE, 350 MG, 150ML 150ML use d. 11:21:18 Catheter was removed A JL 4.0 INFINITI CATHETER FR 4 was advanced over a wire. OMNIPAQUE, 350 MG, 150ML 150ML was u sed for 11:21:19 injections. 11:21:46 HR=68 bpm, RKBO=787/59 mmhg, SpO2=92.0 %, Resp=16 B/min, Pain=0, Anant=10, Perez=2 11:22:58 The LCA was injected and visualized at various angles. OMNIPAQUE, 350 MG, 150ML 150ML use d. 11:26:24 Catheter was removed 11:27:00 Case End 11:27:14 HR=50 bpm, HXIA=058/81 mmhg, GrC3=138.0 %, Resp=14 B/min, Pain=0, Anant=10, Perez=2 11:30:03 Sterile dressing applied to site 11:32:25 VASU=266/111 mmhg, TvJ2=745.0 % Assessment: Initial Case, HR=52 BPM, Rhythm=natanael, VAOP=126/111 mmhg, Chest Pain=0, Edema=None , Color=Normal, Skin = Warm, Dry Right Pulses: Cristhian Ped=d, Femoral=3 11:33:12 Left Pulses: Cristhian Ped=d, Femoral=3 Neurological: State=Alert, Ox3, STEARNS Respiration: Resp=15 B/min, SpO2=97 % 11:33:25 No case complications noted. : Cine recording checked. 11:33:27 Bedside Report will be given. 11:33:29 Verbal Stimulation=2 Physical Stimulation=2 Airway=2 Respiration=2 TOTAL=8. (0=absent, 1=l imited, 2=present) 11:33:37 A Left and Right Heart Cath was performed. 11:33:53 Vitals capture stopped. End Study - Contrast Media Used In Study Contrast Total Opened (mL) Total Used (mL) Total Wasted (mL) Omnipaque 50 50 0 End Study - Maximum Contrast Load Max Contrast Load (mL) 457.1 End Study - Radiation Exposure Fluoro Time (minutes) 2.4 End Study - Patient Disposition Complications Transferred To Interventional Outcome No Director Of Financial Aid Holding No attempt made
[2017-09-15] MEDS ORDERED: SODIUM CHLORIDE 0.9% FLUSH 10 ML FLUSH IV FLUSH PRN ×2 (11:45→14:00)
[2017-09-15] MEDS ORDERED: BACITRACIN OINT 0.9 GM PKT TOP ONE (11:45)
[2017-09-15] MEDS ORDERED: MISC INFORMATION XX ONE (11:45)
--- NOTE | 2017-09-15 12:12 | MR ---
cc: Jacob Le MD DATE: 09/15/2017 DATE OF PROCEDURE: 09/15/2017 PROCEDURE PERFORMED: Right heart catheterization, left heart catheterization, left ventriculography, coronary angiography. INDICATION FOR PROCEDURE: Decompensated congestive heart failure, coronary artery disease, anginal equivalent, [place] Heart Association class III, [place] Cardiovascular Society class III, unstable angina, diabetes. DESCRIPTION OF PROCEDURE: The patient was brought to the cardiac catheterization laboratory and prepped and draped in the usual sterile fashion; 10 mL of 1% lidocaine was used for local anesthetic of the right common femoral artery, a 4-Pashto sheath placed in the right common femoral artery and 5.5-Pashto sheath placed in right common femoral vein. Right heart catheterization was performed first with the following findings: Pulmonary capillary wedge pressure 9/7-4, PA pressure 25/6-12, RV pressure 28/3-1, RA pressure 1/1-1. On room air, the femoral artery sat 93.2%, PA sat 66%, RA sat 67.0%. Radha cardiac output 5.2 liters per minute, Radha cardiac index 2.9 mg/m2 per minute, SVR 1303 Dynes. Left heart catheterization was then performed with a 4-Pashto JR4, JL4 catheter with the following findings: The LV pressure was 135/5-7, EF is 50%. The right coronary artery is dominant, has mild diffuse disease in the proximal segment up to 20% angiographically. The proximal mid stented segment has mild diffuse in-stent stenosis. The mid to distal stented segment has mild diffuse in-stent stenosis. The right posterolateral artery has a mild to moderate in-stent stenosis up to 30-40% angiographically. The right PDA has mild diffuse disease up to 20% angiographically. There are [id number] collaterals to a small diagonal vessel, would estimate the vessel diameter 0.5-1 mm at most. Retrograde filling to the LAD. The left main coronary artery has mild diffuse disease up to 20% angiographically. The LAD is transapical. It has an ostial 90% stenosis. He has focal in-stent stenosis in the proximal segment up to 30-40% angiographically. Left circumflex vessel appears to be flush occluded at the ostium. There appears to be a stent with no flow into it. There is a relatively large ramus vessel. Reference vessel diameter of 3 mm has mild diffuse disease up to 20-30% angiographically. It bifurcates in the proximal mid segment. The medial branch of the bifurcation has an ostial 60% stenosis. CONCLUSION: 1. Moderate to severe 3-vessel coronary artery disease in a right dominant system as detailed above. 2. Patent stents in the proximal and distal right coronary artery and proximal left anterior descending. 3. There appears to be an occluded stent in the proximal circumflex and the circumflex appears to be occluded at the ostium. 4. There is a left to right collateral to a small marginal or diagonal vessel that is about a 0.5-1 mm vessel. 5. Preserved left ventricular systolic function, ejection fraction 50-55%. 6. Normal right heart catheterization pressures. 7. Recommend coronary artery bypass grafting with left internal mammary artery to left anterior descending. Consider vein graft to the ramus intermedius vessel and also to the right posterior descending artery. Case discussed with Dr. Kyler Martines. We will get a preoperative carotid ultrasound and 2-D echocardiogram and cardiothoracic surgery consult placed. Otherwise, continue medical management with aspirin. We will need to hold his Eliquis preoperative and we will treat him with subcutaneous heparin in the interim. MD ANNI Capps/NEDA , 11:43 AM , 12:11 PM
--- NOTE | 2017-09-15 13:47 | PD.CAR.PN ---
CVT Progress Note Subjective/Hospital Course: pt seen and evaluated, full consult to follow sts data discussed with pt tentatively scheduled for CABG x2 wed 09/20 RISK SCORES About the STS Risk Calculator Procedure: CAB Only Risk of Mortality: 5.908% Morbidity or Mortality: 23.473% Long Length of Stay: 17.474% Short Length of Stay: 18.121% Permanent Stroke: 1.163% Prolonged Ventilation: 15.494% DSW Infection: 0.743% Renal Failure: 3.905% Reoperation: 12.37% Objective: Vital Signs Date Time Temp Pulse Resp B/P (MAP) Pulse Ox O2 Delivery O2 Flow Rate FiO2 09/15/17 11:45 97 Room Air 09/15/17 09:55 98 21 09/15/17 08:00 97.5 57 18 147/65 (92) 92 09/15/17 04:15 50 09/15/17 04:00 97.2 56 18 129/58 (81) 96 09/15/17 00:50 52 09/15/17 00:00 97.6 54 18 130/56 (80) 95 09/14/17 18:00 60 18 109/53 (71) 97 09/14/17 15:00 64 18 100/45 (63) 97 Labs: Laboratory Tests Test 09/15/17 06:40 White Blood Count 3.1 TH/MM3 (4.0-11.0) Red Blood Count 3.08 MIL/MM3 (4.50-5.90) Hemoglobin 10.6 GM/DL (13.0-17.0) Hematocrit 31.6 % (39.0-51.0) Mean Corpuscular Volume 102.6 FL (80.0-100.0) Mean Corpuscular Hemoglobin 34.6 PG (27.0-34.0) Mean Corpuscular Hemoglobin Concent 33.7 % (32.0-36.0) Red Cell Distribution Width 19.6 % (11.6-17.2) Platelet Count 191 TH/MM3 (150-450) Mean Platelet Volume 8.0 FL (7.0-11.0) Neutrophils (%) (Auto) 54.0 % (16.0-70.0) Lymphocytes (%) (Auto) 24.6 % (9.0-44.0) Monocytes (%) (Auto) 15.3 % (0.0-8.0) Eosinophils (%) (Auto) 5.2 % (0.0-4.0) Basophils (%) (Auto) 0.9 % (0.0-2.0) Neutrophils # (Auto) 1.7 TH/MM3 (1.8-7.7) Lymphocytes # (Auto) 0.8 TH/MM3 (1.0-4.8) Monocytes # (Auto) 0.5 TH/MM3 (0-0.9) Eosinophils # (Auto) 0.2 TH/MM3 (0-0.4) Basophils # (Auto) 0.0 TH/MM3 (0-0.2) CBC Comment DIFF FINAL Differential Comment Blood Urea Nitrogen 21 MG/DL (7-18) Creatinine 0.78 MG/DL (0.60-1.30) Random Glucose 86 MG/DL (74-106) Calcium Level 8.9 MG/DL (8.5-10.1) Magnesium Level 1.9 MG/DL (1.5-2.5) Sodium Level 143 MEQ/L (136-145) Potassium Level 4.6 MEQ/L (3.5-5.1) Chloride Level 104 MEQ/L (98-107) Carbon Dioxide Level 33.7 MEQ/L (21.0-32.0) Anion Gap 5 MEQ/L (5-15) Estimat Glomerular Filtration Rate 96 ML/MIN (>89) B-Type Natriuretic Peptide 170 PG/ML (0-100) Result Diagram: 09/15/17 0640 09/15/17 0640 (1) CHF (congestive heart failure) (2) CHF exacerbation (3) HTN (hypertension) (4) Diabetes mellitus (5) CAD (coronary artery disease) (6) Pleural effusion Problem Qualifiers (1) CHF exacerbation: Qualified Codes: I50.9 - Heart failure, unspecified Pamela Duenas September 15, 2017 13:47
[2017-09-15] MEDS ORDERED: PAPAVERINE INJ 60 MG, NITROGLYCERIN INJ 100 MCG, VERAPAMIL INJ 100 MG in SODIUM CHLORID... IRRIGATION SCH (14:00)
[2017-09-15] MEDS ORDERED: INSULIN REGULAR (IV INFUSION) 100 UNITS in SODIUM CHLORIDE 0.9% INJ 99 ML IV PRN (14:00)
[2017-09-15] MEDS ORDERED: CEFAZOLIN INJ 500 MG in SODIUM CHLORIDE 0.9% IRR BTL 500 ML IRRIGATION SCH (14:00)
[2017-09-15] MEDS ORDERED: DEXTROSE 50% IN WATER 50 ML VIAL(D50) IV PUSH PRN (14:00)
[2017-09-15] MEDS ORDERED: METOPROLOL TARTRATE 25 MG TAB PO SCH (14:00)
[2017-09-15] MEDS ORDERED: CHLORHEXIDINE GLUCONATE 4% SOLN 120 ML BTL TOPICAL SCH (14:00)
[2017-09-15] MEDS ORDERED: ceFAZolin 2 GM PREMIX 50 ML IV SCH (14:00)
[2017-09-15] MEDS ORDERED: PILL SPLITTER OTHER PRN (14:30)
--- NOTE | 2017-09-15 14:51 | RADRPT ---
EXAM DATE: 09/15/2017 2:27 PM EDT AGE/SEX: 77 years / Male INDICATIONS: Weakness. CLINICAL DATA: This is the patient's initial encounter. Patient reports that signs and symptoms have been present for 1 day and indicates a pain score of 0/10. MEDICAL/SURGICAL HISTORY: . Blind left eye. Dizziness. Numbness. Heart attack. Congestive heart failure. Hypercholesterolemia. Irregular heart beat. Hypertension. Pneumonia. Dyspnea. GERD. Prostat e cancer. Arthritis. Shingles. . Knee surgery. Right arthroscopy knee. Cryoablation, prostate. COMPARISON: No prior [facility] exams available for comparison. [facility] Ultrasound right leg, 2016-07-22 VELOCITY PARAMETERS: ICA/CCA Ratio: Right 1.9 , Left 2.2 ICA: Right 140 cm/sec, Left 189 cm/sec CCA: Right 74 cm/sec, Left 84 cm/sec ECA: Right 106 cm/sec, Left 136 cm/sec Vertebral: Right not seen cm/sec absent, Left 96 cm/sec antegrade FINDINGS: Right Carotid: Waveforms are within normal limits. Ratio consistent with moderate, 50-69% stenosis. Left Carotid: Waveforms are within normal limits. Ratio consistent with moderate, 50-69% stenosis. Other: None. CONCLUSION: 1. Right Internal Carotid Artery: Findings indicate 50-69% stenosis. 2. Left Internal Carotid Artery: Findings indicate 50-69% stenosis. Electronically signed by: Bradford Quach MD 09/15/2017 2:49 PM EDT
--- NOTE | 2017-09-15 15:30 | MB ---
cc: Pamela Duenas Jacqueline R ARNP DATE: 09/15/2017 HISTORY OF PRESENT ILLNESS: This is a 77-year-old male, patient of Dr. Cheikh Funes and Dr. Jacob Le, with history of coronary artery disease, prior stenting x4. He had 3 stents placed last year by Dr. Le. Also, history of trifascicular block, atrial fibrillation, recent new onset of CHF, started on Entresto by primary care physician. He had been recently discharged in July for sepsis, pneumonia, also with weight loss of 30 pounds over the last 2 years. On admission, he complained of fatigue, loss of appetite. He was also having pain on both sides of his neck, described as pressure-like. He underwent cardiac catheterization today for unstable angina, CHF, CAD. EF was 50%. Proximal LAD had a 90% ostial lesion, diagonal 100%. The RCA was 50%. We were consulted to evaluate for coronary artery bypass graft x2 to the LAD and the diagonal. PAST MEDICAL HISTORY: Includes prior ND in 2002. He had a stent back then and he also had 3 stents last year. Autoimmune disorder, was on Imuran in the past and prednisone in the past. Atrial fibrillation, on Eliquis. He had a history of a pulmonary emboli in March 2017, at that time was on Coumadin. Prostate cancer, hyperlipidemia, diabetes, history of radiation therapy, right knee arthroscopic surgery and cardiac catheterization. ALLERGIES: THE PATIENT HAS NO KNOWN ALLERGIES. HOME MEDICATIONS: Include: 1. Metformin 500 b.i.d. 2. Restasis. 3. Aspirin 81 daily. 4. Vitamin B6. 5. Vitamin B12. 6. Vitamin C. 7. Multivitamin. 8. Eliquis 5 p.o. b.i.d. 9. Lyrica 100 b.i.d. 10. Mirtazapine. 11. Omeprazole. 12. Insulin sliding scale. 13. Entresto 24/26 p.o. daily. FAMILY HISTORY: Noncontributory. SOCIAL HISTORY: The patient is . No tobacco or alcohol. REVIEW OF SYSTEMS: As above in HPI. Other 12-system unremarkable. PHYSICAL EXAMINATION: VITAL SIGNS: Blood pressure 146/60, heart rate of 57, afebrile. Room air saturation 97%. GENERAL: Awake, alert, in no acute distress. HEENT: Head is normocephalic, atraumatic. Pupils equal and reactive. Oral mucosa pink, moist. NECK: Supple. No JVD. CARDIOVASCULAR: Heart sounds S1, S2. Regular rate and rhythm. No audible rubs, murmurs or gallops. ABDOMEN: Flat, soft, nontender. No masses or organomegaly. EXTREMITIES: Reveal chronic venous stasis. He does have a skin tear to his left anterior pelletier. LABORATORY DATA: Per 's note, there was an echocardiogram in the past that showed a right bundle branch block, left fascicular block, EF of 55%, some hypokinesis of the anterior wall. ASSESSMENT AND PLAN: This is a 77-year-old male with multiple comorbidities including autoimmune disorder, history of prostate cancer, radiation therapy, history of prior myocardial infarction and stenting. Also, history of pulmonary emboli in March 2017, now has undergone coronary catheterization with two vessel disease. Ejection fraction 50%. At this time, complete workup will include carotid ultrasound, leg vein mapping pulmonary function testing. The patient's overall appearance is very weak and frail. The STS data will be documented once the echo has been completely reported. ROWENA Carrington MD JRT/OSVALDO , 01:34 PM , 03:30 PM
--- NOTE | 2017-09-15 16:06 | RADRPT ---
EXAM DATE: 09/15/2017 3:59 PM EDT AGE/SEX: 77 years / Male INDICATIONS: Pre op cardiac surgery. CLINICAL DATA: This is the patient's initial encounter. Patient reports that signs and symptoms have been present for 1 day and indicates a pain score of 0/10. MEDICAL/SURGICAL HISTORY: . Blind left eye. Dizziness. Numbness. Heart attack. Congestive heart failure. Hypercholesterolemia. Irregular heart beat. Hypertension. Pneumonia. Dyspnea. GERD. Prostat e cancer. Arthritis. Shingles. . Right arthroscopy knee. Cryoablation, prostate. Knee surgery. COMPARISON: [facility] [place], US LEG BILATERAL VENOUS DOPPLER, 04/20/2017. . [facility], US LEG PAMELA OUS DOPPLER, RIGHT 2016-07-22 TECHNIQUE: Venous ultrasound of both lower extremities was performed from the inguinal ligament to t he proximal calf. Real-time, color Doppler and spectral tracing, compression and augmentation techni ques were used. FINDINGS: Right Leg: There is normal compressibility of the deep venous system from the inguinal region to the proximal calf. No echogenic clot is seen in the lumen of the common femoral, femoral, popliteal, an d posterior tibial veins. There is a normal response of the venous system to proximal and distal aug mentation and respiration. Left Leg: There is normal compressibility of the deep venous system from the inguinal region to the proximal calf. No echogenic clot is seen in the lumen of the common femoral, femoral, popliteal, and posterior tibial veins. There is a normal response of the venous system to proximal and distal augm entation and respiration. CONCLUSION: The study is negative for bilateral lower extremity deep venous thrombosis. Electronically signed by: Jesus Dias MD 09/15/2017 4:04 PM EDT
--- NOTE | 2017-09-15 16:20 | RADRPT ---
EXAM DATE: 09/15/2017 3:59 PM EDT AGE/SEX: 77 years / Male INDICATIONS: Pre op cardiac surgery. CLINICAL DATA: This is the patient's initial encounter. Patient reports that signs and symptoms have been present for 1 day and indicates a pain score of 0/10. MEDICAL/SURGICAL HISTORY: . Blind left eye. Dizziness. Numbness. Heart attack. Congestive heart failure. Hypercholesterolemia. Irregular heart beat. Hypertension. Pneumonia. Dyspnea. GERD. Prostat e cancer. Arthritis. Shingles. . Right arthroscopy knee. Cryoablation, prostate. Knee surgery. COMPARISON: No prior [place] exams available for comparison. MEASUREMENTS: RIGHT THIGH: Proximal:__3 mm Mid:__ 1 mm Distal:__1 mm LEFT THIGH: Proximal:__4 mm Mid:__1 mm Distal:__1 mm RIGHT CALF: Proximal:__Non-visualized Mid:__Non-visualized Distal:__Non-visualized LEFT CALF: Proximal:__Non-visualized Mid:__Non-visualized Distal:__Non-visualized FINDINGS: The thigh venous system of the lower extremities are patent by color Doppler imaging. The greater sap henous vein is small in caliber bilaterally and not well demonstrated beyond the distal thigh on the right and mid thigh on the left. Calf veins are not visualized. Measurements of the leg veins (in mm ) are listed above. CONCLUSION: 1. Right lower extremity venous mapping, as above. Electronically signed by: Bradford Quach MD 09/15/2017 4:19 PM EDT
--- NOTE | 2017-09-15 19:50 | ECHRPT ---
Indication: Heart failure, unspecified CONCLUSIONS The left ventricular systolic function is low normal with an estimated ejection fraction in the rang e of 50- 55%. Wall thickness is normal. Normal left ventricular size. There is moderate tricuspid regurgitation. The estimated pulmonary arterial pressure is 42.3 mmHg. mid anterior wall appears hypokinetic BP: / HR: Rhythm: Sinus MEASUREMENTS (Male / Female) Normal Values Technical Quality:Fair 2D ECHO LV Diastolic Diameter PLAX 4.9 cm 4.2 - 5.9 / 3.9 - 5.3 cm LV Systolic Diameter PLAX 3.9 cm IVS Diastolic Thickness 1.3 cm 0.6 - 1.0 / 0.6 - 0.9 cm LVPW Diastolic Thickness 1.3 cm 0.6 - 1.0 / 0.6 - 0.9 cm LV Relative Wall Thickness 0.5 LVOT Diameter 2.3 cm M-MODE Aortic Root Diameter MM 2.9 cm LA Systolic Diameter MM 4.5 cm LA Ao Ratio MM 1.6 AV Cusp Separation MM 1.6 cm DOPPLER AV Peak Velocity 157.0 cm/s AV Peak Gradient 9.9 mmHg LVOT Peak Velocity 64.2 cm/s LVOT Peak Gradient 1.6 mmHg AV Area Cont Eq pk 1.7 cm Mitral E Point Velocity 92.8 cm/s Mitral A Point Velocity 86.9 cm/s Mitral E to A Ratio 1.1 LV E' Lateral Velocity 7.9 cm/s Mitral E to LV E' Lateral Ratio 11.7 TR Peak Velocity 284.0 cm/s TR Peak Gradient 32.3 mmHg Right Atrial Pressure 10.0 mmHg Pulmonary Artery Systolic Pressu 42.3 mmHg Right Ventricular Systolic Press 42.3 mmHg PV Peak Velocity 117.0 cm/s PV Peak Gradient 5.5 mmHg FINDINGS LEFT VENTRICLE The left ventricular systolic function is low normal with an estimated ejection fraction in the rang e of 50- 55%. Wall thickness is normal. Normal left ventricular size. RIGHT VENTRICLE Normal right ventricular size and systolic function. LEFT ATRIUM The left atrial size is normal. RIGHT ATRIUM The right atrial size is normal. ATRIAL SEPTUM Normal atrial septal thickness without atrial level shunting by limited color doppler interrogation. AORTA The aortic root and proximal ascending aorta are normal in size on limited imaging. MITRAL VALVE Structurally normal mitral valve. No mitral valve stenosis or regurgitation. AORTIC VALVE Trileaflet aortic valve. No aortic valve stenosis or regurgitation. TRICUSPID VALVE There is moderate tricuspid regurgitation. The estimated pulmonary arterial pressure is 42.3 mmHg. PULMONARY VALVE No pulmonary valve regurgitation or stenosis. VESSELS The inferior vena cava is normal in size. PERICARDIUM No pericardial effusion. Jacob Le MD, FACC, [facility] Edited by: estate administrator estate administrator (Electronically Signed) Final Date:12 Sep 2017 17:39 Amended: 15 Sep 2017 19:49
[2017-09-15] MEDS: MIRTAZAPINE 15 MG TAB PO SCH (20:14)
[2017-09-15] MEDS: HEPARIN SODIUM - SQ 10,000 UNITS/ML VIAL SQ SCH (20:17)
[2017-09-15] MEDS ORDERED: SODIUM CHLORIDE 0.9% FLUSH 10 ML FLUSH IV FLUSH SCH (21:00)
[2017-09-16] VITALS (22 sets, daily range): BP systolic 85–120; BP diastolic 43–62; PULSE 46–140; RESP 16–20; TEMP 97.7–99.8; O2SAT 94–99
[2017-09-16 05:58] LABS: AUTOMATED NEUTROPHIL # 1.4 TH/MM3 (1.8-7.7); EOSINOPHIL # 0.1 TH/MM3 (0-0.4); EOSINOPHIL % 5.2 % (0.0-4.0); HEMOGLOBIN 10.2 GM/DL (13.0-17.0); LYMPH % 27.5 % (9.0-44.0); LYMPHOCYTE # 0.8 TH/MM3 (1.0-4.8); MEAN CORPUSCULAR HEMOGLOBIN 35.1 PG (27.0-34.0); MEAN CORPUSCULAR HGB CONC 34.1 % (32.0-36.0); MEAN PLATELET VOLUME 8.3 FL (7.0-11.0); MONO % 16.6 % (0.0-8.0); MONOCYTE # 0.5 TH/MM3 (0-0.9); NEUT % 49.7 % (16.0-70.0); PLATELET COUNT 181 TH/MM3 (150-450); RED BLOOD COUNT 2.91 MIL/MM3 (4.50-5.90); RED CELL DISTRIBUTION WIDTH 19.3 % (11.6-17.2); WHITE BLOOD COUNT 2.7 TH/MM3 (4.0-11.0)
[2017-09-16 06:18] LABS: BICARBONATE 32.9 MEQ/L (21.0-32.0); CALCIUM 8.8 MG/DL (8.5-10.1); CREATININE 0.74 MG/DL (0.60-1.30)
[2017-09-16 06:20] LABS: CHOLESTEROL/ HDL RATIO 2.86 RATIO; HDL CHOLESTEROL 49.9 MG/DL (40.0-60.0)
[2017-09-16] MEDS: INSULIN ASPART SUPPLEMENTAL SCALE SQ SCH ×4 (08:00→22:04)
[2017-09-16] MEDS: FUROSEMIDE 20 MG/2 ML VIAL IV PUSH SCH ×2 (08:20→17:09)
[2017-09-16] MEDS: PANTOPRAZOLE SOD 20 MG DELAYED RELEASE TAB PO SCH (08:20)
[2017-09-16] MEDS: POTASSIUM CHLORIDE 20 MEQ CONTROLLED RELEASE TAB PO SCH ×2 (08:20→22:02)
[2017-09-16] MEDS: HEPARIN SODIUM - SQ 10,000 UNITS/ML VIAL SQ SCH (08:20)
[2017-09-16] MEDS: PREGABALIN 100 MG CAP PO SCH ×2 (08:21→22:03)
[2017-09-16] MEDS: ASPIRIN 81 MG CHEW TAB PO SCH (08:21)
[2017-09-16] MEDS: SODIUM CHLORIDE 0.9% FLUSH 10 ML FLUSH IV FLUSH SCH ×2 (08:21→22:04)
[2017-09-16] MEDS: DOCUSATE SODIUM 50 MG/SENNA 8.6 MG TAB PO SCH ×2 (08:21→21:00)
[2017-09-16] MEDS: LACTULOSE SYRUP 20 GM/30 ML CUP PO PRN (08:23)
[2017-09-16] MEDS ORDERED: ENOXAPARIN SODIUM 60 MG/0.6 ML SYRINGE SQ ONE (11:00)
--- NOTE | 2017-09-16 11:17 | PD.CARD.PN ---
Subjective Subjective Remarks alert in nad Objective Medications Current Medications Medications (Trade) Dose Ordered Sig/Jasper Route Start Time Stop Time Status Last Admin (Nitrostat Sl) 0.4 mg Q5M PRN SL 09/12/17 13:30 (Tylenol) 650 mg Q4H PRN PO 09/12/17 13:30 (Zofran Odt) 4 mg Q6H PRN PO 09/12/17 13:30 (Tylenol) 650 mg Q6H PRN PO 09/12/17 13:30 (Narcan Inj) 0.4 mg UNSCH PRN IV PUSH 09/12/17 13:30 (Jessenia-Colace) 1 tab BID PO 09/12/17 21:00 09/16/17 08:21 (Milk Of Magnesia Liq) 30 ml Q12H PRN PO 09/12/17 13:30 (Senokot) 17.2 mg Q12H PRN PO 09/12/17 13:30 (Dulcolax Supp) 10 mg DAILY PRN RECTAL 09/12/17 13:30 (Lactulose Liq) 30 ml DAILY PRN PO 09/12/17 13:30 09/16/17 08:23 (D50w (Vial) Inj) 50 ml UNSCH PRN IV PUSH 09/12/17 13:45 (Glucagon Inj) 1 mg UNSCH PRN OTHER 09/12/17 13:45 (NovoLOG SUPPLEMENTAL SCALE) 1 ACHS SLIDING SCALE SQ 09/12/17 17:00 (Glucophage) 500 mg BIDPC PO 09/12/17 18:00 Future Hold 09/13/17 17:20 (Remeron) 15 mg HS PO 09/12/17 21:00 09/15/17 20:14 (Refresh Classic 1.4-0.6% Pf Opth Soln) 2 drop 5 TIMES A DAY PRN EACH EYE 09/12/17 17:30 (Lyrica) 100 mg BID PO 09/12/17 21:00 09/16/17 08:21 Patient Own Medication PT OWN MED:RESTASIS OPHTH DROPS BID EACH EYE 09/12/17 21:00 Future Hold (Protonix) 20 mg DAILY PO 09/13/17 09:00 09/16/17 08:20 (Lasix Inj) 20 mg BID@ IV PUSH 09/13/17 09:00 09/16/17 08:20 (KCl) 20 meq Q12HR PO 09/13/17 12:00 09/16/17 08:20 (Aspirin Chew) 162 mg DAILY PO 09/14/17 09:00 09/16/17 08:21 (NS Flush) 2 ml BID IV FLUSH 09/15/17 21:00 09/16/17 08:21 (NS Flush) 2 ml UNSCH PRN IV FLUSH 09/15/17 14:00 Papaverine HCl 60 mg/Nitroglycerin 100 mcg/Verapamil HCl 100 mg/Sodium Chloride 100 ml @ 0 mls/hr SECOND OPERATOR IRRIGATION 09/15/17 14:00 09/22/17 13:59 Cefazolin Sodium 500 mg/Sodium Chloride 505 ml @ 0 mls/hr SECOND OPERATOR IRRIGATION 09/15/17 14:00 09/22/17 13:59 Cefazolin Sodium/ Dextrose 50 ml @ 150 mls/hr SECOND OPERATOR IV 09/15/17 14:00 09/22/17 13:59 (Lopressor) 12.5 mg SECOND OPERATOR PO 09/15/17 14:00 09/22/17 13:59 (Hibiclens 4% Top Soln) 1 applic SECOND OPERATOR TOPICAL 09/15/17 14:00 09/22/17 13:59 Insulin Human Regular 100 units/ Sodium Chloride 100 ml @ 3 mls/hr TITRATE PRN IV 09/15/17 14:00 09/22/17 13:59 (D50w (Vial) Inj) 50 ml UNSCH PRN IV PUSH 09/15/17 14:00 (Pill Splitter) 1 ea UNSCH PRN OTHER 09/15/17 14:30 (Lovenox Inj) 60 mg Q12H SQ 09/16/17 23:00 Vital Signs / I&O Vital Signs Date Time Temp Pulse Resp B/P (MAP) Pulse Ox O2 Delivery O2 Flow Rate FiO2 09/16/17 09:33 16 09/16/17 08:00 72 09/16/17 08:00 97.8 72 16 120/54 (76) 95 09/16/17 06:12 60 09/16/17 05:00 67 09/16/17 04:00 46 09/16/17 03:28 97.7 57 18 113/46 (68) 98 09/16/17 03:00 58 09/16/17 02:00 50 09/16/17 01:00 56 09/16/17 00:00 58 09/15/17 23:23 97.8 60 19 106/54 (71) 98 09/15/17 23:00 64 09/15/17 22:00 56 09/15/17 21:00 60 09/15/17 21:00 21 09/15/17 20:05 97.7 59 18 144/70 (94) 97 09/15/17 20:00 60 09/15/17 19:00 50 09/15/17 18:00 60 09/15/17 17:00 58 09/15/17 16:00 54 09/15/17 15:00 52 09/15/17 14:00 64 09/15/17 13:45 97.7 56 16 127/52 (77) 96 09/15/17 11:45 97 Room Air I/O 09/15/17 09/15/17 09/15/17 09/16/17 09/16/17 09/16/17 07:00 15:00 23:00 07:00 15:00 23:00 Intake Total 240 ml 300 ml 360 ml Output Total 200 ml 700 ml Balance 240 ml 100 ml -340 ml Intake Oral 240 ml 300 ml 360 ml Output Urine Total 200 ml 700 ml # Voids 2 1 Physical Exam GENERAL: SKIN: Warm and dry. HEAD: Normocephalic. EYES: No scleral icterus. No injection or drainage. NECK: Supple, trachea midline. No JVD or lymphadenopathy. CARDIOVASCULAR: Regular rate and rhythm without murmurs, gallops, or rubs. RESPIRATORY: Breath sounds equal bilaterally. No accessory muscle use. GASTROINTESTINAL: Abdomen soft, non-tender, nondistended. MUSCULOSKELETAL: No cyanosis, or edema. BACK: Nontender without obvious deformity. No CVA tenderness. Laboratory Laboratory Tests Test 09/15/17 23:28 09/16/17 05:05 Nasal Screen MRSA (PCR) MRSA NOT DETECTED White Blood Count 2.7 TH/MM3 Red Blood Count 2.91 MIL/MM3 Hemoglobin 10.2 GM/DL Hematocrit 30.0 % Mean Corpuscular Volume 103.0 FL Mean Corpuscular Hemoglobin 35.1 PG Mean Corpuscular Hemoglobin Concent 34.1 % Red Cell Distribution Width 19.3 % Platelet Count 181 TH/MM3 Mean Platelet Volume 8.3 FL Neutrophils (%) (Auto) 49.7 % Lymphocytes (%) (Auto) 27.5 % Monocytes (%) (Auto) 16.6 % Eosinophils (%) (Auto) 5.2 % Basophils (%) (Auto) 1.0 % Neutrophils # (Auto) 1.4 TH/MM3 Lymphocytes # (Auto) 0.8 TH/MM3 Monocytes # (Auto) 0.5 TH/MM3 Eosinophils # (Auto) 0.1 TH/MM3 Basophils # (Auto) 0.0 TH/MM3 CBC Comment DIFF FINAL Differential Comment Blood Urea Nitrogen 22 MG/DL Creatinine 0.74 MG/DL Random Glucose 80 MG/DL Calcium Level 8.8 MG/DL Sodium Level 142 MEQ/L Potassium Level 4.3 MEQ/L Chloride Level 104 MEQ/L Carbon Dioxide Level 32.9 MEQ/L Anion Gap 5 MEQ/L Estimat Glomerular Filtration Rate 102 ML/MIN Triglycerides Level 101 MG/DL Cholesterol Level 143 MG/DL LDL Cholesterol 73 MG/DL HDL Cholesterol 49.9 MG/DL Cholesterol/HDL Ratio 2.86 RATIO Assessment and Plan Problem List: (1) CHF (congestive heart failure) ICD Codes: I50.9 - Heart failure, unspecified (2) CHF exacerbation ICD Codes: I50.9 - Heart failure, unspecified Status: Acute (3) HTN (hypertension) ICD Codes: I10 - Essential (primary) hypertension Status: Chronic (4) Diabetes mellitus ICD Codes: E11.9 - Type 2 diabetes mellitus without complications Status: Chronic (5) CAD (coronary artery disease) ICD Codes: I25.10 - Atherosclerotic heart disease of [place] coronary artery without angina pectoris Status: Chronic (6) Pleural effusion ICD Codes: J90 - Pleural effusion, not elsewhere classified Status: Acute Assessment and Plan 1.) 3 vessel cad - assymptomatic, cabg per Dr Martines, change sq hep to lovenox due h/o pe 04/09; continue aspirin, statin held due ldl=73 @ goal, f/h daily bnp ,bmp,cbc,mag, f/u carotid us, Problem Qualifiers (1) CHF exacerbation: Qualified Codes: I50.9 - Heart failure, unspecified Jacob Le MD September 16, 2017 11:17
--- NOTE | 2017-09-16 11:38 | HHI.PR ---
Subjective Remarks up in chair sitting- feels well no complains had a small BM this am- formed no nausea or vomiting "gone" states leg swelling resolved voice- hoarse- x about 3-4 weeks- was evaluated by ? ENT in the past- will try to get more history Objective Vitals Vital Signs Date Time Temp Pulse Resp B/P (MAP) Pulse Ox O2 Delivery O2 Flow Rate FiO2 09/16/17 09:33 16 09/16/17 08:00 72 09/16/17 08:00 97.8 72 16 120/54 (76) 95 09/16/17 06:12 60 09/16/17 05:00 67 09/16/17 04:00 46 09/16/17 03:28 97.7 57 18 113/46 (68) 98 09/16/17 03:00 58 09/16/17 02:00 50 09/16/17 01:00 56 09/16/17 00:00 58 09/15/17 23:23 97.8 60 19 106/54 (71) 98 09/15/17 23:00 64 09/15/17 22:00 56 09/15/17 21:00 60 09/15/17 21:00 21 09/15/17 20:05 97.7 59 18 144/70 (94) 97 09/15/17 20:00 60 09/15/17 19:00 50 09/15/17 18:00 60 09/15/17 17:00 58 09/15/17 16:00 54 09/15/17 15:00 52 09/15/17 14:00 64 09/15/17 13:45 97.7 56 16 127/52 (77) 96 09/15/17 11:45 97 Room Air I/O 09/15/17 09/15/17 09/15/17 09/16/17 09/16/17 09/16/17 07:00 15:00 23:00 07:00 15:00 23:00 Intake Total 240 ml 300 ml 360 ml Output Total 200 ml 700 ml Balance 240 ml 100 ml -340 ml Intake Oral 240 ml 300 ml 360 ml Output Urine Total 200 ml 700 ml # Voids 2 1 Result Diagram: 09/16/17 0505 09/16/17 0505 Imaging Last Impressions Lower Extremity Ultrasound 09/15/17 0000 Signed Impressions: CONCLUSION: 1. Right lower extremity venous mapping, as above. Carotid Artery Ultrasound 09/15/17 0000 Signed Impressions: CONCLUSION: 1. Right Internal Carotid Artery: Findings indicate 50-69% stenosis. 2. Left Internal Carotid Artery: Findings indicate 50-69% stenosis. Chest X-Ray 09/12/17 1030 Signed Impressions: CONCLUSION: Persistent bilateral effusions Objective Remarks awake malgorzata lert, up in chair no acute distress hoarse voice anciteric lungs- decreased breath sounds, no rales or wheedzes, no rales regular rhythm abdomen soft, nontender LE no edema , right pelletier with horizontal lacerations uperficial no bleeding Procedures 09/15- cardiac cath Moderate to severe 3-vessel coronary artery disease in a right dominant system as detailed above. Preserved left ventricular systolic function, ejection fraction 50-55%. A/P Problem List: (1) CHF exacerbation ICD Code: I50.9 - Heart failure, unspecified Status: Acute (2) Neck pain ICD Code: M54.2 - Cervicalgia Status: Acute (3) Pleural effusion ICD Code: J90 - Pleural effusion, not elsewhere classified Status: Acute Assessment and Plan This is a 77-year-old male who presents to the emergency department complaining of generalized weakness, dizzy with considerably low BP 100/76 recently started on Entresto. He was also recently treated for pneumonia and sepsis and completed course of Augmentin. Generalized weakness likely related to hypotension from Entresto.- It could also be related to his recent pneumonia and sepsis patient with leukopenia. - clinically feeling stronger He is improving PT recommends home care. - Follow-up blood culture shows no growth CAD S/P with 3 VD, EF 50-55% on cath Hyperlipidemia HYpertension- SBP 90-100, SR- 70s History of PE- 03/2017 -cardiology ff. on ASA - clinically feeling better, leg swelling resolved - Cardiothoracic surgery consulted for CABG - LDL 70s- statins held by Cardiology - on Eliquisis changed to Lovenox bid - decrease lasix to once daily- slightly increasing BUN - ff BMP in am GERD - continue PPI DM type 2 insulin requiring- - on Lantus sliding scale as OP - ff blood sugar right leg wound- consult wound care team for recommendation Leukopenia- recheck in am Microscopic hematuria. Outpatient follow-up Multiple medical chronic conditions of arthritis, prostate cancer status post cryosurgery and radiation therapy, hyperlipidemia, GERD, Continue outpatient medications as appropriate. Monitor fingersticks sliding scale coverage, blood sugars with adequate control DVT prophylaxis- placed on Lovenox. mohini was DC 09/14 Problem Qualifiers (1) CHF exacerbation: Qualified Codes: I50.9 - Heart failure, unspecified Pérez Oleary MD September 16, 2017 11:38
[2017-09-16] MEDS ORDERED: SODIUM CHLOR 0.9% 1000 ML INJ 1,000 ML IV ONE (18:00)
[2017-09-16] MEDS: METOPROLOL TARTRATE 25 MG TAB PO SCH ×2 (18:11→22:03)
[2017-09-16] MEDS: MIRTAZAPINE 15 MG TAB PO SCH (22:03)
[2017-09-16] MEDS: ENOXAPARIN SODIUM 60 MG/0.6 ML SYRINGE SQ SCH (23:00)
[2017-09-17] VITALS (22 sets, daily range): BP systolic 85–150; BP diastolic 50–75; PULSE 48–90; RESP 16–20; TEMP 98–98.7; O2SAT 92–99
[2017-09-17 05:27] LABS: HEMATOCRIT 28.4 % (39.0-51.0); HEMOGLOBIN 9.7 GM/DL (13.0-17.0); MEAN CELL VOLUME 104.5 FL (80.0-100.0); MEAN CORPUSCULAR HEMOGLOBIN 35.6 PG (27.0-34.0); MEAN CORPUSCULAR HGB CONC 34.1 % (32.0-36.0); MEAN PLATELET VOLUME 8.7 FL (7.0-11.0); PLATELET COUNT 162 TH/MM3 (150-450); RED BLOOD COUNT 2.71 MIL/MM3 (4.50-5.90); RED CELL DISTRIBUTION WIDTH 19.9 % (11.6-17.2); WHITE BLOOD COUNT 4.6 TH/MM3 (4.0-11.0)
[2017-09-17 05:52] LABS: BICARBONATE 30.1 MEQ/L (21.0-32.0); CALCIUM 8.3 MG/DL (8.5-10.1); CREATININE 1.16 MG/DL (0.60-1.30)
[2017-09-17] MEDS: METOPROLOL TARTRATE 25 MG TAB PO SCH ×3 (06:00→22:00)
[2017-09-17] MEDS: INSULIN ASPART SUPPLEMENTAL SCALE SQ SCH ×4 (08:00→20:35)
[2017-09-17] MEDS ORDERED: FUROSEMIDE 20 MG/2 ML VIAL IV PUSH SCH (09:00)
--- NOTE | 2017-09-17 09:23 | PD.CAR.PN ---
CVT Progress Note Subjective/Hospital Course: Very frail. Clinically stable. OR Monday second case Objective: Vital Signs Date Time Temp Pulse Resp B/P (MAP) Pulse Ox O2 Delivery O2 Flow Rate FiO2 09/17/17 05:16 80 16 118/64 (82) 92 09/17/17 05:16 80 09/17/17 00:00 98.0 88 18 85/50 (62) 95 09/17/17 00:00 90 09/16/17 23:15 16 09/16/17 21:30 99.8 105 20 103/58 (73) 95 09/16/17 21:30 107 09/16/17 21:13 94 21 09/16/17 18:00 140 09/16/17 17:00 110 09/16/17 16:00 98.7 86 16 108/57 (74) 96 09/16/17 16:00 92 09/16/17 15:00 86 09/16/17 14:00 76 09/16/17 13:00 74 09/16/17 13:00 96/62 (73) 09/16/17 12:00 97.9 69 16 85/43 (57) 99 09/16/17 12:00 73 09/16/17 11:00 74 09/16/17 10:00 82 Labs: Laboratory Tests Test 09/17/17 04:29 White Blood Count 4.6 TH/MM3 (4.0-11.0) Red Blood Count 2.71 MIL/MM3 (4.50-5.90) Hemoglobin 9.7 GM/DL (13.0-17.0) Hematocrit 28.4 % (39.0-51.0) Mean Corpuscular Volume 104.5 FL (80.0-100.0) Mean Corpuscular Hemoglobin 35.6 PG (27.0-34.0) Mean Corpuscular Hemoglobin Concent 34.1 % (32.0-36.0) Red Cell Distribution Width 19.9 % (11.6-17.2) Platelet Count 162 TH/MM3 (150-450) Mean Platelet Volume 8.7 FL (7.0-11.0) Blood Urea Nitrogen 26 MG/DL (7-18) Creatinine 1.16 MG/DL (0.60-1.30) Random Glucose 94 MG/DL (74-106) Calcium Level 8.3 MG/DL (8.5-10.1) Magnesium Level 2.0 MG/DL (1.5-2.5) Sodium Level 143 MEQ/L (136-145) Potassium Level 4.5 MEQ/L (3.5-5.1) Chloride Level 107 MEQ/L (98-107) Carbon Dioxide Level 30.1 MEQ/L (21.0-32.0) Anion Gap 6 MEQ/L (5-15) Estimat Glomerular Filtration Rate 61 ML/MIN (>89) B-Type Natriuretic Peptide 904 PG/ML (0-100) Result Diagram: 09/17/179 09/17/17428 (1) CHF (congestive heart failure) (2) CHF exacerbation (3) HTN (hypertension) (4) Diabetes mellitus (5) CAD (coronary artery disease) (6) Pleural effusion Problem Qualifiers (1) CHF exacerbation: Qualified Codes: I50.9 - Heart failure, unspecified Kyler Martines MD September 17, 2017 09:23
[2017-09-17] MEDS: PANTOPRAZOLE SOD 20 MG DELAYED RELEASE TAB PO SCH (09:38)
[2017-09-17] MEDS: SODIUM CHLORIDE 0.9% FLUSH 10 ML FLUSH IV FLUSH SCH ×2 (09:38→20:32)
[2017-09-17] MEDS: PREGABALIN 100 MG CAP PO SCH ×2 (09:38→20:32)
[2017-09-17] MEDS: ASPIRIN 81 MG CHEW TAB PO SCH (09:38)
[2017-09-17] MEDS: DOCUSATE SODIUM 50 MG/SENNA 8.6 MG TAB PO SCH ×2 (09:38→20:33)
[2017-09-17] MEDS: POTASSIUM CHLORIDE 20 MEQ CONTROLLED RELEASE TAB PO SCH ×2 (09:39→20:32)
--- NOTE | 2017-09-17 09:50 | ECHRPT ---
Indication: HEART FAILURE CONCLUSIONS Mildly dilated left ventricle. Wall thickness is normal. The left ventricular systolic function is prmwevdd-al-chnbonz reduced with an estimated ejection fra ction in the range of 35-40%. Mitral annular calcification is present. Trace mitral valve regurgitation. Aortic valve sclerosis is present. Trace aortic valve regurgitation. The pulmonary valve is not well visualized. BP: / HR: Rhythm: MEASUREMENTS (Male / Female) Normal Values Technical Quality: 2D ECHO LV Diastolic Diameter PLAX 5.6 cm 4.2 - 5.9 / 3.9 - 5.3 cm LV Systolic Diameter PLAX 4.6 cm IVS Diastolic Thickness 0.9 cm 0.6 - 1.0 / 0.6 - 0.9 cm LVPW Diastolic Thickness 0.7 cm 0.6 - 1.0 / 0.6 - 0.9 cm LV Relative Wall Thickness 0.3 RV Internal Dim ED PLAX 2.3 cm LVOT Diameter 2.0 cm DOPPLER AV Peak Velocity 185.0 cm/s AV Peak Gradient 13.7 mmHg Mitral E Point Velocity 68.1 cm/s Mitral A Point Velocity 101.0 cm/s Mitral E to A Ratio 0.7 Right Atrial Pressure 10.0 mmHg FINDINGS LEFT VENTRICLE Mildly dilated left ventricle. Wall thickness is normal. The left ventricular systolic function is vllcjmhd-bu-corpgck reduced with an estimated ejection fra ction in the range of 35-40%. RIGHT VENTRICLE Normal right ventricular size and systolic function. LEFT ATRIUM The left atrial size is normal. RIGHT ATRIUM The right atrial size is normal. ATRIAL SEPTUM Normal atrial septal thickness without atrial level shunting by limited color doppler interrogation. AORTA The aortic root and proximal ascending aorta are normal in size on limited imaging. MITRAL VALVE Mitral annular calcification is present. Trace mitral valve regurgitation. AORTIC VALVE Aortic valve sclerosis is present. Trace aortic valve regurgitation. TRICUSPID VALVE Structurally normal tricuspid valve. No tricuspid valve stenosis or regurgitation. PULMONARY VALVE The pulmonary valve is not well visualized. VESSELS The inferior vena cava is normal in size. PERICARDIUM No pericardial effusion. Conor Sharma MD, FACC (Electronically Signed) Final Date:17 Sep 2017 09:49
--- NOTE | 2017-09-17 10:03 | PD.CARD.PN ---
Subjective Subjective Remarks alert in nad Objective Medications Current Medications Medications (Trade) Dose Ordered Sig/Jasper Route Start Time Stop Time Status Last Admin (Nitrostat Sl) 0.4 mg Q5M PRN SL 09/12/17 13:30 (Tylenol) 650 mg Q4H PRN PO 09/12/17 13:30 (Zofran Odt) 4 mg Q6H PRN PO 09/12/17 13:30 (Tylenol) 650 mg Q6H PRN PO 09/12/17 13:30 (Narcan Inj) 0.4 mg UNSCH PRN IV PUSH 09/12/17 13:30 (Jessenia-Colace) 1 tab BID PO 09/12/17 21:00 09/17/17 09:38 (Milk Of Magnesia Liq) 30 ml Q12H PRN PO 09/12/17 13:30 (Senokot) 17.2 mg Q12H PRN PO 09/12/17 13:30 (Dulcolax Supp) 10 mg DAILY PRN RECTAL 09/12/17 13:30 (Lactulose Liq) 30 ml DAILY PRN PO 09/12/17 13:30 09/16/17 08:23 (D50w (Vial) Inj) 50 ml UNSCH PRN IV PUSH 09/12/17 13:45 (Glucagon Inj) 1 mg UNSCH PRN OTHER 09/12/17 13:45 (NovoLOG SUPPLEMENTAL SCALE) 1 ACHS SLIDING SCALE SQ 09/12/17 17:00 09/16/17 22:04 (Glucophage) 500 mg BIDPC PO 09/12/17 18:00 Future Hold 09/13/17 17:20 (Remeron) 15 mg HS PO 09/12/17 21:00 09/16/17 22:03 (Refresh Classic 1.4-0.6% Pf Opth Soln) 2 drop 5 TIMES A DAY PRN EACH EYE 09/12/17 17:30 (Lyrica) 100 mg BID PO 09/12/17 21:00 09/17/17 09:38 Patient Own Medication PT OWN MED:RESTASIS OPHTH DROPS BID EACH EYE 09/12/17 21:00 Future Hold (Protonix) 20 mg DAILY PO 09/13/17 09:00 09/17/17 09:38 (KCl) 20 meq Q12HR PO 09/13/17 12:00 09/17/17 09:39 (Aspirin Chew) 162 mg DAILY PO 09/14/17 09:00 09/17/17 09:38 (NS Flush) 2 ml BID IV FLUSH 09/15/17 21:00 09/17/17 09:38 (NS Flush) 2 ml UNSCH PRN IV FLUSH 09/15/17 14:00 Papaverine HCl 60 mg/Nitroglycerin 100 mcg/Verapamil HCl 100 mg/Sodium Chloride 100 ml @ 0 mls/hr MONEY ORDER CLERK IRRIGATION 09/15/17 14:00 09/22/17 13:59 Cefazolin Sodium 500 mg/Sodium Chloride 505 ml @ 0 mls/hr MONEY ORDER CLERK IRRIGATION 09/15/17 14:00 09/22/17 13:59 Cefazolin Sodium/ Dextrose 50 ml @ 150 mls/hr MONEY ORDER CLERK IV 09/15/17 14:00 09/22/17 13:59 (Lopressor) 12.5 mg MONEY ORDER CLERK PO 09/15/17 14:00 09/22/17 13:59 (Hibiclens 4% Top Soln) 1 applic MONEY ORDER CLERK TOPICAL 09/15/17 14:00 09/22/17 13:59 Insulin Human Regular 100 units/ Sodium Chloride 100 ml @ 3 mls/hr TITRATE PRN IV 09/15/17 14:00 09/22/17 13:59 (D50w (Vial) Inj) 50 ml UNSCH PRN IV PUSH 09/15/17 14:00 (Pill Splitter) 1 ea UNSCH PRN OTHER 09/15/17 14:30 (Lovenox Inj) 60 mg Q12H SQ 09/16/17 23:00 09/16/17 23:00 (Lopressor) 12.5 mg Q8HR PO 09/16/17 18:00 09/16/17 22:03 (Lasix Inj) 20 mg DAILY IV PUSH 09/17/17 09:00 Future Hold Vital Signs / I&O Vital Signs Date Time Temp Pulse Resp B/P (MAP) Pulse Ox O2 Delivery O2 Flow Rate FiO2 09/17/17 08:00 98.4 62 18 109/58 (75) 96 09/17/17 05:16 80 16 118/64 (82) 92 09/17/17 05:16 80 09/17/17 00:00 98.0 88 18 85/50 (62) 95 09/17/17 00:00 90 09/16/17 23:15 16 09/16/17 21:30 99.8 105 20 103/58 (73) 95 09/16/17 21:30 107 09/16/17 21:13 94 21 09/16/17 18:00 140 09/16/17 17:00 110 09/16/17 16:00 98.7 86 16 108/57 (74) 96 09/16/17 16:00 92 09/16/17 15:00 86 09/16/17 14:00 76 09/16/17 13:00 74 09/16/17 13:00 96/62 (73) 09/16/17 12:00 97.9 69 16 85/43 (57) 99 09/16/17 12:00 73 09/16/17 11:00 74 I/O 09/16/17 09/16/17 09/16/17 09/17/17 09/17/17 09/17/17 07:00 15:00 23:00 07:00 15:00 23:00 Intake Total 360 ml 600 ml 240 ml Output Total 700 ml 725 ml Balance -340 ml -125 ml 240 ml Intake Oral 360 ml 600 ml 240 ml Output Urine Total 700 ml 725 ml # Voids 3 2 # Bowel Movements 1 Physical Exam GENERAL: SKIN: Warm and dry. HEAD: Normocephalic. EYES: No scleral icterus. No injection or drainage. NECK: Supple, trachea midline. No JVD or lymphadenopathy. CARDIOVASCULAR: Regular rate and rhythm without murmurs, gallops, or rubs. RESPIRATORY: Breath sounds equal bilaterally. No accessory muscle use. GASTROINTESTINAL: Abdomen soft, non-tender, nondistended. MUSCULOSKELETAL: No cyanosis, or edema. BACK: Nontender without obvious deformity. No CVA tenderness. Laboratory Laboratory Tests Test 09/17/17 04:29 White Blood Count 4.6 TH/MM3 Red Blood Count 2.71 MIL/MM3 Hemoglobin 9.7 GM/DL Hematocrit 28.4 % Mean Corpuscular Volume 104.5 FL Mean Corpuscular Hemoglobin 35.6 PG Mean Corpuscular Hemoglobin Concent 34.1 % Red Cell Distribution Width 19.9 % Platelet Count 162 TH/MM3 Mean Platelet Volume 8.7 FL Blood Urea Nitrogen 26 MG/DL Creatinine 1.16 MG/DL Random Glucose 94 MG/DL Calcium Level 8.3 MG/DL Magnesium Level 2.0 MG/DL Sodium Level 143 MEQ/L Potassium Level 4.5 MEQ/L Chloride Level 107 MEQ/L Carbon Dioxide Level 30.1 MEQ/L Anion Gap 6 MEQ/L Estimat Glomerular Filtration Rate 61 ML/MIN B-Type Natriuretic Peptide 904 PG/ML Assessment and Plan Problem List: (1) CHF (congestive heart failure) ICD Codes: I50.9 - Heart failure, unspecified (2) CHF exacerbation ICD Codes: I50.9 - Heart failure, unspecified Status: Acute (3) HTN (hypertension) ICD Codes: I10 - Essential (primary) hypertension Status: Chronic (4) Diabetes mellitus ICD Codes: E11.9 - Type 2 diabetes mellitus without complications Status: Chronic (5) CAD (coronary artery disease) ICD Codes: I25.10 - Atherosclerotic heart disease of [place] coronary artery without angina pectoris Status: Chronic (6) Pleural effusion ICD Codes: J90 - Pleural effusion, not elsewhere classified Status: Acute Assessment and Plan 1.) 3 vessel cad - assymptomatic, cabg per Dr Martines, change sq hep to lovenox due h/o pe 04/09; continue aspirin, statin held due ldl=73 @ goal, f/u daily bnp ,bmp,cbc,mag, f/u carotid us, 2.) CHF - he has brittle hemodynamics probably due to 90% ostial lad lesion which appears to be very functional; hemodynamics are very volume sensative and he is essentially failing medical management again due to severe ost lad stenosis; will continue to monitor hr and bnp, currently not requring O2; d/w Dr Mary Martines Problem Qualifiers (1) CHF exacerbation: Qualified Codes: I50.9 - Heart failure, unspecified Jacob Le MD September 17, 2017 10:03
--- NOTE | 2017-09-17 10:52 | HHI.PR ---
Subjective Remarks awake and alert, noc ehst pain or shortness of breath appears comfortable but frail Objective Vitals Vital Signs Date Time Temp Pulse Resp B/P (MAP) Pulse Ox O2 Delivery O2 Flow Rate FiO2 09/17/17 08:00 98.4 62 18 109/58 (75) 96 09/17/17 05:16 80 16 118/64 (82) 92 09/17/17 05:16 80 09/17/17 00:00 98.0 88 18 85/50 (62) 95 09/17/17 00:00 90 09/16/17 23:15 16 09/16/17 21:30 99.8 105 20 103/58 (73) 95 09/16/17 21:30 107 09/16/17 21:13 94 21 09/16/17 18:00 140 09/16/17 17:00 110 09/16/17 16:00 98.7 86 16 108/57 (74) 96 09/16/17 16:00 92 09/16/17 15:00 86 09/16/17 14:00 76 09/16/17 13:00 74 09/16/17 13:00 96/62 (73) 09/16/17 12:00 97.9 69 16 85/43 (57) 99 09/16/17 12:00 73 09/16/17 11:00 74 I/O 09/16/17 09/16/17 09/16/17 09/17/17 09/17/17 09/17/17 07:00 15:00 23:00 07:00 15:00 23:00 Intake Total 360 ml 600 ml 240 ml Output Total 700 ml 725 ml Balance -340 ml -125 ml 240 ml Intake Oral 360 ml 600 ml 240 ml Output Urine Total 700 ml 725 ml # Voids 3 2 # Bowel Movements 1 Result Diagram: 09/17/17 0429 09/17/17 0429 Imaging Last Impressions Lower Extremity Ultrasound 09/15/17 0000 Signed Impressions: CONCLUSION: 1. Right lower extremity venous mapping, as above. Carotid Artery Ultrasound 09/15/17 0000 Signed Impressions: CONCLUSION: 1. Right Internal Carotid Artery: Findings indicate 50-69% stenosis. 2. Left Internal Carotid Artery: Findings indicate 50-69% stenosis. Chest X-Ray 09/12/17 1030 Signed Impressions: CONCLUSION: Persistent bilateral effusions Objective Remarks awake and alert, no cute distress, fraily speech clear, oriented x 3 no acute distress hoarse voice anicteric lungs- decreased breath sounds, no rales or wheeze regular rhythm abdomen soft, nontender LE no edema , right pelletier with horizontal laceration superficial no bleeding Procedures 09/15- cardiac cath Moderate to severe 3-vessel coronary artery disease in a right dominant system as detailed above. Preserved left ventricular systolic function, ejection fraction 50-55%. A/P Problem List: (1) CHF exacerbation ICD Code: I50.9 - Heart failure, unspecified Status: Acute (2) Neck pain ICD Code: M54.2 - Cervicalgia Status: Acute (3) Pleural effusion ICD Code: J90 - Pleural effusion, not elsewhere classified Status: Acute Assessment and Plan This is a 77-year-old male who presents to the emergency department complaining of generalized weakness, dizzy with considerably low BP 100/76 recently started on Entresto. He was also recently treated for pneumonia and sepsis and completed course of Augmentin. CAD S/P with 3 VD, EF 50-55% on cath Hyperlipidemia HYpertension- SBP 90-100, SR- 70s History of PE- 03/2017 -cardiology ff. on ASA - clinically feeling better, leg swelling resolved - Cardiothoracic surgery consulted for CABG- plan for next week - LDL 70s- statins held by Cardiology - on Eliquisis changed to Lovenox bid - some SBP in the 80-90s lasix - hold - ff BMP in am GERD - continue PPI DM type 2 insulin requiring- - on Lantus sliding scale as OP - ff blood sugar Leukopenia- improved right leg wound- consult wound care team for recommendation Microscopic hematuria. Outpatient follow-up Multiple medical chronic conditions of arthritis, prostate cancer status post cryosurgery and radiation therapy, hyperlipidemia, GERD, Continue outpatient medications as appropriate. Monitor fingersticks sliding scale coverage, blood sugars with adequate control DVT prophylaxis- placed on Lovenox. eliquis was DC 09/14 Problem Qualifiers (1) CHF exacerbation: Qualified Codes: I50.9 - Heart failure, unspecified Pérez Oleary MD September 17, 2017 10:51
--- NOTE | 2017-09-17 11:14 | PD.CAR.PN ---
CVT Progress Note Subjective/Hospital Course: Very frail. Clinically stable. OR Monday second case 09/17 Clinically stable OR Monday Objective: Vital Signs Date Time Temp Pulse Resp B/P (MAP) Pulse Ox O2 Delivery O2 Flow Rate FiO2 09/17/17 08:00 98.4 62 18 109/58 (75) 96 09/17/17 05:16 80 16 118/64 (82) 92 09/17/17 05:16 80 09/17/17 00:00 98.0 88 18 85/50 (62) 95 09/17/17 00:00 90 09/16/17 23:15 16 09/16/17 21:30 99.8 105 20 103/58 (73) 95 09/16/17 21:30 107 09/16/17 21:13 94 21 09/16/17 18:00 140 09/16/17 17:00 110 09/16/17 16:00 98.7 86 16 108/57 (74) 96 09/16/17 16:00 92 09/16/17 15:00 86 09/16/17 14:00 76 09/16/17 13:00 74 09/16/17 13:00 96/62 (73) 09/16/17 12:00 97.9 69 16 85/43 (57) 99 09/16/17 12:00 73 Labs: Laboratory Tests Test 09/17/17 04:29 White Blood Count 4.6 TH/MM3 (4.0-11.0) Red Blood Count 2.71 MIL/MM3 (4.50-5.90) Hemoglobin 9.7 GM/DL (13.0-17.0) Hematocrit 28.4 % (39.0-51.0) Mean Corpuscular Volume 104.5 FL (80.0-100.0) Mean Corpuscular Hemoglobin 35.6 PG (27.0-34.0) Mean Corpuscular Hemoglobin Concent 34.1 % (32.0-36.0) Red Cell Distribution Width 19.9 % (11.6-17.2) Platelet Count 162 TH/MM3 (150-450) Mean Platelet Volume 8.7 FL (7.0-11.0) Blood Urea Nitrogen 26 MG/DL (7-18) Creatinine 1.16 MG/DL (0.60-1.30) Random Glucose 94 MG/DL (74-106) Calcium Level 8.3 MG/DL (8.5-10.1) Magnesium Level 2.0 MG/DL (1.5-2.5) Sodium Level 143 MEQ/L (136-145) Potassium Level 4.5 MEQ/L (3.5-5.1) Chloride Level 107 MEQ/L (98-107) Carbon Dioxide Level 30.1 MEQ/L (21.0-32.0) Anion Gap 6 MEQ/L (5-15) Estimat Glomerular Filtration Rate 61 ML/MIN (>89) B-Type Natriuretic Peptide 904 PG/ML (0-100) Result Diagram: 09/17/1742809/17/17428 (1) CHF (congestive heart failure) (2) CHF exacerbation (3) HTN (hypertension) (4) Diabetes mellitus (5) CAD (coronary artery disease) (6) Pleural effusion Problem Qualifiers (1) CHF exacerbation: Qualified Codes: I50.9 - Heart failure, unspecified Kyler Martines MD September 17, 2017 11:14
[2017-09-17] MEDS: ENOXAPARIN SODIUM 60 MG/0.6 ML SYRINGE SQ SCH ×2 (12:43→23:39)
--- NOTE | 2017-09-17 14:19 | EKG ---
Date Performed: 09/16/2017 Time Performed: 17:02:22 PTAGE: 77 years EKG: SVT rate 111, cannot determine whether this is sinus or other SVT since no definite P-waves can be seen. RBBB Left axis deviation Possible septal infarct, age undetermined Compared to previous tracing, heart rate has increased from 58 to 111. Previous tracing showed a significant first degree AV block with a NM interval of .304. P-waves may be buried in the T-waves but i cannot determine wit h any certainty whether P-waves are there. Clinical correlation recommended. Abnormal ECG PREVIOUS TRACING : 09/12/2017 23.05 DOCTOR: Conor Solo Interpretating Date/Time 09/17/2017 14:18:34
[2017-09-17] MEDS: MIRTAZAPINE 15 MG TAB PO SCH (20:32)
[2017-09-18] VITALS (24 sets, daily range): BP systolic 121–138; BP diastolic 53–72; PULSE 44–70; RESP 16–18; TEMP 97–98.7; O2SAT 94–98
[2017-09-18] MEDS: METOPROLOL TARTRATE 25 MG TAB PO SCH ×3 (04:37→22:00)
[2017-09-18 04:52] LABS: HEMATOCRIT 27.3 % (39.0-51.0); HEMOGLOBIN 9.3 GM/DL (13.0-17.0); MEAN CELL VOLUME 102.8 FL (80.0-100.0); MEAN CORPUSCULAR HEMOGLOBIN 35.1 PG (27.0-34.0); MEAN CORPUSCULAR HGB CONC 34.1 % (32.0-36.0); MEAN PLATELET VOLUME 8.6 FL (7.0-11.0); PLATELET COUNT 162 TH/MM3 (150-450); RED BLOOD COUNT 2.66 MIL/MM3 (4.50-5.90); RED CELL DISTRIBUTION WIDTH 19.3 % (11.6-17.2); WHITE BLOOD COUNT 2.9 TH/MM3 (4.0-11.0)
[2017-09-18 05:13] LABS: BICARBONATE 32.5 MEQ/L (21.0-32.0); CALCIUM 8.9 MG/DL (8.5-10.1); CREATININE 0.8 MG/DL (0.60-1.30)
[2017-09-18] MEDS: INSULIN ASPART SUPPLEMENTAL SCALE SQ SCH ×4 (08:00→20:55)
[2017-09-18] MEDS: SODIUM CHLORIDE 0.9% FLUSH 10 ML FLUSH IV FLUSH SCH ×2 (09:00→20:58)
[2017-09-18] MEDS: PREGABALIN 100 MG CAP PO SCH ×2 (09:47→20:57)
[2017-09-18] MEDS: POTASSIUM CHLORIDE 20 MEQ CONTROLLED RELEASE TAB PO SCH ×2 (09:48→20:57)
[2017-09-18] MEDS: DOCUSATE SODIUM 50 MG/SENNA 8.6 MG TAB PO SCH ×2 (09:48→20:58)
[2017-09-18] MEDS: PANTOPRAZOLE SOD 20 MG DELAYED RELEASE TAB PO SCH (09:48)
[2017-09-18] MEDS: ASPIRIN 81 MG CHEW TAB PO SCH (09:48)
--- NOTE | 2017-09-18 11:28 | HHI.PR ---
Subjective Remarks pateint up on chair=- no complains seen with supportive at bedside Objective Vitals Vital Signs Date Time Temp Pulse Resp B/P (MAP) Pulse Ox O2 Delivery O2 Flow Rate FiO2 09/18/17 07:48 97.0 63 16 138/66 (90) 94 09/18/17 05:39 97.7 68 16 138/72 (94) 96 09/18/17 04:01 68 09/18/17 03:00 58 09/18/17 00:22 56 09/18/17 00:00 62 09/17/17 23:43 54 16 135/68 (90) 96 09/17/17 23:00 56 09/17/17 22:23 16 09/17/17 22:00 58 09/17/17 21:48 56 09/17/17 21:00 60 09/17/17 20:29 70 16 150/75 (100) 99 09/17/17 20:00 48 09/17/17 19:00 54 09/17/17 18:00 60 09/17/17 17:00 48 09/17/17 16:00 52 09/17/17 15:00 60 09/17/17 15:00 98.7 54 18 113/50 (71) 97 09/17/17 14:00 54 09/17/17 13:00 56 09/17/17 12:00 62 09/17/17 12:00 98.7 59 20 113/50 (71) 97 I/O 09/17/17 09/17/17 09/17/17 09/18/17 09/18/17 09/18/17 07:00 15:00 23:00 07:00 15:00 23:00 Intake Total 240 ml 600 ml 240 ml Output Total 260 ml 600 ml Balance 240 ml 340 ml -360 ml Intake Oral 240 ml 600 ml 240 ml Output Urine Total 260 ml 600 ml # Voids 2 1 Result Diagram: 09/18/17 0345 09/18/17 0345 Imaging Last Impressions Lower Extremity Ultrasound 09/15/17 0000 Signed Impressions: CONCLUSION: 1. Right lower extremity venous mapping, as above. Carotid Artery Ultrasound 09/15/17 0000 Signed Impressions: CONCLUSION: 1. Right Internal Carotid Artery: Findings indicate 50-69% stenosis. 2. Left Internal Carotid Artery: Findings indicate 50-69% stenosis. Chest X-Ray 09/12/17 1030 Signed Impressions: CONCLUSION: Persistent bilateral effusions Objective Remarks awake and alert, no cute distress, fraily speech clear, oriented x 3 no acute distress hoarse voice anicteric lungs- decreased breath sounds, no rales or wheeze regular rhythm abdomen soft, nontender LE no edema , right pelletier with horizontal laceration superficial no bleeding Procedures 09/15- cardiac cath Moderate to severe 3-vessel coronary artery disease in a right dominant system as detailed above. Preserved left ventricular systolic function, ejection fraction 50-55%. A/P Problem List: (1) CHF exacerbation ICD Code: I50.9 - Heart failure, unspecified Status: Acute (2) Neck pain ICD Code: M54.2 - Cervicalgia Status: Acute (3) Pleural effusion ICD Code: J90 - Pleural effusion, not elsewhere classified Status: Acute Assessment and Plan This is a 77-year-old male who presents to the emergency department complaining of generalized weakness, dizzy with considerably low BP 100/76 recently started on Entresto. He was also recently treated for pneumonia and sepsis and completed course of Augmentin. Generalized weakness likely related to hypotension- IMproved from Entresto.- It could also be related to his recent pneumonia and sepsis patient with leukopenia. - clinically feeling stronger He is improving PT recommends home care. - Follow-up blood culture shows no growth CAD S/P with 3 VD, EF 50-55% on cath Hyperlipidemia HYpertension- SBP 90-100, SR- 70s History of PE- 03/2017 -cardiology ff. on ASA - clinically feeling better, leg swelling resolved - Cardiothoracic surgery consulted for CABG- plan for - LDL 70s- statins held by Cardiology - on Eliquisis changed to Lovenox bid - decreased lasix to once daily-- BUn/creatinine improved GERD - continue PPI DM type 2 insulin requiring- - on Lantus sliding scale as OP - ff blood sugar right leg wound- consult wound care team consulted Leukopenia- stable Microscopic hematuria. Outpatient follow-up Multiple medical chronic conditions of arthritis, prostate cancer status post cryosurgery and radiation therapy, hyperlipidemia, GERD, Continue outpatient medications as appropriate. Monitor fingersticks sliding scale coverage, blood sugars with adequate control DVT prophylaxis- placed on Lovenox. eliquis was DC 09/14 Problem Qualifiers (1) CHF exacerbation: Qualified Codes: I50.9 - Heart failure, unspecified Pérez Oleary MD September 18, 2017 11:28
[2017-09-18] MEDS: ENOXAPARIN SODIUM 60 MG/0.6 ML SYRINGE SQ SCH (11:54)
--- NOTE | 2017-09-18 19:43 | PD.CARD.PN ---
Subjective Subjective Remarks alert in nad Objective Medications Current Medications Medications (Trade) Dose Ordered Sig/Jasper Route Start Time Stop Time Status Last Admin (Nitrostat Sl) 0.4 mg Q5M PRN SL 09/12/17 13:30 (Tylenol) 650 mg Q4H PRN PO 09/12/17 13:30 (Zofran Odt) 4 mg Q6H PRN PO 09/12/17 13:30 (Tylenol) 650 mg Q6H PRN PO 09/12/17 13:30 (Narcan Inj) 0.4 mg UNSCH PRN IV PUSH 09/12/17 13:30 (Jessenia-Colace) 1 tab BID PO 09/12/17 21:00 09/18/17 09:48 (Milk Of Magnesia Liq) 30 ml Q12H PRN PO 09/12/17 13:30 (Senokot) 17.2 mg Q12H PRN PO 09/12/17 13:30 (Dulcolax Supp) 10 mg DAILY PRN RECTAL 09/12/17 13:30 (Lactulose Liq) 30 ml DAILY PRN PO 09/12/17 13:30 09/16/17 08:23 (D50w (Vial) Inj) 50 ml UNSCH PRN IV PUSH 09/12/17 13:45 (Glucagon Inj) 1 mg UNSCH PRN OTHER 09/12/17 13:45 (NovoLOG SUPPLEMENTAL SCALE) 1 ACHS SLIDING SCALE SQ 09/12/17 17:00 09/16/17 22:04 (Glucophage) 500 mg BIDPC PO 09/12/17 18:00 Future Hold 09/13/17 17:20 (Remeron) 15 mg HS PO 09/12/17 21:00 09/17/17 20:32 (Refresh Classic 1.4-0.6% Pf Opth Soln) 2 drop 5 TIMES A DAY PRN EACH EYE 09/12/17 17:30 (Lyrica) 100 mg BID PO 09/12/17 21:00 09/18/17 09:47 Patient Own Medication PT OWN MED:RESTASIS OPHTH DROPS BID EACH EYE 09/12/17 21:00 Future Hold (Protonix) 20 mg DAILY PO 09/13/17 09:00 09/18/17 09:48 (KCl) 20 meq Q12HR PO 09/13/17 12:00 09/18/17 09:48 (Aspirin Chew) 162 mg DAILY PO 09/14/17 09:00 09/18/17 09:48 (NS Flush) 2 ml BID IV FLUSH 09/15/17 21:00 09/18/17 09:00 (NS Flush) 2 ml UNSCH PRN IV FLUSH 09/15/17 14:00 Papaverine HCl 60 mg/Nitroglycerin 100 mcg/Verapamil HCl 100 mg/Sodium Chloride 100 ml @ 0 mls/hr TRUCK GUARD IRRIGATION 09/15/17 14:00 09/22/17 13:59 Cefazolin Sodium 500 mg/Sodium Chloride 505 ml @ 0 mls/hr TRUCK GUARD IRRIGATION 09/15/17 14:00 09/22/17 13:59 Cefazolin Sodium/ Dextrose 50 ml @ 150 mls/hr TRUCK GUARD IV 09/15/17 14:00 09/22/17 13:59 (Lopressor) 12.5 mg TRUCK GUARD PO 09/15/17 14:00 09/22/17 13:59 (Hibiclens 4% Top Soln) 1 applic TRUCK GUARD TOPICAL 09/15/17 14:00 09/22/17 13:59 Insulin Human Regular 100 units/ Sodium Chloride 100 ml @ 3 mls/hr TITRATE PRN IV 09/15/17 14:00 09/22/17 13:59 (D50w (Vial) Inj) 50 ml UNSCH PRN IV PUSH 09/15/17 14:00 (Pill Splitter) 1 ea UNSCH PRN OTHER 09/15/17 14:30 (Lovenox Inj) 60 mg Q12H SQ 09/16/17 23:00 09/18/17 11:54 (Lopressor) 12.5 mg Q8HR PO 09/16/17 18:00 09/18/17 14:48 (Lasix Inj) 20 mg DAILY IV PUSH 09/17/17 09:00 Future Hold Vital Signs / I&O Vital Signs Date Time Temp Pulse Resp B/P (MAP) Pulse Ox O2 Delivery O2 Flow Rate FiO2 09/18/17 15:00 56 09/18/17 15:00 98.2 60 16 122/53 (76) 96 09/18/17 11:50 18 09/18/17 11:00 56 09/18/17 11:00 98.0 57 18 121/53 (75) 98 09/18/17 07:48 97.0 63 16 138/66 (90) 94 09/18/17 07:00 62 09/18/17 05:39 97.7 68 16 138/72 (94) 96 09/18/17 04:01 68 09/18/17 03:00 58 09/18/17 00:22 56 09/18/17 00:00 62 09/17/17 23:43 54 16 135/68 (90) 96 09/17/17 23:00 56 09/17/17 22:00 58 09/17/17 21:48 56 09/17/17 21:00 60 09/17/17 20:29 70 16 150/75 (100) 99 09/17/17 20:00 48 I/O 09/17/17 09/17/17 09/17/17 09/18/17 09/18/17 09/18/17 07:00 15:00 23:00 07:00 15:00 23:00 Intake Total 240 ml 600 ml 240 ml Output Total 260 ml 600 ml Balance 240 ml 340 ml -360 ml Intake Oral 240 ml 600 ml 240 ml Output Urine Total 260 ml 600 ml # Voids 2 1 Physical Exam GENERAL: SKIN: Warm and dry. HEAD: Normocephalic. EYES: No scleral icterus. No injection or drainage. NECK: Supple, trachea midline. No JVD or lymphadenopathy. CARDIOVASCULAR: Regular rate and rhythm without murmurs, gallops, or rubs. RESPIRATORY: Breath sounds equal bilaterally. No accessory muscle use. GASTROINTESTINAL: Abdomen soft, non-tender, nondistended. MUSCULOSKELETAL: No cyanosis, or edema. BACK: Nontender without obvious deformity. No CVA tenderness. Laboratory Laboratory Tests Test 09/18/17 03:45 White Blood Count 2.9 TH/MM3 Red Blood Count 2.66 MIL/MM3 Hemoglobin 9.3 GM/DL Hematocrit 27.3 % Mean Corpuscular Volume 102.8 FL Mean Corpuscular Hemoglobin 35.1 PG Mean Corpuscular Hemoglobin Concent 34.1 % Red Cell Distribution Width 19.3 % Platelet Count 162 TH/MM3 Mean Platelet Volume 8.6 FL Blood Urea Nitrogen 25 MG/DL Creatinine 0.80 MG/DL Random Glucose 84 MG/DL Calcium Level 8.9 MG/DL Magnesium Level 2.0 MG/DL Sodium Level 145 MEQ/L Potassium Level 4.4 MEQ/L Chloride Level 107 MEQ/L Carbon Dioxide Level 32.5 MEQ/L Anion Gap 6 MEQ/L Estimat Glomerular Filtration Rate 93 ML/MIN B-Type Natriuretic Peptide 326 PG/ML Assessment and Plan Problem List: (1) CHF (congestive heart failure) ICD Codes: I50.9 - Heart failure, unspecified (2) CHF exacerbation ICD Codes: I50.9 - Heart failure, unspecified Status: Acute (3) HTN (hypertension) ICD Codes: I10 - Essential (primary) hypertension Status: Chronic (4) Diabetes mellitus ICD Codes: E11.9 - Type 2 diabetes mellitus without complications Status: Chronic (5) CAD (coronary artery disease) ICD Codes: I25.10 - Atherosclerotic heart disease of [place] coronary artery without angina pectoris Status: Chronic (6) Pleural effusion ICD Codes: J90 - Pleural effusion, not elsewhere classified Status: Acute Assessment and Plan 1.) 3 vessel cad - assymptomatic, cabg per Dr Martines, change sq hep to lovenox due h/o pe 04/09; continue aspirin, statin held due ldl=73 @ goal, f/u daily bnp ,bmp,cbc,mag, f/u carotid us, 2.) CHF - he has brittle hemodynamics probably due to 90% ostial lad lesion which appears to be very functional; hemodynamics are very volume sensative and he is essentially failing medical management again due to severe ost lad stenosis; will continue to monitor hr and bnp, currently not requring O2; d/w Dr Mary Martines Problem Qualifiers (1) CHF exacerbation: Qualified Codes: I50.9 - Heart failure, unspecified Jacob Le MD September 18, 2017 19:43
[2017-09-18] MEDS: MIRTAZAPINE 15 MG TAB PO SCH (20:57)
[2017-09-19] VITALS (30 sets, daily range): BP systolic 102–156; BP diastolic 60–87; PULSE 49–73; RESP 16–20; TEMP 97.5–98.6; O2SAT 93–99
[2017-09-19] MEDS: ENOXAPARIN SODIUM 60 MG/0.6 ML SYRINGE SQ SCH ×3 (00:12→21:11)
[2017-09-19 05:19] LABS: AUTOMATED NEUTROPHIL # 1.2 TH/MM3 (1.8-7.7); BASOPHIL % 1.3 % (0.0-2.0); EOSINOPHIL # 0.1 TH/MM3 (0-0.4); EOSINOPHIL % 4.9 % (0.0-4.0); HEMATOCRIT 28.1 % (39.0-51.0); HEMOGLOBIN 9.6 GM/DL (13.0-17.0); LYMPH % 32.9 % (9.0-44.0); LYMPHOCYTE # 0.9 TH/MM3 (1.0-4.8); MEAN CELL VOLUME 102.7 FL (80.0-100.0); MEAN CORPUSCULAR HEMOGLOBIN 35.2 PG (27.0-34.0); MEAN CORPUSCULAR HGB CONC 34.3 % (32.0-36.0); MEAN PLATELET VOLUME 8.1 FL (7.0-11.0); MONO % 17.1 % (0.0-8.0); MONOCYTE # 0.5 TH/MM3 (0-0.9); NEUT % 43.8 % (16.0-70.0); PLATELET COUNT 164 TH/MM3 (150-450); RED BLOOD COUNT 2.73 MIL/MM3 (4.50-5.90); RED CELL DISTRIBUTION WIDTH 18.9 % (11.6-17.2); WHITE BLOOD COUNT 2.8 TH/MM3 (4.0-11.0)
[2017-09-19 05:31] LABS: PROTHROMBIN TIME - PATIENT 10.4 SEC (9.8-11.6)
[2017-09-19 05:43] LABS: ALBUMIN 2.3 GM/DL (3.4-5.0); AST (GOT) 34 U/L (15-37); BICARBONATE 31.5 MEQ/L (21.0-32.0); BLOOD UREA NITROGEN 20 MG/DL (7-18); CALCIUM 8.7 MG/DL (8.5-10.1); CHLORIDE 106 MEQ/L (98-107); CREATININE 0.83 MG/DL (0.60-1.30); GLOMERULAR FILTRATION RATE 89 ML/MIN (>89); GLUCOSE,RANDOM 81 MG/DL (74-106); SODIUM (NA) 143 MEQ/L (136-145)
[2017-09-19 05:47] LABS: ALKALINE PHOSPHATASE 115 U/L (45-117); ALT (GPT) 26 U/L (12-78); TOTAL BILIRUBIN ADULT 0.3 MG/DL (0.2-1.0); TOTAL PROTEIN 5.8 GM/DL (6.4-8.2)
[2017-09-19] MEDS: METOPROLOL TARTRATE 25 MG TAB PO SCH ×3 (06:00→21:04)
[2017-09-19] MEDS: INSULIN ASPART SUPPLEMENTAL SCALE SQ SCH ×4 (08:00→21:00)
[2017-09-19] MEDS: ASPIRIN 81 MG CHEW TAB PO SCH (08:53)
[2017-09-19] MEDS: LACTULOSE SYRUP 20 GM/30 ML CUP PO PRN (08:53)
[2017-09-19] MEDS: POTASSIUM CHLORIDE 20 MEQ CONTROLLED RELEASE TAB PO SCH ×2 (08:53→21:03)
[2017-09-19] MEDS: DOCUSATE SODIUM 50 MG/SENNA 8.6 MG TAB PO SCH ×2 (08:53→21:00)
[2017-09-19] MEDS: PANTOPRAZOLE SOD 20 MG DELAYED RELEASE TAB PO SCH (08:53)
[2017-09-19] MEDS: PREGABALIN 100 MG CAP PO SCH ×2 (08:53→21:03)
[2017-09-19] MEDS: SODIUM CHLORIDE 0.9% FLUSH 10 ML FLUSH IV FLUSH SCH ×2 (08:55→21:03)
--- NOTE | 2017-09-19 11:51 | HHI.PR ---
Subjective Remarks Patient is scheduled to undergo CABG tomorrow with cardiovascular surgery No current complaints at this time Seen ambulating in his room Discussed with patient and RN and case management Objective Vitals Vital Signs Date Time Temp Pulse Resp B/P (MAP) Pulse Ox O2 Delivery O2 Flow Rate FiO2 09/19/17 10:14 53 09/19/17 09:54 18 09/19/17 09:02 55 09/19/17 08:57 54 09/19/17 07:56 57 09/19/17 07:51 97.7 57 18 150/67 (94) 99 09/19/17 06:00 49 09/19/17 05:00 52 09/19/17 04:00 55 09/19/17 03:56 97.7 53 18 156/71 (99) 97 09/19/17 03:00 52 09/19/17 02:00 58 09/19/17 01:00 54 09/19/17 00:01 97.7 56 16 130/60 (83) 97 09/19/17 00:00 54 09/18/17 23:00 55 09/18/17 22:00 64 09/18/17 21:00 56 09/18/17 20:00 56 09/18/17 19:46 98.7 51 18 122/53 (76) 97 09/18/17 19:00 44 09/18/17 18:00 48 09/18/17 17:00 52 09/18/17 16:00 54 09/18/17 15:00 56 09/18/17 15:00 98.2 60 16 122/53 (76) 96 09/18/17 14:00 60 09/18/17 13:00 56 09/18/17 12:00 70 I/O 09/18/17 09/18/17 09/18/17 09/19/17 09/19/17 09/19/17 07:00 15:00 23:00 07:00 15:00 23:00 Intake Total 240 ml 720 ml 240 ml Output Total 600 ml 680 ml 700 ml Balance -360 ml 40 ml -460 ml Intake Oral 240 ml 720 ml 240 ml Output Urine Total 600 ml 680 ml 700 ml Result Diagram: 09/19/17 0449 09/19/17 0449 Other Results Laboratory Tests Test 09/17/17 04:29 09/18/17 03:45 09/19/17 04:49 White Blood Count 4.6 TH/MM3 2.9 TH/MM3 2.8 TH/MM3 Red Blood Count 2.71 MIL/MM3 2.66 MIL/MM3 2.73 MIL/MM3 Hemoglobin 9.7 GM/DL 9.3 GM/DL 9.6 GM/DL Hematocrit 28.4 % 27.3 % 28.1 % Mean Corpuscular Volume 104.5 FL 102.8 FL 102.7 FL Mean Corpuscular Hemoglobin 35.6 PG 35.1 PG 35.2 PG Mean Corpuscular Hemoglobin Concent 34.1 % 34.1 % 34.3 % Red Cell Distribution Width 19.9 % 19.3 % 18.9 % Platelet Count 162 TH/MM3 162 TH/MM3 164 TH/MM3 Mean Platelet Volume 8.7 FL 8.6 FL 8.1 FL Blood Urea Nitrogen 26 MG/DL 25 MG/DL 20 MG/DL Creatinine 1.16 MG/DL 0.80 MG/DL 0.83 MG/DL Random Glucose 94 MG/DL 84 MG/DL 81 MG/DL Calcium Level 8.3 MG/DL 8.9 MG/DL 8.7 MG/DL Magnesium Level 2.0 MG/DL 2.0 MG/DL Sodium Level 143 MEQ/L 145 MEQ/L 143 MEQ/L Potassium Level 4.5 MEQ/L 4.4 MEQ/L 4.6 MEQ/L Chloride Level 107 MEQ/L 107 MEQ/L 106 MEQ/L Carbon Dioxide Level 30.1 MEQ/L 32.5 MEQ/L 31.5 MEQ/L Anion Gap 6 MEQ/L 6 MEQ/L 6 MEQ/L Estimat Glomerular Filtration Rate 61 ML/MIN 93 ML/MIN 89 ML/MIN B-Type Natriuretic Peptide 904 PG/ML 326 PG/ML 287 PG/ML Neutrophils (%) (Auto) 43.8 % Lymphocytes (%) (Auto) 32.9 % Monocytes (%) (Auto) 17.1 % Eosinophils (%) (Auto) 4.9 % Basophils (%) (Auto) 1.3 % Neutrophils # (Auto) 1.2 TH/MM3 Lymphocytes # (Auto) 0.9 TH/MM3 Monocytes # (Auto) 0.5 TH/MM3 Eosinophils # (Auto) 0.1 TH/MM3 Basophils # (Auto) 0.0 TH/MM3 CBC Comment DIFF FINAL Differential Comment Prothrombin Time 10.4 SEC Prothromb Time International Ratio 1.0 RATIO Total Protein 5.8 GM/DL Albumin 2.3 GM/DL Alkaline Phosphatase 115 U/L Aspartate Amino Transf (AST/SGOT) 34 U/L Alanine Aminotransferase (ALT/SGPT) 26 U/L Total Bilirubin 0.3 MG/DL Imaging Last Impressions Lower Extremity Ultrasound 09/15/17 0000 Signed Impressions: CONCLUSION: 1. Right lower extremity venous mapping, as above. Carotid Artery Ultrasound 09/15/17 0000 Signed Impressions: CONCLUSION: 1. Right Internal Carotid Artery: Findings indicate 50-69% stenosis. 2. Left Internal Carotid Artery: Findings indicate 50-69% stenosis. Chest X-Ray 09/12/17 1030 Signed Impressions: CONCLUSION: Persistent bilateral effusions Objective Remarks GENERAL: Awake alert and oriented 3 talkative and cooperative SKIN: Warm and dry. HEAD: Atraumatic. Normocephalic. EYES: Pupils equal and round. No scleral icterus. No injection or drainage. Wears glasses ENT: No nasal bleeding or discharge. Mucous membranes pink and moist. Tongue is midline NECK: Trachea midline. No JVD. Supple CARDIOVASCULAR: Regular rate and rhythm. S1-S2 no S3 or S4 RESPIRATORY: No accessory muscle use. Clear to auscultation. Breath sounds equal bilaterally. GASTROINTESTINAL: Abdomen soft, non-tender, nondistended. Hepatic and splenic margins not palpable. MUSCULOSKELETAL: Extremities without clubbing, cyanosis, or edema. No obvious deformities. NEUROLOGICAL: Awake and alert. No obvious cranial nerve deficits. Motor grossly within normal limits. Five out of 5 muscle strength in the arms and legs. Normal speech. PSYCHIATRIC: Appropriate mood and affect; insight and judgment normal. Procedures 09/15- cardiac cath Moderate to severe 3-vessel coronary artery disease in a right dominant system as detailed above. Preserved left ventricular systolic function, ejection fraction 50-55%. Medications and IVs Current Medications Sodium Chloride 500 ml @ 500 mls/hr BOLUS ONCE IV Last administered on at 10:41; Start 09/12/17 at 10:30; Stop 09/12/17 at 11:29; Status DC Aspirin (Aspirin) 325 mg ONCE ONCE PO Last administered on 09/12/17at 13:13; Start 09/12/17 at 13:15; Stop 09/12/17 at 13:16; Status DC Aspirin (Aspirin) 325 mg DAILY PO ; Start 09/14/17 at 09:00; Stop 09/14/17 at 09 :00; Status DC Nitroglycerin (Nitrostat Sl) 0.4 mg Q5M PRN SL X 3 doses for chest pain; Start 09/12/17 at 13:30 Sodium Chloride (NS Flush) 2 ml UNSCH PRN IV FLUSH FLUSH AFTER USING IV ACCESS ; Start 09/12/17 at 13:30; Stop 09/15/17 at 11:51; Status DC Sodium Chloride (NS Flush) 2 ml BID IV FLUSH Last administered on 09/15/17at 08: 37; Start 09/12/17 at 21:00; Stop 09/15/17 at 11:51; Status DC Acetaminophen (Tylenol) 650 mg Q4H PRN PO TEMP > 100.4; Start 09/12/17 at 13:30 Ondansetron HCl (Zofran Odt) 4 mg Q6H PRN PO NAUSEA OR VOMITING; Start at 13:30 Acetaminophen (Tylenol) 650 mg Q6H PRN PO PAIN SCALE 1 TO 2; Start 09/12/17 at 13:30 Naloxone HCl (Narcan Inj) 0.4 mg UNSCH PRN IV PUSH SEE LABEL COMMENTS; Start at 13:30 Senna/Docusate Sodium (Jessenia-Colace) 1 tab BID PO Last administered on at 08:53; Start 09/12/17 at 21:00 Magnesium Hydroxide (Milk Of Magnesia Liq) 30 ml Q12H PRN PO Mild constipation ; Start 09/12/17 at 13:30 Sennosides (Senokot) 17.2 mg Q12H PRN PO Moderate constipation; Start 09/12/17 at 13:30 Bisacodyl (Dulcolax Supp) 10 mg DAILY PRN RECTAL SEVERE CONSITIPATION; Start at 13:30 Lactulose (Lactulose Liq) 30 ml DAILY PRN PO SEVERE CONSITIPATION Last administered on 09/19/17at 08:53; Start 09/12/17 at 13:30 Dextrose (D50w (Vial) Inj) 50 ml UNSCH PRN IV PUSH HYPOGLYCEMIA-SEE COMMENTS; Start 09/12/17 at 13:45 Glucagon (Glucagon Inj) 1 mg UNSCH PRN OTHER HYPOGLYCEMIA-SEE COMMENTS; Start 09/12/17 at 13:45 Insulin Aspart (NovoLOG SUPPLEMENTAL SCALE) 1 ACHS SLIDING SCALE SQ Last administered on 09/16/17at 22:04; Start 09/12/17 at 17:00 Apixaban (Eliquis) 5 mg BID PO Last administered on 09/13/17 21:23; Start at 21:00; Stop 09/14/17 at 14:13; Status DC Metformin HCl (Glucophage) 500 mg BIDPC PO Last administered on 09/13/17 17:20 ; Start 09/12/17 at 18:00; Status Future Hold Mirtazapine (Remeron) 15 mg HS PO Last administered on 09/18/17at 20:57; Start 09/12/17 at 21:00 Polyvinyl Alcohol/ Povidone (Refresh Classic 1.4-0.6% Pf Opth Soln) 2 drop 5 TIMES A DAY PRN EACH EYE DRY EYE; Start 09/12/17 at 17:30 Pregabalin (Lyrica) 100 mg BID PO Last administered on 09/19/17 08:53; Start 09/12/17 at 21:00 Patient Own Medication PT OWN MED:RESTASIS OPHTH DROPS BID EACH EYE ; Start at 21:00; Status Future Hold Pantoprazole Sodium (Protonix) 20 mg DAILY PO Last administered on 09/19/17at 08 :53; Start 09/13/17 at 09:00 Furosemide (Lasix Inj) 20 mg ONCE ONCE IV PUSH Last administered on 09/12/17at 23:10; Start 09/12/17 at 22:45; Stop 09/12/17 at 22:48; Status DC Furosemide (Lasix Inj) 20 mg BID@09,18 IV PUSH Last administered on 09/16/17at 17:09; Start 09/13/17 at 09:00; Stop 09/16/17 at 18:04; Status DC Potassium Chloride (KCl) 20 meq Q12HR PO Last administered on 09/19/17at 08:53; Start 09/13/17 at 12:00 Magnesium Sulfate/ Dextrose 100 ml @ 100 mls/hr Q1H IV Last administered on at 13:00; Start 09/13/17 at 12:00; Stop 09/13/17 at 13:59; Status DC Aspirin (Aspirin Chew) 162 mg DAILY PO Last administered on 09/19/17at 08:53; Start 09/14/17 at 09:00 Heparin Sodium/ Sodium Chloride 1,000 ml @ As Directed STK-MED ONCE .ROUTE ; Start 09/15/17 at 10:58; Stop 09/15/17 at 10:59; Status DC Midazolam HCl (Versed Inj) 2 mg STK-MED ONCE .ROUTE Last administered on at 11:09; Start 09/15/17 at 11:09; Stop 09/15/17 at 11:10; Status DC Fentanyl Citrate (fentaNYL INJ) 100 mcg STK-MED ONCE .ROUTE Last administered on 09/15/17at 11:10; Start 09/15/17 at 11:09; Stop 09/15/17 at 11:10; Status DC Sodium Chloride (NS Flush) 2 ml BID IV FLUSH ; Start 09/15/17 at 21:00; Stop at 21:00; Status DC Sodium Chloride (NS Flush) 2 ml UNSCH PRN IV FLUSH FLUSH AFTER USING IV ACCESS ; Start 09/15/17 at 11:45; Stop 09/15/17 at 14:22; Status DC Miscellaneous Information 1 ONCE ONCE XX ; Start 09/15/17 at 11:45; Stop at 11:54; Status DC Bacitracin (Bacitracin Oint Packet) 0.9 gm ONCE ONCE TOP Last administered on 09/15/17at 11:45; Start 09/15/17 at 11:45; Stop 09/15/17 at 11:50; Status DC Heparin Sodium (Porcine) (Heparin Inj) 5,000 units Q12HR SQ Last administered on 09/16/17at 08:20; Start 09/15/17 at 21:00; Stop 09/16/17 at 08:27; Status DC Iohexol (OMNIPAQUE 350 INJ (Roentgenologist)) 50 ml STK-MED ONCE OTHER ; Start at 13:59; Stop 09/15/17 at 13:51; Status DC Sodium Chloride (NS Flush) 2 ml BID IV FLUSH Last administered on 09/19/17at 08: 55; Start 09/15/17 at 21:00 Sodium Chloride (NS Flush) 2 ml UNSCH PRN IV FLUSH FLUSH AFTER USING IV ACCESS ; Start 09/15/17 at 14:00 Papaverine HCl 60 mg/Nitroglycerin 100 mcg/Verapamil HCl 100 mg/Sodium Chloride 100 ml @ 0 mls/hr ALLIGATOR SHEAR OPERATOR IRRIGATION ; Start 09/15/17 at 14:00; Stop 09/22/17 at 13:59 Cefazolin Sodium 500 mg/Sodium Chloride 505 ml @ 0 mls/hr ALLIGATOR SHEAR OPERATOR IRRIGATION ; Start 09/15/17 at 14:00; Stop 09/22/17 at 13:59 Cefazolin Sodium/ Dextrose 50 ml @ 150 mls/hr ALLIGATOR SHEAR OPERATOR IV ; Start 09/15/17 at 14:00; Stop 09/22/17 at 13:59 Metoprolol Tartrate (Lopressor) 12.5 mg ALLIGATOR SHEAR OPERATOR PO ; Start 09/15/17 at 14:00; Stop 09/22/17 at 13:59 Chlorhexidine Gluconate (Hibiclens 4% Top Soln) 1 applic ALLIGATOR SHEAR OPERATOR TOPICAL ; Start 09/15/17 at 14:00; Stop 09/22/17 at 13:59 Insulin Human Regular 100 units/ Sodium Chloride 100 ml @ 3 mls/hr TITRATE PRN IV for blood glucose control; Start 09/15/17 at 14:00; Stop 09/22/17 at 13:59 Dextrose (D50w (Vial) Inj) 50 ml UNSCH PRN IV PUSH HYPOGLYCEMIA-SEE COMMENTS; Start 09/15/17 at 14:00 Miscellaneous (Pill Splitter) 1 ea UNSCH PRN OTHER SEE LABEL COMMENTS; Start at 14:30 Enoxaparin Sodium (Lovenox Inj) 60 mg ONCE ONCE SQ Last administered on at 11:00; Start 09/16/17 at 11:00; Stop 09/16/17 at 11:01; Status DC Enoxaparin Sodium (Lovenox Inj) 60 mg Q12H SQ Last administered on 09/19/17at 00 :12; Start 09/16/17 at 23:00 Metoprolol Tartrate (Lopressor) 12.5 mg Q8HR PO Last administered on 09/18/17at 14:48; Start 09/16/17 at 18:00 Furosemide (Lasix Inj) 20 mg DAILY IV PUSH ; Start 09/17/17 at 09:00; Status Future Hold Sodium Chloride 1,000 ml @ 999 mls/hr BOLUS ONCE IV Last administered on 09/16at 18:11; Start 09/16/17 at 18:00; Stop 09/16/17 at 19:00; Status DC A/P Problem List: (1) CHF exacerbation ICD Code: I50.9 - Heart failure, unspecified Status: Acute (2) Neck pain ICD Code: M54.2 - Cervicalgia Status: Acute (3) Pleural effusion ICD Code: J90 - Pleural effusion, not elsewhere classified Status: Acute Assessment and Plan This is a 77-year-old male who presents to the emergency department complaining of generalized weakness, dizzy with considerably low BP 100/76 recently started on Entresto. He was also recently treated for pneumonia and sepsis and completed course of Augmentin. Generalized weakness likely related to hypotension- IMproved from Entresto.- It could also be related to his recent pneumonia and sepsis patient with leukopenia. - clinically feeling stronger He is improving PT recommends home care. - Follow-up blood culture shows no growth CAD S/P with 3 VD, EF 50-55% on cath Hyperlipidemia HYpertension- SBP 90-100, SR- 70s History of PE- 03/2017 -cardiology ff. on ASA - clinically feeling better, leg swelling resolved - Cardiothoracic surgery consulted for CABG- plan for - LDL 70s- statins held by Cardiology - on Eliquisis changed to Lovenox bid - decreased lasix to once daily-- BUn/creatinine improved Patient is scheduled for CABG tomorrow GERD - continue PPI DM type 2 insulin requiring- - on Lantus sliding scale as OP - ff blood sugar right leg wound- consult wound care team consulted Leukopenia- stable Microscopic hematuria. Outpatient follow-up Multiple medical chronic conditions of arthritis, prostate cancer status post cryosurgery and radiation therapy, hyperlipidemia, GERD, Continue outpatient medications as appropriate. Monitor fingersticks sliding scale coverage, blood sugars with adequate control DVT prophylaxis- placed on Lovenox. eliquis was DC 09/14 Discharge Planning For coronary artery bypass graft Problem Qualifiers (1) CHF exacerbation: Qualified Codes: I50.9 - Heart failure, unspecified Gino Kohli DO September 19, 2017 11:51
--- NOTE | 2017-09-19 12:54 | PD.WCN.NOT ---
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 Please refer to Skin & Wound Guidelines for clinical staff available in high pressure operator office. Additional Information: Patient not seen for right pelletier skin tear. Protocol for Skin Tears- Approximate edges with Normal Saline and cotton tipped applicator. Apply Versatel One to skin tear, cover with gauze and secure with rolled gauze (joe). Change outer dressing PRN for soiling. Remove Versatel One every 7 days, cleanse wound and apply new Versatel One, cover and secure dressing. Do not use adhesives or tape on fragile skin. Anika Porter [facility] September 19, 2017 12:54
--- NOTE | 2017-09-19 13:55 | PD.CAR.PN ---
CVT Progress Note Subjective/Hospital Course: 77-year-old male, patient of Dr. Cheikh Funes and Dr. Jacob Le, with history of coronary artery disease, prior stenting x4. He had 3 stents placed last year by Dr. Le. Also, history of trifascicular block, atrial fibrillation, recent new onset of CHF, started on Entresto by primary care physician. He had been recently discharged in July for sepsis, pneumonia, also with weight loss of 30 pounds over the last 2 years. On admission, he complained of fatigue, loss of appetite. He was also having pain on both sides of his neck, described as pressure-like. He underwent cardiac catheterization for unstable angina, CHF, CAD. EF was 50%. Proximal LAD had a 90% ostial lesion, diagonal 100%. The RCA was 50%. We were consulted to evaluate for coronary artery bypass graft x2 to the LAD and the diagonal. PAST MEDICAL HISTORY: prior [place] in 2002. He had a stent back then and he also had 3 stents last year. Autoimmune disorder, was on Imuran in the past and prednisone in the past. Atrial fibrillation, on Eliquis. history of a pulmonary emboli in March 2017, at that time was on Coumadin. Prostate cancer, hyperlipidemia, diabetes, history of radiation therapy, right knee arthroscopic surgery and cardiac catheterization. [place] Very frail. Clinically stable. OR Monday second case 09/17 Clinically stable OR Monday 09/18 pt now to undergo CABG by Dr Terrell second case tomorrow CT chest without contrast pending to eval aorta for calcifications no chest pain last pm STS score 5.9 Objective: Vital Signs Date Time Temp Pulse Resp B/P (MAP) Pulse Ox O2 Delivery O2 Flow Rate FiO2 09/19/17 13:13 56 09/19/17 11:58 57 09/19/17 11:57 97.5 58 18 102/60 (74) 98 09/19/17 10:38 96 21 09/19/17 10:14 53 09/19/17 09:54 18 09/19/17 09:02 55 09/19/17 08:57 54 09/19/17 07:56 57 09/19/17 07:51 97.7 57 18 150/67 (94) 99 09/19/17 06:00 49 09/19/17 05:00 52 09/19/17 04:00 55 09/19/17 03:56 97.7 53 18 156/71 (99) 97 09/19/17 03:00 52 09/19/17 02:00 58 09/19/17 01:00 54 09/19/17 00:01 97.7 56 16 130/60 (83) 97 09/19/17 00:00 54 09/18/17 23:00 55 09/18/17 22:00 64 09/18/17 21:00 56 09/18/17 20:00 56 09/18/17 19:46 98.7 51 18 122/53 (76) 97 09/18/17 19:00 44 09/18/17 18:00 48 09/18/17 17:00 52 09/18/17 16:00 54 09/18/17 15:00 56 09/18/17 15:00 98.2 60 16 122/53 (76) 96 09/18/17 14:00 60 Labs: Laboratory Tests Test 09/19/17 04:49 White Blood Count 2.8 TH/MM3 (4.0-11.0) Red Blood Count 2.73 MIL/MM3 (4.50-5.90) Hemoglobin 9.6 GM/DL (13.0-17.0) Hematocrit 28.1 % (39.0-51.0) Mean Corpuscular Volume 102.7 FL (80.0-100.0) Mean Corpuscular Hemoglobin 35.2 PG (27.0-34.0) Mean Corpuscular Hemoglobin Concent 34.3 % (32.0-36.0) Red Cell Distribution Width 18.9 % (11.6-17.2) Platelet Count 164 TH/MM3 (150-450) Mean Platelet Volume 8.1 FL (7.0-11.0) Neutrophils (%) (Auto) 43.8 % (16.0-70.0) Lymphocytes (%) (Auto) 32.9 % (9.0-44.0) Monocytes (%) (Auto) 17.1 % (0.0-8.0) Eosinophils (%) (Auto) 4.9 % (0.0-4.0) Basophils (%) (Auto) 1.3 % (0.0-2.0) Neutrophils # (Auto) 1.2 TH/MM3 (1.8-7.7) Lymphocytes # (Auto) 0.9 TH/MM3 (1.0-4.8) Monocytes # (Auto) 0.5 TH/MM3 (0-0.9) Eosinophils # (Auto) 0.1 TH/MM3 (0-0.4) Basophils # (Auto) 0.0 TH/MM3 (0-0.2) CBC Comment DIFF FINAL Differential Comment Prothrombin Time 10.4 SEC (9.8-11.6) Prothromb Time International Ratio 1.0 RATIO Blood Urea Nitrogen 20 MG/DL (7-18) Creatinine 0.83 MG/DL (0.60-1.30) Random Glucose 81 MG/DL (74-106) Total Protein 5.8 GM/DL (6.4-8.2) Albumin 2.3 GM/DL (3.4-5.0) Calcium Level 8.7 MG/DL (8.5-10.1) Alkaline Phosphatase 115 U/L (45-117) Aspartate Amino Transf (AST/SGOT) 34 U/L (15-37) Alanine Aminotransferase (ALT/SGPT) 26 U/L (12-78) Total Bilirubin 0.3 MG/DL (0.2-1.0) Sodium Level 143 MEQ/L (136-145) Potassium Level 4.6 MEQ/L (3.5-5.1) Chloride Level 106 MEQ/L (98-107) Carbon Dioxide Level 31.5 MEQ/L (21.0-32.0) Anion Gap 6 MEQ/L (5-15) Estimat Glomerular Filtration Rate 89 ML/MIN (>89) B-Type Natriuretic Peptide 287 PG/ML (0-100) Result Diagram: 09/19/17 0449 09/19/17448 Telemetry: NSR (1) CHF (congestive heart failure) Plan: on diuretics (2) CHF exacerbation (3) HTN (hypertension) Plan: controlled (4) Diabetes mellitus Plan: HGB A1c pending on metformin at home (5) CAD (coronary artery disease) Plan: ASA, add statin (6) Pleural effusion Problem Qualifiers (1) CHF exacerbation: Qualified Codes: I50.9 - Heart failure, unspecified Pamela Duenas September 19, 2017 13:54
--- NOTE | 2017-09-19 14:06 | PD.CARD.PN ---
Subjective Subjective Remarks alert in nad Objective Medications Current Medications Medications (Trade) Dose Ordered Sig/[place] Route Start Time Stop Time Status Last Admin (Nitrostat Sl) 0.4 mg Q5M PRN SL 09/12/17 13:30 (Tylenol) 650 mg Q4H PRN PO 09/12/17 13:30 (Zofran Odt) 4 mg Q6H PRN PO 09/12/17 13:30 (Tylenol) 650 mg Q6H PRN PO 09/12/17 13:30 (Narcan Inj) 0.4 mg UNSCH PRN IV PUSH 09/12/17 13:30 (Jessenia-Colace) 1 tab BID PO 09/12/17 21:00 09/19/17 08:53 (Milk Of Magnesia Liq) 30 ml Q12H PRN PO 09/12/17 13:30 (Senokot) 17.2 mg Q12H PRN PO 09/12/17 13:30 (Dulcolax Supp) 10 mg DAILY PRN RECTAL 09/12/17 13:30 (Lactulose Liq) 30 ml DAILY PRN PO 09/12/17 13:30 09/19/17 08:53 (D50w (Vial) Inj) 50 ml UNSCH PRN IV PUSH 09/12/17 13:45 (Glucagon Inj) 1 mg UNSCH PRN OTHER 09/12/17 13:45 (NovoLOG SUPPLEMENTAL SCALE) 1 ACHS SLIDING SCALE SQ 09/12/17 17:00 09/16/17 22:04 (Glucophage) 500 mg BIDPC PO 09/12/17 18:00 Future Hold 09/13/17 17:20 (Remeron) 15 mg HS PO 09/12/17 21:00 09/18/17 20:57 (Refresh Classic 1.4-0.6% Pf Opth Soln) 2 drop 5 TIMES A DAY PRN EACH EYE 09/12/17 17:30 (Lyrica) 100 mg BID PO 09/12/17 21:00 09/19/17 08:53 Patient Own Medication PT OWN MED:RESTASIS OPHTH DROPS BID EACH EYE 09/12/17 21:00 Future Hold (Protonix) 20 mg DAILY PO 09/13/17 09:00 09/19/17 08:53 (KCl) 20 meq Q12HR PO 09/13/17 12:00 09/19/17 08:53 (Aspirin Chew) 162 mg DAILY PO 09/14/17 09:00 09/19/17 08:53 (NS Flush) 2 ml BID IV FLUSH 09/15/17 21:00 09/19/17 08:55 (NS Flush) 2 ml UNSCH PRN IV FLUSH 09/15/17 14:00 Papaverine HCl 60 mg/Nitroglycerin 100 mcg/Verapamil HCl 100 mg/Sodium Chloride 100 ml @ 0 mls/hr INSTALLMENT LOAN COLLECTOR IRRIGATION 09/15/17 14:00 09/22/17 13:59 Cefazolin Sodium 500 mg/Sodium Chloride 505 ml @ 0 mls/hr INSTALLMENT LOAN COLLECTOR IRRIGATION 09/15/17 14:00 09/22/17 13:59 Cefazolin Sodium/ Dextrose 50 ml @ 150 mls/hr INSTALLMENT LOAN COLLECTOR IV 09/15/17 14:00 09/22/17 13:59 (Lopressor) 12.5 mg INSTALLMENT LOAN COLLECTOR PO 09/15/17 14:00 09/22/17 13:59 (Hibiclens 4% Top Soln) 1 applic INSTALLMENT LOAN COLLECTOR TOPICAL 09/15/17 14:00 09/22/17 13:59 Insulin Human Regular 100 units/ Sodium Chloride 100 ml @ 3 mls/hr TITRATE PRN IV 09/15/17 14:00 09/22/17 13:59 (D50w (Vial) Inj) 50 ml UNSCH PRN IV PUSH 09/15/17 14:00 (Pill Splitter) 1 ea UNSCH PRN OTHER 09/15/17 14:30 (Lovenox Inj) 60 mg Q12H SQ 09/16/17 23:00 09/19/17 11:00 (Lopressor) 12.5 mg Q8HR PO 09/16/17 18:00 09/18/17 14:48 (Lasix Inj) 20 mg DAILY IV PUSH 09/17/17 09:00 Future Hold Vital Signs / I&O Vital Signs Date Time Temp Pulse Resp B/P (MAP) Pulse Ox O2 Delivery O2 Flow Rate FiO2 09/19/17 13:13 56 09/19/17 11:58 57 09/19/17 11:57 97.5 58 18 102/60 (74) 98 09/19/17 10:38 96 21 09/19/17 10:14 53 5/29/18 09:54 18 09/19/17 09:02 55 09/19/17 08:57 54 09/19/17 07:56 57 09/19/17 07:51 97.7 57 18 150/67 (94) 99 09/19/17 06:00 49 09/19/17 05:00 52 09/19/17 04:00 55 09/19/17 03:56 97.7 53 18 156/71 (99) 97 09/19/17 03:00 52 09/19/17 02:00 58 09/19/17 01:00 54 09/19/17 00:01 97.7 56 16 130/60 (83) 97 09/19/17 00:00 54 09/18/17 23:00 55 09/18/17 22:00 64 09/18/17 21:00 56 09/18/17 20:00 56 09/18/17 19:46 98.7 51 18 122/53 (76) 97 09/18/17 19:00 44 09/18/17 18:00 48 09/18/17 17:00 52 09/18/17 16:00 54 09/18/17 15:00 56 09/18/17 15:00 98.2 60 16 122/53 (76) 96 I/O 09/18/17 09/18/17 09/18/17 09/19/17 09/19/17 09/19/17 07:00 15:00 23:00 07:00 15:00 23:00 Intake Total 240 ml 720 ml 240 ml Output Total 600 ml 680 ml 700 ml Balance -360 ml 40 ml -460 ml Intake Oral 240 ml 720 ml 240 ml Output Urine Total 600 ml 680 ml 700 ml Physical Exam GENERAL: SKIN: Warm and dry. HEAD: Normocephalic. EYES: No scleral icterus. No injection or drainage. NECK: Supple, trachea midline. No JVD or lymphadenopathy. CARDIOVASCULAR: Regular rate and rhythm without murmurs, gallops, or rubs. RESPIRATORY: Breath sounds equal bilaterally. No accessory muscle use. GASTROINTESTINAL: Abdomen soft, non-tender, nondistended. MUSCULOSKELETAL: No cyanosis, or edema. BACK: Nontender without obvious deformity. No CVA tenderness. Laboratory Laboratory Tests Test 09/19/17 04:49 White Blood Count 2.8 TH/MM3 Red Blood Count 2.73 MIL/MM3 Hemoglobin 9.6 GM/DL Hematocrit 28.1 % Mean Corpuscular Volume 102.7 FL Mean Corpuscular Hemoglobin 35.2 PG Mean Corpuscular Hemoglobin Concent 34.3 % Red Cell Distribution Width 18.9 % Platelet Count 164 TH/MM3 Mean Platelet Volume 8.1 FL Neutrophils (%) (Auto) 43.8 % Lymphocytes (%) (Auto) 32.9 % Monocytes (%) (Auto) 17.1 % Eosinophils (%) (Auto) 4.9 % Basophils (%) (Auto) 1.3 % Neutrophils # (Auto) 1.2 TH/MM3 Lymphocytes # (Auto) 0.9 TH/MM3 Monocytes # (Auto) 0.5 TH/MM3 Eosinophils # (Auto) 0.1 TH/MM3 Basophils # (Auto) 0.0 TH/MM3 CBC Comment DIFF FINAL Differential Comment Prothrombin Time 10.4 SEC Prothromb Time International Ratio 1.0 RATIO Blood Urea Nitrogen 20 MG/DL Creatinine 0.83 MG/DL Random Glucose 81 MG/DL Total Protein 5.8 GM/DL Albumin 2.3 GM/DL Calcium Level 8.7 MG/DL Alkaline Phosphatase 115 U/L Aspartate Amino Transf (AST/SGOT) 34 U/L Alanine Aminotransferase (ALT/SGPT) 26 U/L Total Bilirubin 0.3 MG/DL Sodium Level 143 MEQ/L Potassium Level 4.6 MEQ/L Chloride Level 106 MEQ/L Carbon Dioxide Level 31.5 MEQ/L Anion Gap 6 MEQ/L Estimat Glomerular Filtration Rate 89 ML/MIN B-Type Natriuretic Peptide 287 PG/ML Assessment and Plan Problem List: (1) CHF (congestive heart failure) ICD Codes: I50.9 - Heart failure, unspecified (2) CHF exacerbation ICD Codes: I50.9 - Heart failure, unspecified Status: Acute (3) HTN (hypertension) ICD Codes: I10 - Essential (primary) hypertension Status: Chronic (4) Diabetes mellitus ICD Codes: E11.9 - Type 2 diabetes mellitus without complications Status: Chronic (5) CAD (coronary artery disease) ICD Codes: I25.10 - Atherosclerotic heart disease of [place] coronary artery without angina pectoris Status: Chronic (6) Pleural effusion ICD Codes: J90 - Pleural effusion, not elsewhere classified Status: Acute Assessment and Plan 1.) 3 vessel cad - assymptomatic, cabg per Dr Terrell, change sq hep to lovenox due h/o pe 04/09; continue aspirin, statin held due ldl=73 @ goal, f/u daily bnp ,bmp,cbc,mag, f/u carotid us, 2.) CHF - he has brittle hemodynamics probably due to 90% ostial lad lesion which appears to be very functional; hemodynamics are very volume sensative and he is essentially failing medical management again due to severe ost lad stenosis; will continue to monitor hr and bnp, currently not requring O2; d/w Dr Mary Martines Problem Qualifiers (1) CHF exacerbation: Qualified Codes: I50.9 - Heart failure, unspecified Jacob Le MD September 19, 2017 14:06
--- NOTE | 2017-09-19 15:24 | PQ ---
Physician Query Response Document PATIENT: JESSICA MILLAN : 1940 ADMIT DATE: 09/16/2017 9:32 AM DISCH DATE: RESPONDING PROVIDER #: [id number] QUERY TEXT: CDS Clarification Acute systolic heart failure in a patient w bilateral pleural effusions, BNP 525 and EF 35-40% w ECHO LV Dilation and LV systolic function is mod-to-sev reduced tx w IV Lasix, Lopressor po q 8 hr Other explanation of clinical findings. Unable to determine (no explanation for clinical findings). The medical record reflects the following clinical findings, treatment, and risk factors. * Clinical Indicators bilateral pleural effusion, BNP 525 EF 34-40% LV dilation and reduced systolic function * Risk Factors CAD * Treatment daily weight monitor I/O IV Lasix Lopressor po q 8 hr The patient's Clinical Indicators include: Please clarify and document your clinical opinion in the progress notes and discharge summary includi ng the definitive and/or presumptive diagnosis (suspected or probable), related to the above clinical findings. Please include clinical findings supporting your diagnosis. Thank you, Liliana Mcpherson CDS: Liliana Mcpherson Patient Unit: [facility] Room: 249 Contact Number: CDS/RN ext. [phone] Query created by: Liliana Mcpherson on 09/19/2017 1:57 PM RESPONSE TEXT: PATIENT IS SCHEDULED FOR CABG TOMORROW, HAS HX OF ACUTE SYSTOLIC HEART FAILURE WITH BL PLEURAL EFFUSI ONS WITH BNP OF 525 AND EF OF 35-40% WITH LV DILATATION AND LV SYSTOLIC FUNCTION IS REDUCED IN A MODE RATE TO SEVERE AMOUNT. HE IS TREATED WITH IV LASIX AND IV LOPRESSOR Electronically signed by: Gino Kohli 09/19/2017 3:20 PM
--- NOTE | 2017-09-19 15:54 | RADRPT ---
EXAM DATE: 09/19/2017 3:47 PM EDT AGE/SEX: 77 years / Male INDICATIONS: Preop CABG, aortic calcification. CLINICAL DATA: This is the patient's initial encounter. Patient reports that signs and symptoms have been present for 1 day and indicates a pain score of 3/10. MEDICAL/SURGICAL HISTORY: Cardiovascular disease. Hypertension. Prostate cancer None. RADIATION DOSE: 6.97 CTDI (mGy) COMPARISON: No prior [place] exams available for comparison. TECHNIQUE: Multiple contiguous axial images were obtained through the chest without contrast. Image s were obtained in suspended respiration using multiple row detector helical technique. Using automa nick exposure control and adjustment of the mA and/or kV according to patient size, radiation dose was kept as low as reasonably achievable to obtain optimal diagnostic quality images. FINDINGS: Noncontrast imaging through the thorax is provided. The examination demonstrates extensive atheroscle rotic calcification of the aortic annulus. The coronaries demonstrate fairly diffuse calcified athero sclerotic plaque as well. There has been previous coronary stent placement. The aortic root demonstra amie only minimal calcification. There is scattered calcification within these ascending aorta and den se calcification throughout the arch. There is no pericardial effusion. No hilar or mediastinal adenopathy is seen. Note is made of a moder ate sized hiatal hernia. Imaging through the pulmonary parenchyma demonstrates COPD changes with small bilateral effusions and atelectatic changes within the lung bases. There are advanced degenerative changes throughout the spine. CONCLUSION: 1. Calcification of the aortic annulus. The tubular portion of the ascending aorta is relatively dis ease free. There is dense calcification within the arch. 2. Small bilateral pleural effusions and areas of consolidative change within the lung bases. Electronically signed by: Celestino Pizarro MD 09/19/2017 3:53 PM EDT
[2017-09-19 16:16] LABS: HEMOGLOBIN A1C 5.2 % (4.3-6.0)
[2017-09-19] MEDS: MIRTAZAPINE 15 MG TAB PO SCH (21:03)
[2017-09-20] VITALS (24 sets, daily range): BP systolic 92–138; BP diastolic 37–69; PULSE 48–88; RESP 10–20; TEMP 93.5–98.5; O2SAT 94–100
[2017-09-20 05:12] LABS: AUTOMATED NEUTROPHIL # 1.5 TH/MM3 (1.8-7.7); BASOPHIL % 1.2 % (0.0-2.0); EOSINOPHIL # 0.1 TH/MM3 (0-0.4); EOSINOPHIL % 3.4 % (0.0-4.0); HEMATOCRIT 27.7 % (39.0-51.0); HEMOGLOBIN 9.5 GM/DL (13.0-17.0); LYMPH % 29.3 % (9.0-44.0); LYMPHOCYTE # 0.9 TH/MM3 (1.0-4.8); MEAN CELL VOLUME 102.7 FL (80.0-100.0); MEAN CORPUSCULAR HEMOGLOBIN 35.2 PG (27.0-34.0); MEAN CORPUSCULAR HGB CONC 34.3 % (32.0-36.0); MEAN PLATELET VOLUME 8.6 FL (7.0-11.0); MONO % 18.7 % (0.0-8.0); MONOCYTE # 0.6 TH/MM3 (0-0.9); NEUT % 47.4 % (16.0-70.0); PLATELET COUNT 159 TH/MM3 (150-450); RED BLOOD COUNT 2.69 MIL/MM3 (4.50-5.90); RED CELL DISTRIBUTION WIDTH 18.8 % (11.6-17.2); WHITE BLOOD COUNT 3.1 TH/MM3 (4.0-11.0)
[2017-09-20 05:27] LABS: ALBUMIN 2.4 GM/DL (3.4-5.0); ALT (GPT) 28 U/L (12-78); AST (GOT) 32 U/L (15-37); BICARBONATE 30.9 MEQ/L (21.0-32.0); BLOOD UREA NITROGEN 21 MG/DL (7-18); CALCIUM 8.7 MG/DL (8.5-10.1); CHLORIDE 106 MEQ/L (98-107); CREATININE 0.85 MG/DL (0.60-1.30); GLOMERULAR FILTRATION RATE 87 ML/MIN (>89); GLUCOSE,RANDOM 81 MG/DL (74-106); PHOSPHORUS 3.3 MG/DL (2.5-4.9); SODIUM (NA) 144 MEQ/L (136-145)
[2017-09-20 05:29] LABS: ALKALINE PHOSPHATASE 121 U/L (45-117); TOTAL BILIRUBIN ADULT 0.3 MG/DL (0.2-1.0); TOTAL PROTEIN 5.8 GM/DL (6.4-8.2)
[2017-09-20] MEDS: METOPROLOL TARTRATE 25 MG TAB PO SCH (05:41)
[2017-09-20] MEDS: INSULIN ASPART SUPPLEMENTAL SCALE SQ SCH ×4 (07:27→21:00)
[2017-09-20] MEDS: PANTOPRAZOLE SOD 20 MG DELAYED RELEASE TAB PO SCH (07:28)
[2017-09-20] MEDS: POTASSIUM CHLORIDE 20 MEQ CONTROLLED RELEASE TAB PO SCH ×2 (07:28→21:00)
[2017-09-20] MEDS: SODIUM CHLORIDE 0.9% FLUSH 10 ML FLUSH IV FLUSH SCH ×2 (07:28→21:00)
[2017-09-20] MEDS: PREGABALIN 100 MG CAP PO SCH ×2 (07:28→21:00)
[2017-09-20] MEDS: DOCUSATE SODIUM 50 MG/SENNA 8.6 MG TAB PO SCH ×2 (07:28→21:00)
[2017-09-20] MEDS: ASPIRIN 81 MG CHEW TAB PO SCH (07:28)
[2017-09-20] MEDS: ENOXAPARIN SODIUM 60 MG/0.6 ML SYRINGE SQ SCH (09:02)
--- NOTE | 2017-09-20 09:14 | PD.CAR.PN ---
CVT Progress Note Subjective/Hospital Course: 77-year-old male, patient of Dr. Cheikh Funes and Dr. Jacob Le, with history of coronary artery disease, prior stenting x4. He had 3 stents placed last year by Dr. Le. Also, history of trifascicular block, atrial fibrillation, recent new onset of CHF, started on Entresto by primary care physician. He had been recently discharged in July for sepsis, pneumonia, also with weight loss of 30 pounds over the last 2 years. On admission, he complained of fatigue, loss of appetite. He was also having pain on both sides of his neck, described as pressure-like. He underwent cardiac catheterization for unstable angina, CHF, CAD. EF was 50%. Proximal LAD had a 90% ostial lesion, diagonal 100%. The RCA was 50%. We were consulted to evaluate for coronary artery bypass graft x2 to the LAD and the diagonal. PAST MEDICAL HISTORY: prior MS in 2002. He had a stent back then and he also had 3 stents last year. Autoimmune disorder, was on Imuran in the past and prednisone in the past. Atrial fibrillation, on Eliquis. history of a pulmonary emboli in March 2017, at that time was on Coumadin. Prostate cancer, hyperlipidemia, diabetes, history of radiation therapy, right knee arthroscopic surgery and cardiac catheterization. [place] Very frail. Clinically stable. OR Monday second case 09/17 Clinically stable OR Tuesday 09/19 pt now to undergo CABG by Dr Terrell second case tomorrow CT chest without contrast pending to eval aorta for calcifications no chest pain last pm STS score 5.9 09/20 no chest pain last night for surgery today CT chest noted Objective: Vital Signs Date Time Temp Pulse Resp B/P (MAP) Pulse Ox O2 Delivery O2 Flow Rate FiO2 09/20/17 09:00 52 09/20/17 08:00 58 09/20/17 07:15 52 09/20/17 07:15 98.1 56 20 134/64 (87) 94 09/20/17 06:00 48 09/20/17 05:00 67 09/20/17 04:00 58 09/20/17 03:25 61 09/20/17 03:25 98.0 52 16 131/58 (82) 94 09/20/17 02:00 58 5/30/18 01:00 59 09/20/17 00:01 51 09/19/17 23:16 98.6 57 16 144/87 (106) 94 09/19/17 23:00 57 09/19/17 22:00 60 09/19/17 21:18 73 09/19/17 20:00 62 09/19/17 19:48 98.2 62 16 121/60 (80) 93 09/19/17 19:00 64 09/19/17 18:00 52 09/19/17 17:00 55 09/19/17 16:00 57 09/19/17 15:00 98.2 55 20 124/62 (82) 97 09/19/17 15:00 55 09/19/17 14:00 55 09/19/17 13:13 56 09/19/17 11:58 57 09/19/17 11:57 97.5 58 18 102/60 (74) 98 09/19/17 10:38 96 21 09/19/17 10:14 53 09/19/17 09:54 18 Labs: Laboratory Tests Test 09/20/17 03:20 White Blood Count 3.1 TH/MM3 (4.0-11.0) Red Blood Count 2.69 MIL/MM3 (4.50-5.90) Hemoglobin 9.5 GM/DL (13.0-17.0) Hematocrit 27.7 % (39.0-51.0) Mean Corpuscular Volume 102.7 FL (80.0-100.0) Mean Corpuscular Hemoglobin 35.2 PG (27.0-34.0) Mean Corpuscular Hemoglobin Concent 34.3 % (32.0-36.0) Red Cell Distribution Width 18.8 % (11.6-17.2) Platelet Count 159 TH/MM3 (150-450) Mean Platelet Volume 8.6 FL (7.0-11.0) Neutrophils (%) (Auto) 47.4 % (16.0-70.0) Lymphocytes (%) (Auto) 29.3 % (9.0-44.0) Monocytes (%) (Auto) 18.7 % (0.0-8.0) Eosinophils (%) (Auto) 3.4 % (0.0-4.0) Basophils (%) (Auto) 1.2 % (0.0-2.0) Neutrophils # (Auto) 1.5 TH/MM3 (1.8-7.7) Lymphocytes # (Auto) 0.9 TH/MM3 (1.0-4.8) Monocytes # (Auto) 0.6 TH/MM3 (0-0.9) Eosinophils # (Auto) 0.1 TH/MM3 (0-0.4) Basophils # (Auto) 0.0 TH/MM3 (0-0.2) CBC Comment DIFF FINAL Differential Comment Blood Urea Nitrogen 21 MG/DL (7-18) Creatinine 0.85 MG/DL (0.60-1.30) Random Glucose 81 MG/DL (74-106) Total Protein 5.8 GM/DL (6.4-8.2) Albumin 2.4 GM/DL (3.4-5.0) Calcium Level 8.7 MG/DL (8.5-10.1) Phosphorus Level 3.3 MG/DL (2.5-4.9) Magnesium Level 2.0 MG/DL (1.5-2.5) Alkaline Phosphatase 121 U/L (45-117) Aspartate Amino Transf (AST/SGOT) 32 U/L (15-37) Alanine Aminotransferase (ALT/SGPT) 28 U/L (12-78) Total Bilirubin 0.3 MG/DL (0.2-1.0) Sodium Level 144 MEQ/L (136-145) Potassium Level 4.6 MEQ/L (3.5-5.1) Chloride Level 106 MEQ/L (98-107) Carbon Dioxide Level 30.9 MEQ/L (21.0-32.0) Anion Gap 7 MEQ/L (5-15) Estimat Glomerular Filtration Rate 87 ML/MIN (>89) Result Diagram: 09/20/17 0320 09/20/17 0320 Telemetry: sinus natanael (1) CHF (congestive heart failure) Plan: on diuretics (2) CHF exacerbation (3) HTN (hypertension) Plan: controlled (4) Diabetes mellitus Plan: HGB A1c pending on metformin at home (5) CAD (coronary artery disease) Plan: ASA, add statin for surgery today will need to be evaluated for rehab once discharged (6) Pleural effusion Problem Qualifiers (1) CHF exacerbation: Qualified Codes: I50.9 - Heart failure, unspecified Pamela Duenas September 20, 2017 09:14
--- NOTE | 2017-09-20 09:43 | HHI.PR ---
Subjective Remarks Patient is scheduled to undergo CABG tomorrow with cardiovascular surgery No current complaints at this time Seen ambulating in his room Discussed with patient and RN and case management 09-20 PATIENT IS SCHEDULED FOR CABG LATER TODAY NO NEW COMPLAINTS HAS NOT EATEN SINCE LAST NIGHT DW RN AND PT AND Objective Vitals Vital Signs Date Time Temp Pulse Resp B/P (MAP) Pulse Ox O2 Delivery O2 Flow Rate FiO2 09/20/17 09:00 52 09/20/17 08:00 58 09/20/17 07:15 52 09/20/17 07:15 98.1 56 20 134/64 (87) 94 09/20/17 06:00 48 09/20/17 05:00 67 09/20/17 04:00 58 09/20/17 03:25 61 09/20/17 03:25 98.0 52 16 131/58 (82) 94 09/20/17 02:00 58 09/20/17 01:00 59 09/20/17 00:01 51 09/19/17 23:16 98.6 57 16 144/87 (106) 94 09/19/17 23:00 57 09/19/17 22:00 60 09/19/17 21:18 73 09/19/17 20:00 62 09/19/17 19:48 98.2 62 16 121/60 (80) 93 09/19/17 19:00 64 09/19/17 18:00 52 09/19/17 17:00 55 09/19/17 16:00 57 09/19/17 15:00 98.2 55 20 124/62 (82) 97 09/19/17 15:00 55 09/19/17 14:00 55 09/19/17 13:13 56 09/19/17 11:58 57 09/19/17 11:57 97.5 58 18 102/60 (74) 98 09/19/17 10:38 96 21 09/19/17 10:14 53 09/19/17 09:54 18 I/O 09/19/17 09/19/17 09/19/17 09/20/17 09/20/17 09/20/17 07:00 15:00 23:00 07:00 15:00 23:00 Intake Total 240 ml 480 ml 240 ml Output Total 700 ml 300 ml 250 ml Balance -460 ml 180 ml -10 ml Intake Oral 240 ml 480 ml 240 ml Output Urine Total 700 ml 300 ml 250 ml # Voids 1 3 # Bowel Movements 2 1 Result Diagram: 09/20/17 0320 09/20/17 0320 Other Results Laboratory Tests Test 09/18/17 03:45 09/19/17 04:49 09/20/17 03:20 White Blood Count 2.9 TH/MM3 2.8 TH/MM3 3.1 TH/MM3 Red Blood Count 2.66 MIL/MM3 2.73 MIL/MM3 2.69 MIL/MM3 Hemoglobin 9.3 GM/DL 9.6 GM/DL 9.5 GM/DL Hematocrit 27.3 % 28.1 % 27.7 % Mean Corpuscular Volume 102.8 FL 102.7 FL 102.7 FL Mean Corpuscular Hemoglobin 35.1 PG 35.2 PG 35.2 PG Mean Corpuscular Hemoglobin Concent 34.1 % 34.3 % 34.3 % Red Cell Distribution Width 19.3 % 18.9 % 18.8 % Platelet Count 162 TH/MM3 164 TH/MM3 159 TH/MM3 Mean Platelet Volume 8.6 FL 8.1 FL 8.6 FL Blood Urea Nitrogen 25 MG/DL 20 MG/DL 21 MG/DL Creatinine 0.80 MG/DL 0.83 MG/DL 0.85 MG/DL Random Glucose 84 MG/DL 81 MG/DL 81 MG/DL Calcium Level 8.9 MG/DL 8.7 MG/DL 8.7 MG/DL Magnesium Level 2.0 MG/DL 2.0 MG/DL Sodium Level 145 MEQ/L 143 MEQ/L 144 MEQ/L Potassium Level 4.4 MEQ/L 4.6 MEQ/L 4.6 MEQ/L Chloride Level 107 MEQ/L 106 MEQ/L 106 MEQ/L Carbon Dioxide Level 32.5 MEQ/L 31.5 MEQ/L 30.9 MEQ/L Anion Gap 6 MEQ/L 6 MEQ/L 7 MEQ/L Estimat Glomerular Filtration Rate 93 ML/MIN 89 ML/MIN 87 ML/MIN B-Type Natriuretic Peptide 326 PG/ML 287 PG/ML Neutrophils (%) (Auto) 43.8 % 47.4 % Lymphocytes (%) (Auto) 32.9 % 29.3 % Monocytes (%) (Auto) 17.1 % 18.7 % Eosinophils (%) (Auto) 4.9 % 3.4 % Basophils (%) (Auto) 1.3 % 1.2 % Neutrophils # (Auto) 1.2 TH/MM3 1.5 TH/MM3 Lymphocytes # (Auto) 0.9 TH/MM3 0.9 TH/MM3 Monocytes # (Auto) 0.5 TH/MM3 0.6 TH/MM3 Eosinophils # (Auto) 0.1 TH/MM3 0.1 TH/MM3 Basophils # (Auto) 0.0 TH/MM3 0.0 TH/MM3 CBC Comment DIFF FINAL DIFF FINAL Differential Comment Prothrombin Time 10.4 SEC Prothromb Time International Ratio 1.0 RATIO Total Protein 5.8 GM/DL 5.8 GM/DL Albumin 2.3 GM/DL 2.4 GM/DL Alkaline Phosphatase 115 U/L 121 U/L Aspartate Amino Transf (AST/SGOT) 34 U/L 32 U/L Alanine Aminotransferase (ALT/SGPT) 26 U/L 28 U/L Total Bilirubin 0.3 MG/DL 0.3 MG/DL Hemoglobin A1c 5.2 % Phosphorus Level 3.3 MG/DL Imaging Last Impressions Chest CT 09/19/17 0000 Signed Impressions: CONCLUSION: 1. Calcification of the aortic annulus. The tubular portion of the ascending a beau is relatively disease free. There is dense calcification within the arch. 2. Small bilateral pleural effusions and areas of consolidative change within the lung bases. Lower Extremity Ultrasound 09/15/17 0000 Signed Impressions: CONCLUSION: 1. Right lower extremity venous mapping, as above. Carotid Artery Ultrasound 09/15/17 0000 Signed Impressions: CONCLUSION: 1. Right Internal Carotid Artery: Findings indicate 50-69% stenosis. 2. Left Internal Carotid Artery: Findings indicate 50-69% stenosis. Chest X-Ray 09/12/17 1030 Signed Impressions: CONCLUSION: Persistent bilateral effusions Objective Remarks GENERAL: Awake alert and oriented 3 talkative and cooperative SKIN: Warm and dry. HEAD: Atraumatic. Normocephalic. EYES: Pupils equal and round. No scleral icterus. No injection or drainage. Wears glasses ENT: No nasal bleeding or discharge. Mucous membranes pink and moist. Tongue is midline NECK: Trachea midline. No JVD. Supple CARDIOVASCULAR: Regular rate and rhythm. S1-S2 no S3 or S4 RESPIRATORY: No accessory muscle use. Clear to auscultation. Breath sounds equal bilaterally. GASTROINTESTINAL: Abdomen soft, non-tender, nondistended. Hepatic and splenic margins not palpable. MUSCULOSKELETAL: Extremities without clubbing, cyanosis, or edema. No obvious deformities. NEUROLOGICAL: Awake and alert. No obvious cranial nerve deficits. Motor grossly within normal limits. Five out of 5 muscle strength in the arms and legs. Normal speech. PSYCHIATRIC: Appropriate mood and affect; insight and judgment normal. Procedures 09/15- cardiac cath Moderate to severe 3-vessel coronary artery disease in a right dominant system as detailed above. Preserved left ventricular systolic function, ejection fraction 50-55%. Medications and IVs Current Medications Sodium Chloride 500 ml @ 500 mls/hr BOLUS ONCE IV Last administered on at 10:41; Start 09/12/17 at 10:30; Stop 09/12/17 at 11:29; Status DC Aspirin (Aspirin) 325 mg ONCE ONCE PO Last administered on 09/12/17at 13:13; Start 09/12/17 at 13:15; Stop 09/12/17 at 13:16; Status DC Aspirin (Aspirin) 325 mg DAILY PO ; Start 09/14/17 at 09:00; Stop 09/14/17 at 09 :00; Status DC Nitroglycerin (Nitrostat Sl) 0.4 mg Q5M PRN SL X 3 doses for chest pain; Start 09/12/17 at 13:30 Sodium Chloride (NS Flush) 2 ml UNSCH PRN IV FLUSH FLUSH AFTER USING IV ACCESS ; Start 09/12/17 at 13:30; Stop 09/15/17 at 11:51; Status DC Sodium Chloride (NS Flush) 2 ml BID IV FLUSH Last administered on 09/15/17at 08: 37; Start 09/12/17 at 21:00; Stop 09/15/17 at 11:51; Status DC Acetaminophen (Tylenol) 650 mg Q4H PRN PO TEMP > 100.4; Start 09/12/17 at 13:30 Ondansetron HCl (Zofran Odt) 4 mg Q6H PRN PO NAUSEA OR VOMITING; Start at 13:30 Acetaminophen (Tylenol) 650 mg Q6H PRN PO PAIN SCALE 1 TO 2; Start 09/12/17 at 13:30 Naloxone HCl (Narcan Inj) 0.4 mg UNSCH PRN IV PUSH SEE LABEL COMMENTS; Start at 13:30 Senna/Docusate Sodium (Jessenia-Colace) 1 tab BID PO Last administered on at 08:53; Start 09/12/17 at 21:00 Magnesium Hydroxide (Milk Of Magnesia Liq) 30 ml Q12H PRN PO Mild constipation ; Start 09/12/17 at 13:30 Sennosides (Senokot) 17.2 mg Q12H PRN PO Moderate constipation; Start 09/12/17 at 13:30 Bisacodyl (Dulcolax Supp) 10 mg DAILY PRN RECTAL SEVERE CONSITIPATION; Start at 13:30 Lactulose (Lactulose Liq) 30 ml DAILY PRN PO SEVERE CONSITIPATION Last administered on 09/19/17at 08:53; Start 09/12/17 at 13:30 Dextrose (D50w (Vial) Inj) 50 ml UNSCH PRN IV PUSH HYPOGLYCEMIA-SEE COMMENTS; Start 09/12/17 at 13:45 Glucagon (Glucagon Inj) 1 mg UNSCH PRN OTHER HYPOGLYCEMIA-SEE COMMENTS; Start 09/12/17 at 13:45 Insulin Aspart (NovoLOG SUPPLEMENTAL SCALE) 1 ACHS SLIDING SCALE SQ Last administered on 09/16/17at 22:04; Start 09/12/17 at 17:00 Apixaban (Eliquis) 5 mg BID PO Last administered on 09/13/17at 21:23; Start at 21:00; Stop 09/14/17 at 14:13; Status DC Metformin HCl (Glucophage) 500 mg BIDPC PO Last administered on 09/13/17at 17:20 ; Start 09/12/17 at 18:00; Status Future Hold Mirtazapine (Remeron) 15 mg HS PO Last administered on 09/19/17at 21:03; Start 09/12/17 at 21:00 Polyvinyl Alcohol/ Povidone (Refresh Classic 1.4-0.6% Pf Opth Soln) 2 drop 5 TIMES A DAY PRN EACH EYE DRY EYE; Start 09/12/17 at 17:30 Pregabalin (Lyrica) 100 mg BID PO Last administered on 09/19/17at 21:03; Start 09/12/17 at 21:00 Patient Own Medication PT OWN MED:RESTASIS OPHTH DROPS BID EACH EYE ; Start at 21:00; Status Future Hold Pantoprazole Sodium (Protonix) 20 mg DAILY PO Last administered on 09/19/17at 08 :53; Start 09/13/17 at 09:00 Furosemide (Lasix Inj) 20 mg ONCE ONCE IV PUSH Last administered on 09/12/17at 23:10; Start 09/12/17 at 22:45; Stop 09/12/17 at 22:48; Status DC Furosemide (Lasix Inj) 20 mg BID@09,18 IV PUSH Last administered on 09/16/17at 17:09; Start 09/13/17 at 09:00; Stop 09/16/17 at 18:04; Status DC Potassium Chloride (KCl) 20 meq Q12HR PO Last administered on 09/19/17at 21:03; Start 09/13/17 at 12:00 Magnesium Sulfate/ Dextrose 100 ml @ 100 mls/hr Q1H IV Last administered on at 13:00; Start 09/13/17 at 12:00; Stop 09/13/17 at 13:59; Status DC Aspirin (Aspirin Chew) 162 mg DAILY PO Last administered on 09/19/17at 08:53; Start 09/14/17 at 09:00 Heparin Sodium/ Sodium Chloride 1,000 ml @ As Directed STK-MED ONCE .ROUTE ; Start 09/15/17 at 10:58; Stop 09/15/17 at 10:59; Status DC Midazolam HCl (Versed Inj) 2 mg STK-MED ONCE .ROUTE Last administered on at 11:09; Start 09/15/17 at 11:09; Stop 09/15/17 at 11:10; Status DC Fentanyl Citrate (fentaNYL INJ) 100 mcg STK-MED ONCE .ROUTE Last administered on 09/15/17at 11:10; Start 09/15/17 at 11:09; Stop 09/15/17 at 11:10; Status DC Sodium Chloride (NS Flush) 2 ml BID IV FLUSH ; Start 09/15/17 at 21:00; Stop at 21:00; Status DC Sodium Chloride (NS Flush) 2 ml UNSCH PRN IV FLUSH FLUSH AFTER USING IV ACCESS ; Start 09/15/17 at 11:45; Stop 09/15/17 at 14:22; Status DC Miscellaneous Information 1 ONCE ONCE XX Last administered on 09/15/17at 11:45 ; Start 09/15/17 at 11:45; Stop 09/15/17 at 11:54; Status DC Bacitracin (Bacitracin Oint Packet) 0.9 gm ONCE ONCE TOP Last administered on 09/15/17at 11:45; Start 09/15/17 at 11:45; Stop 09/15/17 at 11:50; Status DC Heparin Sodium (Porcine) (Heparin Inj) 5,000 units Q12HR SQ Last administered on 09/16/17at 08:20; Start 09/15/17 at 21:00; Stop 09/16/17 at 08:27; Status DC Iohexol (OMNIPAQUE 350 INJ ([employer])) 50 ml STK-MED ONCE OTHER ; Start at 13:59; Stop 09/15/17 at 13:51; Status DC Sodium Chloride (NS Flush) 2 ml BID IV FLUSH Last administered on 09/20/17at 07: 28; Start 09/15/17 at 21:00 Sodium Chloride (NS Flush) 2 ml UNSCH PRN IV FLUSH FLUSH AFTER USING IV ACCESS ; Start 09/15/17 at 14:00 Papaverine HCl 60 mg/Nitroglycerin 100 mcg/Verapamil HCl 100 mg/Sodium Chloride 100 ml @ 0 mls/hr [employer] IRR[employer]ATION ; Start 09/15/17 at 14:00; Stop 09/22/17 at 13:59 Cefazolin Sodium 500 mg/Sodium Chloride 505 ml @ 0 mls/hr [employer] IRRIGATION ; Start 09/15/17 at 14:00; Stop 09/22/17 at 13:59 Cefazolin Sodium/ Dextrose 50 ml @ 150 mls/hr [employer] IV ; Start 09/15/17 at 14:00; Stop 09/22/17 at 13:59 Metoprolol Tartrate (Lopressor) 12.5 mg [employer] PO ; Start 09/15/17 at 14:00; Stop 09/22/17 at 13:59 Chlorhexidine Gluconate (Hibiclens 4% Top Soln) 1 applic [employer] TOPICAL ; Start 09/15/17 at 14:00; Stop 09/22/17 at 13:59 Insulin Human Regular 100 units/ Sodium Chloride 100 ml @ 3 mls/hr TITRATE PRN IV for blood glucose control; Start 09/15/17 at 14:00; Stop 09/22/17 at 13:59 Dextrose (D50w (Vial) Inj) 50 ml UNSCH PRN IV PUSH HYPOGLYCEMIA-SEE COMMENTS; Start 09/15/17 at 14:00 Miscellaneous (Pill Splitter) 1 ea UNSCH PRN OTHER SEE LABEL COMMENTS; Start at 14:30 Enoxaparin Sodium (Lovenox Inj) 60 mg ONCE ONCE SQ Last administered on at 11:00; Start 09/16/17 at 11:00; Stop 09/16/17 at 11:01; Status DC Enoxaparin Sodium (Lovenox Inj) 60 mg Q12H SQ Last administered on 09/19/17at 11 :00; Start 09/16/17 at 23:00 Metoprolol Tartrate (Lopressor) 12.5 mg Q8HR PO Last administered on 09/20/17at 05:41; Start 09/16/17 at 18:00 Furosemide (Lasix Inj) 20 mg DAILY IV PUSH ; Start 09/17/17 at 09:00; Status Future Hold Sodium Chloride 1,000 ml @ 999 mls/hr BOLUS ONCE IV Last administered on 09/16at 18:11; Start 09/16/17 at 18:00; Stop 09/16/17 at 19:00; Status DC A/P Problem List: (1) CHF exacerbation ICD Code: I50.9 - Heart failure, unspecified Status: Acute (2) Neck pain ICD Code: M54.2 - Cervicalgia Status: Acute (3) Pleural effusion ICD Code: J90 - Pleural effusion, not elsewhere classified Status: Acute Assessment and Plan This is a 77-year-old male who presents to the emergency department complaining of generalized weakness, dizzy with considerably low BP 100/76 recently started on Entresto. He was also recently treated for pneumonia and sepsis and completed course of Augmentin. Generalized weakness likely related to hypotension- IMproved from Entresto.- It could also be related to his recent pneumonia and sepsis patient with leukopenia. - clinically feeling stronger He is improving PT recommends home care. - Follow-up blood culture shows no growth CAD S/P with 3 VD, EF 50-55% on cath Hyperlipidemia HYpertension- SBP 90-100, SR- 70s History of PE- 03/2017 -cardiology ff. on ASA - clinically feeling better, leg swelling resolved - Cardiothoracic surgery consulted for CABG- plan for - LDL 70s- statins held by Cardiology - on Eliquisis changed to Lovenox bid - decreased lasix to once daily-- BUn/creatinine improved Patient is scheduled for CABG TODAY GERD - continue PPI DM type 2 insulin requiring- - on Lantus sliding scale as OP - ff blood sugar right leg wound- consult wound care team consulted Leukopenia- stable Microscopic hematuria. Outpatient follow-up Multiple medical chronic conditions of arthritis, prostate cancer status post cryosurgery and radiation therapy, hyperlipidemia, GERD, Continue outpatient medications as appropriate. Monitor fingersticks sliding scale coverage, blood sugars with adequate control DVT prophylaxis- placed on Lovenox. eliquis was DC 09/14 Discharge Planning For coronary artery bypass graft TODAY Problem Qualifiers (1) CHF exacerbation: Qualified Codes: I50.9 - Heart failure, unspecified Gino Kohli DO September 20, 2017 09:43
[2017-09-20] MEDS ORDERED: VECURONIUM BROMIDE 10 MG VIAL IV ONE (12:00)
[2017-09-20] MEDS ORDERED: SODIUM CHLOR 0.9% 250 ML INJ 250 ML IV ONE (12:00)
[2017-09-20] MEDS ORDERED: NITROGLYCERIN 50 MG/DEXTROSE 5% SOLN 250 ML BTL IV ONE (12:00)
[2017-09-20] MEDS ORDERED: SODIUM CHLOR 0.9% 1000 ML INJ 1,000 ML IV ONE (12:00)
[2017-09-20] MEDS ORDERED: PROTAMINE SULFATE 250 MG/25 ML VIAL IV ONE (12:00)
[2017-09-20] MEDS ORDERED: ePHEDrine/NS 25 MG/5 ML SYRINGE IV ONE (12:00)
[2017-09-20] MEDS ORDERED: DEXMEDETOMIDINE HCL 200 MCG/2 ML VIAL IV ONE (12:00)
[2017-09-20] MEDS ORDERED: GLYCOPYRROLATE 0.2 MG/ML VIAL IV ONE (12:00)
[2017-09-20] MEDS ORDERED: PROPOFOL 500 MG/50 ML BTL IV ONE (12:00)
[2017-09-20] MEDS ORDERED: PHENYLEPH/NS 1000 MCG/10 ML SYR IV ONE (12:00)
[2017-09-20] MEDS ORDERED: NS 100 ML (PAB BAG) 100 ML IV ONE (12:00)
[2017-09-20] MEDS ORDERED: HEPARIN SODIUM - SQ 10,000 UNITS/ML VIAL OTHER ONE (12:00)
[2017-09-20] MEDS ORDERED: NORMOSOL R INJ 2,000 ML IV ONE (12:00)
--- NOTE | 2017-09-20 12:02 | RSPPFT ---
DATE OF PROCEDURE: 09/19/17 COMMENTS: Spirometry demonstrates an FEV1 of 1.3 at 50% of predicted, FVC of 1.3 at 39%, FEF 25-75 is 83%. Post-bronchodilator study was not conducted. Flow volume loops suggest a restrictive pattern. IMPRESSION: 1. Moderate restrictive disease. 2. No significant obstructive disease. 3. Please repeat study with lung volumes to evaluate for restriction.
[2017-09-20] MEDS ORDERED: HEPARIN SODIUM - SQ 10,000 UNITS/ML VIAL ONE ×3 (13:55→14:02)
[2017-09-20] MEDS ORDERED: methylPREDNISolone SOD SUCC 125 MG/2 ML VIAL ONE (13:55)
[2017-09-20] MEDS ORDERED: VANCOMYCIN HCL 1000 MG VIAL ONE (13:55)
[2017-09-20] MEDS ORDERED: ceFAZolin 2 GM PREMIX 50 ML ONE (13:56)
[2017-09-20] MEDS ORDERED: LACTATED RINGER'S 1000 ML INJ 500 ML IV PRN (16:35)
[2017-09-20] MEDS ORDERED: MAGNESIUM SULFATE INJ 2 GM in SODIUM CHLORIDE 0.9% INJ 100 ML IV PRN ×4 (16:45)
[2017-09-20] MEDS ORDERED: hydrALAZINE HCL 20 MG/ML VIAL IV PUSH PRN (16:45)
[2017-09-20] MEDS ORDERED: ONDANSETRON HCL 4 MG/2 ML VIAL IV PUSH PRN (16:45)
[2017-09-20] MEDS ORDERED: Post-op Orders (for Pharmacy) OTHER ONE (16:45)
[2017-09-20] MEDS ORDERED: DEXMEDETOMIDINE INJ 200 MCG in SODIUM CHLORIDE 0.9% INJ 50 ML IV PRN (16:45)
[2017-09-20] MEDS ORDERED: METOPROLOL TARTRATE 5 MG/5 ML VIAL IV PUSH PRN (16:45)
[2017-09-20] MEDS ORDERED: CLEVIDIPINE INJ 50 ML IV PRN (16:45)
[2017-09-20] MEDS ORDERED: RESP: RACEPINEPHRINE 2.25% 0.5 ML NEB NEB PRN ×2 (16:45→22:15)
[2017-09-20] MEDS ORDERED: RESP: ALBUTEROL 2.5 MG/IPRATROPIUM 0.5 MG NEB (PRN) NEB ×2 (16:45→22:15)
[2017-09-20] MEDS ORDERED: POTASSIUM CHLOR 20 MEQ PREMIX 100 ML IV PRN ×3 (16:45)
[2017-09-20] MEDS ORDERED: POTASSIUM CHLORIDE 20 MEQ CONTROLLED RELEASE TAB PO PRN ×2 (16:45)
[2017-09-20] MEDS ORDERED: CALCIUM CHLORIDE 10% 1 GRAM/10 ML VIAL IV PUSH PRN (16:45)
[2017-09-20] MEDS ORDERED: SODIUM BICARBONATE 8.4% SOLN 50 MEQ/50 ML VIAL IV PUSH PRN ×2 (16:45)
[2017-09-20] MEDS ORDERED: INSULIN REGULAR (IV INFUSION) 100 UNITS in SODIUM CHLORIDE 0.9% INJ 99 ML IV PRN (16:45)
[2017-09-20] MEDS ORDERED: CALCIUM CHLORIDE INJ 1 GM in SODIUM CHLORIDE 0.9% INJ 100 ML IV PRN (16:45)
[2017-09-20] MEDS ORDERED: ACETAMINOPHEN 650 MG SUPP RECTAL PRN (16:45)
[2017-09-20] MEDS ORDERED: DEXTROSE 50% IN WATER 50 ML VIAL(D50) IV PUSH PRN (16:45)
[2017-09-20] MEDS ORDERED: SODIUM CHLORIDE 0.9% FLUSH 10 ML FLUSH IV FLUSH PRN (16:45)
--- NOTE | 2017-09-20 16:46 | PD.OP ---
cc: Jacob Le MD; Ena Terrell MD Operative Report Date of Surgery: September 20, 2017 Preoperative Diagnosis: (1) Unstable angina (2) CHF exacerbation (3) CAD (coronary artery disease) Postoperative Diagnosis: same Procedure: Off pump CABG x 1 CONNELL to LAD - good Lysis of adhesions Anesthesia: Dr. Mills Surgeon: Ena Terrell Supervisor [employer](s): Lanie Alatorre, RENÉE Operation and Findings: The risks, benefits, complications, treatment options, and expected outcomes were discussed with the patient. The possibilities of reaction to medication, pulmonary aspiration, perforation of viscus, bleeding, recurrent infection, the need for additional procedures, failure to diagnose a condition, and creating a complication requiring transfusion or operation were discussed with the patient. The patient concurred with the proposed plan, giving informed consent. The site of surgery properly noted/marked. The patient was taken to Operating Room, identified as Chao Richardson and the procedure verified as CABG. A Time Out was held and the above information confirmed. An off pump approach was planned based n the patient's comorbidities and frailty. Standard monitoring lines and Brennan catheter were placed. General anesthesia was induced. The patient was prepped and draped in a sterile fashion. A median sternotomy was performed and electrocautery was used to obtain hemostasis. The left internal mammary artery was procured as a pedicle from the 7th rib to the 1st rib in the usual manner. The left pleural space was absent secondary to dense adhesions between the lung, chest wall, and mediastinum. The pericardium was opened and dense adhesions were encountered obliterating the pericardial space as well. Adhesions were lysed to expose the LAD. The patient was heparinized for cardiopulmonary bypass and the distal mammary pedicle was instrumented for anastomosis. A Maquet stabilizer was used to isolate the LAD. The LAD was opened with a [place] blade and found to be a 1.5 millimeter good target. The left internal mammary artery was approximated to the LAD using a running 7 0 Prolene suture. The pedicle was attached to the epicardium using interrupted 5 0 silk suture. Protamine was given. There was no adverse reaction. Wound was checked for hemostasis which was obtained using electrocautery. A 36 Persian mediastinal chest tube was placed and secured to the skin with 0 silk suture. The sternum was closed with stainless steel wire. The fascia was closed with 1. PDS. The subcutaneous tissue was closed using a running 2-0 Vicryl suture. The skin was closed with 4-0 Monocryl. Sterile dressings were placed. At the end of the operation, all sponge, instruments, and needle counts were correct. The patient was transferred to the CICU in stable condition. Findings: Dense left chest and mediastinal adhesions. The aorta was not instrumented at all. Drains: mediastinal x 1 Complications: none Disposition: to CVICU in stable condition Ena Terrell MD September 20, 2017 16:46
[2017-09-20] MEDS ORDERED: MIDAZOLAM HCL 2 MG/2 ML VIAL ONE ×2 (17:38)
[2017-09-20] MEDS ORDERED: fentaNYL CITRATE 250 MCG/5 ML AMP ONE (17:38)
[2017-09-20] MEDS: ACETAMINOPHEN 1000 MG/100 ML 100 ML IV SCH ×2 (17:46→22:20)
[2017-09-20] MEDS: ALBUMIN 5% INJ 250 ML IV PRN ×2 (17:46→20:00)
--- NOTE | 2017-09-20 18:20 | RADRPT ---
EXAM DATE: 09/20/2017 6:15 PM EDT AGE/SEX: 77 years / Male INDICATIONS: Status post CABG. CLINICAL DATA: This is the patient's initial encounter. Patient reports that signs and symptoms have been present for 1 day and indicates a pain score of Nonresponsive. MEDICAL/SURGICAL HISTORY: . Carcinoma, prostatic. Hypertension. Gastroesophageal reflux disease . PA. None. COMPARISON: [facility], CHEST SINGLE AP, 09/12/2017. . FINDINGS: There continues to be infiltrates in both lung bases with small bilateral effusions. This is about th e same compared to the prior exam. There is an endotracheal tube in place which appears to be in good position. There is an NG tube in stomach. Left-sided central line and chest tube in place. No eviden ce of pneumothorax. There is evidence of recent cardiothoracic surgery. CONCLUSION: 1. Status post CABG 2. Bibasilar infiltrates with small bilateral effusions. Electronically signed by: Carlos Siegel MD 09/20/2017 6:18 PM EDT
--- NOTE | 2017-09-20 19:16 | PD.CARD.PN ---
Subjective Subjective Remarks alert in nad Objective Medications Current Medications Medications (Trade) Dose Ordered Sig/Jasper Route Start Time Stop Time Status Last Admin (Zofran Odt) 4 mg Q6H PRN PO 09/12/17 13:30 (Narcan Inj) 0.4 mg UNSCH PRN IV PUSH 09/12/17 13:30 (Jessenia-Colace) 1 tab BID PO 09/12/17 21:00 09/19/17 08:53 (Milk Of Magnesia Liq) 30 ml Q12H PRN PO 09/12/17 13:30 (Senokot) 17.2 mg Q12H PRN PO 09/12/17 13:30 (Dulcolax Supp) 10 mg DAILY PRN RECTAL 09/12/17 13:30 (Lactulose Liq) 30 ml DAILY PRN PO 09/12/17 13:30 09/19/17 08:53 (D50w (Vial) Inj) 50 ml UNSCH PRN IV PUSH 09/12/17 13:45 (Glucagon Inj) 1 mg UNSCH PRN OTHER 09/12/17 13:45 (NovoLOG SUPPLEMENTAL SCALE) 1 ACHS SLIDING SCALE SQ 09/12/17 17:00 09/16/17 22:04 (Glucophage) 500 mg BIDPC PO 09/12/17 18:00 Future Hold 09/13/17 17:20 (Remeron) 15 mg HS PO 09/12/17 21:00 09/19/17 21:03 (Refresh Classic 1.4-0.6% Pf Opth Soln) 2 drop 5 TIMES A DAY PRN EACH EYE 09/12/17 17:30 (Lyrica) 100 mg BID PO 09/12/17 21:00 09/19/17 21:03 Patient Own Medication PT OWN MED:RESTASIS OPHTH DROPS BID EACH EYE 09/12/17 21:00 Future Hold (Protonix) 20 mg DAILY PO 09/13/17 09:00 09/19/17 08:53 (KCl) 20 meq Q12HR PO 09/13/17 12:00 09/19/17 21:03 Papaverine HCl 60 mg/Nitroglycerin 100 mcg/Verapamil HCl 100 mg/Sodium Chloride 100 ml @ 0 mls/hr METER MAKER IRRIGATION 09/15/17 14:00 09/22/17 13:59 09/20/17 15:36 Cefazolin Sodium 500 mg/Sodium Chloride 505 ml @ 0 mls/hr METER MAKER IRRIGATION 09/15/17 14:00 09/22/17 13:59 09/20/17 15:36 Cefazolin Sodium/ Dextrose 50 ml @ 150 mls/hr METER MAKER IV 09/15/17 14:00 09/22/17 13:59 09/20/17 14:22 (Hibiclens 4% Top Soln) 1 applic METER MAKER TOPICAL 09/15/17 14:00 09/22/17 13:59 (Pill Splitter) 1 ea UNSCH PRN OTHER 09/15/17 14:30 (NS Flush) 2 ml BID IV FLUSH 09/20/17 21:00 (NS Flush) 2 ml UNSCH PRN IV FLUSH 09/20/17 16:45 Dexmedetomidine HCl 200 mcg/ Sodium Chloride 52 ml @ 3.19 mls/hr TITRATE PRN IV 09/20/17 16:45 Clevidipine 50 ml @ 2 mls/hr TITRATE PRN IV 09/20/17 16:45 Albumin Human 250 ml @ 250 mls/hr UNSCH PRN IV 09/20/17 16:45 09/20/17 17:46 Lactated Ringer's 500 ml @ 500 mls/hr Q1H PRN IV 09/20/17 16:35 Cefazolin Sodium 1000 mg/Sodium Chloride 100 ml @ 200 mls/hr Q8H IV 09/20/17 22:00 09/22/17 06:29 (Aspirin Chew) 81 mg DAILY PO 09/21/17 09:00 (Tylenol) 650 mg Q4H PRN PO 09/20/17 16:45 (Tylenol Supp) 650 mg Q4H PRN RECTAL 09/20/17 16:45 Acetaminophen 100 ml @ 400 mls/hr Q6H IV 09/20/17 17:00 09/21/17 11:14 09/20/17 17:46 (Percocet 5-325 Mg) 1 tab Q3H PRN PO 09/20/17 16:45 (fentaNYL INJ) 25 mcg Q1H PRN IV PUSH 09/20/17 16:45 (Zofran Inj) 4 mg Q6H PRN IV PUSH 09/20/17 16:45 (Apresoline Inj) 10 mg Q4H PRN IV PUSH 09/20/17 16:45 (Lopressor Inj) 2.5 mg Q1H PRN IV PUSH 09/20/17 16:45 Potassium Chloride 100 ml @ 50 mls/hr UNSCH PRN IV 09/20/17 16:45 Potassium Chloride 100 ml @ 50 mls/hr UNSCH PRN IV 09/20/17 16:45 (KCl) 20 meq UNSCH PRN PO 09/20/17 16:45 (KCl) 40 meq UNSCH PRN PO 09/20/17 16:45 Magnesium Sulfate 2 gm/Sodium Chloride 104 ml @ 100 mls/hr UNSCH PRN IV 09/20/17 16:45 Magnesium Sulfate 2 gm/Sodium Chloride 104 ml @ 50 mls/hr UNSCH PRN IV 09/20/17 16:45 Calcium Chloride 1 gm/Sodium Chloride 110 ml @ 100 mls/hr UNSCH PRN IV 09/20/17 16:45 (Calcium Chloride Inj) 0.5 gm UNSCH PRN IV PUSH 09/20/17 16:45 Insulin Human Regular 100 units/ Sodium Chloride 100 ml @ 3 mls/hr TITRATE PRN IV 09/20/17 16:45 09/20/17 17:25 (D50w (Vial) Inj) 50 ml UNSCH PRN IV PUSH 09/20/17 16:45 (Sodium Bicarbonate 8.4% Inj) 50 meq UNSCH PRN IV PUSH 09/20/17 16:45 (Sodium Bicarbonate 8.4% Inj) 100 meq UNSCH PRN IV PUSH 09/20/17 16:45 (Duoneb Neb) 1 ampule Q2HR NEB PRN NEB 09/20/17 16:45 (Racepinephrine 2.25% Neb) 0.5 ml UNSCH X1 PRN NEB 09/20/17 16:45 09/23/17 16:44 Vital Signs / I&O Vital Signs Date Time Temp Pulse Resp B/P (MAP) Pulse Ox O2 Delivery O2 Flow Rate FiO2 09/20/17 17:25 62 09/20/17 17:25 93.5 62 12 92/55 (67) 99 94/39 (57) 09/20/17 13:00 52 09/20/17 12:00 60 09/20/17 11:00 49 09/20/17 11:00 98.5 50 18 129/59 (82) 96 09/20/17 10:00 50 09/20/17 09:00 52 09/20/17 08:00 58 09/20/17 07:15 52 09/20/17 07:15 98.1 56 20 134/64 (87) 94 09/20/17 06:00 48 09/20/17 05:00 67 09/20/17 04:00 58 09/20/17 03:25 61 09/20/17 03:25 98.0 52 16 131/58 (82) 94 09/20/17 02:00 58 09/20/17 01:00 59 09/20/17 00:01 51 09/19/17 23:16 98.6 57 16 144/87 (106) 94 09/19/17 23:00 57 09/19/17 22:00 60 09/19/17 21:18 73 09/19/17 20:00 62 09/19/17 19:48 98.2 62 16 121/60 (80) 93 I/O 09/19/17 09/19/17 09/19/17 09/20/17 09/20/17 09/20/17 07:00 15:00 23:00 07:00 15:00 23:00 Intake Total 240 ml 480 ml 240 ml 0 ml 2850 ml Output Total 700 ml 300 ml 250 ml 500 ml 350 ml Balance -460 ml 180 ml -10 ml -500 ml 2500 ml Intake Oral 240 ml 480 ml 240 ml 0 ml IV Total 350 ml Autotransfusion 0 ml Other 2500 ml Output Urine Total 700 ml 300 ml 250 ml 500 ml 350 ml # Voids 1 3 # Bowel Movements 2 1 0 Physical Exam GENERAL: SKIN: Warm and dry. HEAD: Normocephalic. EYES: No scleral icterus. No injection or drainage. NECK: Supple, trachea midline. No JVD or lymphadenopathy. CARDIOVASCULAR: Regular rate and rhythm without murmurs, gallops, or rubs. RESPIRATORY: Breath sounds equal bilaterally. No accessory muscle use. GASTROINTESTINAL: Abdomen soft, non-tender, nondistended. MUSCULOSKELETAL: No cyanosis, or edema. BACK: Nontender without obvious deformity. No CVA tenderness. Laboratory Laboratory Tests Test 09/20/17 03:20 White Blood Count 3.1 TH/MM3 Red Blood Count 2.69 MIL/MM3 Hemoglobin 9.5 GM/DL Hematocrit 27.7 % Mean Corpuscular Volume 102.7 FL Mean Corpuscular Hemoglobin 35.2 PG Mean Corpuscular Hemoglobin Concent 34.3 % Red Cell Distribution Width 18.8 % Platelet Count 159 TH/MM3 Mean Platelet Volume 8.6 FL Neutrophils (%) (Auto) 47.4 % Lymphocytes (%) (Auto) 29.3 % Monocytes (%) (Auto) 18.7 % Eosinophils (%) (Auto) 3.4 % Basophils (%) (Auto) 1.2 % Neutrophils # (Auto) 1.5 TH/MM3 Lymphocytes # (Auto) 0.9 TH/MM3 Monocytes # (Auto) 0.6 TH/MM3 Eosinophils # (Auto) 0.1 TH/MM3 Basophils # (Auto) 0.0 TH/MM3 CBC Comment DIFF FINAL Differential Comment Blood Urea Nitrogen 21 MG/DL Creatinine 0.85 MG/DL Random Glucose 81 MG/DL Total Protein 5.8 GM/DL Albumin 2.4 GM/DL Calcium Level 8.7 MG/DL Phosphorus Level 3.3 MG/DL Magnesium Level 2.0 MG/DL Alkaline Phosphatase 121 U/L Aspartate Amino Transf (AST/SGOT) 32 U/L Alanine Aminotransferase (ALT/SGPT) 28 U/L Total Bilirubin 0.3 MG/DL Sodium Level 144 MEQ/L Potassium Level 4.6 MEQ/L Chloride Level 106 MEQ/L Carbon Dioxide Level 30.9 MEQ/L Anion Gap 7 MEQ/L Estimat Glomerular Filtration Rate 87 ML/MIN Imaging Last 24 hours Impressions Chest X-Ray 09/20/17 0000 Signed Impressions: CONCLUSION: 1. Status post CABG 2. Bibasilar infiltrates with small bilateral effusions. Assessment and Plan Problem List: (1) CHF (congestive heart failure) ICD Codes: I50.9 - Heart failure, unspecified (2) CHF exacerbation ICD Codes: I50.9 - Heart failure, unspecified Status: Acute (3) HTN (hypertension) ICD Codes: I10 - Essential (primary) hypertension Status: Chronic (4) Diabetes mellitus ICD Codes: E11.9 - Type 2 diabetes mellitus without complications Status: Chronic (5) CAD (coronary artery disease) ICD Codes: I25.10 - Atherosclerotic heart disease of [place] coronary artery without angina pectoris Status: Chronic (6) Pleural effusion ICD Codes: J90 - Pleural effusion, not elsewhere classified Status: Acute Assessment and Plan 1.) severe 3 vessel cad - assymptomatic, cabg per Dr Terrell today, continue aspirin, statin held due ldl=73 @ goal, f/u daily bnp,bmp,cbc,mag 2.) CHF - he has brittle hemodynamics probably due to 90% ostial lad lesion which appears to be very functional; hemodynamics are very volume sensative and he is essentially failing medical management again due to severe ost lad stenosis; will continue to monitor hr and bnp, currently not requring O2; d/w Dr Mary Martines Problem Qualifiers (1) CHF exacerbation: Qualified Codes: I50.9 - Heart failure, unspecified Jacob Le MD September 20, 2017 19:16
[2017-09-20] MEDS: MIRTAZAPINE 15 MG TAB PO SCH (21:00)
[2017-09-21] VITALS (13 sets, daily range): BP systolic 92–144; BP diastolic 37–74; PULSE 70–112; RESP 16–18; TEMP 97–98.4; O2SAT 95–100
[2017-09-21] MEDS ORDERED: RESP: ALBUTEROL 2.5 MG/IPRATROPIUM 0.5 MG NEB (SCH) NEB (04:00)
[2017-09-21 05:30] LABS: AUTOMATED NEUTROPHIL # 4.4 TH/MM3 (1.8-7.7); BASOPHIL % 0.1 % (0.0-2.0); HEMATOCRIT 31.5 % (39.0-51.0); LYMPH % 6.9 % (9.0-44.0); LYMPHOCYTE # 0.4 TH/MM3 (1.0-4.8); MEAN CELL VOLUME 97.6 FL (80.0-100.0); MEAN CORPUSCULAR HEMOGLOBIN 34.2 PG (27.0-34.0); MEAN CORPUSCULAR HGB CONC 35.1 % (32.0-36.0); MEAN PLATELET VOLUME 8.2 FL (7.0-11.0); MONO % 18.9 % (0.0-8.0); MONOCYTE # 1.1 TH/MM3 (0-0.9); NEUT % 74.1 % (16.0-70.0); PLATELET COUNT 123 TH/MM3 (150-450); RED BLOOD COUNT 3.23 MIL/MM3 (4.50-5.90); RED CELL DISTRIBUTION WIDTH 18.7 % (11.6-17.2); WHITE BLOOD COUNT 5.9 TH/MM3 (4.0-11.0)
[2017-09-21 05:41] LABS: INTERNATIONAL NORMALIZED RATIO 1.1 RATIO; PROTHROMBIN TIME - PATIENT 10.7 SEC (9.8-11.6)
[2017-09-21 05:47] LABS: ALBUMIN 2.7 GM/DL (3.4-5.0); AST (GOT) 32 U/L (15-37); BICARBONATE 24.2 MEQ/L (21.0-32.0); BLOOD UREA NITROGEN 14 MG/DL (7-18); CALCIUM 8.5 MG/DL (8.5-10.1); CHLORIDE 108 MEQ/L (98-107); CREATININE 0.76 MG/DL (0.60-1.30); GLOMERULAR FILTRATION RATE 99 ML/MIN (>89); GLUCOSE,RANDOM 88 MG/DL (74-106); MAGNESIUM 1.5 MG/DL (1.5-2.5); SODIUM (NA) 141 MEQ/L (136-145)
[2017-09-21 05:48] LABS: ALT (GPT) 25 U/L (12-78); PHOSPHORUS 2.7 MG/DL (2.5-4.9)
[2017-09-21] MEDS: ACETAMINOPHEN 1000 MG/100 ML 100 ML IV SCH ×2 (05:49→11:43)
[2017-09-21 05:50] LABS: ALKALINE PHOSPHATASE 95 U/L (45-117); TOTAL PROTEIN 5.7 GM/DL (6.4-8.2)
--- NOTE | 2017-09-21 06:54 | RADRPT ---
EXAM DATE: 09/21/2017 6:02 AM EDT AGE/SEX: 77 years / Male INDICATIONS: Shortness of breath, possible pneumothorax. CLINICAL DATA: This is the patient's subsequent encounter. Patient reports that signs and symptoms h ave been present for 2 days and indicates a pain score of 8/10. MEDICAL/SURGICAL HISTORY: Carcinoma, prostatic. Hypertension. Gastroesophageal reflux disease . CABG. COMPARISON: [facility], CHEST SINGLE AP, 09/20/2017. . FINDINGS: Mediastinal drainage tube is in place. The other tubes have been removed. Right pleural effusion is p resent with possible small left pleural effusion. Bilateral perihilar infiltrates are present slightl y worse. CONCLUSION: Bilateral pleural effusions and perihilar infiltrates appear slightly worse. Electronically signed by: Melissa Perez MD 09/21/2017 6:53 AM EDT
[2017-09-21] MEDS ORDERED: DEXTROSE 50% IN WATER 50 ML VIAL(D50) IV PUSH PRN (09:45)
[2017-09-21] MEDS ORDERED: GLUCAGON 1 MG/ML VIAL OTHER PRN (09:45)
[2017-09-21 09:54] LABS: BANDS 8 % (0-6); CORRECTED NUCLEATED RBC 1 /100 WBC (0-0); LYMPHOCYTES 3 % (9-44); MONOCYTES 11 % (0-8); NEUTROPHIL # MANUAL DIFF 5.1 TH/MM3 (1.8-7.7); NUCLEATED RED BLOOD CELL 1 (0-0); POLYS (SEG NEUTROPHILS) 78 % (16-70)
[2017-09-21] MEDS: INSULIN ASPART SUPPLEMENTAL SCALE SQ SCH ×4 (10:00→21:44)
[2017-09-21] MEDS: oxyCODONE/ACETAMINOPHEN 5 MG/325 MG TAB PO PRN ×3 (10:21→21:38)
[2017-09-21] MEDS: PREGABALIN 100 MG CAP PO SCH ×2 (10:21→21:37)
[2017-09-21] MEDS: POTASSIUM CHLORIDE 10 MEQ CONTROLLED RELEASE TAB PO SCH ×2 (10:21→21:37)
[2017-09-21] MEDS: PANTOPRAZOLE SOD 20 MG DELAYED RELEASE TAB PO SCH (10:21)
[2017-09-21] MEDS: ASPIRIN 81 MG CHEW TAB PO SCH (10:21)
[2017-09-21] MEDS: SODIUM CHLORIDE 0.9% FLUSH 10 ML FLUSH IV FLUSH SCH ×2 (10:22→21:00)
[2017-09-21] MEDS: RESP: ALBUTEROL 2.5 MG/IPRATROPIUM 0.5 MG NEB (SCH) NEB ×2 (12:50→20:46)
--- NOTE | 2017-09-21 14:06 | PD.CAR.PN ---
CVT Progress Note Subjective/Hospital Course: 77-year-old male, patient of Dr. Cheikh Funes and Dr. Jacob Le, with history of coronary artery disease, prior stenting x4. He had 3 stents placed last year by Dr. Le. Also, history of trifascicular block, atrial fibrillation, recent new onset of CHF, started on Entresto by primary care physician. He had been recently discharged in July for sepsis, pneumonia, also with weight loss of 30 pounds over the last 2 years. On admission, he complained of fatigue, loss of appetite. He was also having pain on both sides of his neck, described as pressure-like. He underwent cardiac catheterization for unstable angina, CHF, CAD. EF was 50%. Proximal LAD had a 90% ostial lesion, diagonal 100%. The RCA was 50%. We were consulted to evaluate for coronary artery bypass graft x2 to the LAD and the diagonal. PAST MEDICAL HISTORY: prior PR in 2002. He had a stent back then and he also had 3 stents last year. Autoimmune disorder, was on Imuran in the past and prednisone in the past. Atrial fibrillation, on Eliquis. history of a pulmonary emboli in March 2017, at that time was on Coumadin. Prostate cancer, hyperlipidemia, diabetes, history of radiation therapy, right knee arthroscopic surgery and cardiac catheterization. [place] Very frail. Clinically stable. OR Monday second case 09/17 Clinically stable OR Tuesday 09/19 pt now to undergo CABG by Dr Terrell second case tomorrow CT chest without contrast pending to eval aorta for calcifications no chest pain last pm STS score 5.9 09/20 no chest pain last night for surgery today CT chest noted surgery: Off pump CABG x 1, CONNELL to LAD - good, Lysis of adhesions extubated after surgery crystalloid 2500cc, 09/21 up in chair , feels fair EKG NSR RBBB IVCD on scheduled diuretics chest tube with small air leak/ CXR no PTX transfer to stepdown Objective: GENERAL: A&O x 3 SKIN: Warm and dry. Prevena dressing to chest HEAD: Normocephalic. EYES: No scleral icterus. No injection or drainage. NECK: Supple, trachea midline. No JVD or lymphadenopathy. CARDIOVASCULAR: Regular rate and rhythm without murmurs, gallops, + rub RESPIRATORY: Breath sounds equal bilaterally. No accessory muscle use. diminished in bases, few crackles noted GASTROINTESTINAL: Abdomen soft, non-tender, nondistended. MUSCULOSKELETAL: No cyanosis, or edema. BACK: Nontender without obvious deformity. No CVA tenderness. Vital Signs Date Time Temp Pulse Resp B/P (MAP) Pulse Ox O2 Delivery O2 Flow Rate FiO2 09/21/17 12:51 95 Nasal Cannula 4.00 09/21/17 11:00 98.3 101 16 103/68 (80) 97 Arterial Line 09/21/17 11:00 99 Nasal Cannula 4.00 09/21/17 11:00 102 09/21/17 07:00 97.7 72 16 99/56 (70) 99 109/40 (63) 09/21/17 07:00 99 Nasal Cannula 2.00 09/21/17 07:00 104 09/21/17 06:00 99 Nasal Cannula 2.00 09/21/17 04:00 97.0 112 18 102/54 (70) 99 105/37 (59) 09/21/17 04:00 112 09/21/17 04:00 99 Nasal Cannula 3.00 09/21/17 03:46 99 Nasal Cannula 3.00 09/21/17 01:00 100 Nasal Cannula 3.00 09/21/17 00:10 97.0 90 16 137/74 99 09/21/17 00:00 97.0 90 16 137/74 (95) 99 144/53 (83) 09/21/17 00:00 99 Nasal Cannula 4.00 09/21/17 00:00 90 09/20/17 23:00 97.0 88 16 126/69 (88) 100 128/48 (74) 09/20/17 22:42 97.0 82 16 111/37 99 09/20/17 21:35 99 Nasal Cannula 4.00 09/20/17 21:35 99 Nasal Cannula 4.00 09/20/17 21:35 99 Nasal Cannula 4 09/20/17 21:00 97.3 09/20/17 20:55 98 40 09/20/17 20:40 99 40 09/20/17 20:30 40 09/20/17 20:00 70 09/20/17 20:00 96.2 69 10 138/69 (92) 99 123/46 (71) 09/20/17 19:00 40 09/20/17 19:00 94.5 09/20/17 17:30 99 50 09/20/17 17:25 62 09/20/17 17:25 93.5 62 12 92/55 (67) 99 94/39 (57) Labs: Laboratory Tests Test 09/21/17 04:50 White Blood Count 5.9 TH/MM3 (4.0-11.0) Red Blood Count 3.23 MIL/MM3 (4.50-5.90) Hemoglobin 11.0 GM/DL (13.0-17.0) Hematocrit 31.5 % (39.0-51.0) Mean Corpuscular Volume 97.6 FL (80.0-100.0) Mean Corpuscular Hemoglobin 34.2 PG (27.0-34.0) Mean Corpuscular Hemoglobin Concent 35.1 % (32.0-36.0) Red Cell Distribution Width 18.7 % (11.6-17.2) Platelet Count 123 TH/MM3 (150-450) Mean Platelet Volume 8.2 FL (7.0-11.0) Neutrophils (%) (Auto) 74.1 % (16.0-70.0) Lymphocytes (%) (Auto) 6.9 % (9.0-44.0) Monocytes (%) (Auto) 18.9 % (0.0-8.0) Eosinophils (%) (Auto) 0.0 % (0.0-4.0) Basophils (%) (Auto) 0.1 % (0.0-2.0) Neutrophils # (Auto) 4.4 TH/MM3 (1.8-7.7) Lymphocytes # (Auto) 0.4 TH/MM3 (1.0-4.8) Monocytes # (Auto) 1.1 TH/MM3 (0-0.9) Eosinophils # (Auto) 0.0 TH/MM3 (0-0.4) Basophils # (Auto) 0.0 TH/MM3 (0-0.2) CBC Comment AUTO DIFF Differential Total Cells Counted 100 Neutrophils % (Manual) 78 % (16-70) Band Neutrophils % 8 % (0-6) Lymphocytes % 3 % (9-44) Monocytes % 11 % (0-8) Neutrophils # (Manual) 5.1 TH/MM3 (1.8-7.7) Nucleated Red Blood Cells 1 /100 WBC (0-0) Differential Comment FINAL DIFF MANUAL Platelet Estimate LOW (NORMAL) Platelet Morphology Comment NORMAL (NORMAL) Prothrombin Time 10.7 SEC (9.8-11.6) Prothromb Time International Ratio 1.1 RATIO Activated Partial Thromboplast Time 26.3 SEC (24.3-30.1) Fibrinogen 314 mg/dL (227-377) Blood Urea Nitrogen 14 MG/DL (7-18) Creatinine 0.76 MG/DL (0.60-1.30) Random Glucose 88 MG/DL (74-106) Total Protein 5.7 GM/DL (6.4-8.2) Albumin 2.7 GM/DL (3.4-5.0) Calcium Level 8.5 MG/DL (8.5-10.1) Phosphorus Level 2.7 MG/DL (2.5-4.9) Magnesium Level 1.5 MG/DL (1.5-2.5) Alkaline Phosphatase 95 U/L (45-117) Aspartate Amino Transf (AST/SGOT) 32 U/L (15-37) Alanine Aminotransferase (ALT/SGPT) 25 U/L (12-78) Total Bilirubin 1.0 MG/DL (0.2-1.0) Sodium Level 141 MEQ/L (136-145) Potassium Level 3.9 MEQ/L (3.5-5.1) Chloride Level 108 MEQ/L (98-107) Carbon Dioxide Level 24.2 MEQ/L (21.0-32.0) Anion Gap 9 MEQ/L (5-15) Estimat Glomerular Filtration Rate 99 ML/MIN (>89) Result Diagram: 09/21/170 09/21/17 0450 Telemetry: NSR RBBB (1) S/P CABG (coronary artery bypass graft) Plan: ASA, statin , start BB in am scheduled diuresis OOB/ PT/OT CM to eval for rehab at discharge (2) CHF (congestive heart failure) Plan: on diuretics (3) CHF exacerbation (4) HTN (hypertension) Plan: controlled (5) CAD (coronary artery disease) (6) Diabetes mellitus Plan: HGB A1c on metformin at home / resume in am weaned off insulin gtt (7) Pleural effusion (8) History of chronic atrial fibrillation Plan: resume eliquis when chest tube dc Problem Qualifiers (1) CHF exacerbation: Qualified Codes: I50.9 - Heart failure, unspecified Pamela Duenas September 21, 2017 14:06
--- NOTE | 2017-09-21 14:17 | PD.CARD.PN ---
Subjective Subjective Remarks alert in nad Objective Medications Current Medications Medications (Trade) Dose Ordered Sig/[place]asper Route Start Time Stop Time Status Last Admin (Narcan Inj) 0.4 mg UNSCH PRN IV PUSH 09/12/17 13:30 (Lactulose Liq) 30 ml DAILY PRN PO 09/12/17 13:30 09/19/17 08:53 (Glucophage) 500 mg BIDPC PO 09/12/17 18:00 Future Hold 09/13/17 17:20 (Remeron) 15 mg HS PO 09/12/17 21:00 09/19/17 21:03 (Refresh Classic 1.4-0.6% Pf Opth Soln) 2 drop 5 TIMES A DAY PRN EACH EYE 09/12/17 17:30 (Lyrica) 100 mg BID PO 09/12/17 21:00 09/21/17 10:21 Patient Own Medication PT OWN MED:RESTASIS OPHTH DROPS BID EACH EYE 09/12/17 21:00 Future Hold (Protonix) 20 mg DAILY PO 09/13/17 09:00 09/21/17 10:21 (Pill Splitter) 1 ea UNSCH PRN OTHER 09/15/17 14:30 (NS Flush) 2 ml BID IV FLUSH 09/20/17 21:00 09/21/17 10:22 (NS Flush) 2 ml UNSCH PRN IV FLUSH 09/20/17 16:45 Cefazolin Sodium 1000 mg/Sodium Chloride 100 ml @ 200 mls/hr Q8H IV 09/20/17 22:00 09/22/17 06:29 09/21/17 05:50 (Aspirin Chew) 81 mg DAILY PO 09/21/17 09:00 09/21/17 10:21 (Tylenol) 650 mg Q4H PRN PO 09/20/17 16:45 (Percocet 5-325 Mg) 1 tab Q3H PRN PO 09/20/17 16:45 09/21/17 10:21 (Zofran Inj) 4 mg Q6H PRN IV PUSH 09/20/17 16:45 (Lasix Inj) 40 mg BID@09,18 IV PUSH 09/21/17 18:00 (KCl) 30 meq Q12HR PO 09/21/17 10:15 09/21/17 10:21 (Duoneb Neb) 1 ampule Q6HR WHILE AWAKE NEB NEB 09/21/17 14:00 09/23/17 13:59 09/21/17 12:50 (Colace) 100 mg BID PO 09/21/17 21:00 (Theragran M Tab) 1 tab DAILY PO 09/22/17 09:00 (Milk Of Magnesia Liq) 30 ml DAILY PO 09/22/17 09:00 (Dulcolax Supp) 10 mg UNSCH PRN RECTAL 09/21/17 09:45 (Miralax) 17 gm DAILY PO 09/22/17 09:00 (Senokot) 8.6 mg HS PO 09/21/17 21:00 (Fleets Enema (Adult)) 118 ml UNSCH PRN RECTAL 09/23/17 06:00 (NovoLOG SUPPLEMENTAL SCALE) 1 02,06,10,14,18,22 SQ 09/21/17 10:00 09/22/17 06:01 (D50w (Vial) Inj) 50 ml UNSCH PRN IV PUSH 09/21/17 09:45 (Glucagon Inj) 1 mg UNSCH PRN OTHER 09/21/17 09:45 (NovoLOG SUPPLEMENTAL SCALE) 1 ACHS SLIDING SCALE SQ 09/22/17 08:00 Vital Signs / I&O Vital Signs Date Time Temp Pulse Resp B/P (MAP) Pulse Ox O2 Delivery O2 Flow Rate FiO2 09/21/17 12:51 95 Nasal Cannula 4.00 09/21/17 11:00 98.3 101 16 103/68 (80) 97 Arterial Line 09/21/17 11:00 99 Nasal Cannula 4.00 09/21/17 11:00 102 09/21/17 07:00 97.7 72 16 99/56 (70) 99 109/40 (63) 09/21/17 07:00 99 Nasal Cannula 2.00 09/21/17 07:00 104 09/21/17 06:00 99 Nasal Cannula 2.00 09/21/17 04:00 97.0 112 18 102/54 (70) 99 105/37 (59) 09/21/17 04:00 112 09/21/17 04:00 99 Nasal Cannula 3.00 09/21/17 03:46 99 Nasal Cannula 3.00 09/21/17 01:00 100 Nasal Cannula 3.00 09/21/17 00:10 97.0 90 16 137/74 99 09/21/17 00:00 97.0 90 16 137/74 (95) 99 144/53 (83) 09/21/17 00:00 99 Nasal Cannula 4.00 09/21/17 00:00 90 09/20/17 23:00 97.0 88 16 126/69 (88) 100 128/48 (74) 09/20/17 22:42 97.0 82 16 111/37 99 09/20/17 21:35 99 Nasal Cannula 4.00 09/20/17 21:35 99 Nasal Cannula 4.00 09/20/17 21:35 99 Nasal Cannula 4 09/20/17 21:00 97.3 09/20/17 20:55 98 40 09/20/17 20:40 99 40 09/20/17 20:30 40 09/20/17 20:00 70 09/20/17 20:00 96.2 69 10 138/69 (92) 99 123/46 (71) 09/20/17 19:00 40 09/20/17 19:00 94.5 09/20/17 17:30 99 50 09/20/17 17:25 62 09/20/17 17:25 93.5 62 12 92/55 (67) 99 94/39 (57) I/O 09/20/17 09/20/17 09/20/17 09/21/17 09/21/17 09/21/17 07:00 15:00 23:00 07:00 15:00 23:00 Intake Total 240 ml 0 ml 3500 ml 2398 ml 308 ml Output Total 250 ml 500 ml 535 ml 1315 ml Balance -10 ml -500 ml 2965 ml 1083 ml 308 ml Intake Oral 240 ml 0 ml 50 ml IV Total 900 ml 1348 ml 308 ml Autotransfusion 0 ml Packed Cells 800 ml Blood Product IV Normal Saline Flush 100 ml 200 ml Other 2500 ml Output Urine Total 250 ml 500 ml 395 ml 765 ml Chest Tube Drainage Total 140 ml 550 ml # Voids 3 # Bowel Movements 1 0 0 Physical Exam GENERAL: SKIN: Warm and dry. HEAD: Normocephalic. EYES: No scleral icterus. No injection or drainage. NECK: Supple, trachea midline. No JVD or lymphadenopathy. CARDIOVASCULAR: Regular rate and rhythm without murmurs, gallops, or rubs. RESPIRATORY: Breath sounds equal bilaterally. No accessory muscle use. GASTROINTESTINAL: Abdomen soft, non-tender, nondistended. MUSCULOSKELETAL: No cyanosis, or edema. BACK: Nontender without obvious deformity. No CVA tenderness. Laboratory Laboratory Tests Test 09/21/17 04:50 White Blood Count 5.9 TH/MM3 Red Blood Count 3.23 MIL/MM3 Hemoglobin 11.0 GM/DL Hematocrit 31.5 % Mean Corpuscular Volume 97.6 FL Mean Corpuscular Hemoglobin 34.2 PG Mean Corpuscular Hemoglobin Concent 35.1 % Red Cell Distribution Width 18.7 % Platelet Count 123 TH/MM3 Mean Platelet Volume 8.2 FL Neutrophils (%) (Auto) 74.1 % Lymphocytes (%) (Auto) 6.9 % Monocytes (%) (Auto) 18.9 % Eosinophils (%) (Auto) 0.0 % Basophils (%) (Auto) 0.1 % Neutrophils # (Auto) 4.4 TH/MM3 Lymphocytes # (Auto) 0.4 TH/MM3 Monocytes # (Auto) 1.1 TH/MM3 Eosinophils # (Auto) 0.0 TH/MM3 Basophils # (Auto) 0.0 TH/MM3 CBC Comment AUTO DIFF Differential Total Cells Counted 100 Neutrophils % (Manual) 78 % Band Neutrophils % 8 % Lymphocytes % 3 % Monocytes % 11 % Neutrophils # (Manual) 5.1 TH/MM3 Nucleated Red Blood Cells 1 /100 WBC Differential Comment FINAL DIFF MANUAL Platelet Estimate LOW Platelet Morphology Comment NORMAL Prothrombin Time 10.7 SEC Prothromb Time International Ratio 1.1 RATIO Activated Partial Thromboplast Time 26.3 SEC Fibrinogen 314 mg/dL Blood Urea Nitrogen 14 MG/DL Creatinine 0.76 MG/DL Random Glucose 88 MG/DL Total Protein 5.7 GM/DL Albumin 2.7 GM/DL Calcium Level 8.5 MG/DL Phosphorus Level 2.7 MG/DL Magnesium Level 1.5 MG/DL Alkaline Phosphatase 95 U/L Aspartate Amino Transf (AST/SGOT) 32 U/L Alanine Aminotransferase (ALT/SGPT) 25 U/L Total Bilirubin 1.0 MG/DL Sodium Level 141 MEQ/L Potassium Level 3.9 MEQ/L Chloride Level 108 MEQ/L Carbon Dioxide Level 24.2 MEQ/L Anion Gap 9 MEQ/L Estimat Glomerular Filtration Rate 99 ML/MIN Imaging Last 24 hours Impressions Chest X-Ray 09/21/17 0500 Signed Impressions: CONCLUSION: Bilateral pleural effusions and perihilar infiltrates appear slightly worse. Assessment and Plan Problem List: (1) CHF (congestive heart failure) ICD Codes: I50.9 - Heart failure, unspecified (2) CHF exacerbation ICD Codes: I50.9 - Heart failure, unspecified Status: Acute (3) HTN (hypertension) ICD Codes: I10 - Essential (primary) hypertension Status: Chronic (4) Diabetes mellitus ICD Codes: E11.9 - Type 2 diabetes mellitus without complications Status: Chronic (5) CAD (coronary artery disease) ICD Codes: I25.10 - Atherosclerotic heart disease of [place] coronary artery without angina pectoris Status: Chronic (6) Pleural effusion ICD Codes: J90 - Pleural effusion, not elsewhere classified Status: Acute Assessment and Plan 1.) severe 3 vessel cad - pod #1 off pump garza to lad by Dr Terrell, doing well, statin held due ldl=73 @ goal, f/u daily bnp,bmp,cbc,mag 2.) CHF - appears resolved s/p cabg Problem Qualifiers (1) CHF exacerbation: Qualified Codes: I50.9 - Heart failure, unspecified Jacob Le MD September 21, 2017 14:17
--- NOTE | 2017-09-21 14:24 | HHI.DCPOC ---
Discharge Care Plan Diagnosis: (1) CAD (coronary artery disease) (2) CHF (congestive heart failure) (3) HTN (hypertension) (4) History of chronic atrial fibrillation (5) Diabetes mellitus (6) S/P CABG (coronary artery bypass graft) Additional Problems PREVENA Single Use Negative Wound Therapy System Caregiver Instruction Sheet 1. A Prevena dressing system was applied to the chest incision during surgery , to promote wound healing. It works via a suction device (negative pressure wound therapy) to remove low to moderate levels of exudate (drainage) and infectious materials. We recommend that the device stay in place for up to seven days, from day of surgery. 2. Day of Surgery___// Day of Removal ____/10/09 3. The dressing should only be removed by a health customer care coordinator. Please arrange removal of device to coincide with Home Health visit and or with Nursing staff at Rehab 4. If skin reddening or irritation of skin occurs, or excessive drainage, please notify the Cardiovascular Surgeons office at [phone]. 5. Light showering is permissible; however the pump should be disconnected and placed in safe location, where it will not get wet. The dressing should not be exposed to direct spray or submerged in water. No bath tub / shower only. Ensure the end of the tubing attached to the dressing is facing down so that water does not enter the top of the tube. 6. To remove Prevena dressing: press purple button to turn off device / remove the suction. Then disconnect the tubing from the pump. The fixation strips should be stretched away from the skin and the dressing lifted at one corner and peeled back until it has been fully removed. 7. After removal, it is ok to shower daily using liquid dial soap and clean wash cloth, rinse and pat dry, and leave incision open to air dry. For any concerns regarding Prevena dressing, and or wounds, please contact Bety Richardson patient navigator at [phone] or notify the Cardiovascular Surgeons office at [phone]. Incentive spirometry Q1 hr x 10, while awake, also use acapella device hourly whole awake Sternal Breast Bone Precautions: NO pushing or pulling, ( pt must use sternal pillow to support chest with all activities and with coughing ( takes up to 3 months breast bone to heal ) All females to wear sternal bra , launder as needed Daily incision care: ok to shower daily, no tub bath. Wash all incisions with liquid dial soap, clean wash cloth to each site, rinse and pat dry. Observe for any signs of infection, such as drainage which is dark yellow, manriquez, green or foul smelling. Immediately report to the surgeon any drainage from the chest incision, or legs, and for any abnormal drainage from the chest tube sites. Notify surgeon if any temp >101.5 degrees F. When specialty dressing removed/ or if you do not have one, continue to shower daily as above, then rinse and pat incision dry and paint with betadine daily x 5 days. Allow steri strips to fall off if you have any. Avoid lotions, creams, salves, oils, etc. for the first month Please see attached forms for additional instructions regarding post Open Heart specialty wound vacuum dressings. ROBBY or Prevena , Dressing to be removed by Nursing staff on ___09/27/17____ For Dr. Terrell patients , please obtain CBC, BMP, PA & Lat CXR in 2 weeks, results to Dr. Terrell ( prescription will be given) ( ) (Tele: [phone]) , F/U appointment: as per ND instructions: PCP in 2 weeks, CV surgeon 2 weeks, Electroplater Automatic 3-4 weeks For any questions regarding incisions/ dressing / meds / post op care or above Symptoms, Monday 8am-5pm Heart & Vascular Surgery Office ( Dr. Martines & Dr. Terrell), After Hours / Nights (5pm -8am) Weekends and Holidays Please call [facility] ([facility]) Charge Nurse Goals to Promote Your Health * To prevent worsening of your condition and complications * To maintain your health at the optimal level Directions to Meet Your Goals Take your medications as prescribed Follow your dietary instruction Follow activity as directed Keep your appointments as scheduled Take your immunizations and boosters as scheduled If your symptoms worsen call your PCP, if no PCP go to Urgent Care Center or Emergency Room Smoking is Dangerous to Your Health. Avoid second hand smoke Call the 24-hour hour crisis hotline for domestic abuse at Pamela Duenas September 21, 2017 14:24
--- NOTE | 2017-09-21 14:43 | EKG ---
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
[2017-09-21] MEDS: MAGNESIUM SULFATE 1 GM PREMIX 100 ML IV SCH ×2 (14:46→14:47)
[2017-09-21] MEDS: FUROSEMIDE 40 MG/4 ML VIAL IV PUSH SCH (17:11)
[2017-09-21] MEDS: SENNOSIDES 8.6 MG TAB PO SCH (21:37)
[2017-09-21] MEDS: DOCUSATE SODIUM 100 MG CAP PO SCH (21:37)
[2017-09-21] MEDS: MIRTAZAPINE 15 MG TAB PO SCH (21:44)
[2017-09-22] VITALS (20 sets, daily range): BP systolic 98–144; BP diastolic 57–70; PULSE 88–108; RESP 18–21; TEMP 97.6–98.8; O2SAT 94–100
[2017-09-22] MEDS: INSULIN ASPART SUPPLEMENTAL SCALE SQ SCH ×6 (02:00→21:00)
[2017-09-22 05:14] LABS: AUTOMATED NEUTROPHIL # 5.7 TH/MM3 (1.8-7.7); BASOPHIL % 0.3 % (0.0-2.0); EOSINOPHIL % 0.1 % (0.0-4.0); HEMATOCRIT 30.1 % (39.0-51.0); HEMOGLOBIN 10.4 GM/DL (13.0-17.0); LYMPH % 8.8 % (9.0-44.0); LYMPHOCYTE # 0.7 TH/MM3 (1.0-4.8); MEAN CELL VOLUME 99.8 FL (80.0-100.0); MEAN CORPUSCULAR HEMOGLOBIN 34.5 PG (27.0-34.0); MEAN CORPUSCULAR HGB CONC 34.6 % (32.0-36.0); MEAN PLATELET VOLUME 8.4 FL (7.0-11.0); MONO % 14.1 % (0.0-8.0); MONOCYTE # 1.1 TH/MM3 (0-0.9); NEUT % 76.7 % (16.0-70.0); PLATELET COUNT 115 TH/MM3 (150-450); RED BLOOD COUNT 3.02 MIL/MM3 (4.50-5.90); RED CELL DISTRIBUTION WIDTH 19.2 % (11.6-17.2); WHITE BLOOD COUNT 7.4 TH/MM3 (4.0-11.0)
[2017-09-22 05:37] LABS: BICARBONATE 27.7 MEQ/L (21.0-32.0); CALCIUM 8.7 MG/DL (8.5-10.1); CREATININE 0.77 MG/DL (0.60-1.30); MAGNESIUM 2.2 MG/DL (1.5-2.5)
[2017-09-22] MEDS: RESP: ALBUTEROL 2.5 MG/IPRATROPIUM 0.5 MG NEB (SCH) NEB ×3 (07:42→19:38)
[2017-09-22] MEDS: DOCUSATE SODIUM 100 MG CAP PO SCH ×2 (09:03→20:55)
[2017-09-22] MEDS: PANTOPRAZOLE SOD 20 MG DELAYED RELEASE TAB PO SCH (09:03)
[2017-09-22] MEDS: MULTIVITAMINS/MINERALS THERAPEUTIC TAB PO SCH (09:03)
[2017-09-22] MEDS: PREGABALIN 100 MG CAP PO SCH ×2 (09:03→20:55)
[2017-09-22] MEDS: ASPIRIN 81 MG CHEW TAB PO SCH (09:03)
[2017-09-22] MEDS: oxyCODONE/ACETAMINOPHEN 5 MG/325 MG TAB PO PRN ×3 (09:03→15:57)
[2017-09-22] MEDS: FUROSEMIDE 40 MG/4 ML VIAL IV PUSH SCH ×2 (09:04→17:11)
[2017-09-22] MEDS: POLYETHYLENE GLYCOL 17 GM PKG PO SCH (09:04)
[2017-09-22] MEDS: SODIUM CHLORIDE 0.9% FLUSH 10 ML FLUSH IV FLUSH SCH ×2 (09:04→21:00)
[2017-09-22] MEDS: MAGNESIUM HYDROXIDE SUSP 30 ML CUP PO SCH (09:04)
[2017-09-22] MEDS: POTASSIUM CHLORIDE 10 MEQ CONTROLLED RELEASE TAB PO SCH ×2 (09:04→20:54)
[2017-09-22] MEDS ORDERED: MAGNESIUM OXIDE 400 MG TAB PO ONE (09:15)
[2017-09-22] MEDS: CARVEDILOL 3.125 MG TAB PO SCH ×2 (10:16→20:57)
--- NOTE | 2017-09-22 10:44 | RADRPT ---
EXAM DATE: 09/22/2017 10:41 AM EDT AGE/SEX: 77 years / Male INDICATIONS: Shortness of breath. Evaluate for pneumothorax. CLINICAL DATA: This is the patient's subsequent encounter. Patient reports that signs and symptoms h ave been present for 4 - 6 days and indicates a pain score of 0/10. MEDICAL/SURGICAL HISTORY: Carcinoma, prostatic. Hypertension. Gastroesophageal reflux disease . None. COMPARISON: [facility] – [place] CHEST SINGLE AP, 09/21/2017. . FINDINGS: Bibasilar parenchymal changes persist worse on the left. The right lung is clearing. Central line in good position. Cardiac size is appropriate. Sternal wires from previous bypass noted. CONCLUSION: Negative for pneumothorax. Interval improvement. Electronically signed by: Gino Pizarro MD 09/22/2017 10:43 AM EDT
--- NOTE | 2017-09-22 11:01 | PD.CARD.PN ---
Subjective Subjective Remarks alert in nad Objective Medications Current Medications Medications (Trade) Dose Ordered Sig/Jasper Route Start Time Stop Time Status Last Admin (Narcan Inj) 0.4 mg UNSCH PRN IV PUSH 09/12/17 13:30 (Lactulose Liq) 30 ml DAILY PRN PO 09/12/17 13:30 09/19/17 08:53 (Glucophage) 500 mg BIDPC PO 09/12/17 18:00 Future Hold 09/13/17 17:20 (Remeron) 15 mg HS PO 09/12/17 21:00 09/21/17 21:44 (Refresh Classic 1.4-0.6% Pf Opth Soln) 2 drop 5 TIMES A DAY PRN EACH EYE 09/12/17 17:30 (Lyrica) 100 mg BID PO 09/12/17 21:00 09/22/17 09:03 Patient Own Medication PT OWN MED:RESTASIS OPHTH DROPS BID EACH EYE 09/12/17 21:00 Future Hold (Protonix) 20 mg DAILY PO 09/13/17 09:00 09/22/17 09:03 (Pill Splitter) 1 ea UNSCH PRN OTHER 09/15/17 14:30 (NS Flush) 2 ml BID IV FLUSH 09/20/17 21:00 09/22/17 09:04 (NS Flush) 2 ml UNSCH PRN IV FLUSH 09/20/17 16:45 (Aspirin Chew) 81 mg DAILY PO 09/21/17 09:00 09/22/17 09:03 (Tylenol) 650 mg Q4H PRN PO 09/20/17 16:45 (Percocet 5-325 Mg) 1 tab Q3H PRN PO 09/20/17 16:45 09/22/17 09:03 (Zofran Inj) 4 mg Q6H PRN IV PUSH 09/20/17 16:45 (Lasix Inj) 40 mg BID@ IV PUSH 09/21/17 18:00 09/22/17 09:04 (KCl) 30 meq Q12HR PO 09/21/17 10:15 09/22/17 09:04 (Duoneb Neb) 1 ampule Q6HR WHILE AWAKE NEB NEB 09/21/17 14:00 09/23/17 13:59 09/22/17 07:42 (Colace) 100 mg BID PO 09/21/17 21:00 09/22/17 09:03 (Theragran M Tab) 1 tab DAILY PO 09/22/17 09:00 09/22/17 09:03 (Milk Of Magnesia Liq) 30 ml DAILY PO 09/22/17 09:00 09/22/17 09:04 (Dulcolax Supp) 10 mg UNSCH PRN RECTAL 09/21/17 09:45 (Miralax) 17 gm DAILY PO 09/22/17 09:00 09/22/17 09:04 (Senokot) 8.6 mg HS PO 09/21/17 21:00 09/21/17 21:37 (Fleets Enema (Adult)) 118 ml UNSCH PRN RECTAL 09/23/17 06:00 (D50w (Vial) Inj) 50 ml UNSCH PRN IV PUSH 09/21/17 09:45 (Glucagon Inj) 1 mg UNSCH PRN OTHER 09/21/17 09:45 (NovoLOG SUPPLEMENTAL SCALE) 1 ACHS SLIDING SCALE SQ 09/22/17 08:00 (Mag-Ox) 400 mg Q12HR PO 09/22/17 21:00 (Coreg) 3.125 mg Q12HR PO 09/22/17 09:45 09/22/17 10:16 (Lipitor) 10 mg HS PO 09/22/17 21:00 Vital Signs / I&O Vital Signs Date Time Temp Pulse Resp B/P (MAP) Pulse Ox O2 Delivery O2 Flow Rate FiO2 09/22/17 09:56 16 09/22/17 09:56 16 09/22/17 08:00 90 09/22/17 08:00 Nasal Cannula 3.00 09/22/17 08:00 98.2 108 18 105/64 (78) 99 09/22/17 07:49 96 Nasal Cannula 4.00 09/22/17 03:00 100 Nasal Cannula 4.00 09/22/17 03:00 97.9 88 18 144/70 (94) 100 09/22/17 03:00 92 09/21/17 23:00 100 Nasal Cannula 4.00 09/21/17 23:00 98.3 100 18 138/67 (90) 100 09/21/17 23:00 96 09/21/17 20:47 98 Nasal Cannula 4.00 5/31/18 19:00 100 Nasal Cannula 4.00 09/21/17 19:00 98.3 70 18 138/64 (88) 100 09/21/17 19:00 82 09/21/17 18:00 88 09/21/17 17:00 90 09/21/17 15:00 95 09/21/17 15:00 98.4 95 16 92/58 (69) 97 09/21/17 15:00 99 Nasal Cannula 4.00 09/21/17 12:51 95 Nasal Cannula 4.00 09/21/17 11:00 98.3 101 16 103/68 (80) 97 Arterial Line 09/21/17 11:00 99 Nasal Cannula 4.00 09/21/17 11:00 102 I/O 09/21/17 09/21/17 09/21/17 09/22/17 09/22/17 09/22/17 07:00 15:00 23:00 07:00 15:00 23:00 Intake Total 2398 ml 548 ml 400 ml 340 ml Output Total 1315 ml 370 ml 960 ml Balance 1083 ml 178 ml 400 ml -620 ml Intake Oral 50 ml 240 ml 240 ml IV Total 1348 ml 308 ml 400 ml 100 ml Packed Cells 800 ml Blood Product IV Normal Saline Flush 200 ml Output Urine Total 765 ml 300 ml 880 ml Chest Tube Drainage Total 550 ml 70 ml 80 ml # Voids 3 # Bowel Movements 0 0 0 Physical Exam GENERAL: SKIN: Warm and dry. HEAD: Normocephalic. EYES: No scleral icterus. No injection or drainage. NECK: Supple, trachea midline. No JVD or lymphadenopathy. CARDIOVASCULAR: Regular rate and rhythm without murmurs, gallops, or rubs. RESPIRATORY: Breath sounds equal bilaterally. No accessory muscle use. GASTROINTESTINAL: Abdomen soft, non-tender, nondistended. MUSCULOSKELETAL: No cyanosis, or edema. BACK: Nontender without obvious deformity. No CVA tenderness. Laboratory Laboratory Tests Test 09/22/17 04:35 White Blood Count 7.4 TH/MM3 Red Blood Count 3.02 MIL/MM3 Hemoglobin 10.4 GM/DL Hematocrit 30.1 % Mean Corpuscular Volume 99.8 FL Mean Corpuscular Hemoglobin 34.5 PG Mean Corpuscular Hemoglobin Concent 34.6 % Red Cell Distribution Width 19.2 % Platelet Count 115 TH/MM3 Mean Platelet Volume 8.4 FL Neutrophils (%) (Auto) 76.7 % Lymphocytes (%) (Auto) 8.8 % Monocytes (%) (Auto) 14.1 % Eosinophils (%) (Auto) 0.1 % Basophils (%) (Auto) 0.3 % Neutrophils # (Auto) 5.7 TH/MM3 Lymphocytes # (Auto) 0.7 TH/MM3 Monocytes # (Auto) 1.1 TH/MM3 Eosinophils # (Auto) 0.0 TH/MM3 Basophils # (Auto) 0.0 TH/MM3 CBC Comment DIFF FINAL Differential Comment Blood Urea Nitrogen 15 MG/DL Creatinine 0.77 MG/DL Random Glucose 110 MG/DL Calcium Level 8.7 MG/DL Magnesium Level 2.2 MG/DL Sodium Level 142 MEQ/L Potassium Level 5.0 MEQ/L Chloride Level 108 MEQ/L Carbon Dioxide Level 27.7 MEQ/L Anion Gap 6 MEQ/L Estimat Glomerular Filtration Rate 97 ML/MIN B-Type Natriuretic Peptide 889 PG/ML Imaging Last 24 hours Impressions Chest X-Ray 09/22/17 0000 Signed Impressions: CONCLUSION: Negative for pneumothorax. Interval improvement. Assessment and Plan Problem List: (1) S/P CABG (coronary artery bypass graft) ICD Codes: Z95.1 - Presence of aortocoronary bypass graft (2) CHF (congestive heart failure) ICD Codes: I50.9 - Heart failure, unspecified (3) CHF exacerbation ICD Codes: I50.9 - Heart failure, unspecified Status: Acute (4) HTN (hypertension) ICD Codes: I10 - Essential (primary) hypertension Status: Chronic (5) CAD (coronary artery disease) ICD Codes: I25.10 - Atherosclerotic heart disease of [place] coronary artery without angina pectoris Status: Chronic (6) Diabetes mellitus ICD Codes: E11.9 - Type 2 diabetes mellitus without complications Status: Chronic (7) Pleural effusion ICD Codes: J90 - Pleural effusion, not elsewhere classified Status: Acute (8) History of chronic atrial fibrillation ICD Codes: Z86.79 - Personal history of other diseases of the circulatory system Assessment and Plan 1.) severe 3 vessel cad - pod #2 off pump garza to lad by Dr Terrell, doing well, coreg, mag ox and lipitor started, f/u daily bnp,bmp,cbc,mag 2.) CHF - bnp up this am, will follow trends s/p cabg to determine need for diuretics and wether to restart entresto Problem Qualifiers (1) CHF exacerbation: Qualified Codes: I50.9 - Heart failure, unspecified Jacob Le MD Sep 22, 2017 11:01
--- NOTE | 2017-09-22 13:40 | PD.CAR.PN ---
CVT Progress Note Subjective/Hospital Course: 77-year-old male, patient of Dr. Cheikh Funes and Dr. Jacob Le, with history of coronary artery disease, prior stenting x4. He had 3 stents placed last year by Dr. Le. Also, history of trifascicular block, atrial fibrillation, recent new onset of CHF, started on Entresto by primary care physician. He had been recently discharged in July for sepsis, pneumonia, also with weight loss of 30 pounds over the last 2 years. On admission, he complained of fatigue, loss of appetite. He was also having pain on both sides of his neck, described as pressure-like. He underwent cardiac catheterization for unstable angina, CHF, CAD. EF was 50%. Proximal LAD had a 90% ostial lesion, diagonal 100%. The RCA was 50%. We were consulted to evaluate for coronary artery bypass graft x2 to the LAD and the diagonal. PAST MEDICAL HISTORY: prior [place] in 2002. He had a stent back then and he also had 3 stents last year. Autoimmune disorder, was on Imuran in the past and prednisone in the past. Atrial fibrillation, on Eliquis. history of a pulmonary emboli in March 2017, at that time was on Coumadin. Prostate cancer, hyperlipidemia, diabetes, history of radiation therapy, right knee arthroscopic surgery and cardiac catheterization. [employer] [place] Very frail. Clinically stable. OR Monday second case 09/17 Clinically stable OR Tuesday 09/19 pt now to undergo CABG by Dr Terrell second case tomorrow CT chest without contrast pending to eval aorta for calcifications no chest pain last pm STS score 5.9 09/20 no chest pain last night for surgery today CT chest noted surgery: Off pump CABG x 1, CONNELL to LAD - good, Lysis of adhesions extubated after surgery crystalloid 2500cc, 09/21 up in chair , feels fair EKG NSR RBBB IVCD on scheduled diuretics chest tube with small air leak/ CXR no PTX transfer to stepdown 09/22 CXR noted, no PTX has + 1 air leak discussed pt with Dr Le, add low dose BB . hold on restarting Entresto, continue diuretics, BNP elevated eval for rehab at discharge may need condom cath Objective: GENERAL: A&O / sleepy today SKIN: Warm and dry. prevena dressing to chest HEAD: Normocephalic. EYES: No scleral icterus. No injection or drainage. NECK: Supple, trachea midline. No JVD or lymphadenopathy. CARDIOVASCULAR: Regular rate and rhythm without murmurs, gallops, or rubs. RBB anterior fascicular block RESPIRATORY: Breath sounds equal bilaterally. No accessory muscle use. few basilar crackles , place chest tube to water seal GASTROINTESTINAL: Abdomen soft, non-tender, nondistended. MUSCULOSKELETAL: No cyanosis, or edema. BACK: Nontender without obvious deformity. No CVA tenderness. Vital Signs Date Time Temp Pulse Resp B/P (MAP) Pulse Ox O2 Delivery O2 Flow Rate FiO2 09/22/17 12:45 16 09/22/17 12:00 98.8 90 20 98/57 (71) 99 09/22/17 12:00 Nasal Cannula 2.00 40 09/22/17 12:00 91 09/22/17 11:00 94 09/22/17 10:00 104 09/22/17 09:56 16 09/22/17 09:00 106 09/22/17 08:00 90 09/22/17 08:00 Nasal Cannula 3.00 09/22/17 08:00 98.2 108 18 105/64 (78) 99 09/22/17 07:49 96 Nasal Cannula 4.00 09/22/17 07:00 100 09/22/17 03:00 100 Nasal Cannula 4.00 09/22/17 03:00 97.9 88 18 144/70 (94) 100 09/22/17 03:00 92 09/21/17 23:00 100 Nasal Cannula 4.00 09/21/17 23:00 98.3 100 18 138/67 (90) 100 09/21/17 23:00 96 09/21/17 20:47 98 Nasal Cannula 4.00 09/21/17 19:00 100 Nasal Cannula 4.00 09/21/17 19:00 98.3 70 18 138/64 (88) 100 09/21/17 19:00 82 09/21/17 18:00 88 09/21/17 17:00 90 09/21/17 15:00 95 09/21/17 15:00 98.4 95 16 92/58 (69) 97 09/21/17 15:00 99 Nasal Cannula 4.00 Labs: Laboratory Tests Test 6/1/18 04:35 White Blood Count 7.4 TH/MM3 (4.0-11.0) Red Blood Count 3.02 MIL/MM3 (4.50-5.90) Hemoglobin 10.4 GM/DL (13.0-17.0) Hematocrit 30.1 % (39.0-51.0) Mean Corpuscular Volume 99.8 FL (80.0-100.0) Mean Corpuscular Hemoglobin 34.5 PG (27.0-34.0) Mean Corpuscular Hemoglobin Concent 34.6 % (32.0-36.0) Red Cell Distribution Width 19.2 % (11.6-17.2) Platelet Count 115 TH/MM3 (150-450) Mean Platelet Volume 8.4 FL (7.0-11.0) Neutrophils (%) (Auto) 76.7 % (16.0-70.0) Lymphocytes (%) (Auto) 8.8 % (9.0-44.0) Monocytes (%) (Auto) 14.1 % (0.0-8.0) Eosinophils (%) (Auto) 0.1 % (0.0-4.0) Basophils (%) (Auto) 0.3 % (0.0-2.0) Neutrophils # (Auto) 5.7 TH/MM3 (1.8-7.7) Lymphocytes # (Auto) 0.7 TH/MM3 (1.0-4.8) Monocytes # (Auto) 1.1 TH/MM3 (0-0.9) Eosinophils # (Auto) 0.0 TH/MM3 (0-0.4) Basophils # (Auto) 0.0 TH/MM3 (0-0.2) CBC Comment DIFF FINAL Differential Comment Blood Urea Nitrogen 15 MG/DL (7-18) Creatinine 0.77 MG/DL (0.60-1.30) Random Glucose 110 MG/DL (74-106) Calcium Level 8.7 MG/DL (8.5-10.1) Magnesium Level 2.2 MG/DL (1.5-2.5) Sodium Level 142 MEQ/L (136-145) Potassium Level 5.0 MEQ/L (3.5-5.1) Chloride Level 108 MEQ/L (98-107) Carbon Dioxide Level 27.7 MEQ/L (21.0-32.0) Anion Gap 6 MEQ/L (5-15) Estimat Glomerular Filtration Rate 97 ML/MIN (>89) B-Type Natriuretic Peptide 889 PG/ML (0-100) Result Diagram: 09/22/1743409/22/17434 (1) S/P CABG (coronary artery bypass graft) Plan: ASA, statin , start BB in am scheduled diuresis OOB/ PT/OT CM to eval for rehab at discharge (2) CHF (congestive heart failure) Plan: on diuretics , start coreg hold on restarting Entresto (3) CHF exacerbation (4) HTN (hypertension) Plan: controlled (5) CAD (coronary artery disease) (6) Diabetes mellitus Plan: HGB A1c hold on resuming metformin , BGM on lower side (7) Pleural effusion Plan: resolved (8) History of chronic atrial fibrillation Plan: resume eliquis when chest tube dc Problem Qualifiers (1) CHF exacerbation: Qualified Codes: I50.9 - Heart failure, unspecified Pamela Duenas Sep 22, 2017 13:40
[2017-09-22] MEDS: MIRTAZAPINE 15 MG TAB PO SCH (20:54)
[2017-09-22] MEDS: ATORVASTATIN 10 MG TAB PO SCH (20:55)
[2017-09-22] MEDS: MAGNESIUM OXIDE 400 MG TAB PO SCH (20:55)
[2017-09-22] MEDS: ACETAMINOPHEN 325 MG TAB PO PRN (20:57)
[2017-09-22] MEDS: SENNOSIDES 8.6 MG TAB PO SCH (20:57)
[2017-09-23] VITALS (27 sets, daily range): BP systolic 99–145; BP diastolic 55–69; PULSE 89–117; RESP 14–20; TEMP 97.9–99.5; O2SAT 92–98
[2017-09-23] MEDS ORDERED: SOD PHOSPHATE/SOD BIPHOSPHATE (ADULT) ENEMA 133ML RECTAL PRN (06:00)
[2017-09-23] MEDS: INSULIN ASPART SUPPLEMENTAL SCALE SQ SCH ×4 (08:00→21:00)
[2017-09-23] MEDS: RESP: ALBUTEROL 2.5 MG/IPRATROPIUM 0.5 MG NEB (SCH) NEB ×2 (08:27→13:32)
[2017-09-23] MEDS: MAGNESIUM OXIDE 400 MG TAB PO SCH ×2 (08:55→22:53)
[2017-09-23] MEDS: CARVEDILOL 3.125 MG TAB PO SCH ×2 (08:55→22:53)
[2017-09-23] MEDS: PREGABALIN 100 MG CAP PO SCH (08:55)
[2017-09-23] MEDS: ASPIRIN 81 MG CHEW TAB PO SCH (08:55)
[2017-09-23] MEDS: DOCUSATE SODIUM 100 MG CAP PO SCH ×2 (08:55→21:00)
[2017-09-23] MEDS: PANTOPRAZOLE SOD 20 MG DELAYED RELEASE TAB PO SCH (08:55)
[2017-09-23] MEDS: MAGNESIUM HYDROXIDE SUSP 30 ML CUP PO SCH (08:55)
[2017-09-23] MEDS: POLYETHYLENE GLYCOL 17 GM PKG PO SCH (08:55)
[2017-09-23] MEDS: FUROSEMIDE 40 MG/4 ML VIAL IV PUSH SCH ×2 (08:56→17:02)
[2017-09-23] MEDS: POTASSIUM CHLORIDE 10 MEQ CONTROLLED RELEASE TAB PO SCH ×2 (08:56→22:53)
[2017-09-23] MEDS: MULTIVITAMINS/MINERALS THERAPEUTIC TAB PO SCH (08:56)
[2017-09-23] MEDS: SODIUM CHLORIDE 0.9% FLUSH 10 ML FLUSH IV FLUSH SCH ×2 (08:57→22:54)
--- NOTE | 2017-09-23 11:25 | PD.CAR.PN ---
CVT Progress Note CVT: POD #: 3 Subjective/Hospital Course: 77-year-old male, patient of Dr. Cheikh Funes and Dr. Jacob Le, with history of coronary artery disease, prior stenting x4. He had 3 stents placed last year by Dr. Le. Also, history of trifascicular block, atrial fibrillation, recent new onset of CHF, started on Entresto by primary care physician. He had been recently discharged in July for sepsis, pneumonia, also with weight loss of 30 pounds over the last 2 years. On admission, he complained of fatigue, loss of appetite. He was also having pain on both sides of his neck, described as pressure-like. He underwent cardiac catheterization for unstable angina, CHF, CAD. EF was 50%. Proximal LAD had a 90% ostial lesion, diagonal 100%. The RCA was 50%. We were consulted to evaluate for coronary artery bypass graft x2 to the LAD and the diagonal. PAST MEDICAL HISTORY: prior [place] in 2002. He had a stent back then and he also had 3 stents last year. Autoimmune disorder, was on Imuran in the past and prednisone in the past. Atrial fibrillation, on Eliquis. history of a pulmonary emboli in March 2017, at that time was on Coumadin. Prostate cancer, hyperlipidemia, diabetes, history of radiation therapy, right knee arthroscopic surgery and cardiac catheterization. [place] Very frail. Clinically stable. OR Monday second case 09/17 Clinically stable OR Tuesday 09/19 pt now to undergo CABG by Dr Terrell second case tomorrow CT chest without contrast pending to eval aorta for calcifications no chest pain last pm STS score 5.9 09/20 no chest pain last night for surgery today CT chest noted surgery: Off pump CABG x 1, CONNELL to LAD - good, Lysis of adhesions extubated after surgery crystalloid 2500cc, 09/21 up in chair , feels fair EKG NSR RBBB IVCD on scheduled diuretics chest tube with small air leak/ CXR no PTX transfer to stepdown 09/22 CXR noted, no PTX has + 1 air leak discussed pt with Dr Le, add low dose BB . hold on restarting Entresto, continue diuretics, BNP elevated eval for rehab at discharge may need condom cath 09/23/17 Lethargic, no complaints Objective: Vital Signs Date Time Temp Pulse Resp B/P (MAP) Pulse Ox O2 Delivery O2 Flow Rate FiO2 09/23/17 10:08 105 09/23/17 09:57 18 09/23/17 09:52 105 09/23/17 08:29 92 Nasal Cannula 2.00 09/23/17 08:00 101 09/23/17 08:00 98 Nasal Cannula 2.00 09/23/17 08:00 98.9 98 20 145/69 (94) 98 09/23/17 06:00 98 09/23/17 05:09 98 09/23/17 04:00 100 09/23/17 04:00 99 Nasal Cannula 2.00 09/23/17 04:00 97.9 100 18 102/56 (71) 95 09/23/17 03:00 98 09/23/17 02:00 89 09/23/17 01:00 97 09/23/17 00:05 99 Nasal Cannula 2.00 09/23/17 00:00 98 09/22/17 23:00 96 09/22/17 23:00 98.0 98 18 106/62 (77) 99 09/22/17 22:00 97 09/22/17 21:00 100 09/22/17 20:00 97.6 95 20 103/57 (72) 95 09/22/17 20:00 95 09/22/17 20:00 95 Nasal Cannula 2.00 09/22/17 19:38 94 Nasal Cannula 2.00 09/22/17 19:00 95 09/22/17 18:00 98 09/22/17 17:00 92 09/22/17 16:37 16 09/22/17 16:00 98.3 92 21 105/64 (78) 96 09/22/17 16:00 94 09/22/17 16:00 Nasal Cannula 2.00 09/22/17 15:00 94 09/22/17 14:00 92 09/22/17 13:00 94 09/22/17 12:00 98.8 90 20 98/57 (71) 99 09/22/17 12:00 Nasal Cannula 2.00 40 09/22/17 12:00 91 Labs: Laboratory Tests Test 09/23/17 04:34 Magnesium Level 2.0 MG/DL (1.5-2.5) B-Type Natriuretic Peptide 588 PG/ML (0-100) Result Diagram: 09/22/17 0435 09/22/17 0435 Cardiovascular: RRR Telemetry: NSR Pulmonary: CTA GI/: NABS Incision: dry and intact CT: ~80ml/12hrs Plan: Remove chest tube Up to chair Stop narcotics and lyrica due to lethargy Anticipate d/c Monday CXR in AM (1) S/P CABG (coronary artery bypass graft) Plan: ASA, statin , start BB in am scheduled diuresis OOB/ PT/OT CM to eval for rehab at discharge (2) CHF (congestive heart failure) Plan: on diuretics , start coreg hold on restarting Entresto (3) CHF exacerbation (4) HTN (hypertension) Plan: controlled (5) CAD (coronary artery disease) (6) Diabetes mellitus Plan: HGB A1c hold on resuming metformin , BGM on lower side (7) Pleural effusion Plan: resolved (8) History of chronic atrial fibrillation Plan: resume eliquis when chest tube dc Problem Qualifiers (1) CHF exacerbation: Qualified Codes: I50.9 - Heart failure, unspecified Ena Terrell MD Sep 23, 2017 11:25
--- NOTE | 2017-09-23 12:04 | PD.CARD.PN ---
Subjective Subjective Remarks very somnolent, nonfocal, in nad Objective Medications Current Medications Medications (Trade) Dose Ordered Sig/Jasper Route Start Time Stop Time Status Last Admin (Narcan Inj) 0.4 mg UNSCH PRN IV PUSH 09/12/17 13:30 (Lactulose Liq) 30 ml DAILY PRN PO 09/12/17 13:30 09/19/17 08:53 (Glucophage) 500 mg BIDPC PO 09/12/17 18:00 Future Hold 09/13/17 17:20 (Remeron) 15 mg HS PO 09/12/17 21:00 09/22/17 20:54 (Refresh Classic 1.4-0.6% Pf Opth Soln) 2 drop 5 TIMES A DAY PRN EACH EYE 09/12/17 17:30 Patient Own Medication PT OWN MED:RESTASIS OPHTH DROPS BID EACH EYE 09/12/17 21:00 Future Hold (Protonix) 20 mg DAILY PO 09/13/17 09:00 09/23/17 08:55 (Pill Splitter) 1 ea UNSCH PRN OTHER 09/15/17 14:30 (NS Flush) 2 ml BID IV FLUSH 09/20/17 21:00 09/23/17 08:57 (NS Flush) 2 ml UNSCH PRN IV FLUSH 09/20/17 16:45 (Aspirin Chew) 81 mg DAILY PO 09/21/17 09:00 09/23/17 08:55 (Tylenol) 650 mg Q4H PRN PO 09/20/17 16:45 09/22/17 20:57 (Zofran Inj) 4 mg Q6H PRN IV PUSH 09/20/17 16:45 (Lasix Inj) 40 mg BID@ IV PUSH 09/21/17 18:00 09/23/17 08:56 (KCl) 30 meq Q12HR PO 09/21/17 10:15 09/23/17 08:56 (Duoneb Neb) 1 ampule Q6HR WHILE AWAKE NEB NEB 09/21/17 14:00 09/23/17 13:59 09/23/17 08:27 (Colace) 100 mg BID PO 09/21/17 21:00 09/23/17 08:55 (Theragran M Tab) 1 tab DAILY PO 09/22/17 09:00 09/23/17 08:56 (Milk Of Magnesia Liq) 30 ml DAILY PO 09/22/17 09:00 09/23/17 08:55 (Dulcolax Supp) 10 mg UNSCH PRN RECTAL 09/21/17 09:45 (Miralax) 17 gm DAILY PO 09/22/17 09:00 09/23/17 08:55 (Senokot) 8.6 mg HS PO 09/21/17 21:00 09/22/17 20:57 (Fleets Enema (Adult)) 118 ml UNSCH PRN RECTAL 09/23/17 06:00 (D50w (Vial) Inj) 50 ml UNSCH PRN IV PUSH 09/21/17 09:45 (Glucagon Inj) 1 mg UNSCH PRN OTHER 09/21/17 09:45 (NovoLOG SUPPLEMENTAL SCALE) 1 ACHS SLIDING SCALE SQ 09/22/17 08:00 09/22/17 21:00 (Mag-Ox) 400 mg Q12HR PO 09/22/17 21:00 09/23/17 08:55 (Coreg) 3.125 mg Q12HR PO 09/22/17 09:45 09/23/17 08:55 (Lipitor) 10 mg HS PO 09/22/17 21:00 09/22/17 20:55 Vital Signs / I&O Vital Signs Date Time Temp Pulse Resp B/P (MAP) Pulse Ox O2 Delivery O2 Flow Rate FiO2 09/23/17 11:36 100 09/23/17 11:36 92 Nasal Cannula 1.00 09/23/17 11:36 98.8 97 20 100/58 (72) 92 09/23/17 10:08 105 09/23/17 09:57 18 09/23/17 09:52 105 09/23/17 08:29 92 Nasal Cannula 2.00 09/23/17 08:00 101 09/23/17 08:00 98 Nasal Cannula 2.00 09/23/17 08:00 98.9 98 20 145/69 (94) 98 09/23/17 06:00 98 09/23/17 05:09 98 09/23/17 04:00 100 09/23/17 04:00 99 Nasal Cannula 2.00 09/23/17 04:00 97.9 100 18 102/56 (71) 95 09/23/17 03:00 98 09/23/17 02:00 89 09/23/17 01:00 97 09/23/17 00:05 99 Nasal Cannula 2.00 09/23/17 00:00 98 09/22/17 23:00 96 09/22/17 23:00 98.0 98 18 106/62 (77) 99 09/22/17 22:00 97 09/22/17 21:00 100 09/22/17 20:00 97.6 95 20 103/57 (72) 95 09/22/17 20:00 95 09/22/17 20:00 95 Nasal Cannula 2.00 09/22/17 19:38 94 Nasal Cannula 2.00 09/22/17 19:00 95 09/22/17 18:00 98 09/22/17 17:00 92 09/22/17 16:37 16 09/22/17 16:00 98.3 92 21 105/64 (78) 96 09/22/17 16:00 94 09/22/17 16:00 Nasal Cannula 2.00 09/22/17 15:00 94 09/22/17 14:00 92 09/22/17 13:00 94 I/O 09/22/17 09/22/17 09/22/17 09/23/17 09/23/17 09/23/17 07:00 15:00 23:00 07:00 15:00 23:00 Intake Total 340 ml 840 ml 240 ml Output Total 960 ml 1505 ml 1085 ml Balance -620 ml -665 ml -845 ml Intake Oral 240 ml 840 ml 240 ml IV Total 100 ml Output Urine Total 880 ml 1425 ml 1075 ml Chest Tube Drainage Total 80 ml 80 ml 10 ml # Bowel Movements 0 0 0 Physical Exam GENERAL: SKIN: Warm and dry. HEAD: Normocephalic. EYES: No scleral icterus. No injection or drainage. NECK: Supple, trachea midline. No JVD or lymphadenopathy. CARDIOVASCULAR: Regular rate and rhythm without murmurs, gallops, or rubs. RESPIRATORY: Breath sounds equal bilaterally. No accessory muscle use. GASTROINTESTINAL: Abdomen soft, non-tender, nondistended. MUSCULOSKELETAL: No cyanosis, or edema. BACK: Nontender without obvious deformity. No CVA tenderness. Laboratory Laboratory Tests Test 09/23/17 04:34 Magnesium Level 2.0 MG/DL B-Type Natriuretic Peptide 588 PG/ML Assessment and Plan Problem List: (1) S/P CABG (coronary artery bypass graft) ICD Codes: Z95.1 - Presence of aortocoronary bypass graft (2) CHF (congestive heart failure) ICD Codes: I50.9 - Heart failure, unspecified (3) CHF exacerbation ICD Codes: I50.9 - Heart failure, unspecified Status: Acute (4) HTN (hypertension) ICD Codes: I10 - Essential (primary) hypertension Status: Chronic (5) CAD (coronary artery disease) ICD Codes: I25.10 - Atherosclerotic heart disease of [place] coronary artery without angina pectoris Status: Chronic (6) Diabetes mellitus ICD Codes: E11.9 - Type 2 diabetes mellitus without complications Status: Chronic (7) Pleural effusion ICD Codes: J90 - Pleural effusion, not elsewhere classified Status: Acute (8) History of chronic atrial fibrillation ICD Codes: Z86.79 - Personal history of other diseases of the circulatory system Assessment and Plan 1.) severe 3 vessel cad - pod #3 off pump garza to lad by Dr Terrell, bnp decreasing without diuretics, continue coreg, mag ox and lipitor, f/u daily bnp, bmp,cbc,mag 2.) CHF - bnp decreasing am, will follow trends s/p cabg to determine need for diuretics and wether to restart entresto Problem Qualifiers (1) CHF exacerbation: Qualified Codes: I50.9 - Heart failure, unspecified Jacob Le MD Sep 23, 2017 12:04
[2017-09-23] MEDS: BISACODYL 10 MG SUPP RECTAL PRN ×2 (16:29→16:32)
[2017-09-23] MEDS: SENNOSIDES 8.6 MG TAB PO SCH (21:00)
[2017-09-23] MEDS: ATORVASTATIN 10 MG TAB PO SCH (22:54)
[2017-09-23] MEDS: MIRTAZAPINE 15 MG TAB PO SCH (22:54)
[2017-09-24] VITALS (24 sets, daily range): BP systolic 99–158; BP diastolic 50–72; PULSE 60–100; RESP 14–20; TEMP 97–98.7; O2SAT 94–96
[2017-09-24 03:48] LABS: BICARBONATE 32.2 MEQ/L (21.0-32.0); CALCIUM 8.7 MG/DL (8.5-10.1); CREATININE 0.74 MG/DL (0.60-1.30)
--- NOTE | 2017-09-24 06:28 | RADRPT ---
EXAM DATE: 09/24/2017 6:06 AM EDT AGE/SEX: 77 years / Male INDICATIONS: Shortness of breath, possible pulmonary disease. CLINICAL DATA: This is the patient's subsequent encounter. Patient reports that signs and symptoms h ave been present for 1 week and indicates a pain score of 3/10. MEDICAL/SURGICAL HISTORY: Carcinoma, prostatic. Hypertension. Gastroesophageal reflux disease . None. [place]PAR[place] [facility] [place]. . FINDINGS: The patient is status post sternotomy. The cardiac silhouette is enlarged. There is increased density at the bases bilaterally. There is silhouetting of the left hemidiaphragm. There is a calcified gran uloma in the right upper lung. There is a focal area of sclerosis in the proximal right humerus. CONCLUSION: Enlargement of the cardiac silhouette. Increased density at the bases bilaterally representing combination of atelectasis, consolidation and effusions. These processes are worse on the left. Electronically signed by: Jesus Fu MD 09/24/2017 6:27 AM EDT
[2017-09-24] MEDS: MAGNESIUM OXIDE 400 MG TAB PO SCH ×2 (07:40→22:11)
[2017-09-24] MEDS: POLYETHYLENE GLYCOL 17 GM PKG PO SCH (07:40)
[2017-09-24] MEDS: ASPIRIN 81 MG CHEW TAB PO SCH (07:40)
[2017-09-24] MEDS: MULTIVITAMINS/MINERALS THERAPEUTIC TAB PO SCH (07:40)
[2017-09-24] MEDS: MAGNESIUM HYDROXIDE SUSP 30 ML CUP PO SCH (07:40)
[2017-09-24] MEDS: PANTOPRAZOLE SOD 20 MG DELAYED RELEASE TAB PO SCH (07:40)
[2017-09-24] MEDS: DOCUSATE SODIUM 100 MG CAP PO SCH ×2 (07:40→21:00)
[2017-09-24] MEDS: CARVEDILOL 3.125 MG TAB PO SCH ×2 (07:40→22:12)
[2017-09-24] MEDS: SODIUM CHLORIDE 0.9% FLUSH 10 ML FLUSH IV FLUSH SCH ×2 (07:41→22:13)
[2017-09-24] MEDS: ACETAMINOPHEN 325 MG TAB PO PRN (07:41)
[2017-09-24] MEDS: POTASSIUM CHLORIDE 10 MEQ CONTROLLED RELEASE TAB PO SCH ×2 (07:41→22:10)
[2017-09-24] MEDS: FUROSEMIDE 40 MG/4 ML VIAL IV PUSH SCH ×2 (07:41→17:11)
[2017-09-24] MEDS: INSULIN ASPART SUPPLEMENTAL SCALE SQ SCH ×4 (08:00→21:00)
--- NOTE | 2017-09-24 10:48 | PD.CAR.PN ---
CVT Progress Note CVT: POD #: 4 Subjective/Hospital Course: 77-year-old male, patient of Dr. Cheikh Funes and Dr. Jacob Le, with history of coronary artery disease, prior stenting x4. He had 3 stents placed last year by Dr. Le. Also, history of trifascicular block, atrial fibrillation, recent new onset of CHF, started on Entresto by primary care physician. He had been recently discharged in July for sepsis, pneumonia, also with weight loss of 30 pounds over the last 2 years. On admission, he complained of fatigue, loss of appetite. He was also having pain on both sides of his neck, described as pressure-like. He underwent cardiac catheterization for unstable angina, CHF, CAD. EF was 50%. Proximal LAD had a 90% ostial lesion, diagonal 100%. The RCA was 50%. We were consulted to evaluate for coronary artery bypass graft x2 to the LAD and the diagonal. PAST MEDICAL HISTORY: prior [place] in 2002. He had a stent back then and he also had 3 stents last year. Autoimmune disorder, was on Imuran in the past and prednisone in the past. Atrial fibrillation, on Eliquis. history of a pulmonary emboli in March 2017, at that time was on Coumadin. Prostate cancer, hyperlipidemia, diabetes, history of radiation therapy, right knee arthroscopic surgery and cardiac catheterization. [place] Very frail. Clinically stable. OR Monday second case 09/17 Clinically stable OR Tuesday 09/19 pt now to undergo CABG by Dr Terrell second case tomorrow CT chest without contrast pending to eval aorta for calcifications no chest pain last pm STS score 5.9 09/20 no chest pain last night for surgery today CT chest noted surgery: Off pump CABG x 1, CONNELL to LAD - good, Lysis of adhesions extubated after surgery crystalloid 2500cc, 09/21 up in chair , feels fair EKG NSR RBBB IVCD on scheduled diuretics chest tube with small air leak/ CXR no PTX transfer to stepdown 09/22 CXR noted, no PTX has + 1 air leak discussed pt with Dr Le, add low dose BB . hold on restarting Entresto, continue diuretics, BNP elevated eval for rehab at discharge may need condom cath 09/23/17 Lethargic, no complaints 09/24/17 Much more alert today. O and A. Ambulating with assist Objective: Vital Signs Date Time Temp Pulse Resp B/P (MAP) Pulse Ox O2 Delivery O2 Flow Rate FiO2 09/24/17 10:37 62 09/24/17 10:18 95 Nasal Cannula 1.00 09/24/17 09:22 88 09/24/17 08:56 18 09/24/17 08:19 96 Nasal Cannula 2.00 09/24/17 08:19 98.7 94 20 132/72 (92) 96 09/24/17 08:19 95 09/24/17 06:16 93 Nasal Cannula 2.00 09/24/17 06:00 98 09/24/17 05:00 92 09/24/17 04:00 98.6 95 14 122/63 (82) 94 09/24/17 04:00 94 09/24/17 03:00 94 09/24/17 02:00 96 09/24/17 01:00 96 09/24/17 00:00 100 09/23/17 23:48 99.5 101 14 112/63 (79) 98 09/23/17 23:47 93 Nasal Cannula 2.00 09/23/17 23:00 102 09/23/17 22:00 102 09/23/17 21:56 94 Nasal Cannula 1.00 09/23/17 21:00 106 09/23/17 20:30 99.5 104 14 104/68 (80) 93 09/23/17 20:30 93 Nasal Cannula 2.00 09/23/17 20:00 102 09/23/17 20:00 96 Nasal Cannula 2.00 09/23/17 19:00 102 09/23/17 18:02 104 09/23/17 17:05 99 09/23/17 16:15 103 09/23/17 15:01 98.2 106 20 99/55 (70) 94 09/23/17 15:01 104 09/23/17 15:01 94 Nasal Cannula 1.00 09/23/17 14:58 110 09/23/17 13:23 107 09/23/17 12:09 97 09/23/17 11:36 100 09/23/17 11:36 92 Nasal Cannula 1.00 09/23/17 11:36 98.8 97 20 100/58 (72) 92 Labs: Laboratory Tests Test 09/24/17 02:50 Blood Urea Nitrogen 24 MG/DL (7-18) Creatinine 0.74 MG/DL (0.60-1.30) Random Glucose 112 MG/DL (74-106) Calcium Level 8.7 MG/DL (8.5-10.1) Magnesium Level 2.0 MG/DL (1.5-2.5) Sodium Level 142 MEQ/L (136-145) Potassium Level 4.7 MEQ/L (3.5-5.1) Chloride Level 103 MEQ/L (98-107) Carbon Dioxide Level 32.2 MEQ/L (21.0-32.0) Anion Gap 7 MEQ/L (5-15) Estimat Glomerular Filtration Rate 102 ML/MIN (>89) B-Type Natriuretic Peptide 693 PG/ML (0-100) Result Diagram: 09/22/17 0435 09/24/17 0250 Imaging: Last 24 hours Impressions Chest X-Ray 09/24/17 0600 Signed Impressions: CONCLUSION: Enlargement of the cardiac silhouette. Increased density at the bases bilaterally representing combination of atelecta sis, consolidation and effusions. These processes are worse on the left. Cardiovascular: RRR Telemetry: NSR Pulmonary: CTA GI/: NABS, NT Incision: dry and intact Plan: Diurese encourage ambulation Stim BM Encourage PO intake. BMP in AM Cardiomegaly on CXR noted. Will order ECHO if patient becomes symptomatic. SNF transfer tomorrow. (1) S/P CABG (coronary artery bypass graft) Plan: ASA, statin , start BB in am scheduled diuresis OOB/ PT/OT CM to eval for rehab at discharge (2) CHF (congestive heart failure) Plan: on diuretics , start coreg hold on restarting Entresto (3) CHF exacerbation (4) HTN (hypertension) Plan: controlled (5) CAD (coronary artery disease) (6) Diabetes mellitus Plan: HGB A1c hold on resuming metformin , BGM on lower side (7) Pleural effusion Plan: resolved (8) History of chronic atrial fibrillation Plan: resume eliquis when chest tube dc Problem Qualifiers (1) CHF exacerbation: Qualified Codes: I50.9 - Heart failure, unspecified Ena Terrell MD Sep 24, 2017 10:48
--- NOTE | 2017-09-24 11:52 | PD.CARD.PN ---
Subjective Subjective Remarks alert in nad, ambulated @ halls today, now doing PT Objective Medications Current Medications Medications (Trade) Dose Ordered Sig/Jasper Route Start Time Stop Time Status Last Admin (Narcan Inj) 0.4 mg UNSCH PRN IV PUSH 09/12/17 13:30 (Lactulose Liq) 30 ml DAILY PRN PO 09/12/17 13:30 09/19/17 08:53 (Glucophage) 500 mg BIDPC PO 09/12/17 18:00 Future Hold 09/13/17 17:20 (Remeron) 15 mg HS PO 09/12/17 21:00 09/23/17 22:54 (Refresh Classic 1.4-0.6% Pf Opth Soln) 2 drop 5 TIMES A DAY PRN EACH EYE 09/12/17 17:30 Patient Own Medication PT OWN MED:RESTASIS OPHTH DROPS BID EACH EYE 09/12/17 21:00 Future Hold (Protonix) 20 mg DAILY PO 09/13/17 09:00 09/24/17 07:40 (Pill Splitter) 1 ea UNSCH PRN OTHER 09/15/17 14:30 (NS Flush) 2 ml BID IV FLUSH 09/20/17 21:00 09/24/17 07:41 (NS Flush) 2 ml UNSCH PRN IV FLUSH 09/20/17 16:45 (Aspirin Chew) 81 mg DAILY PO 09/21/17 09:00 09/24/17 07:40 (Tylenol) 650 mg Q4H PRN PO 09/20/17 16:45 09/24/17 07:41 (Zofran Inj) 4 mg Q6H PRN IV PUSH 09/20/17 16:45 (Lasix Inj) 40 mg BID@18 IV PUSH 09/21/17 18:00 09/24/17 07:41 (KCl) 30 meq Q12HR PO 09/21/17 10:15 09/24/17 07:41 (Colace) 100 mg BID PO 09/21/17 21:00 09/24/17 07:40 (Theragran M Tab) 1 tab DAILY PO 09/22/17 09:00 09/24/17 07:40 (Milk Of Magnesia Liq) 30 ml DAILY PO 09/22/17 09:00 09/24/17 07:40 (Miralax) 17 gm DAILY PO 09/22/17 09:00 09/24/17 07:40 (Senokot) 8.6 mg HS PO 09/21/17 21:00 09/22/17 20:57 (Fleets Enema (Adult)) 118 ml UNSCH PRN RECTAL 09/23/17 06:00 (D50w (Vial) Inj) 50 ml UNSCH PRN IV PUSH 09/21/17 09:45 (Glucagon Inj) 1 mg UNSCH PRN OTHER 09/21/17 09:45 (NovoLOG SUPPLEMENTAL SCALE) 1 ACHS SLIDING SCALE SQ 09/22/17 08:00 09/23/17 17:02 (Mag-Ox) 400 mg Q12HR PO 09/22/17 21:00 09/24/17 07:40 (Coreg) 3.125 mg Q12HR PO 09/22/17 09:45 09/24/17 07:40 (Lipitor) 10 mg HS PO 09/22/17 21:00 09/23/17 22:54 Vital Signs / I&O Vital Signs Date Time Temp Pulse Resp B/P (MAP) Pulse Ox O2 Delivery O2 Flow Rate FiO2 09/24/17 10:37 62 09/24/17 10:18 95 Nasal Cannula 1.00 09/24/17 09:22 88 09/24/17 08:56 18 09/24/17 08:19 96 Nasal Cannula 2.00 09/24/17 08:19 98.7 94 20 132/72 (92) 96 09/24/17 08:19 95 09/24/17 06:16 93 Nasal Cannula 2.00 09/24/17 06:00 98 09/24/17 05:00 92 09/24/17 04:00 98.6 95 14 122/63 (82) 94 09/24/17 04:00 94 09/24/17 03:00 94 09/24/17 02:00 96 09/24/17 01:00 96 09/24/17 00:00 100 09/23/17 23:48 99.5 101 14 112/63 (79) 98 09/23/17 23:47 93 Nasal Cannula 2.00 09/23/17 23:00 102 09/23/17 22:00 102 09/23/17 21:56 94 Nasal Cannula 1.00 09/23/17 21:00 106 09/23/17 20:30 99.5 104 14 104/68 (80) 93 09/23/17 20:30 93 Nasal Cannula 2.00 09/23/17 20:00 102 09/23/17 20:00 96 Nasal Cannula 2.00 09/23/17 19:00 102 09/23/17 18:02 104 09/23/17 17:05 99 09/23/17 16:15 103 09/23/17 15:01 98.2 106 20 99/55 (70) 94 09/23/17 15:01 104 09/23/17 15:01 94 Nasal Cannula 1.00 09/23/17 14:58 110 09/23/17 13:23 107 09/23/17 12:09 97 I/O 09/23/17 09/23/17 09/23/17 09/24/17 09/24/17 09/24/17 07:00 15:00 23:00 07:00 15:00 23:00 Intake Total 240 ml 480 ml 240 ml Output Total 1085 ml 980 ml 600 ml Balance -845 ml -500 ml -360 ml Intake Oral 240 ml 480 ml 240 ml Output Urine Total 1075 ml 950 ml 600 ml Chest Tube Drainage Total 10 ml 30 ml # Bowel Movements 0 1 0 Physical Exam GENERAL: SKIN: Warm and dry. HEAD: Normocephalic. EYES: No scleral icterus. No injection or drainage. NECK: Supple, trachea midline. No JVD or lymphadenopathy. CARDIOVASCULAR: Regular rate and rhythm without murmurs, gallops, or rubs. RESPIRATORY: Breath sounds equal bilaterally. No accessory muscle use. GASTROINTESTINAL: Abdomen soft, non-tender, nondistended. MUSCULOSKELETAL: No cyanosis, or edema. BACK: Nontender without obvious deformity. No CVA tenderness. Laboratory Laboratory Tests Test 09/24/17 02:50 Blood Urea Nitrogen 24 MG/DL Creatinine 0.74 MG/DL Random Glucose 112 MG/DL Calcium Level 8.7 MG/DL Magnesium Level 2.0 MG/DL Sodium Level 142 MEQ/L Potassium Level 4.7 MEQ/L Chloride Level 103 MEQ/L Carbon Dioxide Level 32.2 MEQ/L Anion Gap 7 MEQ/L Estimat Glomerular Filtration Rate 102 ML/MIN B-Type Natriuretic Peptide 693 PG/ML Imaging Last 24 hours Impressions Chest X-Ray 6/3/18 0600 Signed Impressions: CONCLUSION: Enlargement of the cardiac silhouette. Increased density at the bases bilaterally representing combination of atelecta sis, consolidation and effusions. These processes are worse on the left. Assessment and Plan Problem List: (1) S/P CABG (coronary artery bypass graft) ICD Codes: Z95.1 - Presence of aortocoronary bypass graft (2) CHF (congestive heart failure) ICD Codes: I50.9 - Heart failure, unspecified (3) CHF exacerbation ICD Codes: I50.9 - Heart failure, unspecified Status: Acute (4) HTN (hypertension) ICD Codes: I10 - Essential (primary) hypertension Status: Chronic (5) CAD (coronary artery disease) ICD Codes: I25.10 - Atherosclerotic heart disease of [place] coronary artery without angina pectoris Status: Chronic (6) Diabetes mellitus ICD Codes: E11.9 - Type 2 diabetes mellitus without complications Status: Chronic (7) Pleural effusion ICD Codes: J90 - Pleural effusion, not elsewhere classified Status: Acute (8) History of chronic atrial fibrillation ICD Codes: Z86.79 - Personal history of other diseases of the circulatory system Assessment and Plan 1.) severe 3 vessel cad - pod #4 off pump garza to lad by Dr Terrell, bnp not decreasing without diuretics, lasix started, continue coreg, mag ox and lipitor , f/u daily bnp,bmp,cbc,mag 2.) CHF - bnp not decreasing am, will follow trends s/p cabg to determine need for diuretics and wether to restart entresto Problem Qualifiers (1) CHF exacerbation: Qualified Codes: I50.9 - Heart failure, unspecified Jacob Le MD Sep 24, 2017 11:52
[2017-09-24] MEDS: SENNOSIDES 8.6 MG TAB PO SCH (21:00)
[2017-09-24] MEDS: ATORVASTATIN 10 MG TAB PO SCH (22:11)
[2017-09-24] MEDS: MIRTAZAPINE 15 MG TAB PO SCH (22:12)
[2017-09-25] VITALS (28 sets, daily range): BP systolic 132–153; BP diastolic 63–73; PULSE 62–90; RESP 16–18; TEMP 98.1–99; O2SAT 92–98
[2017-09-25] MEDS: ACETAMINOPHEN 325 MG TAB PO PRN (01:45)
[2017-09-25 06:39] LABS: HEMATOCRIT 28.8 % (39.0-51.0); HEMOGLOBIN 9.6 GM/DL (13.0-17.0); MEAN CELL VOLUME 101.6 FL (80.0-100.0); MEAN CORPUSCULAR HEMOGLOBIN 33.9 PG (27.0-34.0); MEAN CORPUSCULAR HGB CONC 33.3 % (32.0-36.0); MEAN PLATELET VOLUME 8.6 FL (7.0-11.0); PLATELET COUNT 114 TH/MM3 (150-450); RED BLOOD COUNT 2.83 MIL/MM3 (4.50-5.90); WHITE BLOOD COUNT 7.1 TH/MM3 (4.0-11.0)
[2017-09-25 07:02] LABS: BICARBONATE 35.1 MEQ/L (21.0-32.0); CALCIUM 8.9 MG/DL (8.5-10.1); CREATININE 0.74 MG/DL (0.60-1.30); MAGNESIUM 2.1 MG/DL (1.5-2.5)
[2017-09-25] MEDS: INSULIN ASPART SUPPLEMENTAL SCALE SQ SCH ×4 (08:00→21:00)
[2017-09-25] MEDS: PANTOPRAZOLE SOD 20 MG DELAYED RELEASE TAB PO SCH (08:26)
[2017-09-25] MEDS: ASPIRIN 81 MG CHEW TAB PO SCH (08:26)
[2017-09-25] MEDS: MULTIVITAMINS/MINERALS THERAPEUTIC TAB PO SCH (08:26)
[2017-09-25] MEDS: POTASSIUM CHLORIDE 10 MEQ CONTROLLED RELEASE TAB PO SCH (08:26)
[2017-09-25] MEDS: MAGNESIUM OXIDE 400 MG TAB PO SCH ×2 (08:26→22:04)
[2017-09-25] MEDS: DOCUSATE SODIUM 100 MG CAP PO SCH ×2 (08:27→21:00)
[2017-09-25] MEDS: SODIUM CHLORIDE 0.9% FLUSH 10 ML FLUSH IV FLUSH SCH ×2 (08:27→22:06)
[2017-09-25] MEDS: MAGNESIUM HYDROXIDE SUSP 30 ML CUP PO SCH (08:27)
[2017-09-25] MEDS: CARVEDILOL 3.125 MG TAB PO SCH ×2 (08:27→22:04)
[2017-09-25] MEDS: POLYETHYLENE GLYCOL 17 GM PKG PO SCH (08:27)
[2017-09-25] MEDS: FUROSEMIDE 40 MG/4 ML VIAL IV PUSH SCH (08:27)
--- NOTE | 2017-09-25 11:16 | PD.CAR.PN ---
CVT Progress Note Subjective/Hospital Course: 77-year-old male, patient of Dr. Cheikh Funes and Dr. Jacob Le, with history of coronary artery disease, prior stenting x4. He had 3 stents placed last year by Dr. Le. Also, history of trifascicular block, atrial fibrillation, recent new onset of CHF, started on Entresto by primary care physician. He had been recently discharged in July for sepsis, pneumonia, also with weight loss of 30 pounds over the last 2 years. On admission, he complained of fatigue, loss of appetite. He was also having pain on both sides of his neck, described as pressure-like. He underwent cardiac catheterization for unstable angina, CHF, CAD. EF was 50%. Proximal LAD had a 90% ostial lesion, diagonal 100%. The RCA was 50%. We were consulted to evaluate for coronary artery bypass graft x2 to the LAD and the diagonal. PAST MEDICAL HISTORY: prior [place] in 2002. He had a stent back then and he also had 3 stents last year. Autoimmune disorder, was on Imuran in the past and prednisone in the past. Atrial fibrillation, on Eliquis. history of a pulmonary emboli in March 2017, at that time was on Coumadin. Prostate cancer, hyperlipidemia, diabetes, history of radiation therapy, right knee arthroscopic surgery and cardiac catheterization. [place] Very frail. Clinically stable. OR Monday second case 09/17 Clinically stable OR Tuesday 09/19 pt now to undergo CABG by Dr Terrell second case tomorrow CT chest without contrast pending to eval aorta for calcifications no chest pain last pm STS score 5.9 09/20 no chest pain last night for surgery today CT chest noted surgery: Off pump CABG x 1, CONNELL to LAD - good, Lysis of adhesions extubated after surgery crystalloid 2500cc, 09/21 up in chair , feels fair EKG NSR RBBB IVCD on scheduled diuretics chest tube with small air leak/ CXR no PTX transfer to stepdown 09/22 CXR noted, no PTX has + 1 air leak discussed pt with Dr Le, add low dose BB . hold on restarting Entresto, continue diuretics, BNP elevated eval for rehab at discharge may need condom cath 09/23/17 Lethargic, no complaints 09/24/17 Much more alert today. O and A. Ambulating with assist 09/25 still lethargic, but slightly improved all narcotics dc decrease lasix check limited echo for EF, and r/o effusion Objective: GENERAL: stil lethargic, but slightly improved SKIN: Warm and dry. prevena dressing to chest, incision intact to l HEAD: Normocephalic. EYES: No scleral icterus. No injection or drainage. NECK: Supple, trachea midline. No JVD or lymphadenopathy. CARDIOVASCULAR: Regular rate and rhythm without murmurs, gallops, or rubs. RESPIRATORY: Breath sounds equal bilaterally. No accessory muscle use. GASTROINTESTINAL: Abdomen soft, non-tender, nondistended. MUSCULOSKELETAL: No cyanosis, or edema. BACK: Nontender without obvious deformity. No CVA tenderness. Vital Signs Date Time Temp Pulse Resp B/P (MAP) Pulse Ox O2 Delivery O2 Flow Rate FiO2 09/25/17 10:01 62 09/25/17 09:00 78 09/25/17 08:15 98.3 65 18 142/73 (96) 94 09/25/17 08:15 94 Nasal Cannula 1.00 09/25/17 08:09 95 Nasal Cannula 1.00 09/25/17 08:00 78 09/25/17 07:01 66 09/25/17 06:00 72 09/25/17 05:00 78 09/25/17 04:44 96 Nasal Cannula 1.00 09/25/17 04:00 80 09/25/17 04:00 98.1 80 16 153/70 (97) 98 09/25/17 03:00 84 09/25/17 02:00 88 09/25/17 01:00 82 09/25/17 00:00 82 09/25/17 00:00 98.1 89 16 140/72 (94) 96 09/24/17 23:00 94 09/24/17 23:00 94 Nasal Cannula 1.00 09/24/17 22:00 92 09/24/17 21:54 Nasal Cannula 1.00 09/24/17 21:00 92 09/24/17 20:30 97.0 98 18 158/72 (100) 95 09/24/17 20:00 95 Nasal Cannula 1.00 09/24/17 19:00 88 09/24/17 18:02 86 09/24/17 17:13 89 09/24/17 16:01 82 09/24/17 15:09 94 Nasal Cannula 1.00 09/24/17 15:09 98.6 75 18 132/63 (86) 94 09/24/17 15:09 67 09/24/17 14:05 82 09/24/17 13:41 78 09/24/17 12:20 75 09/24/17 11:15 60 09/24/17 11:15 94 Nasal Cannula 1.00 09/24/17 11:15 98.7 64 18 99/50 (66) 94 Labs: Laboratory Tests Test 09/25/17 04:50 09/25/17 04:59 Blood Urea Nitrogen 27 MG/DL (7-18) Creatinine 0.74 MG/DL (0.60-1.30) Random Glucose 94 MG/DL (74-106) Calcium Level 8.9 MG/DL (8.5-10.1) Magnesium Level 2.1 MG/DL (1.5-2.5) Sodium Level 144 MEQ/L (136-145) Potassium Level 4.4 MEQ/L (3.5-5.1) Chloride Level 102 MEQ/L (98-107) Carbon Dioxide Level 35.1 MEQ/L (21.0-32.0) Anion Gap 7 MEQ/L (5-15) Estimat Glomerular Filtration Rate 102 ML/MIN (>89) White Blood Count 7.1 TH/MM3 (4.0-11.0) Red Blood Count 2.83 MIL/MM3 (4.50-5.90) Hemoglobin 9.6 GM/DL (13.0-17.0) Hematocrit 28.8 % (39.0-51.0) Mean Corpuscular Volume 101.6 FL (80.0-100.0) Mean Corpuscular Hemoglobin 33.9 PG (27.0-34.0) Mean Corpuscular Hemoglobin Concent 33.3 % (32.0-36.0) Red Cell Distribution Width 18.0 % (11.6-17.2) Platelet Count 114 TH/MM3 (150-450) Mean Platelet Volume 8.6 FL (7.0-11.0) B-Type Natriuretic Peptide 472 PG/ML (0-100) Result Diagram: 09/25/17 0459 09/25/17 0450 (1) S/P CABG (coronary artery bypass graft) Plan: ASA, statin , start BB in am scheduled diuresis OOB/ PT/OT CM to eval for rehab at discharge (2) CHF (congestive heart failure) Plan: decrease diuretics , on coreg (3) CHF exacerbation (4) HTN (hypertension) Plan: controlled (5) CAD (coronary artery disease) (6) Diabetes mellitus Plan: HGB A1c hold on resuming metformin , BGM on lower side (7) Pleural effusion Plan: resolved (8) History of chronic atrial fibrillation Plan: resume eliquis when chest tube dc Problem Qualifiers (1) CHF exacerbation: Qualified Codes: I50.9 - Heart failure, unspecified Pamela Duenas Sep 25, 2017 11:16
--- NOTE | 2017-09-25 14:49 | PD.CARD.PN ---
Subjective Subjective Remarks alert in nad Objective Medications Current Medications Medications (Trade) Dose Ordered Sig/Jasper Route Start Time Stop Time Status Last Admin (Narcan Inj) 0.4 mg UNSCH PRN IV PUSH 09/12/17 13:30 (Lactulose Liq) 30 ml DAILY PRN PO 09/12/17 13:30 09/19/17 08:53 (Glucophage) 500 mg BIDPC PO 09/12/17 18:00 Future Hold 09/13/17 17:20 (Remeron) 15 mg HS PO 09/12/17 21:00 09/24/17 22:12 (Refresh Classic 1.4-0.6% Pf Opth Soln) 2 drop 5 TIMES A DAY PRN EACH EYE 09/12/17 17:30 Patient Own Medication PT OWN MED:RESTASIS OPHTH DROPS BID EACH EYE 09/12/17 21:00 Future Hold (Protonix) 20 mg DAILY PO 09/13/17 09:00 09/25/17 08:26 (Pill Splitter) 1 ea UNSCH PRN OTHER 09/15/17 14:30 (NS Flush) 2 ml BID IV FLUSH 09/20/17 21:00 09/25/17 08:27 (NS Flush) 2 ml UNSCH PRN IV FLUSH 09/20/17 16:45 (Aspirin Chew) 81 mg DAILY PO 09/21/17 09:00 09/25/17 08:26 (Tylenol) 650 mg Q4H PRN PO 09/20/17 16:45 09/25/17 01:45 (Zofran Inj) 4 mg Q6H PRN IV PUSH 09/20/17 16:45 (Colace) 100 mg BID PO 09/21/17 21:00 09/24/17 07:40 (Theragran M Tab) 1 tab DAILY PO 09/22/17 09:00 09/25/17 08:26 (Milk Of Magnesia Liq) 30 ml DAILY PO 09/22/17 09:00 09/24/17 07:40 (Miralax) 17 gm DAILY PO 09/22/17 09:00 09/24/17 07:40 (Senokot) 8.6 mg HS PO 09/21/17 21:00 09/22/17 20:57 (Fleets Enema (Adult)) 118 ml UNSCH PRN RECTAL 09/23/17 06:00 (D50w (Vial) Inj) 50 ml UNSCH PRN IV PUSH 09/21/17 09:45 (Glucagon Inj) 1 mg UNSCH PRN OTHER 09/21/17 09:45 (NovoLOG SUPPLEMENTAL SCALE) 1 ACHS SLIDING SCALE SQ 09/22/17 08:00 09/24/17 12:00 (Mag-Ox) 400 mg Q12HR PO 09/22/17 21:00 09/25/17 08:26 (Coreg) 3.125 mg Q12HR PO 09/22/17 09:45 09/25/17 08:27 (Lipitor) 10 mg HS PO 09/22/17 21:00 09/24/17 22:11 (Lasix Inj) 40 mg DAILY IV PUSH 09/26/17 09:00 (KCl) 30 meq DAILY PO 09/26/17 09:00 (Eliquis) 5 mg BID PO 09/25/17 21:00 Vital Signs / I&O Vital Signs Date Time Temp Pulse Resp B/P (MAP) Pulse Ox O2 Delivery O2 Flow Rate FiO2 09/25/17 13:01 82 09/25/17 12:00 82 09/25/17 11:01 74 09/25/17 11:01 98.2 77 18 152/71 (98) 98 09/25/17 11:01 98 Nasal Cannula 1.00 09/25/17 10:01 62 09/25/17 09:00 78 09/25/17 08:15 98.3 65 18 142/73 (96) 94 09/25/17 08:15 94 Nasal Cannula 1.00 09/25/17 08:09 95 Nasal Cannula 1.00 09/25/17 08:00 78 09/25/17 07:01 66 09/25/17 06:00 72 09/25/17 05:00 78 09/25/17 04:44 96 Nasal Cannula 1.00 09/25/17 04:00 80 09/25/17 04:00 98.1 80 16 153/70 (97) 98 09/25/17 03:00 84 09/25/17 02:00 88 09/25/17 01:00 82 09/25/17 00:00 82 09/25/17 00:00 98.1 89 16 140/72 (94) 96 09/24/17 23:00 94 09/24/17 23:00 94 Nasal Cannula 1.00 09/24/17 22:00 92 09/24/17 21:54 Nasal Cannula 1.00 09/24/17 21:00 92 09/24/17 20:30 97.0 98 18 158/72 (100) 95 09/24/17 20:00 95 Nasal Cannula 1.00 09/24/17 19:00 88 09/24/17 18:02 86 09/24/17 17:13 89 09/24/17 16:01 82 09/24/17 15:09 94 Nasal Cannula 1.00 09/24/17 15:09 98.6 75 18 132/63 (86) 94 09/24/17 15:09 67 I/O 09/24/17 09/24/17 09/24/17 09/25/17 09/25/17 09/25/17 07:00 15:00 23:00 07:00 15:00 23:00 Intake Total 240 ml 800 ml 280 ml Output Total 600 ml 975 ml Balance -360 ml 800 ml -695 ml Intake Oral 240 ml 800 ml 280 ml Output Urine Total 600 ml 975 ml # Voids 4 # Bowel Movements 0 3 0 Physical Exam GENERAL: SKIN: Warm and dry. HEAD: Normocephalic. EYES: No scleral icterus. No injection or drainage. NECK: Supple, trachea midline. No JVD or lymphadenopathy. CARDIOVASCULAR: Regular rate and rhythm without murmurs, gallops, or rubs. RESPIRATORY: Breath sounds equal bilaterally. No accessory muscle use. GASTROINTESTINAL: Abdomen soft, non-tender, nondistended. MUSCULOSKELETAL: No cyanosis, or edema. BACK: Nontender without obvious deformity. No CVA tenderness. Laboratory Laboratory Tests Test 09/25/17 04:50 09/25/17 04:59 Blood Urea Nitrogen 27 MG/DL Creatinine 0.74 MG/DL Random Glucose 94 MG/DL Calcium Level 8.9 MG/DL Magnesium Level 2.1 MG/DL Sodium Level 144 MEQ/L Potassium Level 4.4 MEQ/L Chloride Level 102 MEQ/L Carbon Dioxide Level 35.1 MEQ/L Anion Gap 7 MEQ/L Estimat Glomerular Filtration Rate 102 ML/MIN White Blood Count 7.1 TH/MM3 Red Blood Count 2.83 MIL/MM3 Hemoglobin 9.6 GM/DL Hematocrit 28.8 % Mean Corpuscular Volume 101.6 FL Mean Corpuscular Hemoglobin 33.9 PG Mean Corpuscular Hemoglobin Concent 33.3 % Red Cell Distribution Width 18.0 % Platelet Count 114 TH/MM3 Mean Platelet Volume 8.6 FL B-Type Natriuretic Peptide 472 PG/ML Assessment and Plan Problem List: (1) S/P CABG (coronary artery bypass graft) ICD Codes: Z95.1 - Presence of aortocoronary bypass graft (2) CHF (congestive heart failure) ICD Codes: I50.9 - Heart failure, unspecified (3) CHF exacerbation ICD Codes: I50.9 - Heart failure, unspecified Status: Acute (4) HTN (hypertension) ICD Codes: I10 - Essential (primary) hypertension Status: Chronic (5) CAD (coronary artery disease) ICD Codes: I25.10 - Atherosclerotic heart disease of [place] coronary artery without angina pectoris Status: Chronic (6) Diabetes mellitus ICD Codes: E11.9 - Type 2 diabetes mellitus without complications Status: Chronic (7) Pleural effusion ICD Codes: J90 - Pleural effusion, not elsewhere classified Status: Acute (8) History of chronic atrial fibrillation ICD Codes: Z86.79 - Personal history of other diseases of the circulatory system Assessment and Plan 1.) severe 3 vessel cad - pod #5 off pump graza to lad by Dr Terrell, bnp not decreasing without diuretics, lasix started, continue coreg, mag ox and lipitor , f/u daily bnp,bmp,cbc,mag 2.) CHF - bnp not decreasing am, will follow trends s/p cabg to determine need for diuretics and wether to restart entresto Problem Qualifiers (1) CHF exacerbation: Qualified Codes: I50.9 - Heart failure, unspecified Jacob Le MD Sep 25, 2017 14:49
[2017-09-25] MEDS: SENNOSIDES 8.6 MG TAB PO SCH (21:00)
[2017-09-25] MEDS: MIRTAZAPINE 15 MG TAB PO SCH (22:04)
[2017-09-25] MEDS: APIXABAN 5 MG TABLET PO SCH (22:04)
[2017-09-25] MEDS: ATORVASTATIN 10 MG TAB PO SCH (22:05)
[2017-09-26] VITALS (16 sets, daily range): BP systolic 113–162; BP diastolic 58–72; PULSE 64–92; RESP 16–19; TEMP 97.9–98.8; O2SAT 92–100
[2017-09-26] MEDS: ACETAMINOPHEN 325 MG TAB PO PRN (00:48)
[2017-09-26 03:42] LABS: BICARBONATE 33.1 MEQ/L (21.0-32.0); CREATININE 0.7 MG/DL (0.60-1.30)
[2017-09-26] MEDS: INSULIN ASPART SUPPLEMENTAL SCALE SQ SCH ×2 (08:00→12:49)
[2017-09-26] MEDS ORDERED: FUROSEMIDE 40 MG/4 ML VIAL IV PUSH SCH (09:00)
[2017-09-26] MEDS ORDERED: POTASSIUM CHLORIDE 10 MEQ CONTROLLED RELEASE TAB PO SCH (09:00)
[2017-09-26] MEDS: POLYETHYLENE GLYCOL 17 GM PKG PO SCH (09:12)
[2017-09-26] MEDS: MAGNESIUM HYDROXIDE SUSP 30 ML CUP PO SCH (09:13)
[2017-09-26] MEDS: DOCUSATE SODIUM 100 MG CAP PO SCH (09:14)
[2017-09-26] MEDS: MULTIVITAMINS/MINERALS THERAPEUTIC TAB PO SCH (09:14)
[2017-09-26] MEDS: ASPIRIN 81 MG CHEW TAB PO SCH (09:14)
[2017-09-26] MEDS: SODIUM CHLORIDE 0.9% FLUSH 10 ML FLUSH IV FLUSH SCH (09:14)
[2017-09-26] MEDS: PANTOPRAZOLE SOD 20 MG DELAYED RELEASE TAB PO SCH (09:15)
[2017-09-26] MEDS: CARVEDILOL 3.125 MG TAB PO SCH (09:15)
[2017-09-26] MEDS: APIXABAN 5 MG TABLET PO SCH (09:15)
[2017-09-26] MEDS: MAGNESIUM OXIDE 400 MG TAB PO SCH (09:15)
--- NOTE | 2017-09-26 13:06 | ECHRPT ---
Indication: PERICARDIAL EFFUSION CONCLUSIONS The left ventricular systolic function is moderately reduced with an estimated ejection fraction in the range of 40-45%. There is abnormal (paradoxical) septal motion consistent with postoperative state. Akinetic mid-anterior wall motion. Trace mitral valve regurgitation. There is trace tricuspid valve regurgitation. Echolucency noted anterior to the right ventricle in the parasternal long view, not noted in the sub sternal view. Possible epicardial fat pad, less likely to be a locuated anterior pericardial effusion, as i t appears to be outside the pericardium. BP: / HR: Rhythm: Sinus MEASUREMENTS (Male / Female) Normal Values Technical Quality:Fair 2D ECHO LV Diastolic Diameter PLAX 4.5 cm 4.2 - 5.9 / 3.9 - 5.3 cm LV Systolic Diameter PLAX 3.7 cm IVS Diastolic Thickness 0.9 cm 0.6 - 1.0 / 0.6 - 0.9 cm LVPW Diastolic Thickness 0.9 cm 0.6 - 1.0 / 0.6 - 0.9 cm LV Relative Wall Thickness 0.4 RV Internal Dim ED PLAX 2.4 cm LVOT Diameter 2.6 cm Aortic Root Diameter 3.4 cm LA Systolic Diameter LX 3.6 cm 3.0 - 4.0 / 2.7 - 3.8 cm M-MODE AV Cusp Separation MM 1.9 cm DOPPLER LV E' Septal Velocity 4.2 cm/s TR Peak Velocity 251.0 cm/s TR Peak Gradient 25.2 mmHg Right Atrial Pressure 10.0 mmHg Pulmonary Artery Systolic Pressu 35.2 mmHg Right Ventricular Systolic Press 35.2 mmHg PV Peak Velocity 49.6 cm/s PV Peak Gradient 1.0 mmHg FINDINGS LEFT VENTRICLE Normal left ventricular size. There is abnormal (paradoxical) septal motion consistent with postoperative state. The left ventricular systolic function is moderately reduced with an estimated ejection fraction in the range of 40-45%. Akinetic mid-anterior wall motion. RIGHT VENTRICLE Grossly normal LEFT ATRIUM The left atrial size is normal. RIGHT ATRIUM The right atrium is not well visualized. ATRIAL SEPTUM Normal atrial septal thickness. AORTA The aortic root and proximal ascending aorta are not well visualized. MITRAL VALVE Grossly normal Trace mitral valve regurgitation. No mitral valve stenosis. AORTIC VALVE Aortic valve sclerosis is present. No aortic valve regurgitation. No aortic valve stenosis. TRICUSPID VALVE Grossly normal There is trace tricuspid valve regurgitation. The estimated pulmonary arterial pressure is 35.2 mmHg. PULMONARY VALVE No pulmonary valve regurgitation or stenosis. VESSELS The inferior vena cava is normal in size. PERICARDIUM Echolucency noted anterior to the right ventricle in the parasternal long view, not noted in the sub sternal view. Possible epicardial fat pad, less likely to be a locuated anterior pericardial effusion, as i t appears to be outside the pericardium. Loco Davis DO (Electronically Signed) Final Date:26 September 2017 13:04
[2017-09-26] MEDS ORDERED: TYLE325T PO (15:09)
[2017-09-26] MEDS ORDERED: SPIR25 PO (15:09)
[2017-09-26] MEDS ORDERED: DOCU1CAP39 PO (15:09)
[2017-09-26] MEDS ORDERED: LIPI10TA PO (15:09)
[2017-09-26] MEDS ORDERED: ASPI81 PO (15:09)
[2017-09-26] MEDS ORDERED: CARV3.125 PO (15:09)
--- NOTE | 2017-09-26 15:16 | HHI.DS ---
Discharge Summary Admission Date September 16, 2017 at 09:32 Discharge Date: Sep 26, 2017 Admitting Diagnosis pleural effusions, neck pain (1) CHF exacerbation Diagnosis: Principal ICD Codes: I50.9 - Heart failure, unspecified Status: Acute (2) Neck pain Diagnosis: Principal ICD Codes: M54.2 - Cervicalgia Status: Acute (3) Pleural effusion Diagnosis: Principal ICD Codes: J90 - Pleural effusion, not elsewhere classified Status: Acute (4) CHF (congestive heart failure) ICD Codes: I50.9 - Heart failure, unspecified (5) CAD (coronary artery disease) Diagnosis: Principal ICD Codes: I25.10 - Atherosclerotic heart disease of [place] coronary artery without angina pectoris Status: Chronic (6) S/P CABG (coronary artery bypass graft) Diagnosis: Secondary ICD Codes: Z95.1 - Presence of aortocoronary bypass graft (7) History of chronic atrial fibrillation Diagnosis: Principal ICD Codes: Z86.79 - Personal history of other diseases of the circulatory system (8) DM (diabetes mellitus) Diagnosis: Principal ICD Codes: E11.9 - Type 2 diabetes mellitus without complications Procedures 09/20 Off pump CABG x 1 CONNELL to LAD - good Lysis of adhesions Brief History 77-year-old male, patient of Dr. Cheikh Funes and Dr. Jacob Le, with history of coronary artery disease, prior stenting x4. He had 3 stents placed last year by Dr. Le. Also, history of trifascicular block, atrial fibrillation, recent new onset of CHF, started on Entresto by primary care physician. He had been recently discharged in July for sepsis, pneumonia, also with weight loss of 30 pounds over the last 2 years. On admission, he complained of fatigue, loss of appetite. He was also having pain on both sides of his neck, described as pressure-like. He underwent cardiac catheterization for unstable angina, CHF, CAD. EF was 50%. Proximal LAD had a 90% ostial lesion, diagonal 100%. The RCA was 50%. We were consulted to evaluate for coronary artery bypass graft x2 to the LAD and the diagonal. PAST MEDICAL HISTORY: prior [place] in 2002. He had a stent back then and he also had 3 stents last year. Autoimmune disorder, was on Imuran in the past and prednisone in the past. Atrial fibrillation, on Eliquis. history of a pulmonary emboli in March 2017, at that time was on Coumadin. Prostate cancer, hyperlipidemia, diabetes, history of radiation therapy, right knee arthroscopic surgery and cardiac catheterization. [facility] CBC/BMP: 09/25/17 0459 09/26/17 0255 Significant Findings Laboratory Tests Test 09/24/17 02:50 09/25/17 04:50 09/25/17 04:59 09/26/17 02:55 Blood Urea Nitrogen 24 MG/DL (7-18) 27 MG/DL (7-18) 24 MG/DL (7-18) Random Glucose 112 MG/DL (74-106) 113 MG/DL (74-106) Carbon Dioxide Level 32.2 MEQ/L (21.0-32.0) 35.1 MEQ/L (21.0-32.0) 33.1 MEQ/L (21.0-32.0) B-Type Natriuretic Peptide 693 PG/ML (0-100) 472 PG/ML (0-100) 682 PG/ML (0-100) Red Blood Count 2.83 MIL/MM3 (4.50-5.90) Hemoglobin 9.6 GM/DL (13.0-17.0) Hematocrit 28.8 % (39.0-51.0) Mean Corpuscular Volume 101.6 FL (80.0-100.0) Red Cell Distribution Width 18.0 % (11.6-17.2) Platelet Count 114 TH/MM3 (150-450) Imaging Last Impressions Chest X-Ray 09/24/17 0600 Signed Impressions: CONCLUSION: Enlargement of the cardiac silhouette. Increased density at the bases bilaterally representing combination of atelecta sis, consolidation and effusions. These processes are worse on the left. Chest CT 09/19/17 0000 Signed Impressions: CONCLUSION: 1. Calcification of the aortic annulus. The tubular portion of the ascending a beau is relatively disease free. There is dense calcification within the arch. 2. Small bilateral pleural effusions and areas of consolidative change within the lung bases. Lower Extremity Ultrasound 09/15/17 0000 Signed Impressions: CONCLUSION: 1. Right lower extremity venous mapping, as above. Carotid Artery Ultrasound 09/15/17 0000 Signed Impressions: CONCLUSION: 1. Right Internal Carotid Artery: Findings indicate 50-69% stenosis. 2. Left Internal Carotid Artery: Findings indicate 50-69% stenosis. PE at Discharge GENERAL: A&O x 3 SKIN: Warm and dry. prevena dressing to chest HEAD: Normocephalic. EYES: No scleral icterus. No injection or drainage. NECK: Supple, trachea midline. No JVD or lymphadenopathy. CARDIOVASCULAR: Regular rate and rhythm without murmurs, gallops, or rubs. RESPIRATORY: Breath sounds equal bilaterally. No accessory muscle use. diminished in bases GASTROINTESTINAL: Abdomen soft, non-tender, nondistended. MUSCULOSKELETAL: No cyanosis, or edema. BACK: Nontender without obvious deformity. No CVA tenderness. Hospital Course Very frail. Clinically stable. OR Monday second case 09/17 Clinically stable OR Tuesday 09/19 pt now to undergo CABG by Dr Terrell second case tomorrow CT chest without contrast pending to eval aorta for calcifications no chest pain last pm STS score 5.9 09/20 no chest pain last night for surgery today CT chest noted surgery: Off pump CABG x 1, CONNELL to LAD - good, Lysis of adhesions extubated after surgery crystalloid 2500cc, 09/21 up in chair , feels fair EKG NSR RBBB IVCD on scheduled diuretics chest tube with small air leak/ CXR no PTX transfer to stepdown 09/22 CXR noted, no PTX has + 1 air leak discussed pt with Dr Le, add low dose BB . hold on restarting Entresto, continue diuretics, BNP elevated eval for rehab at discharge may need condom cath 09/23/17 Lethargic, no complaints 09/24/17 Much more alert today. O and A. Ambulating with assist 09/25 still lethargic, but slightly improved all narcotics dc decrease lasix check limited echo for EF, and r/o effusion Echo: LEFT VENTRICLE Normal left ventricular size. There is abnormal (paradoxical) septal motion consistent with postoperative state. The left ventricular systolic function is moderately reduced with an estimated ejection fraction in the range of 40-45%. Akinetic mid-anterior wall motion. 09/26 pt stable for transfer to rehab, appreciate Cardiology input start Aldactone, on ASA, statin , BB Pt Condition on Discharge: Fair Discharge Disposition: Discharge to SNF Discharge Instructions DIET: Follow Instructions for: Heart Healthy Diet, Diabetic Diet Activities you can perform: Full Weight Bearing, Shower Only-No Bath Activities to avoid: Strenuous Activity, Driving Additional Activity Instructio: no lifting > 8 lbs or gallon of milk Follow up Referrals: Cardiology - 4 Weeks with Jacob Le MD PCP Follow-up - 2 Weeks with Cheikh Funes III, MD Surgical - 2 Weeks with Pamela Duenas Vascular Surgery - 6 Weeks with Bk Garcia MD New Orders: BASIC METABOLIC PROF - 2 Weeks CBC NO DIFF - 2 Weeks X-RAY CHEST PA & LAT - 2 Weeks New Medications: Acetaminophen (Tylenol) 325 Mg Tab 650 MG PO Q6H PRN for PAIN SCALE 3 TO 5, #30 TAB 0 Refills Spironolactone (Aldactone) 25 Mg Tab 25 MG PO BIDPC for CHF, #60 TAB 0 Refills Aspirin (Tgt Aspirin) 81 Mg Chw 81 MG PO DAILY for Blood Clot Prevention, #30 TAB 2 Refills Atorvastatin (Lipitor) 10 Mg Tab 10 MG PO HS for Cholesterol Management, #30 TAB 2 Refills Carvedilol (Coreg) 3.125 Mg Tab 3.125 MG PO Q12HR for Blood Pressure Management, #60 TAB 2 Refills Docusate Sodium (Dok) 100 Mg Cap 100 MG PO DAILY for Constipation, #30 CAP Potassium Chloride Microencaps (Potassium Chloride Microencaps) 20 Meq Tab 20 MEQ PO Q12HR for Electrolyte Replacement, #30 TAB Continued Medications: Apixaban (Eliquis) 5 Mg Tab 5 MG PO BID for Blood Clot Prevention, TAB 0 Refills Ascorbic Acid (Vitamin C) 250 Mg Chew 500 MG CHEW DAILY for Nutritional Supplement, #30 TAB 0 Refills Aspirin (Aspirin) 81 Mg Chew 81 MG CHEW DAILY, TAB 0 Refills Cholecalciferol (Vitamin D3) 5,000 Unit Cap 7000 UNITS PO DAILY for Nutritional Supplement, CAP 0 Refills Cyanocobalamin (Vitamin B-12) 1,000 Mcg Tab 1000 MCG PO DAILY for Nutritional Supplement, #1 BOTTLE 0 Refills Cyclosporine Opth (Restasis Opth) 0.05% Emul 1 DROP EACH EYE BID for Dry Eye, #1 BOX 0 Refills Insulin Aspart Inj (Novolog Inj) 1,000 Unit/10 Ml Vial 0 SQ DIRECTED for Blood Sugar Management, ML 0 Refills Sliding Scale as directed. Lactobacillus Acidophilus (Lactinex) 1 Chew 1 TAB CHEW TID for Nutritional Supplement for 10 Days, #30 TAB 0 Refills Mirtazapine (Mirtazapine) 15 Mg Tab 15 MG PO HS for Depression Control, TAB 0 Refills Multiple Vitamin (Multiple Vitamin) 1 Tab 1 TAB PO DAILY for Nutritional Supplement, TAB 0 Refills Omeprazole Magnesium (Prilosec) 20 Mg Tab 20 MG PO DAILY Polyvinyl Alcohol-Povidone Opth Drops (Refresh Opth Drops) 1.4-0.6% Drops 1-2 DROP EACH EYE PRN PRN for DRY EYE, #1 BOTTLE 0 Refills Pyridoxine HCl (Vitamin B6) (Vitamin B-6) 50 Mg Capsule Discontinued Medications: Metformin (Metformin) 500 Mg Tab 500 MG PO BIDPC for Blood Sugar Management, #60 TAB 0 Refills Pregabalin (Lyrica) 100 Mg Cap 100 MG PO BID, CAP 0 Refills Sacubitril-Valsartan (Entresto) 24-26 Mg Tab 1 TAB PO DAILY for Heart Failure, #30 TAB 0 Refills Pamela Duenas Sep 26, 2017 15:16
--- NOTE | 2017-09-26 15:18 | PD.CARD.PN ---
Subjective Subjective Remarks alert in nad Objective Medications Current Medications Medications (Trade) Dose Ordered Sig/Jasper Route Start Time Stop Time Status Last Admin (Narcan Inj) 0.4 mg UNSCH PRN IV PUSH 09/12/17 13:30 (Lactulose Liq) 30 ml DAILY PRN PO 09/12/17 13:30 09/19/17 08:53 (Glucophage) 500 mg BIDPC PO 09/12/17 18:00 Future Hold 09/13/17 17:20 (Remeron) 15 mg HS PO 09/12/17 21:00 09/25/17 22:04 (Refresh Classic 1.4-0.6% Pf Opth Soln) 2 drop 5 TIMES A DAY PRN EACH EYE 09/12/17 17:30 Patient Own Medication PT OWN MED:RESTASIS OPHTH DROPS BID EACH EYE 09/12/17 21:00 Future Hold (Protonix) 20 mg DAILY PO 09/13/17 09:00 09/26/17 09:15 (Pill Splitter) 1 ea UNSCH PRN OTHER 09/15/17 14:30 (NS Flush) 2 ml BID IV FLUSH 09/20/17 21:00 09/26/17 09:14 (NS Flush) 2 ml UNSCH PRN IV FLUSH 09/20/17 16:45 (Aspirin Chew) 81 mg DAILY PO 09/21/17 09:00 09/26/17 09:14 (Tylenol) 650 mg Q4H PRN PO 09/20/17 16:45 09/26/17 00:48 (Zofran Inj) 4 mg Q6H PRN IV PUSH 09/20/17 16:45 (Colace) 100 mg BID PO 09/21/17 21:00 09/26/17 09:14 (Theragran M Tab) 1 tab DAILY PO 09/22/17 09:00 09/26/17 09:14 (Milk Of Magnesia Liq) 30 ml DAILY PO 09/22/17 09:00 09/26/17 09:13 (Miralax) 17 gm DAILY PO 09/22/17 09:00 09/26/17 09:12 (Senokot) 8.6 mg HS PO 09/21/17 21:00 09/22/17 20:57 (Fleets Enema (Adult)) 118 ml UNSCH PRN RECTAL 09/23/17 06:00 (D50w (Vial) Inj) 50 ml UNSCH PRN IV PUSH 09/21/17 09:45 (Glucagon Inj) 1 mg UNSCH PRN OTHER 09/21/17 09:45 (NovoLOG SUPPLEMENTAL SCALE) 1 ACHS SLIDING SCALE SQ 09/22/17 08:00 09/26/17 12:49 (Mag-Ox) 400 mg Q12HR PO 09/22/17 21:00 09/26/17 09:15 (Coreg) 3.125 mg Q12HR PO 09/22/17 09:45 09/26/17 09:15 (Lipitor) 10 mg HS PO 09/22/17 21:00 09/25/17 22:05 (Lasix Inj) 40 mg DAILY IV PUSH 09/26/17 09:00 09/26/17 09:13 (KCl) 30 meq DAILY PO 09/26/17 09:00 09/26/17 09:15 (Eliquis) 5 mg BID PO 09/25/17 21:00 09/26/17 09:15 Vital Signs / I&O Vital Signs Date Time Temp Pulse Resp B/P (MAP) Pulse Ox O2 Delivery O2 Flow Rate FiO2 09/26/17 14:00 71 09/26/17 13:00 68 09/26/17 12:00 64 09/26/17 11:00 97.9 70 19 130/62 (84) 100 09/26/17 11:00 79 09/26/17 11:00 100 Nasal Cannula 2.00 09/26/17 10:00 71 09/26/17 09:00 82 09/26/17 08:00 70 09/26/17 07:15 98.1 70 19 162/72 (102) 92 09/26/17 07:15 92 Nasal Cannula 2.00 09/26/17 07:00 67 09/26/17 05:07 97 Nasal Cannula 1.00 09/26/17 05:00 74 09/26/17 04:00 98.8 76 16 149/66 (93) 97 09/26/17 04:00 72 09/26/17 03:00 80 09/26/17 02:00 74 09/26/17 01:00 86 09/26/17 00:00 98.8 89 16 151/71 (97) 93 09/26/17 00:00 92 09/25/17 23:54 94 Nasal Cannula 1.00 09/25/17 23:00 88 09/25/17 22:00 90 09/25/17 21:00 88 09/25/17 20:24 96 Nasal Cannula 1.50 09/25/17 20:00 96 Nasal Cannula 1.00 09/25/17 20:00 99.0 89 18 144/70 (94) 92 09/25/17 20:00 88 09/25/17 19:00 82 09/25/17 18:01 84 09/25/17 17:00 82 09/25/17 16:00 78 I/O 09/25/17 09/25/17 09/25/17 09/26/17 09/26/17 09/26/17 07:00 15:00 23:00 07:00 15:00 23:00 Intake Total 280 ml 480 ml 420 ml Output Total 975 ml Balance -695 ml 480 ml 420 ml Intake Oral 280 ml 480 ml 420 ml Output Urine Total 975 ml # Voids 4 4 # Bowel Movements 0 1 0 Physical Exam GENERAL: SKIN: Warm and dry. HEAD: Normocephalic. EYES: No scleral icterus. No injection or drainage. NECK: Supple, trachea midline. No JVD or lymphadenopathy. CARDIOVASCULAR: Regular rate and rhythm without murmurs, gallops, or rubs. RESPIRATORY: Breath sounds equal bilaterally. No accessory muscle use. GASTROINTESTINAL: Abdomen soft, non-tender, nondistended. MUSCULOSKELETAL: No cyanosis, or edema. BACK: Nontender without obvious deformity. No CVA tenderness. Laboratory Laboratory Tests Test 09/26/17 02:55 Blood Urea Nitrogen 24 MG/DL Creatinine 0.70 MG/DL Random Glucose 113 MG/DL Calcium Level 9.0 MG/DL Magnesium Level 2.0 MG/DL Sodium Level 140 MEQ/L Potassium Level 4.1 MEQ/L Chloride Level 102 MEQ/L Carbon Dioxide Level 33.1 MEQ/L Anion Gap 5 MEQ/L Estimat Glomerular Filtration Rate 109 ML/MIN B-Type Natriuretic Peptide 682 PG/ML Assessment and Plan Problem List: (1) S/P CABG (coronary artery bypass graft) ICD Codes: Z95.1 - Presence of aortocoronary bypass graft (2) CHF (congestive heart failure) ICD Codes: I50.9 - Heart failure, unspecified (3) CHF exacerbation ICD Codes: I50.9 - Heart failure, unspecified Status: Acute (4) HTN (hypertension) ICD Codes: I10 - Essential (primary) hypertension Status: Chronic (5) CAD (coronary artery disease) ICD Codes: I25.10 - Atherosclerotic heart disease of [place] coronary artery without angina pectoris Status: Chronic (6) Diabetes mellitus ICD Codes: E11.9 - Type 2 diabetes mellitus without complications Status: Chronic (7) Pleural effusion ICD Codes: J90 - Pleural effusion, not elsewhere classified Status: Acute (8) History of chronic atrial fibrillation ICD Codes: Z86.79 - Personal history of other diseases of the circulatory system Assessment and Plan 1.) severe 3 vessel cad - pod #6 off pump garza to lad by Dr Terrell, bnp not decreasing without diuretics, ef=40-45%, add aldactone 25 mg po bid continue coreg, mag ox and lipitor, f/u daily bnp,bmp,cbc,mag 2.) patient advised to f/u with me in office ruth Problem Qualifiers (1) CHF exacerbation: Qualified Codes: I50.9 - Heart failure, unspecified Jacob Le MD Sep 26, 2017 15:18
== END 2017-09-26 16:15 | DRG 233 ==
LOC: NEPC 10:27 → NEDA 13:58 → NEPHCDU 15:40 → HCIS 09-14 13:49 → N05B 09-14 14:01 → N07B 09-14 16:08 → N06A 09-14 21:47 → HCIS 09-15 11:33 → OBSVTOIN 09-15 11:47 → INTOOBSV 09-15 11:47 → HCIS 09-15 13:03 → OBSVTOIN 09-16 09:32 → HCPC 09-19 14:15 → HCVI 09-20 17:22 → HCPC 09-21 15:30
PROVIDERS: ADMIT Hospitalist; ATTEND Thoracic Surgery (Cardiothoracic Vascular Surgery)
PROC: 4A023N8 Measurement of Cardiac Sampling and Pressure, Bilateral, Percutaneous Approach (ICD-10-PCS; 2017-09-15)
PROC: B2151ZZ Fluoroscopy of Left Heart using Low Osmolar Contrast (ICD-10-PCS; 2017-09-15)
PROC: B2111ZZ Fluoroscopy of Multiple Coronary Arteries using Low Osmolar Contrast (ICD-10-PCS; principal; 2017-09-15 11:00)
PROC: 02NN0ZZ Release Pericardium, Open Approach (ICD-10-PCS; 2017-09-20)
PROC: 30233N1 Transfusion of Nonautologous Red Blood Cells into Peripheral Vein, Percutaneous Approach (ICD-10-PCS; 2017-09-20)
PROC: 02100Z9 Bypass Coronary Artery, One Artery from Left Internal Mammary, Open Approach (ICD-10-PCS; 2017-09-20 14:02)
DX: I25.110 Atherosclerotic heart disease of native coronary artery with unstable angina pectoris (principal); I50.23 Acute on chronic systolic (congestive) heart failure; I95.9 Hypotension, unspecified; I31.0 Chronic adhesive pericarditis; I48.2 Chronic atrial fibrillation; I11.0 Hypertensive heart disease with heart failure; R00.1 Bradycardia, unspecified; J93.82 Other air leak; E11.9 Type 2 diabetes mellitus without complications; D72.819 Decreased white blood cell count, unspecified; T82.855A Stenosis of coronary artery stent, initial encounter; E78.5 Hyperlipidemia, unspecified; I44.4 Left anterior fascicular block; I45.10 Unspecified right bundle-branch block; R31.29 Other microscopic hematuria; M54.2 Cervicalgia; R53.1 Weakness; Y84.8 Other medical procedures as the cause of abnormal reaction of the patient, or of later complication, without mention of misadventure at the time of the procedure; M19.90 Unspecified osteoarthritis, unspecified site; K21.9 Gastro-esophageal reflux disease without esophagitis; R63.4 Abnormal weight loss; H91.93 Unspecified hearing loss, bilateral; Z79.01 Long term (current) use of anticoagulants; Z85.46 Personal history of malignant neoplasm of prostate; Z92.3 Personal history of irradiation; I25.2 Old myocardial infarction; Z79.4 Long term (current) use of insulin; Z79.82 Long term (current) use of aspirin; Z86.711 Personal history of pulmonary embolism
CPT/HCPCS: 36430; 71045; 71250; 76937; 80048; 80053; 80061; 81001; 82550; 82810; 82948; 83036; 83605; 83735; 83880; 84100; 84484; 85007; 85025; 85027; 85384; 85610; 85730; 86850; 86900; 86901; 86920; 87040; 87641; 93005; 93306; 93308; 93452; 93880; 93970; 93998; 94002; 94010; 94150; 94640; 94664; 94667; 94668; 99152; 99153; C1769; C1893; G8987-GP; G8988-GP; J0131; J0360; J0690; J1644; J1650; J1815; J1817; J1940; J2250; J2370; J2440; J2720; J2930; J3010; J3370; J3475; J3480; J7030; J7040; J7050; P9016; P9045; Q9967